=== PATIENT | female | born 1960 | race Caucasian/White ===

== ENCOUNTER 2016-02-27 14:36 | Observation (INO) | payer OTHER ==
[~2016-02-27] VITALS: Ht 165.1 cm; Wt 89.4 kg
[~2016-02-27 14:36] MED LIST: ABL10 PO; ALBUAER2 INH; ASPI81TA28 PO; CYCL10TA6 PO; DSY/150 PO; DTR5 PO; ESOM1CAP34 PO; GABA-112 PO; HYDR-3124 PO; LISI-461 PO; LPR25 PO; NXM/40 PO; OXYC-609 PO; TIOT1SPR INH; VALA1TAB31 PO; VENL150C PO
[2016-02-27] MEDS ORDERED: ARIP1TAB15 PO (15:11)
[2016-02-27] MEDS ORDERED: SUVO1TAB PO (15:11)
[2016-02-27] MEDS ORDERED: ONDANSETRON INJ 2 MG/ML 2 ML VIAL IV STA (15:12)
[2016-02-27] MEDS ORDERED: SODIUM CHLORIDE 0.9% 1000ML 1,000 ML IV STA (15:12)
[2016-02-27] MEDS ORDERED: HYDROmorphone INJ 1 MG/ML SYR IV PRN (15:15)
--- NOTE | 2016-02-27 16:31 | DIAGNOSTIC IMAGING REPORT ---
CHEST ONE VIEW PORTABLE CLINICAL HISTORY: Chest pain. COMPARISON STUDY: Chest CT December 26, 2015. FINDINGS: Lung volumes are normal. No pneumothorax or pleural effusions present. Cardiac size is normal. There is no evidence of pulmonary edema. No consolidation is identified to suggest pneumonia. IMPRESSION: No acute cardiopulmonary findings. Electronically signed by: Raffi Ham M.D. 02/27/2016 4:29 PM Dictated Date/Time: 02/27/2016 4:28 PM
--- NOTE | 2016-02-27 16:31 | DIAGNOSTIC IMAGING REPORT ---
CT SCAN OF THE ABDOMEN AND PELVIS WITHOUT CONTRAST CLINICAL HISTORY: Upper abdominal pain. History of Cindy plication. COMPARISON STUDY: 12/26/2015 TECHNIQUE: CT scan of the abdomen and pelvis was performed from the lung bases to the proximal femurs. Images are reviewed in the axial, sagittal, and coronal planes. IV contrast was not administered for this examination. CT DOSE: 959.49 mGycm FINDINGS: Lower chest: There is pulmonary emphysema. There is a hiatal hernia. There are small collections of contrast at the esophagogastric junction, possibly secondary to previously extravasated barium. Liver: There is a 5 mm hypodensity within the right hepatic lobe unchanged the prior study. Gallbladder: Unremarkable. Spleen: There are scattered splenic granulomata. Pancreas: Unremarkable. Adrenal glands: Unremarkable. Kidneys: The unenhanced kidneys are normal in size without hydronephrosis. There is no contour deforming renal mass lesion. No renal calculi are identified. Bowel: There are no transition zones indicate bowel obstruction. There is no acute diverticulitis. There is no evidence of acute appendicitis. Peritoneum: There is no intraperitoneal free air or abdominal ascites. Vasculature: The abdominal aorta is normal in course and caliber. Adenopathy: None. Pelvic viscera: The uterus appears surgically absent. Skeletal structures: No destructive osseous lesions are seen. IMPRESSION: 1. No evidence of bowel obstruction. No evidence of free air 2. Presumed postsurgical changes the level the esophagogastric junction 3. Stable too small to characterize 5 mm hepatic hypodensity 4. Surgically absent uterus 5. No evidence of acute appendicitis. No evidence of acute diverticulitis. Electronically signed by: Junior Gan M.D. 02/27/2016 4:30 PM Dictated Date/Time: 02/27/2016 4:22 PM
[2016-02-27 16:51] LABS: BASO % 0.6 %; BASO ABS # 0.07 K/uL (0-0.2); COMPLETE YES; EOS % 2.3 %; HEMATOCRIT 37.6 % (37-47); IG% 0.3 %; LYMPH % 30.7 %; LYMPH ABS # 3.54 K/uL (1.2-3.4); MEAN CELL VOLUME 88.5 fL (80-100); MEAN CORPUSCULAR HEMOGLOBIN 29.4 pg (25-34); MEAN CORPUSCULAR HGB CONC 33.2 g/dl (32-36); MEAN PLATELET VOLUME 9.6 fL (7.4-10.4); MONO % 6.8 %; NEUT % 59.3 %; PLATELET COUNT 338 K/uL (130-400); RED BLOOD COUNT 4.25 M/uL (4.2-5.4); WHITE BLOOD COUNT 11.54 K/uL (4.8-10.8)
[2016-02-27 17:20] LABS: ALT/SGPT 18 U/L (12-78); BLOOD UREA NITROGEN 11 mg/dl (7-18); CALCIUM 8.9 mg/dl (8.5-10.1); CARBON DIOXIDE 25 mmol/L (21-32); CHLORIDE 104 mmol/L (98-107); CREATININE 0.64 mg/dl (0.60-1.20); GLUCOSE 71 mg/dl (70-99); POTASSIUM 3.8 mmol/L (3.5-5.1); SODIUM 140 mmol/L (136-145)
[2016-02-27 17:26] LABS: ALKALINE PHOSPHATASE 107 U/L (45-117); AST/SGOT 12 U/L (15-37)
[2016-02-27] MEDS ORDERED: ASPIRIN 81 MG CHEW PO STA (17:42)
[2016-02-27] MEDS ORDERED: ALUMINUM/MAGNESIUM/SIMETH (MAALOX MAX) 30 ML UDC PO PRN (18:45)
[2016-02-27] MEDS ORDERED: ONDANSETRON INJ 2 MG/ML 2 ML VIAL IV PRN (18:45)
[2016-02-27] MEDS ORDERED: MoRPHine SULFATE 2 MG/ML CARP IV PRN (18:45)
[2016-02-27] MEDS ORDERED: CYCLOBENZAPRINE HCL 10 MG TAB PO PRN (19:00)
[2016-02-27] MEDS ORDERED: ALBUTEROL HFA 8 GM INHALER INH PRN (19:00)
[2016-02-27] MEDS ORDERED: hydrOXYzine HCL 25 MG TAB PO PRN (19:00)
[2016-02-27] MEDS: NITROGLYCERIN 0.4 MG SL PER TAB CHARGE SL PRN ×3 (19:53→20:09)
[2016-02-27 19:56] LABS: PROTHROMBIN TIME (PATIENT) 10.7 SECONDS (9.0-12.0)
[2016-02-27 19:57] VITALS: BP 107/70
[2016-02-27 20:00] VITALS: BP 129/78; PULSE 61; TEMP 36.6; O2SAT 94; Ht 165.1 cm; Wt 89.4 kg
[2016-02-27 20:09] VITALS: BP 110/67
[2016-02-27] MEDS ORDERED: IV FLUIDS COMPLETED PRN (20:15)
[2016-02-27] MEDS: NITROGLYCERIN OINT 2% 1GM PACKET EXT SCH (20:32)
[2016-02-27] MEDS: METOPROLOL TARTRATE 25 MG TAB PO SCH (20:33)
[2016-02-27] MEDS: GABAPENTIN 100 MG CAP PO SCH (20:33)
--- NOTE | 2016-02-27 20:36 | History and Physical ---
History & Physical Date & Time of Service: Feb 27, 2016 at 20:23 Chief Complaint: Chest Pain Primary Care Physician: Vivian Mead D.O. History of Present Illness Source: patient, family, clinic records, hospital records Patient seen and examined. 55 year old female with PMHx of HTN, tobacco abuse, COPD and other problems listed below presents to the ED complaining of chest pain prior to arrival. Patient states she was sitting at home when she developed a substernal chest pressure that she rates as a 8/10. She states it would radiate into the back. She reports some mild associated SOB as well as nausea and epigastric discomfort. She states the pain lasted for several hours and this prompted her to present to the ED. She reports she is currently pain free following Dilaudid. She denies fevers, chills, sweats, URI symptoms, palpitations, vomiting, diarrhea, dysuria, calf pain and edema. She denies person history of CAD, but states her father in his 50s from CAD. She states she has never had symptoms like this in the past. She had a stress test in the past which was negative. In the ED VS are stable, Karis are negative x 1, EKG is nonischemic. She received ASA. She will be observed for further workup and treatment. Past Medical/Surgical History Medical Problems: (1) Anxiety Status: Chronic (2) Depression Status: Chronic (3) Dyslipidemia Status: Chronic (4) Emphysema Status: Chronic (5) GERD (gastroesophageal reflux disease) Status: Chronic (6) Glaucoma Status: Chronic (7) H/o Lyme disease Status: Chronic (8) H/O subacute thyroiditis Status: Chronic (9) HTN (hypertension) Status: Chronic (10) Hx of migraines Status: Chronic (11) Lumbar degenerative disc disease Status: Chronic (12) DAYA (obstructive sleep apnea) Status: Chronic (13) Questonable history of meningitis Status: Chronic Surgical Problems: (1) H/O section Status: Chronic (2) H/O cystoscopy Status: Chronic (3) History of colonoscopy Permanent Comment: 07/11/14- diverticulosis Status: Chronic (4) History of esophagogastroduodenoscopy Permanent Comment: 07/11/14- small hiatal hernia, normal bx Status: Chronic (5) S/p carpal tunnel surgery Status: Chronic (6) S/P partial hysterectomy Status: Chronic (7) S/P sinus surgery Status: Chronic (8) S/P tonsillectomy and adenoidectomy Status: Chronic (9) S/P tubal ligation Status: Chronic (10) Status post Cindy fundoplication Status: Resolved Family History Cancer SISTER (breast CA) BROTHER (pancreatic CA) Diabetes mellitus SISTER (Type 1) FH: Parkinson's disease BROTHER FH: emphysema MOTHER Heart disease FATHER Hypertension MOTHER Seizures DAUGHTER Stroke MOTHER Social History Smoking Status: Current Every Day Smoker Alcohol Use: none Drug Use: none Marital Status: Housing status: lives with family Occupational Status: disabled Immunizations History of Influenza Vaccine: No History of Tetanus Vaccine?: Yes History of Pneumococcal: No History of Hepatitis B Vaccine: Unknown Multi-Drug Resistant Organisms History of MDRO: No Allergies Coded Allergies: Nitrofurantoin (Verified Allergy, Severe, UNABLE TO BEATHE, 12/26/15) Sulfamethoxazole w/Trimethoprim (Verified Allergy, Severe, SHORTNESS OF BREATH, 12/26/15) Home Medications Scheduled Aripiprazole (Abilify), 1 TAB PO QAM Aspirin (Aspirin Ec), 81 MG PO QAM Gabapentin (Neurontin), 200 MG PO TID Metoprolol Tartrate (Lopressor), 25 MG PO BID Oxybutynin Chloride (Oxybutynin Chloride), 5 MG PO QAM Suvorexant (Belsomra), 5 MG PO HS Tiotropium [place] Monohydrate (Spiriva Respimat), 2 PUFFS INH DAILY Trazodone HCl (Trazodone HCl), 150 MG PO HS Venlafaxine Hcl (Effexor Xr), 300 MG PO QAM Scheduled PRN Albuterol (Ventolin Hfa), 2 PUFFS INH QID PRN for SOB/Wheezing Cyclobenzaprine Hcl (Flexeril), 10 MG PO TID PRN for Muscle Spasm Hydroxyzine Hcl (Atarax), 25 MG PO Q8 PRN for Severe Anxiety Valacyclovir Hcl (Valtrex), 2 GM PO Q12 PRN for Cold Sores Review of Systems See above for pertinent positives & negatives. A total of 10 systems reviewed and were otherwise negative. Physical Exam Vital Signs Date Time Temp Pulse Resp B/P Pulse Ox O2 Delivery O2 Flow Rate FiO2 02/27/16 20:00 36.6 61 18 129/78 94 Room Air 02/27/16 18:43 66 18 118/72 97 Room Air 02/27/16 16:40 98 Room Air 02/27/16 16:22 77 18 137/79 96 Room Air 02/27/16 16:06 Room Air 02/27/16 15:23 70 02/27/16 14:42 36.6 74 18 130/76 94 General Appearance: + pertinent finding (WD/WN 55 year old female lying in bed in NAD with at bedside ) Head: normocephalic, atraumatic Eyes: PERRL, EOMI, sclerae normal ENT: hearing grossly normal, pharynx normal Neck: supple, no JVD, trachea midline Respiratory/Chest: chest non-tender, lungs clear, normal breath sounds, no respiratory distress, no accessory muscle use Cardiovascular: regular rate, rhythm, no edema, no gallop, no JVD, no murmur, normal peripheral pulses Abdomen/GI: normal bowel sounds, non tender, soft Back: normal inspection, no muscle spasm Extremities/Musculoskelatal: no calf tenderness, normal capillary refill, no pedal edema Neurologic/Psych: alert, oriented x 3, + pertinent finding (no motor or sensory deficits noted on gross exam ) Skin: normal color, warm/dry, no rash Lymphatic: no adenopathy Diagnostics Laboratory Results Results Past 24 Hours Test 02/27/16 16:36 Range/Units White Blood Count 11.54 4.8-10.8 K/uL Red Blood Count 4.25 4.2-5.4 M/uL Hemoglobin 12.5 12.0-16.0 g/dL Hematocrit 37.6 37-47 % Mean Corpuscular Volume 88.5 80-100 fL Mean Corpuscular Hemoglobin 29.4 25-34 pg Mean Corpuscular Hemoglobin Concent 33.2 32-36 g/dl Platelet Count 338 130-400 K/uL Mean Platelet Volume 9.6 7.4-10.4 fL Neutrophils (%) (Auto) 59.3 % Lymphocytes (%) (Auto) 30.7 % Monocytes (%) (Auto) 6.8 % Eosinophils (%) (Auto) 2.3 % Basophils (%) (Auto) 0.6 % Neutrophils # (Auto) 6.86 1.4-6.5 K/uL Lymphocytes # (Auto) 3.54 1.2-3.4 K/uL Monocytes # (Auto) 0.78 0.11-0.59 K/uL Eosinophils # (Auto) 0.26 0-0.5 K/uL Basophils # (Auto) 0.07 0-0.2 K/uL RDW Standard Deviation 52.4 36.4-46.3 fL RDW Coefficient of Variation 16.1 11.5-14.5 % Immature Granulocyte % (Auto) 0.3 % Immature Granulocyte # (Auto) 0.03 0.00-0.02 K/uL Prothrombin Time 10.7 9.0-12.0 SECONDS Prothromb Time International Ratio 1.0 0.9-1.1 Activated Partial Thromboplast Time 27.0 21.0-31.0 SECONDS Partial Thromboplastin Ratio 1.0 Sodium Level 140 136-145 mmol/L Potassium Level 3.8 3.5-5.1 mmol/L Chloride Level 104 98-107 mmol/L Carbon Dioxide Level 25 21-32 mmol/L Anion Gap 11.0 3-11 mmol/L Blood Urea Nitrogen 11 7-18 mg/dl Creatinine 0.64 0.60-1.20 mg/dl Est Creatinine Clear Calc Drug Dose 109.1 ml/min Estimated GFR () 117.3 Estimated GFR (Non- 101.2 BUN/Creatinine Ratio 17.0 10-20 Random Glucose 71 70-99 mg/dl Calcium Level 8.9 8.5-10.1 mg/dl Total Bilirubin 0.1 0.2-1 mg/dl Direct Bilirubin < 0.1 0-0.2 mg/dl Aspartate Amino Transf (AST/SGOT) 12 15-37 U/L Alanine Aminotransferase (ALT/SGPT) 18 12-78 U/L Alkaline Phosphatase 107 45-117 U/L Total Creatine Kinase 44 26-192 U/L Creatine Kinase MB < 0.5 0.5-3.6 ng/ml Creatine Kinase MB Ratio 0-3.0 Troponin I < 0.015 0-0.045 ng/ml Total Protein 7.1 6.4-8.2 gm/dl Albumin 3.4 3.4-5.0 gm/dl Lipase 96 73-393 U/L Diagnostic Radiology CT A/P Per radiologist read: IMPRESSION: 1. No evidence of bowel obstruction. No evidence of free air 2. Presumed postsurgical changes the level the esophagogastric junction 3. Stable too small to characterize 5 mm hepatic hypodensity 4. Surgically absent uterus 5. No evidence of acute appendicitis. No evidence of acute diverticulitis. CXR Per radiologist read: IMPRESSION: No acute cardiopulmonary findings. EKG NSR 74 BPM, QTc 426 Impression Assessment and Plan 55 year old female presents with chest pressure prior to arrival. CHEST PAIN R/O ACS -Observation in tele -First set of CE negative in ED -Had negative stress test in June 2015 -Risk factors: tobacco abuse, HTN, family history -Serial Karis and EKGs -Fasting lipid panel in AM -Echo pending to r/o heart wall abnormality -continue Nitro, BB -nitropaste ordered -Nitro, morphine prn chest pain -Cardiology consult for further management input appreciated - Patient request [facility] cardiology -AHA diet -CBC, PRP, Mg daily -VSS stable, monitor in tele HTN -stable -continue Lopressor COPD -stable -continue home inhalers TOBACCO ABUSE -Cessation counseling given -Nicotine patch ordered DEPRESSION -continue Abilify, trazodone, hydroxyzine DVT PROPHYLAXIS: Sq lovenox CODE STATUS: FULL CODE DISPO:observation pending further workup Patient seen in collaboration with Dr. Combs ATTENDING ADDENDUM Pt was seen and examined. Agree with Ros's PA exam, assessment and plan. Pt was brought to the ED with c/o of non exertional chest pain that radiated to her back. describes the pain as a pressure like. Chest pain associated with SOB and nausea. General- no acute distress Head- atraumatic Eyes- PERRL, EOMI ENT- oropharynx clear Neck- supple, no JVD Lungs- clear to auscultation and percussion Heart- regular rhythm Abdomen- normal bowel sounds, soft, nontender A/P CHEST PAIN Need to R/O ACS Had negative stress test in June 2015 Risk factors: tobacco abuse, HTN, family history 1s set CM negative, will follow 2 more sets EKG did not showed any significant ST changes will get an echo in am repeat EKG in am cardiology consult Lab, EKG, Xray reviewed Please refer to Ros's PA documentation for other problem Imani Combs MD Advanced Directives Existing Advance Directive: No Existing Living Will: No Existing Power of Tracer Bullet Charging Machine Operator: No VTE Prophylaxis VTE Risk Assessment Done? Y/N: Yes Risk Level: Moderate
[2016-02-27] MEDS ORDERED: ENOXAPARIN 40 MG/0.4 ML SYR SC SCH (21:00)
[2016-02-27] MEDS ORDERED: TRAZODONE HCL 50 MG TAB PO SCH ×2 (21:00)
--- NOTE | 2016-02-27 22:30 | EMERGENCY ROOM VISIT NOTE ---
History Report prepared by Valdo: Yelitza Carmona Under the Supervision of: Dr. Jose Bernal M.D. First contact with patient: 15:02 Chief Complaint: CHEST PAIN Stated Complaint: CHEST PAIN & STOMACH PAIN History of Present Illness The patient is a 55 year old female who presents to the Emergency Room with complaints of persistent chest pain that began this morning. She states that it began while she was sitting around and is currently a 7/10 in severity. It radiates through her back. The patient has had similar chest pain in the past but does not have a history of heart disease. She also complains of nausea and epigastric abdominal pain which she describes as a pressure. She has noticed herself wheezing recently. She had a fundoplication surgery this past December and has had some gas pain since then. Her current abdominal pain does feel similar to the pain she has been having since her surgery. Past medical history includes high cholesterol. She is not on medications for her high cholesterol. She is a smoker. No personal history of diabetes. There is a family history of heart disease. Pt denies LOC, headache, fevers, chills, diaphoresis, visual changes, neck pain, vomiting, melena, hematochezia, urinary symptoms, numbness, weakness, lymphadenopathy, rash, or other complaints. Source of History: patient Onset: this morning Position: chest Symptom Intensity: 7/10 Timing: other (persistent) Associated Symptoms: + abdominal pain, + nausea Note: Other symptoms: wheezing Review of Systems See HPI for pertinent positives and negatives. A total of ten systems were reviewed and were otherwise negative. Past Medical & Surgical Medical Problems: (1) Anxiety (2) Chest pain (3) Depression (4) Dyslipidemia (5) Emphysema (6) GERD (gastroesophageal reflux disease) (7) Glaucoma (8) H/o Lyme disease (9) H/O subacute thyroiditis (10) HTN (hypertension) (11) Hx of migraines (12) Lumbar degenerative disc disease (13) DAYA (obstructive sleep apnea) (14) Questonable history of meningitis Surgical Problems: (1) H/O section (2) H/O cystoscopy (3) History of colonoscopy (4) History of esophagogastroduodenoscopy (5) S/p carpal tunnel surgery (6) S/P partial hysterectomy (7) S/P sinus surgery (8) S/P tonsillectomy and adenoidectomy (9) S/P tubal ligation (10) Status post Cindy fundoplication Family History Cancer SISTER (breast CA) BROTHER (pancreatic CA) Diabetes mellitus SISTER (Type 1) FH: Parkinson's disease BROTHER FH: emphysema MOTHER Heart disease FATHER Hypertension MOTHER Seizures DAUGHTER Stroke MOTHER Social History Smoking Status: Current Every Day Smoker Alcohol Use: none Drug Use: none Marital Status: Housing Status: lives with family Occupation Status: disabled Current/Historical Medications Scheduled Aripiprazole (Abilify), 1 TAB PO QAM Aspirin (Aspirin Ec), 81 MG PO QAM Gabapentin (Neurontin), 200 MG PO TID Metoprolol Tartrate (Lopressor), 25 MG PO BID Oxybutynin Chloride (Oxybutynin Chloride), 5 MG PO QAM Suvorexant (Belsomra), 5 MG PO HS Tiotropium Rake Monohydrate (Spiriva Respimat), 2 PUFFS INH DAILY Trazodone HCl (Trazodone HCl), 150 MG PO HS Venlafaxine Hcl (Effexor Xr), 300 MG PO QAM Scheduled PRN Albuterol (Ventolin Hfa), 2 PUFFS INH QID PRN for SOB/Wheezing Cyclobenzaprine Hcl (Flexeril), 10 MG PO TID PRN for Muscle Spasm Hydroxyzine Hcl (Atarax), 25 MG PO Q8 PRN for Severe Anxiety Valacyclovir Hcl (Valtrex), 2 GM PO Q12 PRN for Cold Sores Allergies Coded Allergies: Nitrofurantoin (Verified Allergy, Severe, UNABLE TO BEATHE, 12/26/15) Sulfamethoxazole w/Trimethoprim (Verified Allergy, Severe, SHORTNESS OF BREATH, 12/26/15) Physical Exam Vital Signs Date Time Temp Pulse Resp B/P Pulse Ox O2 Delivery O2 Flow Rate FiO2 02/27/16 18:43 66 18 118/72 97 Room Air 02/27/16 16:40 98 Room Air 02/27/16 16:22 77 18 137/79 96 Room Air 02/27/16 16:06 Room Air 02/27/16 15:23 70 02/27/16 14:42 36.6 74 18 130/76 94 Physical Exam GENERAL: Awake, alert, uncomfortable-appearing, in no distress HENT: Normocephalic, atraumatic. Oropharynx unremarkable. EYES: Normal conjunctiva. Sclera non-icteric. NECK: Supple. No nuchal rigidity. FROM. No JVD. RESPIRATORY: Slight scattered wheezes to auscultation. CARDIAC: Regular rate, normal rhythm. Extremities warm and well perfused. Pulses equal. ABDOMEN: Soft, non-distended. Epigastric tenderness to palpation. No rebound or guarding. No masses. RECTAL: Deferred. MUSCULOSKELETAL: Chest examination reveals no tenderness. The back is symmetrical on inspection without obvious abnormality. There is no CVA tenderness to palpation. No joint edema. LOWER EXTREMITIES: Calves are equal size bilaterally and non-tender. No edema. No discoloration. NEURO: Normal sensorium. No sensory or motor deficits noted. SKIN: No rash or jaundice noted. Medical Decision & Procedures ER Provider Diagnostic Interpretation: X ray results as stated below per my interpretation and radiologist interpretation. Other radiology results as stated below per my review and radiologist interpretation CHEST ONE VIEW PORTABLE CLINICAL HISTORY: Chest pain. COMPARISON STUDY: Chest CT December 26, 2015. FINDINGS: Lung volumes are normal. No pneumothorax or pleural effusions present. Cardiac size is normal. There is no evidence of pulmonary edema. No consolidation is identified to suggest pneumonia. IMPRESSION: No acute cardiopulmonary findings. Electronically signed by: Raffi Ham M.D. 02/27/2016 4:29 PM Dictated Date/Time: 02/27/2016 4:[address] SCAN OF THE ABDOMEN AND PELVIS WITHOUT CONTRAST CLINICAL HISTORY: Upper abdominal pain. History of Cindy plication. COMPARISON STUDY: 12/26/2015 TECHNIQUE: CT scan of the abdomen and pelvis was performed from the lung bases to the proximal femurs. Images are reviewed in the axial, sagittal, and coronal planes. IV contrast was not administered for this examination. CT DOSE: 959.49 mGycm FINDINGS: Lower chest: There is pulmonary emphysema. There is a hiatal hernia. There are small collections of contrast at the esophagogastric junction, possibly secondary to previously extravasated barium. Liver: There is a 5 mm hypodensity within the right hepatic lobe unchanged the prior study. Gallbladder: Unremarkable. Spleen: There are scattered splenic granulomata. Pancreas: Unremarkable. Adrenal glands: Unremarkable. Kidneys: The unenhanced kidneys are normal in size without hydronephrosis. There is no contour deforming renal mass lesion. No renal calculi are identified. Bowel: There are no transition zones indicate bowel obstruction. There is no acute diverticulitis. There is no evidence of acute appendicitis. Peritoneum: There is no intraperitoneal free air or abdominal ascites. Vasculature: The abdominal aorta is normal in course and caliber. Adenopathy: None. Pelvic viscera: The uterus appears surgically absent. Skeletal structures: No destructive osseous lesions are seen. IMPRESSION: 1. No evidence of bowel obstruction. No evidence of free air 2. Presumed postsurgical changes the level the esophagogastric junction 3. Stable too small to characterize 5 mm hepatic hypodensity 4. Surgically absent uterus 5. No evidence of acute appendicitis. No evidence of acute diverticulitis. Electronically signed by: Junior Gan M.D. 02/27/2016 4:30 PM Dictated Date/Time: 02/27/2016 4:22 PM Laboratory Results 02/27/16 16:36 Red Blood Count 4.25, Mean Corpuscular Volume 88.5, Mean Corpuscular Hemoglobin 29.4, Mean Corpuscular Hemoglobin Concent 33.2, Mean Platelet Volume 9.6, Neutrophils (%) (Auto) 59.3, Lymphocytes (%) (Auto) 30.7, Monocytes (%) (Auto) 6.8, Eosinophils (%) (Auto) 2.3, Basophils (%) (Auto) 0.6, Neutrophils # (Auto) 6.86, Lymphocytes # (Auto) 3.54, Monocytes # (Auto) 0.78, Eosinophils # (Auto) 0.26, Basophils # (Auto) 0.07 02/27/16 16:36 Test 02/27/16 16:36 White Blood Count 11.54 K/uL (4.8-10.8) Red Blood Count 4.25 M/uL (4.2-5.4) Hemoglobin 12.5 g/dL (12.0-16.0) Hematocrit 37.6 % (37-47) Mean Corpuscular Volume 88.5 fL (80-100) Mean Corpuscular Hemoglobin 29.4 pg (25-34) Mean Corpuscular Hemoglobin Concent 33.2 g/dl (32-36) Platelet Count 338 K/uL (130-400) Mean Platelet Volume 9.6 fL (7.4-10.4) Neutrophils (%) (Auto) 59.3 % Lymphocytes (%) (Auto) 30.7 % Monocytes (%) (Auto) 6.8 % Eosinophils (%) (Auto) 2.3 % Basophils (%) (Auto) 0.6 % Neutrophils # (Auto) 6.86 K/uL (1.4-6.5) Lymphocytes # (Auto) 3.54 K/uL (1.2-3.4) Monocytes # (Auto) 0.78 K/uL (0.11-0.59) Eosinophils # (Auto) 0.26 K/uL (0-0.5) Basophils # (Auto) 0.07 K/uL (0-0.2) RDW Standard Deviation 52.4 fL (36.4-46.3) RDW Coefficient of Variation 16.1 % (11.5-14.5) Immature Granulocyte % (Auto) 0.3 % Immature Granulocyte # (Auto) 0.03 K/uL (0.00-0.02) Prothrombin Time 10.7 SECONDS (9.0-12.0) Prothromb Time International Ratio 1.0 (0.9-1.1) Activated Partial Thromboplast Time 27.0 SECONDS (21.0-31.0) Partial Thromboplastin Ratio 1.0 Anion Gap 11.0 mmol/L (3-11) Est Creatinine Clear Calc Drug Dose 109.1 ml/min Estimated GFR () 117.3 Estimated GFR (Non- 101.2 BUN/Creatinine Ratio 17.0 (10-20) Calcium Level 8.9 mg/dl (8.5-10.1) Total Bilirubin 0.1 mg/dl (0.2-1) Direct Bilirubin < 0.1 mg/dl (0-0.2) Aspartate Amino Transf (AST/SGOT) 12 U/L (15-37) Alanine Aminotransferase (ALT/SGPT) 18 U/L (12-78) Alkaline Phosphatase 107 U/L (45-117) Total Creatine Kinase 44 U/L (26-192) Creatine Kinase MB < 0.5 ng/ml (0.5-3.6) Creatine Kinase MB Ratio (0-3.0) Troponin I < 0.015 ng/ml (0-0.045) Total Protein 7.1 gm/dl (6.4-8.2) Albumin 3.4 gm/dl (3.4-5.0) Lipase 96 U/L (73-393) Laboratory results reviewed by me Medications Administered Medications (Trade) Dose Ordered Sig/Ross Route Start Time Stop Time Status Last Admin Dose Admin Sodium Chloride (Nss 1000ml) 1,000 ml @ 125 mls/hr Q8H STAT IV 02/27/16 15:12 02/27/16 19:40 DC 02/27/16 15:12 125 MLS/HR Ondansetron HCl (Zofran Inj) 4 mg NOW STAT IV 02/27/16 15:12 02/27/16 15:16 DC 02/27/16 15:59 4 MG Hydromorphone HCl (Dilaudid Inj) 1 mg Q15M PRN IV 02/27/16 15:15 02/27/16 20:03 DC 02/27/16 15:59 1 MG Aspirin (Aspirin Chew) 324 mg NOW STAT PO 02/27/16 17:42 02/27/16 17:43 DC 02/27/16 17:50 324 MG ECG Indication: chest pain Rate (beats per minute): 74 Rhythm: normal sinus Findings: T-wave inversion (Septal), no ectopy Comparison ECG Date: 11/22/15 Change: T-wave inversions are new compared to previous tracing. ED Course 1507: The patient was evaluated in room B4. A complete history and physical exam was performed. 1512: Ordered Zofran Inj 4 mg IV, NSS 1000 ml @ 125 mls/hr IV, Dilaudid Inj 1 mg IV. 1742: Ordered Aspirin 324 mg PO. 1807: Upon reexamination, the patient was resting comfortably. I discussed the test results and treatment plan with her. The patient will be evaluated for further management. 1815: I discussed the case with Ros Marrufo PA-C - [facility]. The patient will be evaluated for further management. Medical Decision Triage Nursing notes reviewed. The patient's presentation and history were concerning for abdominal and chest pain. Etiologies such as cardiac ischemia, gastrointestinal, aortic dissection, pulmonary embolism, pneumonia, pneumothorax, musculoskeletal, infections, as well as others were entertained. The patient was evaluated. She is uncomfortable. She was given fluid, Zofran, and Dilaudid. She felt much better with this. Her ECG does show a new T-wave inversion. The patient had a slight leukocytosis. She was tender in the upper abdomen. A CT scan was performed. Chemistry panel LFTs and lipase were normal. Cardiac markers were normal. The patient was reassessed. She was doing better. Aspirin was given. I discussed further evaluation and management in the hospital given the ECG and her complaints. The patient and were in agreement. Consultation was placed with the [facility] service. I did discuss the option of ordering right upper quadrant ultrasound and they would like to see the patient first. The patient was evaluated in the Emergency Room for further treatment. The chart was completed utilizing [employer] Speech voice recognition software. Grammatical errors, random word insertions, pronoun errors, and incomplete sentences are an occasional consequence of this system due to software limitations, ambient noise, and hardware issues. Any formal questions or concerns about the content, text, or information contained within the body of this dictation should be directly addressed to the physician for clarification. Consults Time Called: 1809 Consulting Physician: Ros Marrufo PA-C - [facility] Returned Call: [phone] I discussed the case with her. The patient will be evaluated for further management. Impression Primary Impression: Substernal chest pain Additional Impression: Epigastric abdominal pain Scribe Attestation The scribe's documentation has been prepared under my direction and personally reviewed by me in its entirety. I confirm that the note above accurately reflects all work, treatment, procedures, and medical decision making performed by me. Departure Information Dispostion Being Evaluated By Hospitalist Referrals Vivian Mead D.O. (PCP) Patient Instructions A Signature Page, [facility]
[2016-02-27 23:22] LABS: CKMB/CK RATIO 1.6 (0-3.0)
[2016-02-27 23:41] VITALS: BP 103/63; PULSE 56; TEMP 36.4; O2SAT 93
[2016-02-28 00:01] VITALS: O2SAT 93
[2016-02-28 01:53] VITALS: BP 92/58
[2016-02-28] MEDS: NITROGLYCERIN OINT 2% 1GM PACKET EXT SCH ×3 (02:00→12:09)
[2016-02-28] MEDS ORDERED: NURSING VERBAL MED ORDER ONE (02:15)
[2016-02-28 03:32] VITALS: BP 115/74; PULSE 73; TEMP 36.4; O2SAT 93
[2016-02-28 05:08] LABS: HEMATOCRIT 36.4 % (37-47); MEAN CELL VOLUME 89.2 fL (80-100); MEAN CORPUSCULAR HEMOGLOBIN 28.4 pg (25-34); MEAN CORPUSCULAR HGB CONC 31.9 g/dl (32-36); MEAN PLATELET VOLUME 9.6 fL (7.4-10.4); PLATELET COUNT 304 K/uL (130-400); RED BLOOD COUNT 4.08 M/uL (4.2-5.4)
[2016-02-28 05:27] LABS: BLOOD UREA NITROGEN 12 mg/dl (7-18); BUN/CREATININE RATIO 19.2 (10-20); CALCIUM 8.4 mg/dl (8.5-10.1); CARBON DIOXIDE 27 mmol/L (21-32); CHLORIDE 107 mmol/L (98-107); CREATININE 0.63 mg/dl (0.60-1.20); GLUCOSE 80 mg/dl (70-99); MAGNESIUM 2.2 mg/dl (1.8-2.4); SODIUM 141 mmol/L (136-145)
[2016-02-28 05:32] LABS: CHOLESTEROL 188 mg/dl (0-200); HDL CHOLESTEROL 63 mg/dl; LDL CHOLESTEROL CALCULATED 102 mg/dl; TRIGLYCERIDES 114 mg/dl (0-150); VERY LOW DENSITY LIPOPROT CALC 23 mg/dl
[2016-02-28 07:38] VITALS: BP 114/77; PULSE 52; TEMP 36.5; O2SAT 96
[2016-02-28] MEDS ORDERED: TIOTROPIUM BROMIDE 5 PUFF/90 MCG INH INH SCH (09:00)
[2016-02-28] MEDS ORDERED: ASPIRIN 81 MG ECTAB PO SCH (09:00)
[2016-02-28] MEDS ORDERED: OXYBUTYNIN CHLORIDE 5 MG TAB PO SCH (09:00)
[2016-02-28] MEDS ORDERED: VENLAFAXINE HCL XR 150 MG CAPXR PO SCH (09:00)
[2016-02-28] MEDS ORDERED: ARIPIprazole TAB 10 MG TAB PO SCH (09:00)
[2016-02-28] MEDS ORDERED: NICOTINE 14 MG/24 HR TDSY TD SCH (09:00)
[2016-02-28] MEDS: ACETAMINOPHEN 325 MG TAB PO PRN ×2 (09:15→14:32)
[2016-02-28] MEDS: GABAPENTIN 100 MG CAP PO SCH ×2 (09:19→14:32)
[2016-02-28] MEDS: METOPROLOL TARTRATE 25 MG TAB PO SCH (11:03)
[2016-02-28 11:44] VITALS: BP 108/70; PULSE 57; TEMP 36.6; O2SAT 96
--- NOTE | 2016-02-28 11:57 | Progress Note ---
Medicine Progress Note Date & Time of Visit: Feb 28, 2016 at 11:45. Subjective Pt was seen and examined Lying in bed comfortable with no distress Pt said that she feels much better she is very anxious to go home today denies any palpitation, dizziness, SOB and Chest pain Objective Last 8 Hrs Date Time Temp Pulse Resp B/P Pulse Ox O2 Delivery O2 Flow Rate FiO2 02/28/16 07:38 36.5 52 18 114/77 96 Room Air 02/28/16 04:00 Room Air Physical Exam: General- no acute distress Head- atraumatic Eyes- PERRL, EOMI ENT- oropharynx clear Neck- supple, no JVD Lungs- clear to auscultation and percussion Heart- regular rhythm; no murmur Abdomen- normal bowel sounds, soft Extremities- no pretibial edema, no calf tenderness Neuro- alert, oriented x 3; PERRL, EOMI; no facial palsy; Skin- warm & dry Laboratory Results: Last 24 Hours Test 02/27/16 16:36 02/27/16 22:27 02/28/16 04:50 White Blood Count 11.54 K/uL 6.30 K/uL Red Blood Count 4.25 M/uL 4.08 M/uL Hemoglobin 12.5 g/dL 11.6 g/dL Hematocrit 37.6 % 36.4 % Mean Corpuscular Volume 88.5 fL 89.2 fL Mean Corpuscular Hemoglobin 29.4 pg 28.4 pg Mean Corpuscular Hemoglobin Concent 33.2 g/dl 31.9 g/dl Platelet Count 338 K/uL 304 K/uL Mean Platelet Volume 9.6 fL 9.6 fL Neutrophils (%) (Auto) 59.3 % Lymphocytes (%) (Auto) 30.7 % Monocytes (%) (Auto) 6.8 % Eosinophils (%) (Auto) 2.3 % Basophils (%) (Auto) 0.6 % Neutrophils # (Auto) 6.86 K/uL Lymphocytes # (Auto) 3.54 K/uL Monocytes # (Auto) 0.78 K/uL Eosinophils # (Auto) 0.26 K/uL Basophils # (Auto) 0.07 K/uL RDW Standard Deviation 52.4 fL 53.1 fL RDW Coefficient of Variation 16.1 % 16.2 % Immature Granulocyte % (Auto) 0.3 % Immature Granulocyte # (Auto) 0.03 K/uL Prothrombin Time 10.7 SECONDS Prothromb Time International Ratio 1.0 Activated Partial Thromboplast Time 27.0 SECONDS Partial Thromboplastin Ratio 1.0 Sodium Level 140 mmol/L 141 mmol/L Potassium Level 3.8 mmol/L 4.0 mmol/L Chloride Level 104 mmol/L 107 mmol/L Carbon Dioxide Level 25 mmol/L 27 mmol/L Anion Gap 11.0 mmol/L 7.0 mmol/L Blood Urea Nitrogen 11 mg/dl 12 mg/dl Creatinine 0.64 mg/dl 0.63 mg/dl Est Creatinine Clear Calc Drug Dose 109.1 ml/min 113.2 ml/min Estimated GFR () 117.3 117.9 Estimated GFR (Non- 101.2 101.7 BUN/Creatinine Ratio 17.0 19.2 Random Glucose 71 mg/dl 80 mg/dl Calcium Level 8.9 mg/dl 8.4 mg/dl Total Bilirubin 0.1 mg/dl Direct Bilirubin < 0.1 mg/dl Aspartate Amino Transf (AST/SGOT) 12 U/L Alanine Aminotransferase (ALT/SGPT) 18 U/L Alkaline Phosphatase 107 U/L Total Creatine Kinase 44 U/L 38 U/L 36 U/L Creatine Kinase MB < 0.5 ng/ml 0.6 ng/ml < 0.5 ng/ml Creatine Kinase MB Ratio 1.6 Troponin I < 0.015 ng/ml < 0.015 ng/ml < 0.015 ng/ml Total Protein 7.1 gm/dl Albumin 3.4 gm/dl Lipase 96 U/L Magnesium Level 2.2 mg/dl Triglycerides Level 114 mg/dl Cholesterol Level 188 mg/dl HDL Cholesterol 63 mg/dl LDL Cholesterol, Calculated 102 mg/dl VLDL Cholesterol, Calculated 23 mg/dl Cholesterol/HDL Ratio 3.0 Hepatitis C Antibody Screen NEG Assessment & Plan CHEST PAIN Mostly atypical Need to R/O ACS Had negative dobutamine stress test in June 2015 Risk factors: tobacco abuse, HTN, family history 3 sets CM negative repeat EKG this morning did not showed any significant ST changes discussed case with Cardiology Dr. Casillas No further cardiac testing or interventional needed at this time as per cardio Resting echo shown no wall motion abnormality from cardiology standpoint, pt is stable to discharge home today HTN -stable -continue Lopressor COPD -stable -continue home inhalers TOBACCO ABUSE -Cessation counseling given -Nicotine patch ordered DEPRESSION -continue Abilify, trazodone, hydroxyzine DVT PROPHYLAXIS: Sq lovenox CODE STATUS: FULL CODE DISPOSITION WILL DISCHARGE HOME TODAY Consultants: Cardiology Current Inpatient Medications: Current Inpatient Medications Medications (Trade) Dose Ordered Sig/Ross Route Start Time Stop Time Status Last Admin Dose Admin Enoxaparin Sodium (Lovenox Inj) 40 mg Q24H SC 02/27/16 21:00 03/28/16 20:59 02/27/16 21:03 40 MG Acetaminophen (Tylenol Tab) 650 mg Q4H PRN PO 02/27/16 18:45 03/28/16 18:44 02/28/16 09:15 650 MG Al Hydrox/Mg Hydrox/Simethicone (Maalox Max Susp) 15 ml Q4H PRN PO 02/27/16 18:45 03/28/16 18:44 Ondansetron HCl (Zofran Inj) 4 mg Q6H PRN IV 02/27/16 18:45 03/28/16 18:44 Nitroglycerin (Nitrostat Tab) 0.4 mg UD PRN SL 02/27/16 18:45 03/28/16 18:44 02/27/16 20:09 0.4 MG Nitroglycerin (Nitroglycerin 2% Oint) 1 inch Q6H EXT 02/27/16 20:00 03/28/16 18:44 02/28/16 09:20 1 INCH Morphine Sulfate (MoRPHine SULFATE INJ) 2 mg Q2H PRN IV 02/27/16 18:45 03/12/16 18:44 Nicotine (Nicoderm Cq 14MG Patch) 1 patch QAM TD 02/28/16 09:00 03/29/16 08:59 Miscellaneous (Remove Nicoderm Patch) 1 ea HS N/A 02/27/16 21:00 03/28/16 20:59 Albuterol (Ventolin Hfa Inhaler) 2 puffs QID PRN INH 02/27/16 19:00 03/28/16 18:59 Aripiprazole (Abilify Tab) 10 mg QAM PO 02/28/16 09:00 03/29/16 08:59 02/28/16 09:19 10 MG Aspirin (Ecotrin Tab) 81 mg QAM PO 02/28/16 09:00 03/29/16 08:59 02/28/16 09:19 81 MG Cyclobenzaprine HCl (Flexeril Tab) 10 mg TID PRN PO 02/27/16 19:00 03/28/16 18:59 Gabapentin (Neurontin Cap) 200 mg TID PO 02/27/16 21:00 03/28/16 20:59 02/28/16 09:19 200 MG Hydroxyzine HCl (Vistaril Tab) 25 mg Q8 PRN PO 02/27/16 19:00 03/28/16 18:59 Metoprolol Tartrate (Lopressor Tab) 25 mg BID PO 02/27/16 21:00 03/28/16 20:59 02/28/16 11:03 25 MG Oxybutynin Chloride (Ditropan Tab) 5 mg QAM PO 02/28/16 09:00 03/29/16 08:59 02/28/16 09:17 5 MG Venlafaxine HCl (effeXOR EXTENDED REL CAP) 300 mg QAM PO 02/28/16 09:00 03/29/16 08:59 02/28/16 09:17 300 MG Miscellaneous Information (Order Awaiting Action) 1 ea QS N/A 02/28/16 00:00 03/29/16 00:00 Tiotropium Idanha (Spiriva Handihaler Inhaler) 1 puff DAILY INH 02/28/16 09:00 03/29/16 08:59 02/28/16 09:16 1 PUFF Trazodone HCl (Desyrel Tab) 150 mg HS PO 02/27/16 21:00 03/28/16 20:59 02/27/16 20:32 150 MG Miscellaneous (Iv Fluids Completed) 1 ea PRN PRN N/A 02/27/16 20:15 02/26/17 20:14
--- NOTE | 2016-02-28 12:05 | CARDIOLOGY CONSULTATION ---
DATE OF CONSULTATION: 02/28/2016 DATE OF CONSULTATION: 02/28/2016. PERTINENT HISTORY: Mrs. Guido is a 55-year-old white female admitted yesterday with a chest pain syndrome. This consultation was ordered to assist in her management. The patient claims she was in her usual state of health until yesterday afternoon when she developed substernal chest pressure while seated in a chair watching television. There were no other associated symptoms such as shortness of breath, nausea, vomiting, diaphoresis, or radiation of the discomfort. The discomfort did not intensify with physical activity. After approximately 3 hours, she presented to the Emergency Room for further care. According to her report, her discomfort resolved with the administration of Dilaudid. She has had no recurrence of her discomfort since that time. She has never experienced classic exertional angina pectoris. She has never known of a cardiac event. She denies exertional dyspnea, syncope, presyncope, PND, orthopnea, palpitations, lower extremity edema. The patient did have a negative dobutamine stress echocardiogram in July 2015 when it began with an atypical chest pain syndrome. Currently, the patient is resting comfortably in bed without complaints. She is anxious for hospital discharge. PAST MEDICAL HISTORY: 1. Hypertension. 2. Hypercholesterolemia. 3. COPD. 4. GERD. 5. Hiatal hernia. 6. Anxiety/depression. 7. Obstructive sleep apnea. 8. History of thyroiditis. 9. Partial hysterectomy. 10. Tonsillectomy. 11. Cindy fundoplication. 12. Diverticulosis. 13. History of . 14. Migraine headaches. 15. History of Lyme disease. ALLERGIES: 1. NITROFURANTION. 2. BACTRIM. MEDICATIONS: 1. Aspirin 81 mg b.i.d. 2. Lopressor 25 mg b.i.d. 3. Lovenox 40 mg subQ daily. 4. Ditropan 5 mg daily. 5. Effexor XR 300 mg daily. 6. Abilify 10 mg daily. 7. Desyrel 150 mg daily. 8. Neurontin 200 mg t.i.d. 9. Spiriva 1 puff daily. 10. Nicoderm patch daily. SOCIAL HISTORY: The patient is and lives with her . Admits to one-half pack of cigarettes daily. Does not use alcohol. No recreational drugs. FAMILY HISTORY: Father at the age of 58 from an [place]. Mother at 69 from complications of COPD. DATA: CBC notes hemoglobin 11.6, hematocrit 36.4, white count 6.3, platelet count 304,000. Electrolytes note a sodium of 141, potassium 4.0, chloride 107, bicarb 27, BUN 12, creatinine 0.6, glucose 80. Magnesium level is normal at 2.2. Troponin I level is undetectable at less than 0.015 x3. Three CKs are normal at 44, 38 and 36 with undetectable MB fractions. Fasting lipid panel notes an LDL cholesterol of 102 and HDL 63. EKG notes sinus bradycardia with sinus arrhythmia. Chest x-ray shows no acute disease. IMPRESSION: Mrs. Guido was admitted with an atypical chest pain syndrome. She has no ischemic EKG changes and 3 undetectable troponin isoenzymes. This is clearly not myocardial ischemia. No need for further cardiac testing. She does have a negative dobutamine stress test in July. PLAN: 1. Continue usual outpatient medications. 2. Review echocardiogram in its entirety. 3. No further cardiac testing necessary.
--- NOTE | 2016-02-28 14:19 | Discharge Instructions ---
Discharge Instructions Admission Reason for Admission: Chest Pain Discharge Discharge Diagnosis / Problem: Atypical Chest pain, Tobacco abuse, COPD Discharge Goals Goal(s): Decrease discomfort, Improve function, Improve disease control Activity Recommendations Activity Limitations: resume your previous activity (as tolerated) . Instructions / Follow-Up Instructions / Follow-Up Follow up with your primary care physician Dr. Mead on 03/09 at 1:20 pm Advised and Counseling patient on smoking cessation Current Hospital Diet Patient's current hospital diet: AHA Diet (Heart Healthy) Discharge Diet Recommended Diet: AHA Diet (Heart Healthy) Pending Studies Studies pending at discharge: no Laboratory Results Lipid Panel Test 02/28/16 04:50 Range/Units Triglycerides Level 114 0-150 mg/dl Cholesterol Level 188 0-200 mg/dl HDL Cholesterol 63 mg/dl Cholesterol/HDL Ratio 3.0 LDL Cholesterol, Calculated 102 mg/dl Medical Emergencies . Who to Call and When: Medical Emergencies: If at any time you feel your situation is an emergency, please call 911 immediately. . Non-Emergent Contact Non-Emergency issues call your: Primary Care Provider Call Non-Emergent contact if: you have any medication questions . . "Provider Documentation" section prepared by Imani Combs. VTE Core Measure Inpt VTE Proph given/why not?: Enoxaparin (Lovenox)SQ
[2016-02-28 14:50] VITALS: BP 108/70; PULSE 57; TEMP 36.6; O2SAT 96
--- NOTE | 2016-02-29 11:00 | ECHOCARDIOGRAM REPORT ---
*NOTICE TO RECEIVING CONSTITUTION PARTY AGENCY This information is strictly Confidential and protected under [place] law. [place] law prohibits you from making any further disclosure of this information unless further disclosure is expressly permitted by the written consent of the person to whom it pertains or is authorized by law. A general authorization for the release of medical or other information is not sufficient for this purpose. Hospital accepts no responsibility if the information is made available to any other person, INCLUDING THE PATIENT. Interpretation Summary * Name: LAN BREWER Study Date: 02/28/2016 09:56 AM BP: 108/70 mmHg * Patient Location: C.2T\S\S241\S\2 HR: 60 * : 1960 (M/d/yyyy) Gender: Female Height: 65 in * Age: 55 yrs Ethnicity: [place] Weight: 190 lb * Ordering Physician: Ros Marrufo * Referring Physician: Self, Referred * Performed By: Neil Marrufo RDCS * * Reason For Study: Chest pain * BSA: 1.9 m2 * -- Conclusions -- * Left ventricular systolic function is normal. * No regional wall motion abnormalities noted. * Ejection Fraction = 60-65%. * There is mild tricuspid regurgitation. Procedure Details * A complete two-dimensional transthoracic echocardiogram was performed (2D, M-mode, Doppler and color flow Doppler). * The study was technically limited. * The study was technically adequate. Left Ventricle * The left ventricle is normal in size. * There is borderline concentric left ventricular hypertrophy. * Left ventricular systolic function is normal. * Ejection Fraction = 60-65%. * No regional wall motion abnormalities noted. Right Ventricle * The right ventricular cavity size is normal (basal dimension <4.2 cm in right ventricular apical 4-chamber view). * The right ventricular systolic function is normal as assessed by tricuspid annular plane systolic excursion (TAPSE) (normal >1.5 cm). Atria * The left atrial size is normal. * Right atrial size is normal. * There is no evidence of atrial septal defect, but resolution does not allow assessment for a patent foramen ovale. Mitral Valve * The mitral valve anatomy is normal. * There is no mitral valve stenosis. * There is trace mitral regurgitation. Tricuspid Valve * The tricuspid valve is not well visualized, but is grossly normal. * There is no tricuspid stenosis. * There is mild tricuspid regurgitation. Aortic Valve * The aortic valve is normal in structure and function. * No hemodynamically significant valvular aortic stenosis. * No aortic regurgitation is present. Pulmonic Valve * The pulmonary valve is not well seen, but the Doppler examination is normal without significant regurgitation or stenosis. Great Vessels * The aortic root is normal size. Pericardium/Pleural * There is no pericardial effusion. Great Vessels * Normal inferior vena cava size and collapsability with sniff indicates a normal right atrial pressure of 3 mmHg MMode 2D Measurements and Calculations IVSd 1.2 cm IVSs 1.5 cm LVIDd 4.8 cm LVIDs 3.5 cm LVPWd 1.2 cm LVPWs 1.5 cm IVS/LVPW 1.1 FS 27.5 % EDV(Teich) 108.6 ml ESV(Teich) 50.8 ml EF(Teich) 53.3 % EDV(cubed) 112.0 ml ESV(cubed) 42.8 ml EF(cubed) 61.8 % % IVS thick 23.5 % % LVPW thick 28.2 % LV mass(C)d 219.7 grams LV mass(C)dI 113.5 grams/m\S\2 LV mass(C)s 194.2 grams LV mass(C)sI 100.3 grams/m\S\2 SV(Teich) 57.9 ml SI(Teich) 29.9 ml/m\S\2 SV(cubed) 69.3 ml SI(cubed) 35.8 ml/m\S\2 Ao root diam 2.9 cm Ao root area 6.5 cm\S\2 ACS 2.1 cm LA dimension 4.0 cm asc Aorta Diam 3.0 cm LA/Ao 1.4 LVOT diam 2.0 cm LVOT area 3.1 cm\S\2 LVAd ap4 28.3 cm\S\2 LVLd ap4 8.2 cm EDV(MOD-sp4) 81.0 ml LVAs ap4 14.9 cm\S\2 LVLs ap4 6.7 cm ESV(MOD-sp4) 28.0 ml EF(MOD-sp4) 65.4 % LVAd ap2 25.4 cm\S\2 LVLd ap2 8.1 cm EDV(MOD-sp2) 68.0 ml LVAs ap2 13.4 cm\S\2 LVLs ap2 6.3 cm ESV(MOD-sp2) 23.0 ml EF(MOD-sp2) 66.2 % SV(MOD-sp4) 53.0 ml SI(MOD-sp4) 27.4 ml/m\S\2 SV(MOD-sp2) 45.0 ml SI(MOD-sp2) 23.3 ml/m\S\2 Doppler Measurements and Calculations MV E max anai 93.2 cm/sec MV A max anai 102.4 cm/sec MV E/A 0.91 MV dec time 0.29 sec Ao V2 max 135.5 cm/sec Ao max PG 7.3 mmHg Ao max PG (full) 1.7 mmHg CHRIS(V,A) 2.8 cm\S\2 CHRIS(V,D) 2.8 cm\S\2 LV V1 max PG 5.6 mmHg LV V1 max 118.6 cm/sec PA V2 max 102.5 cm/sec PA max PG 4.2 mmHg TR max anai 244.3 cm/sec
--- NOTE | 2016-03-02 22:31 | Discharge Summary ---
Discharge Summary Admission Date: Feb 27, 2016 at 18:43 Discharge Date: Feb 28, 2016 Discharge Disposition: Home Principal Diagnosis: Chest Pain Secondary Diagnoses/Problems: Atypical Chest pain, Tobacco abuse, COPD Procedures: Interpretation Summary * Name: LAN BREWER Study Date: 02/28/2016 09:56 AM BP: 108/70 mmHg * Patient Location: [facility]\\S\\S241\\S\\2 HR: 60 * : 1960 (M/d/yyyy) Gender: Female Height: 65 in * Age: 55 yrs Ethnicity: [place] Weight: 190 lb * Ordering Physician: Ros Marrufo * Referring Physician: Self, Referred * Performed By: Neil Marrufo RDCS * * Reason For Study: Chest pain * BSA: 1.9 m2 * -- Conclusions -- * Left ventricular systolic function is normal. * No regional wall motion abnormalities noted. * Ejection Fraction = 60-65%. * There is mild tricuspid regurgitation. Procedure Details * A complete two-dimensional transthoracic echocardiogram was performed (2D, M- mode, Doppler and color flow Doppler). * The study was technically limited. * The study was technically adequate. Left Ventricle * The left ventricle is normal in size. * There is borderline concentric left ventricular hypertrophy. * Left ventricular systolic function is normal. * Ejection Fraction = 60-65%. * No regional wall motion abnormalities noted. Right Ventricle * The right ventricular cavity size is normal (basal dimension <4.2 cm in right ventricular apical 4-chamber view). * The right ventricular systolic function is normal as assessed by tricuspid annular plane systolic excursion (TAPSE) (normal >1.5 cm). Atria * The left atrial size is normal. * Right atrial size is normal. * There is no evidence of atrial septal defect, but resolution does not allow assessment for a patent foramen ovale. Mitral Valve * The mitral valve anatomy is normal. * There is no mitral valve stenosis. * There is trace mitral regurgitation. Tricuspid Valve * The tricuspid valve is not well visualized, but is grossly normal. * There is no tricuspid stenosis. * There is mild tricuspid regurgitation. Aortic Valve * The aortic valve is normal in structure and function. * No hemodynamically significant valvular aortic stenosis. * No aortic regurgitation is present. Pulmonic Valve * The pulmonary valve is not well seen, but the Doppler examination is normal without significant regurgitation or stenosis. Great Vessels * The aortic root is normal size. Pericardium/Pleural * There is no pericardial effusion. Great Vessels * Normal inferior vena cava size and collapsability with sniff indicates a normal right atrial pressure of 3 mmHg MMode 2D Measurements and Calculations IVSd 1.2 cm IVSs 1.5 cm LVIDd 4.8 cm LVIDs 3.5 cm LVPWd 1.2 cm LVPWs 1.5 cm IVS/LVPW 1.1 FS 27.5 % EDV(Teich) 108.6 ml ESV(Teich) 50.8 ml EF(Teich) 53.3 % EDV(cubed) 112.0 ml ESV(cubed) 42.8 ml EF(cubed) 61.8 % % IVS thick 23.5 % % LVPW thick 28.2 % LV mass(C)d 219.7 grams LV mass(C)dI 113.5 grams/m\\S\\2 LV mass(C)s 194.2 grams LV mass(C)sI 100.3 grams/m\\S\\2 SV(Teich) 57.9 ml SI(Teich) 29.9 ml/m\\S\\2 SV(cubed) 69.3 ml SI(cubed) 35.8 ml/m\\S\\2 Ao root diam 2.9 cm Ao root area 6.5 cm\\S\\2 ACS 2.1 cm LA dimension 4.0 cm asc Aorta Diam 3.0 cm LA/Ao 1.4 LVOT diam 2.0 cm LVOT area 3.1 cm\\S\\2 LVAd ap4 28.3 cm\\S\\2 LVLd ap4 8.2 cm EDV(MOD-sp4) 81.0 ml LVAs ap4 14.9 cm\\S\\2 LVLs ap4 6.7 cm ESV(MOD-sp4) 28.0 ml EF(MOD-sp4) 65.4 % LVAd ap2 25.4 cm\\S\\2 LVLd ap2 8.1 cm EDV(MOD-sp2) 68.0 ml LVAs ap2 13.4 cm\\S\\2 LVLs ap2 6.3 cm ESV(MOD-sp2) 23.0 ml EF(MOD-sp2) 66.2 % SV(MOD-sp4) 53.0 ml SI(MOD-sp4) 27.4 ml/m\\S\\2 SV(MOD-sp2) 45.0 ml SI(MOD-sp2) 23.3 ml/m\\S\\2 Doppler Measurements and Calculations MV E max anai 93.2 cm/sec MV A max anai 102.4 cm/sec MV E/A 0.91 MV dec time 0.29 sec Ao V2 max 135.5 cm/sec Ao max PG 7.3 mmHg Ao max PG (full) 1.7 mmHg CHRIS(V,A) 2.8 cm\\S\\2 CHRIS(V,D) 2.8 cm\\S\\2 LV V1 max PG 5.6 mmHg LV V1 max 118.6 cm/sec PA V2 max 102.5 cm/sec PA max PG 4.2 mmHg TR max anai 244.3 cm/sec Created: Initialized: 02/29/16; 1100 <Electronically signed by Smith Casillas M.D.> Signed: 02/29/16 1200 Smith Casillas M.D. Consultations: Cardiology Medication Reconciliation Continued Medications: Albuterol (Ventolin Hfa) Aers 2 PUFFS INH QID PRN for SOB/Wheezing Aripiprazole (Abilify) 10 Mg Tab 1 TAB PO QAM Aspirin (Aspirin Ec) 81 Mg Tab 81 MG PO QAM Cyclobenzaprine Hcl (Flexeril) 10 Mg Tab 10 MG PO TID PRN for Muscle Spasm, TAB Gabapentin (Neurontin) 100 Mg Cap 200 MG PO TID, CAP Hydroxyzine Hcl (Atarax) 25 Mg Tab 25 MG PO Q8 PRN for Severe Anxiety, TAB Metoprolol Tartrate (Lopressor) 25 Mg Tab 25 MG PO BID Oxybutynin Chloride (Oxybutynin Chloride) 5 Mg Tab 5 MG PO QAM Suvorexant (Belsomra) 5 Mg Tab 5 MG PO HS, #30 Tiotropium [place] Monohydrate (Spiriva Respimat) 2.5 Mcg/Act Spr 2 PUFFS INH DAILY Trazodone HCl (Trazodone HCl) 150 Mg Tab 150 MG PO HS Valacyclovir Hcl (Valtrex) 1 Gm Tab 2 GM PO Q12 PRN for Cold Sores TAKE DIRECTED FOR ONE DAY NEEDED FOR COLD SORES Venlafaxine Hcl (Effexor Xr) 150 Mg Cap 300 MG PO QAM Admission Information HPI (per Admitting provider): Patient seen and examined. 55 year old female with PMHx of HTN, tobacco abuse, COPD and other problems listed below presents to the ED complaining of chest pain prior to arrival. Patient states she was sitting at home when she developed a substernal chest pressure that she rates as a 8/10. She states it would radiate into the back. She reports some mild associated SOB as well as nausea and epigastric discomfort. She states the pain lasted for several hours and this prompted her to present to the ED. She reports she is currently pain free following Dilaudid. She denies fevers, chills, sweats, URI symptoms, palpitations, vomiting, diarrhea, dysuria, calf pain and edema. She denies person history of CAD, but states her father in his 50s from CAD. She states she has never had symptoms like this in the past. She had a stress test in the past which was negative. In the ED VS are stable, Krais are negative x 1, EKG is nonischemic. She received ASA. She will be observed for further workup and treatment. Physical Exam (per Admitting): General Appearance: + pertinent finding (WD/WN 55 year old female lying in bed in NAD with at bedside ) Head: normocephalic, atraumatic Eyes: PERRL, EOMI, sclerae normal ENT: hearing grossly normal, pharynx normal Neck: supple, no JVD, trachea midline Respiratory/Chest: chest non-tender, lungs clear, normal breath sounds, no respiratory distress, no accessory muscle use Cardiovascular: regular rate, rhythm, no edema, no gallop, no JVD, no murmur , normal peripheral pulses Abdomen/GI: normal bowel sounds, non tender, soft Back: normal inspection, no muscle spasm Extremities/Musculoskelatal: no calf tenderness, normal capillary refill, no pedal edema Neurologic/Psych: alert, oriented x 3, + pertinent finding (no motor or sensory deficits noted on gross exam ) Skin: normal color, warm/dry, no rash Lymphatic: no adenopathy Hospital Course CHEST PAIN Mostly atypical Need to R/O ACS Had negative dobutamine stress test in June 2015 Risk factors: tobacco abuse, HTN, family history 3 sets CM negative repeat EKG this morning did not showed any significant ST changes discussed case with Cardiology Dr. Casillas No further cardiac testing or interventional needed at this time as per cardio Resting echo shown no wall motion abnormality from cardiology standpoint, pt is stable to discharge home today HTN -stable -continue Lopressor COPD -stable -continue home inhalers TOBACCO ABUSE -Cessation counseling given -Nicotine patch ordered DEPRESSION -continue Abilify, trazodone, hydroxyzine DVT PROPHYLAXIS: Sq lovenox CODE STATUS: FULL CODE DISPOSITION WILL DISCHARGE HOME TODAY Total time spent on discharge = 35 minutes This includes examination of the patient, discharge planning, medication reconciliation, and communication with other providers. Discharge Instructions Discharge Instructions Admission Reason for Admission: Chest Pain Discharge Discharge Diagnosis / Problem: Atypical Chest pain, Tobacco abuse, COPD Discharge Goals Goal(s): Decrease discomfort, Improve function, Improve disease control Activity Recommendations Activity Limitations: resume your previous activity (as tolerated) . Instructions / Follow-Up Instructions / Follow-Up Follow up with your primary care physician Dr. Mead on 03/09 at 1:20 pm Advised and Counseling patient on smoking cessation Current Hospital Diet Patient's current hospital diet: AHA Diet (Heart Healthy) Discharge Diet Recommended Diet: AHA Diet (Heart Healthy) Pending Studies Studies pending at discharge: no Laboratory Results Lipid Panel Test 02/28/16 04:50 Range/Units Triglycerides Level 114 0-150 mg/dl Cholesterol Level 188 0-200 mg/dl HDL Cholesterol 63 mg/dl Cholesterol/HDL Ratio 3.0 LDL Cholesterol, Calculated 102 mg/dl Medical Emergencies . Who to Call and When: Medical Emergencies: If at any time you feel your situation is an emergency, please call 911 immediately. . Non-Emergent Contact Non-Emergency issues call your: Primary Care Provider Call Non-Emergent contact if: you have any medication questions . . "Provider Documentation" section prepared by Imani Combs. VTE Core Measure Inpt VTE Proph given/why not?: Enoxaparin (Lovenox)SQ Additional Copies To Vivian Mead D.O.
[2016-05-25] MEDS ORDERED: PRD20 PO ×2 (15:03)
[2016-05-25] MEDS ORDERED: PRED10TA PO (15:03)
[2016-08-12] MEDS ORDERED: VNTHFA/IN INH (15:50)
[2016-08-12] MEDS ORDERED: GABA-112 PO (18:35)
[2016-08-13] MEDS ORDERED: IPRA1AER2 INH (18:08)
[2016-08-13] MEDS ORDERED: ASPEC81 PO (18:08)
[2016-08-13] MEDS ORDERED: AZITTAB PO (18:08)
[2016-08-13] MEDS ORDERED: PRED10TA PO (18:08)
== END 2016-02-28 15:10 | disposition home or self-care (01) ==
LOC: ENRESERVDT → ENRESERVTM → C.EDB 14:38 → C.2T 18:43
PROVIDERS: ADMIT Internal Medicine; ATTEND Internal Medicine
DX: R07.89 Other chest pain (principal); R10.13 Epigastric pain; F17.210 Nicotine dependence, cigarettes, uncomplicated; J44.9 Chronic obstructive pulmonary disease, unspecified; I10 Essential (primary) hypertension; E78.00 Pure hypercholesterolemia, unspecified; K21.9 Gastro-esophageal reflux disease without esophagitis; G47.33 Obstructive sleep apnea (adult) (pediatric); F32.9 Major depressive disorder, single episode, unspecified; H40.9 Unspecified glaucoma; K44.9 Diaphragmatic hernia without obstruction or gangrene; Z90.710 Acquired absence of both cervix and uterus; Z88.1 Allergy status to other antibiotic agents; Z79.82 Long term (current) use of aspirin; Z79.01 Long term (current) use of anticoagulants; Z88.2 Allergy status to sulfonamides; Z82.49 Family history of ischemic heart disease and other diseases of the circulatory system; Z83.6 Family history of other diseases of the respiratory system; Z82.3 Family history of stroke; Z80.3 Family history of malignant neoplasm of breast; Z80.0 Family history of malignant neoplasm of digestive organs

== ENCOUNTER 2016-05-24 15:17 | Observation (INO) | payer OTHER ==
[~2016-05-24] VITALS: Ht 165.1 cm; Wt 89.7 kg
[~2016-05-24 15:17] MED LIST changes: -CYCL10TA6 PO; -DSY/150 PO; -ESOM1CAP34 PO; -LISI-461 PO; -LPR25 PO; -NXM/40 PO; -OXYC-609 PO; +SUVO1TAB PO; -VALA1TAB31 PO
[2016-05-24] MEDS ORDERED: QUET1TAB30 PO (17:02)
[2016-05-24] MEDS ORDERED: ONDANSETRON INJ 2 MG/ML 2 ML VIAL IV STA (17:39)
[2016-05-24] MEDS ORDERED: MoRPHine SULFATE 4 MG/ML 1 ML CARP\\VIAL IV STA ×2 (17:39→18:23)
[2016-05-24 17:41] LABS: BASO % 0.6 %; BASO ABS # 0.05 K/uL (0-0.2); COMPLETE YES; EOS % 2.4 %; HEMATOCRIT 36.5 % (37-47); IG% 0.2 %; LYMPH % 37.5 %; LYMPH ABS # 3.27 K/uL (1.2-3.4); MEAN CORPUSCULAR HEMOGLOBIN 29.6 pg (25-34); MEAN CORPUSCULAR HGB CONC 33.7 g/dl (32-36); MONO % 6.3 %; PLATELET COUNT 283 K/uL (130-400); RED BLOOD COUNT 4.15 M/uL (4.2-5.4); WHITE BLOOD COUNT 8.72 K/uL (4.8-10.8)
--- NOTE | 2016-05-24 17:48 | DIAGNOSTIC IMAGING REPORT ---
CHEST ONE VIEW PORTABLE CLINICAL HISTORY: Weakness. Dizziness. COMPARISON STUDY: Chest radiograph February 27, 2016. FINDINGS: Emphysema is noted. There is no pneumothorax or pleural effusion. Cardiac size is normal. Mediastinal contours are normal. There is no evidence of pulmonary edema. There is no consolidation. IMPRESSION: No acute cardiopulmonary findings. Electronically signed by: Raffi Ham M.D. 05/24/2016 5:47 PM Dictated Date/Time: 05/24/2016 5:45 PM
[2016-05-24 18:01] LABS: ALT/SGPT 20 U/L (12-78); AST/SGOT 11 U/L (15-37); BLOOD UREA NITROGEN 18 mg/dl (7-18); BUN/CREATININE RATIO 19.4 (10-20); CARBON DIOXIDE 27 mmol/L (21-32); CHLORIDE 108 mmol/L (98-107); CREATININE 0.91 mg/dl (0.60-1.20); GLUCOSE 89 mg/dl (70-99); MAGNESIUM 2.4 mg/dl (1.8-2.4); POTASSIUM 3.9 mmol/L (3.5-5.1); SODIUM 142 mmol/L (136-145)
[2016-05-24 18:09] LABS: ALKALINE PHOSPHATASE 115 U/L (45-117); THYROID STIMULATING HORMONE 0.553 uIu/ml (0.300-4.500)
[2016-05-24 18:16] LABS: PROTHROMBIN TIME (PATIENT) 10.7 SECONDS (9.0-12.0)
[2016-05-24] MEDS ORDERED: OPTIRAY 320 IV PRN (19:15)
--- NOTE | 2016-05-24 19:34 | DIAGNOSTIC IMAGING REPORT ---
CT ANGIOGRAPHY OF THE CHEST, PULMONARY EMBOLUS PROTOCOL CLINICAL HISTORY: Chest pain and elevated d-dimer. COMPARISON STUDY: Chest CT December 26, 2015. TECHNIQUE: Following IV administration of 113 mL of Optiray-320, helical axial images of the chest were obtained utilizing the pulmonary embolus protocol. Maximal intensity projections and sagittal and coronal reformats were viewed on an independent 3D workstation. IV contrast was administered without complication. CT DOSE: 702.12 mGy.cm FINDINGS: No pulmonary emboli are identified. There is no evidence of thoracic aortic dissection. Size of the heart is normal. There is no pericardial effusion. No enlarged thoracic lymph nodes are present. There are stable postsurgical findings at the gastroesophageal junction. Moderate to severe emphysema is noted. There is no consolidation. No pneumothorax or pleural effusion is present. The bony thorax is unremarkable. IMPRESSION: 1. No pulmonary emboli identified. 2. Moderate to severe emphysema. 3. No acute intrathoracic findings. Electronically signed by: Raffi Ham M.D. 05/24/2016 7:33 PM Dictated Date/Time: 05/24/2016 7:27 PM
[2016-05-24] MEDS ORDERED: FLUT1INH INH (21:45)
[2016-05-24] MEDS ORDERED: ALBUTEROL HFA 8 GM INHALER INH PRN (21:45)
[2016-05-24] MEDS ORDERED: CYCLOBENZAPRINE HCL 10 MG TAB PO PRN (21:45)
[2016-05-24] MEDS ORDERED: hydrOXYzine HCL 25 MG TAB PO PRN (21:45)
[2016-05-24] MEDS ORDERED: LAMO25TA PO (21:45)
[2016-05-24] MEDS ORDERED: NITROGLYCERIN 0.4 MG SL PER TAB CHARGE SL PRN (22:00)
[2016-05-24] MEDS ORDERED: ONDANSETRON INJ 2 MG/ML 2 ML VIAL IV PRN (22:00)
[2016-05-24] MEDS ORDERED: ACETAMINOPHEN 325 MG TAB PO PRN (22:00)
[2016-05-24 22:05] VITALS: BP 133/86; PULSE 72; TEMP 36.7; O2SAT 93; Ht 165.1 cm; Wt 89.7 kg
--- NOTE | 2016-05-24 22:25 | History and Physical ---
History & Physical Date & Time of Service: May 24, 2016 at 21:48 Chief Complaint: Chest Discomfort, Dizzy, Cold Sweats, Aaron Primary Care Physician: Vivian Mead D.O. History of Present Illness Source: patient, spouse, clinic records, hospital records This is a 56 y/o female with PMH of COPD, tobacco abuse, HTN, dyslipidemia, GERD , anxiety, depression, who presents to the ED with chest pain. Patient states yesterday around 2 pm while sitting she developed substernal chest pressure, non -radiating, rated 6/10, which lasted approx 2 hours. She reports associated dizziness, SOB, heart racing, nausea. She had recurrent chest pain today, again while at rest, which lasted 2 hours. She was seen in clinic by Josselyn Delgado, declined ER by ambulance and was driven here by her . Had headache in ER which resolved with morphine. Since coming to ER has left arm throbbing rated 7/10. States voice is hoarse now because she is thirsty. States reflux has been controlled. Denies syncope, rhinorrhea, sore throat, cough, abdominal pain, vomiting, diarrhea, dysuria, frequency, calf pain, edema, rash, numbness, weakness. She denies anxiety or heavy lifting. Pt recently travelled to [place] and retuned by car 1 wk ago. Patient states pain is similar to prior admissions. She had a negative stress test in June 2015. She was also admitted for CP in February 2016 at which time cardiac enzymes were negative, EKG had no significant ST changes, and echo showed no wall motion abnormality. Denies hx of abnormal bleeding. Past Medical/Surgical History Medical Problems: (1) Anxiety Status: Chronic (2) Depression Status: Chronic (3) Dyslipidemia Status: Chronic (4) Emphysema Status: Chronic (5) GERD (gastroesophageal reflux disease) Status: Chronic (6) Glaucoma Status: Chronic (7) H/o Lyme disease Status: Chronic (8) H/O subacute thyroiditis Status: Chronic (9) HTN (hypertension) Status: Chronic (10) Hx of migraines Status: Chronic (11) Lumbar degenerative disc disease Status: Chronic (12) DAYA (obstructive sleep apnea) Status: Chronic (13) Questonable history of meningitis Status: Chronic Surgical Problems: (1) H/O section Status: Chronic (2) H/O cystoscopy Status: Chronic (3) History of colonoscopy Permanent Comment: 07/11/14- diverticulosis Status: Chronic (4) History of esophagogastroduodenoscopy Permanent Comment: 07/11/14- small hiatal hernia, normal bx Status: Chronic (5) S/p carpal tunnel surgery Status: Chronic (6) S/P partial hysterectomy Status: Chronic (7) S/P sinus surgery Status: Chronic (8) S/P tonsillectomy and adenoidectomy Status: Chronic (9) S/P tubal ligation Status: Chronic (10) Status post Cindy fundoplication Status: Resolved Family History Cancer SISTER (breast CA) BROTHER (pancreatic CA) Diabetes mellitus SISTER (Type 1) FH: Parkinson's disease BROTHER FH: emphysema MOTHER Heart disease FATHER ( of [place] age 53) Hypertension MOTHER Seizures DAUGHTER Stroke MOTHER Social History Smoking Status: Current Every Day Smoker (has been cutting down, trying to quit , currently half pack daily. smoked for 30+ years ) Alcohol Use: occasionally Drug Use: none Marital Status: Housing status: lives with family Occupational Status: disabled Immunizations History of Influenza Vaccine: No History of Tetanus Vaccine?: Yes History of Pneumococcal: No History of Hepatitis B Vaccine: Unknown Multi-Drug Resistant Organisms History of MDRO: No Allergies Coded Allergies: Nitrofurantoin (Verified Allergy, Severe, UNABLE TO BEATHE, 05/24/16) Sulfamethoxazole w/Trimethoprim (Verified Allergy, Severe, SHORTNESS OF BREATH, 05/24/16) Home Medications Scheduled Fluticasone Furoate-Vilanterol (Breo Ellipta), 1 PUFF INH DAILY Gabapentin (Neurontin), 300 MG PO TID Lamotrigine (Lamictal), 25 MG PO HS Metoprolol Tartrate (Lopressor), 25 MG PO BID Quetiapine Fumarate (Seroquel), 25 MG PO HS Trazodone HCl (Trazodone HCl), 150 MG PO HS Venlafaxine Hcl (Effexor Xr), 300 MG PO QAM Scheduled PRN Albuterol (Ventolin Hfa), 2 PUFFS INH QID PRN for SOB/Wheezing Cyclobenzaprine Hcl (Flexeril), 10 MG PO TID PRN for Muscle Spasm Hydroxyzine Hcl (Atarax), 25 MG PO Q8 PRN for Anxiety Valacyclovir Hcl (Valtrex), 2 GM PO Q12 PRN for Cold Sores Review of Systems Ten point ROS performed with pertinent positives and negatives noted in HPI. Physical Exam Vital Signs Date Time Temp Pulse Resp B/P Pulse Ox O2 Delivery O2 Flow Rate FiO2 05/24/16 19:38 97 146/80 Nasal Cannula 3.0 05/24/16 17:57 140/77 05/24/16 17:37 151/116 05/24/16 17:32 78 18 181/96 96 Room Air 05/24/16 17:32 96 Room Air 05/24/16 17:19 69 05/24/16 15:36 36.9 79 18 147/87 99 Room Air General Appearance: + obese, + pertinent finding (alert 56 year old female, at bedside) Head: normocephalic, atraumatic Eyes: normal inspection, PERRL, EOMI ENT: hearing grossly normal, pharynx normal Neck: supple, no JVD, trachea midline Respiratory/Chest: no respiratory distress, no accessory muscle use, + wheezing (moderate expiratory wheezing) Cardiovascular: regular rate, rhythm, no murmur Abdomen/GI: normal bowel sounds, non tender, soft Extremities/Musculoskelatal: no calf tenderness, no pedal edema, + pertinent finding (right upper extremity- shoulder, elbow, and wrist nontender with normal ROM) Neurologic/Psych: alert, normal mood/affect, oriented x 3, + 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) Skin: normal color, warm/dry, no rash (no rash on the chest) Diagnostics Laboratory Results Results Past 24 Hours Test 05/24/16 17:30 05/24/16 17:34 Range/Units White Blood Count 8.72 4.8-10.8 K/uL Red Blood Count 4.15 4.2-5.4 M/uL Hemoglobin 12.3 12.0-16.0 g/dL Hematocrit 36.5 37-47 % Mean Corpuscular Volume 88.0 80-100 fL Mean Corpuscular Hemoglobin 29.6 25-34 pg Mean Corpuscular Hemoglobin Concent 33.7 32-36 g/dl Platelet Count 283 130-400 K/uL Mean Platelet Volume 9.0 7.4-10.4 fL Neutrophils (%) (Auto) 53.0 % Lymphocytes (%) (Auto) 37.5 % Monocytes (%) (Auto) 6.3 % Eosinophils (%) (Auto) 2.4 % Basophils (%) (Auto) 0.6 % Neutrophils # (Auto) 4.62 1.4-6.5 K/uL Lymphocytes # (Auto) 3.27 1.2-3.4 K/uL Monocytes # (Auto) 0.55 0.11-0.59 K/uL Eosinophils # (Auto) 0.21 0-0.5 K/uL Basophils # (Auto) 0.05 0-0.2 K/uL RDW Standard Deviation 48.8 36.4-46.3 fL RDW Coefficient of Variation 15.1 11.5-14.5 % Immature Granulocyte % (Auto) 0.2 % Immature Granulocyte # (Auto) 0.02 0.00-0.02 K/uL Prothrombin Time 10.7 9.0-12.0 SECONDS Prothromb Time International Ratio 1.0 0.9-1.1 Activated Partial Thromboplast Time 25.4 21.0-31.0 SECONDS Partial Thromboplastin Ratio 1.0 D-Dimer 600 0-500 ug/L FEU Sodium Level 142 136-145 mmol/L Potassium Level 3.9 3.5-5.1 mmol/L Chloride Level 108 98-107 mmol/L Carbon Dioxide Level 27 21-32 mmol/L Anion Gap 7.0 3-11 mmol/L Blood Urea Nitrogen 18 7-18 mg/dl Creatinine 0.91 0.60-1.20 mg/dl Est Creatinine Clear Calc Drug Dose 77.3 ml/min Estimated GFR () 82.3 Estimated GFR (Non- 71.0 BUN/Creatinine Ratio 19.4 10-20 Random Glucose 89 70-99 mg/dl Calcium Level 9.0 8.5-10.1 mg/dl Magnesium Level 2.4 1.8-2.4 mg/dl Total Bilirubin 0.3 0.2-1 mg/dl Direct Bilirubin < 0.1 0-0.2 mg/dl Aspartate Amino Transf (AST/SGOT) 11 15-37 U/L Alanine Aminotransferase (ALT/SGPT) 20 12-78 U/L Alkaline Phosphatase 115 45-117 U/L Total Creatine Kinase 58 26-192 U/L Creatine Kinase MB 0.6 0.5-3.6 ng/ml Creatine Kinase MB Ratio 1.0 0-3.0 Total Protein 7.3 6.4-8.2 gm/dl Albumin 3.5 3.4-5.0 gm/dl Lipase 130 73-393 U/L Thyroid Stimulating Hormone (TSH) 0.553 0.300-4.500 uIu/ml Bedside Troponin I 0.000 0-0.045 ng/ml Diagnostic Radiology CHEST ONE VIEW PORTABLE CLINICAL HISTORY: Weakness. Dizziness. COMPARISON STUDY: Chest radiograph February 27, 2016. FINDINGS: Emphysema is noted. There is no pneumothorax or pleural effusion. Cardiac size is normal. Mediastinal contours are normal. There is no evidence of pulmonary edema. There is no consolidation. IMPRESSION: No acute cardiopulmonary findings. EKG NSR, no ST or T wave abnormality Repeat EKG- SNR, no ST or T wave abnormality Impression Assessment and Plan CHEST PAIN Rule out ACS; Risk factors- obesity, HTN, HL, + family history May have component of COPD exacerbation Prior stress test negative in June 2015; Echo 02/2016- no regional wall motion abnormality, EF 60-65%, mild TR CXR- no acute findings D dimer elevated; CTA neg for PE EKG- no ischemic findings Initial troponin negative Trend serial cardiac enzymes Repeat EKG in am Check lipid panel in am HYPERTENSION BP mildly elevated Continue metoprolol COPD May have mild exacerbation Xopenex-Atrovent nebs q6 Start prednisone 40 mg daily Continue Breo Ellipta, PRN albuterol DAYA Non compliant with CPAP at home DEPRESSION/ ANXIETY Continue Abilify, Effexor, Hydroxyzine, Lamictal, Seroquel, Trazodone GERD Controlled s/p fundoplication DVT PROPHYLAXIS Lovenox SQ FULL CODE Patient seen in collaboration with Dr. Posey. Please see his addendum. ATTENDING ADDENDUM care coordinated with ANT Solis please refer to her notes for full details, I agree with her notes patient seen and examined, records reviewed by myself as well on exam, patient seen resting in bed, comfortable reports left forearm pain denies active chest pain, shortness of breath, cough no other symptoms VS noted and reviewed oriented x 3, not in distress, speaks in sentences with no effort nor accessory muscle use normal rate, regular rhythm, no murmurs (+) scattered wheeze bilaterally, good air entry non distended, soft, nontender no bipedal edema, erythema, warmth no neuro deficits trop negative EKG no signs of acute ischemia CT chest no PE ASSESSMENT/PLAN> ATYPICAL CHEST PAIN was evaluated last 02/2016 for 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 Casillas, felt to be non cardiac serial cardiac markers, echo COPD EXACERBATION denies sputum, fever/chills CT chest: no signs of pneumonia Prednisone, Nebs other diagnoses and plan of care as per ANT Solis's notes Golden Posey MD VTE Prophylaxis VTE Risk Assessment Done? Y/N: Yes Risk Level: Moderate
[2016-05-24] MEDS ORDERED: CYCLOBENZAPRINE HCL 10 MG TAB ONE (22:29)
[2016-05-24] MEDS ORDERED: TRAZODONE HCL 50 MG TAB PO SCH (23:00)
[2016-05-24] MEDS ORDERED: QUETIAPINE FUMARATE 25 MG TAB PO SCH (23:00)
[2016-05-24] MEDS ORDERED: ASPIRIN 81 MG CHEW PO ONE (23:00)
[2016-05-24] MEDS ORDERED: IV FLUIDS COMPLETED PRN (23:15)
--- NOTE | 2016-05-24 23:32 | EMERGENCY ROOM VISIT NOTE ---
History Report prepared by Valdo: Rubi Winslow Under the Supervision of: Dr. Jose Bernal M.D. First contact with patient: 17:06 Chief Complaint: DIZZY Stated Complaint: CHEST DISCOMFORT, DIZZY, COLD SWEATS, [place] Nursing Triage Summary: Pt c/o dizziness and sweats and on the way here from the DR she began having a headache on left side since. Pt associates chest pain, mid upper. 6/10. Pressure. Intermittent. History of Present Illness The patient is a 56 year old female who presents to the Emergency Room with complaints of intermittent substernal chest pain that started last night. The patient states that she developed chest pain last night while lying in bed along with dizziness and sweating. She states that she was thirsty so she got out of bed to go get some water. When she got down stairs she was nauseous and experienced some dry heaving. She went back upstairs and the chest pain subsided enough for her to go to sleep. She states that the chest pain was constant for about 2 hours. She rates her discomfort as a 6/10 in severity. The patient describes the pain as pressure. When she woke up this morning she was still experiencing the chest pressure along with lightheadedness so she went to her PCP. Her PCP recommended that she come into the ED for further evaluation. The patient developed dizziness and sweating along with a left-sided headache on her way into the ED from her PCP's office. Pt denies LOC, headache, fevers, chills, diaphoresis, visual changes, neck pain, breathing difficulties, nausea, vomiting, abdominal pain, back pain, melena, hematochezia, urinary symptoms, numbness, weakness, lymphadenopathy, rash, or other complaints. The patient also denies any history of heart problems, as well as any history of blood clots. She states that she just got back from [place] one week ago and otherwise denies any recent long trips. Source of History: patient Onset: last night Position: chest (substernal) Symptom Intensity: 6/10 Quality: pressure Timing: intermittent Associated Symptoms: + headache (left-sided), + nausea, + vomiting (dry heaving) Note: dizziness, lightheadedness, sweating Review of Systems See HPI for pertinent positives and negatives. A total of ten systems were reviewed and were otherwise negative. Past Medical & Surgical Medical Problems: (1) Anxiety (2) Chest pain (3) Depression (4) Dyslipidemia (5) Emphysema (6) GERD (gastroesophageal reflux disease) (7) Glaucoma (8) H/o Lyme disease (9) H/O subacute thyroiditis (10) HTN (hypertension) (11) Hx of migraines (12) Lumbar degenerative disc disease (13) DAYA (obstructive sleep apnea) (14) Questonable history of meningitis Surgical Problems: (1) H/O section (2) H/O cystoscopy (3) History of colonoscopy (4) History of esophagogastroduodenoscopy (5) S/p carpal tunnel surgery (6) S/P partial hysterectomy (7) S/P sinus surgery (8) S/P tonsillectomy and adenoidectomy (9) S/P tubal ligation (10) Status post Cindy fundoplication Family History Cancer SISTER (breast CA) BROTHER (pancreatic CA) Diabetes mellitus SISTER (Type 1) FH: Parkinson's disease BROTHER FH: emphysema MOTHER Heart disease FATHER Hypertension MOTHER Seizures DAUGHTER Stroke MOTHER Social History Smoking Status: Current Every Day Smoker Alcohol Use: none Drug Use: none Marital Status: Housing Status: lives with family Occupation Status: disabled Current/Historical Medications Scheduled Fluticasone Furoate-Vilanterol (Breo Ellipta), 1 PUFF INH DAILY Gabapentin (Neurontin), 300 MG PO TID Lamotrigine (Lamictal), 25 MG PO HS Metoprolol Tartrate (Lopressor), 25 MG PO BID Quetiapine Fumarate (Seroquel), 25 MG PO HS Trazodone HCl (Trazodone HCl), 150 MG PO HS Venlafaxine Hcl (Effexor Xr), 300 MG PO QAM Scheduled PRN Albuterol (Ventolin Hfa), 2 PUFFS INH QID PRN for SOB/Wheezing Cyclobenzaprine Hcl (Flexeril), 10 MG PO TID PRN for Muscle Spasm Hydroxyzine Hcl (Atarax), 25 MG PO Q8 PRN for Anxiety Valacyclovir Hcl (Valtrex), 2 GM PO Q12 PRN for Cold Sores Allergies Coded Allergies: Nitrofurantoin (Verified Allergy, Severe, UNABLE TO BEATHE, 05/24/16) Sulfamethoxazole w/Trimethoprim (Verified Allergy, Severe, SHORTNESS OF BREATH, 4/3/17) Physical Exam Vital Signs Date Time Temp Pulse Resp B/P Pulse Ox O2 Delivery O2 Flow Rate FiO2 05/24/16 19:38 97 146/80 Nasal Cannula 3.0 05/24/16 17:57 140/77 05/24/16 17:37 151/116 05/24/16 17:32 78 18 181/96 96 Room Air 05/24/16 17:32 96 Room Air 05/24/16 17:19 69 05/24/16 15:36 36.9 79 18 147/87 99 Room Air Physical Exam GENERAL: Awake, alert, uncomfortable-appearing, in no distress HENT: Normocephalic, atraumatic. Oropharynx unremarkable. EYES: Normal conjunctiva. Sclera non-icteric. NECK: Supple. No nuchal rigidity. FROM. No JVD. RESPIRATORY: Clear to auscultation. CARDIAC: Regular rate, normal rhythm. Extremities warm and well perfused. Pulses equal. ABDOMEN: Soft, non-distended. No tenderness to palpation. No rebound or guarding. No masses. RECTAL: Deferred. MUSCULOSKELETAL: Chest examination reveals no tenderness. The back is symmetrical on inspection without obvious abnormality. There is no CVA tenderness to palpation. No joint edema. LOWER EXTREMITIES: Calves are equal size bilaterally and non-tender. No edema. No discoloration. NEURO: Normal sensorium. No sensory or motor deficits noted. SKIN: No rash or jaundice noted. Medical Decision & Procedures ER Provider Diagnostic Interpretation: X ray results as stated below per my interpretation and radiologist interpretation. Other radiology results as stated below per my review and radiologist interpretation CHEST ONE VIEW PORTABLE IMPRESSION: No acute cardiopulmonary findings. Electronically signed by: Raffi Ham M.D. 05/24/2016 5:47 PM Dictated Date/Time: 05/24/2016 5:[address] ANGIOGRAPHY OF THE CHEST, PULMONARY EMBOLUS PROTOCOL IMPRESSION: 1. No pulmonary emboli identified. 2. Moderate to severe emphysema. 3. No acute intrathoracic findings. Electronically signed by: Raffi Ham M.D. 05/24/2016 7:33 PM Dictated Date/Time: 05/24/2016 7:27 PM Laboratory Results 05/24/16 17:30 Red Blood Count 4.15, Mean Corpuscular Volume 88.0, Mean Corpuscular Hemoglobin 29.6, Mean Corpuscular Hemoglobin Concent 33.7, Mean Platelet Volume 9.0, Neutrophils (%) (Auto) 53.0, Lymphocytes (%) (Auto) 37.5, Monocytes (%) (Auto) 6.3, Eosinophils (%) (Auto) 2.4, Basophils (%) (Auto) 0.6, Neutrophils # (Auto) 4.62, Lymphocytes # (Auto) 3.27, Monocytes # (Auto) 0.55, Eosinophils # (Auto) 0.21, Basophils # (Auto) 0.05 05/24/16 17:30 Test 05/24/16 17:30 05/24/16 17:34 White Blood Count 8.72 K/uL (4.8-10.8) Red Blood Count 4.15 M/uL (4.2-5.4) Hemoglobin 12.3 g/dL (12.0-16.0) Hematocrit 36.5 % (37-47) Mean Corpuscular Volume 88.0 fL (80-100) Mean Corpuscular Hemoglobin 29.6 pg (25-34) Mean Corpuscular Hemoglobin Concent 33.7 g/dl (32-36) Platelet Count 283 K/uL (130-400) Mean Platelet Volume 9.0 fL (7.4-10.4) Neutrophils (%) (Auto) 53.0 % Lymphocytes (%) (Auto) 37.5 % Monocytes (%) (Auto) 6.3 % Eosinophils (%) (Auto) 2.4 % Basophils (%) (Auto) 0.6 % Neutrophils # (Auto) 4.62 K/uL (1.4-6.5) Lymphocytes # (Auto) 3.27 K/uL (1.2-3.4) Monocytes # (Auto) 0.55 K/uL (0.11-0.59) Eosinophils # (Auto) 0.21 K/uL (0-0.5) Basophils # (Auto) 0.05 K/uL (0-0.2) RDW Standard Deviation 48.8 fL (36.4-46.3) RDW Coefficient of Variation 15.1 % (11.5-14.5) Immature Granulocyte % (Auto) 0.2 % Immature Granulocyte # (Auto) 0.02 K/uL (0.00-0.02) Prothrombin Time 10.7 SECONDS (9.0-12.0) Prothromb Time International Ratio 1.0 (0.9-1.1) Activated Partial Thromboplast Time 25.4 SECONDS (21.0-31.0) Partial Thromboplastin Ratio 1.0 D-Dimer 600 ug/L FEU (0-500) Anion Gap 7.0 mmol/L (3-11) Est Creatinine Clear Calc Drug Dose 77.3 ml/min Estimated GFR () 82.3 Estimated GFR (Non- 71.0 BUN/Creatinine Ratio 19.4 (10-20) Calcium Level 9.0 mg/dl (8.5-10.1) Magnesium Level 2.4 mg/dl (1.8-2.4) Total Bilirubin 0.3 mg/dl (0.2-1) Direct Bilirubin < 0.1 mg/dl (0-0.2) Aspartate Amino Transf (AST/SGOT) 11 U/L (15-37) Alanine Aminotransferase (ALT/SGPT) 20 U/L (12-78) Alkaline Phosphatase 115 U/L (45-117) Total Protein 7.3 gm/dl (6.4-8.2) Albumin 3.5 gm/dl (3.4-5.0) Lipase 130 U/L (73-393) Thyroid Stimulating Hormone (TSH) 0.553 uIu/ml (0.300-4.500) Bedside Troponin I 0.000 ng/ml (0-0.045) Laboratory results reviewed by me Medications Administered Medications (Trade) Dose Ordered Sig/Ross Route Start Time Stop Time Status Last Admin Dose Admin Morphine Sulfate (MoRPHine SULFATE INJ) 4 mg NOW STAT IV 05/24/16 17:39 05/24/16 17:40 DC 05/24/16 17:51 4 MG Ondansetron HCl (Zofran Inj) 4 mg NOW STAT IV 05/24/16 17:39 05/24/16 17:40 DC 05/24/16 17:51 4 MG Morphine Sulfate (MoRPHine SULFATE INJ) 4 mg NOW STAT IV 05/24/16 18:23 05/24/16 18:24 DC 05/24/16 18:34 4 MG ECG Indication: chest pain Rate (beats per minute): 71 Rhythm: normal sinus Findings: no acute ischemic change, no ectopy Comparison ECG Date: 02/28/2016 Change: no significant change Change: Repeat EKG on 05/24/2016 showed a normal sinus rhythm, rate of 75, no acute ischemic changes, no ectopy. ED Course 1735: The patient was evaluated in room C7. A complete history and physical exam was performed. 1738: Ordered Zofran Inj 4 mg IV, Morphine Sulfate 4 mg IV 1822: The nurse called and informed me that the patient is experiencing chest pain that radiates into her left arm. I asked her to repeat an EKG. Ordered Morphine Sulfate 4 mg IV 1901: I reassessed the patient. She is feeling a little better. 1958: Upon reexamination, the patient was resting comfortably. I discussed the test results and treatment plan with her. The patient will be evaluated for further management. 2050: Discussed the patient's case with Dr. Masoud Rey. The patient will be evaluated for further treatment and disposition. Medical Decision Triage Nursing notes reviewed. The patient's presentation and history were concerning for chest pain and dizziness and diaphoresis. Etiologies such as cardiac ischemia, aortic dissection, pulmonary embolism, pneumonia, pneumothorax, musculoskeletal, infections, gastrointestinal, as well as others were entertained. The patient was evaluated. She was hemodynamically stable. She had no ischemic findings on ECG. She developed some recurrent left arm pain and repeat ECG was nonischemic as well. The patient had an unremarkable chest x- ray. Her CBC, chemistry panel and cardiac markers were unremarkable. D-dimer was elevated and therefore she underwent CT imaging of the chest. This was negative. The patient received Zofran and morphine for symptom control. Given the symptoms the patient will need further evaluation and management. Consultation was made with internal medicine. The patient was evaluated for further treatment. The chart was completed utilizing [employer] voice recognition software. Grammatical errors, random word insertions, pronoun errors, and incomplete sentences are an occasional consequence of this system due to software limitations, ambient noise, and hardware issues. Any formal questions or concerns about the content, text, or information contained within the body of this dictation should be directly addressed to the physician for clarification. Consults Time Called: 1945 Consulting Physician: Dr. Masoud Rey Returned Call: 2050 Discussed the patient's case with Dr. Masoud Rey. The patient will be evaluated for further treatment and disposition. Impression Primary Impression: Substernal chest pain Scribe Attestation The scribe's documentation has been prepared under my direction and personally reviewed by me in its entirety. I confirm that the note above accurately reflects all work, treatment, procedures, and medical decision making performed by me. Departure Information Dispostion Being Evaluated By Hospitalist Referrals No Doctor, Assigned (PCP) Patient Instructions My [facility]
[2016-05-24] MEDS ORDERED: ALBUT/IPRATROP 3MG/0.5MG NEB 3 ML VIAL INH PRN (23:45)
[2016-05-24] MEDS ORDERED: ALBUT/IPRATROP 3MG/0.5MG NEB 3 ML VIAL INH STA (23:45)
[2016-05-24] MEDS: GABAPENTIN 300 MG CAP PO SCH (23:51)
[2016-05-24] MEDS: METOPROLOL TARTRATE 25 MG TAB PO SCH (23:52)
[2016-05-24 23:58] VITALS: PULSE 68; O2SAT 97
[2016-05-24 23:59] LABS: CKMB/CK RATIO 1.4 (0-3.0)
[2016-05-25] VITALS (12 sets, daily range): BP systolic 111–132; BP diastolic 65–84; PULSE 52–84; TEMP 36.5–36.8; O2SAT 92–97
[2016-05-25] MEDS: IPRATROPIUM BROMIDE NEB SOLN 0.02% 2.5 ML VIAL INH SCH ×3 (02:16→14:33)
[2016-05-25] MEDS: LEVALBUTEROL 1.25MG/0.5ML NEB INH SCH ×3 (02:16→14:33)
[2016-05-25] MEDS ORDERED: LEVALBUTEROL/IPRATROPIUM NEB INH SCH (03:00)
[2016-05-25 06:19] LABS: CHOLESTEROL 198 mg/dl (0-200); CHOLESTEROL/HDL RATIO 2.6; CKMB/CK RATIO 1.7 (0-3.0); HDL CHOLESTEROL 75 mg/dl; LDL CHOLESTEROL CALCULATED 105 mg/dl; TRIGLYCERIDES 92 mg/dl (0-150); VERY LOW DENSITY LIPOPROT CALC 18 mg/dl
[2016-05-25] MEDS: GABAPENTIN 300 MG CAP PO SCH ×2 (08:16→13:57)
[2016-05-25] MEDS: METOPROLOL TARTRATE 25 MG TAB PO SCH (08:16)
[2016-05-25] MEDS ORDERED: ENOXAPARIN 40 MG/0.4 ML SYR SC SCH (09:00)
[2016-05-25] MEDS ORDERED: VENLAFAXINE HCL XR 150 MG CAPXR PO SCH (09:00)
[2016-05-25 09:15] LABS: MANUAL MICROSCOPIC REQUIRED? YES; REVIEW REQ? NO; URINE APPEARANCE CLEAR (CLEAR); URINE BILIRUBIN NEG (NEG); URINE COLOR YELLOW; URINE NITRITE NEG (NEG); UROBILINOGEN NEG (NEG)
[2016-05-25 09:37] LABS: URINE BACTERIA 1+ (NEG)
--- NOTE | 2016-05-25 14:45 | Progress Note ---
Internal Med Progress Note Date of Service: May 25, 2016. Provider Documentation: SUBJECTIVE: Patient is siting in her bed in no apparent distress. Denies any chest pain/ pressure today and has intermittent dull pain in the left forearm. No SOB. Has been able to ambulate in the hallway without any new symptoms. OBJECTIVE: Vital Signs-as noted below Examination: General Appearance: + obese,Alert/ Awake 56 year old female, at bedside ) Head: normocephalic, atraumatic Eyes: normal inspection, PERRL, EOMI ENT: hearing grossly normal, pharynx normal Neck: supple, no JVD, trachea midline Respiratory/Chest: no respiratory distress, no accessory muscle use, B/L Moderate air entry. Cardiovascular: regular rate, rhythm, no murmur Abdomen/GI: normal bowel sounds, non tender, soft Extremities/Musculoskeletal: no calf tenderness, no pedal edema, Right upper extremity- shoulder, elbow, and wrist nontender with normal ROM. Neurologic/Psych: alert, normal mood/affect, oriented x 3, RUE wallpaper cleaner strength 5/ 5 Skin: normal color, warm/dry, no rash (no rash on the chest) Lab data as noted below. ASSESSMENT & PLAN: Chest Pain: Seems to be non-cardiac in etiology. Rule out ACS; Risk factors- obesity, HTN, HL, + family history May have component of COPD exacerbation Prior stress test negative in June 2015; Echo 02/2016- no regional wall motion abnormality, EF 60-65%, mild TR CXR Shows no acute findings -D dimer elevated; CTA neg for PE -EKG- no ischemic findings -Serial Troponin negative -Lipid panel in shows HDL 75 and LDL 105. Hypertension: BP is stable. -Continue metoprolol History COPD: May have mild exacerbation -Xopenex-Atrovent nebs q6 -Started prednisone 40 mg daily which will be tapered gradually over the next 10-12 days. -Continue Breo Ellipta, PRN albuterol History DAYA: Non compliant with CPAP at home. Counselled again. History Depression/Anxiety: Stable. -Continue Abilify, Effexor, Hydroxyzine, Lamictal, Seroquel, Trazodone History GERD: s/p fundoplication. Stable. DVT Prophylaxis: Lovenox SQ Code Status: FULL CODE Disposition: Discharge home later today. Follow up with PCP on 06/01/2016 @ 1.15 PM. Vital Signs: Date Time Temp Pulse Resp B/P Pulse Ox O2 Delivery O2 Flow Rate FiO2 05/25/16 14:34 75 14 94 Nasal Cannula 2.0 05/25/16 13:23 36.6 84 18 93 Room Air 05/25/16 13:00 36.6 84 18 132/84 93 Room Air 05/25/16 12:00 93 Room Air 05/25/16 11:19 36.5 59 18 112/70 92 Room Air 05/25/16 07:40 69 14 95 Nasal Cannula 2.0 05/25/16 07:30 95 Nasal Cannula 2.0 05/25/16 07:22 36.8 69 18 123/72 95 Nasal Cannula 2.0 05/25/16 04:47 Nasal Cannula 2.0 05/25/16 03:40 36.8 59 18 111/79 95 Nasal Cannula 2.0 05/25/16 02:20 52 05/25/16 02:16 68 14 94 Nasal Cannula 2.0 05/25/16 00:15 97 Nasal Cannula 2.0 05/24/16 23:58 68 18 97 Nasal Cannula 2.0 05/24/16 22:05 36.7 72 20 133/86 93 Nasal Cannula 2.0 05/24/16 22:02 69 18 123/79 96 Room Air 05/24/16 21:33 77 05/24/16 19:38 97 146/80 Nasal Cannula 3.0 05/24/16 17:57 140/77 05/24/16 17:37 151/116 05/24/16 17:32 78 18 181/96 96 Room Air 05/24/16 17:32 96 Room Air 05/24/16 17:19 69 05/24/16 15:36 36.9 79 18 147/87 99 Room Air Lab Results: Results Past 24 Hours Test 05/24/16 17:30 05/24/16 17:34 05/24/16 23:25 05/25/16 05:30 Range/Units White Blood Count 8.72 4.8-10.8 K/uL Red Blood Count 4.15 4.2-5.4 M/uL Hemoglobin 12.3 12.0-16.0 g/dL Hematocrit 36.5 37-47 % Mean Corpuscular Volume 88.0 80-100 fL Mean Corpuscular Hemoglobin 29.6 25-34 pg Mean Corpuscular Hemoglobin Concent 33.7 32-36 g/dl Platelet Count 283 130-400 K/uL Mean Platelet Volume 9.0 7.4-10.4 fL Neutrophils (%) (Auto) 53.0 % Lymphocytes (%) (Auto) 37.5 % Monocytes (%) (Auto) 6.3 % Eosinophils (%) (Auto) 2.4 % Basophils (%) (Auto) 0.6 % Neutrophils # (Auto) 4.62 1.4-6.5 K/uL Lymphocytes # (Auto) 3.27 1.2-3.4 K/uL Monocytes # (Auto) 0.55 0.11-0.59 K/uL Eosinophils # (Auto) 0.21 0-0.5 K/uL Basophils # (Auto) 0.05 0-0.2 K/uL RDW Standard Deviation 48.8 36.4-46.3 fL RDW Coefficient of Variation 15.1 11.5-14.5 % Immature Granulocyte % (Auto) 0.2 % Immature Granulocyte # (Auto) 0.02 0.00-0.02 K/uL Prothrombin Time 10.7 9.0-12.0 SECONDS Prothromb Time International Ratio 1.0 0.9-1.1 Activated Partial Thromboplast Time 25.4 21.0-31.0 SECONDS Partial Thromboplastin Ratio 1.0 D-Dimer 600 0-500 ug/L FEU Sodium Level 142 136-145 mmol/L Potassium Level 3.9 3.5-5.1 mmol/L Chloride Level 108 98-107 mmol/L Carbon Dioxide Level 27 21-32 mmol/L Anion Gap 7.0 3-11 mmol/L Blood Urea Nitrogen 18 7-18 mg/dl Creatinine 0.91 0.60-1.20 mg/dl Est Creatinine Clear Calc Drug Dose 77.3 ml/min Estimated GFR () 82.3 Estimated GFR (Non- 71.0 BUN/Creatinine Ratio 19.4 10-20 Random Glucose 89 70-99 mg/dl Calcium Level 9.0 8.5-10.1 mg/dl Magnesium Level 2.4 1.8-2.4 mg/dl Total Bilirubin 0.3 0.2-1 mg/dl Direct Bilirubin < 0.1 0-0.2 mg/dl Aspartate Amino Transf (AST/SGOT) 11 15-37 U/L Alanine Aminotransferase (ALT/SGPT) 20 12-78 U/L Alkaline Phosphatase 115 45-117 U/L Total Creatine Kinase 58 49 54 26-192 U/L Creatine Kinase MB 0.6 0.7 0.9 0.5-3.6 ng/ml Creatine Kinase MB Ratio 1.0 1.4 1.7 0-3.0 Troponin I < 0.015 < 0.015 < 0.015 0-0.045 ng/ml Total Protein 7.3 6.4-8.2 gm/dl Albumin 3.5 3.4-5.0 gm/dl Lipase 130 73-393 U/L Thyroid Stimulating Hormone (TSH) 0.553 0.300-4.500 uIu/ml Bedside Troponin I 0.000 0-0.045 ng/ml Triglycerides Level 92 0-150 mg/dl Cholesterol Level 198 0-200 mg/dl HDL Cholesterol 75 mg/dl LDL Cholesterol, Calculated 105 mg/dl VLDL Cholesterol, Calculated 18 mg/dl Cholesterol/HDL Ratio 2.6 Test 05/25/16 09:10 Range/Units Urine Color YELLOW Urine Appearance CLEAR CLEAR Urine pH 7.0 4.5-7.5 Urine Specific [place] 1.020 1.000-1.030 Urine Protein TRACE NEG Urine Glucose (UA) NEG NEG Urine Ketones NEG NEG Urine Occult Blood 2+ NEG Urine Nitrite NEG NEG Urine Bilirubin NEG NEG Urine Urobilinogen NEG NEG Urine Leukocyte Esterase NEG NEG Urine RBC 5-10 0-4 /hpf Urine WBC 1-5 0-5 /hpf Urine Epithelial Cells 5-10 0-5 /lpf Urine Bacteria 1+ NEG Microbiology Results 05/25/16 Urine Culture, Received Pending
[2016-05-25] MEDS ORDERED: PRD20 PO ×2 (15:03)
[2016-05-25] MEDS ORDERED: PRED10TA PO (15:03)
--- NOTE | 2016-05-25 15:05 | Discharge Instructions ---
Discharge Instructions Date of Service May 25, 2016. Admission Reason for Admission: Chest Pain Discharge Discharge Diagnosis / Problem: Non-Cardiac Chest Pain Discharge Goals Goal(s): Decrease discomfort, Improve function, Increase independence, Improve disease control, Learn about illness, Diagnostic testing, Therapeutic intervention Activity Recommendations Activity Limitations: resume your previous activity (As Tolerated.) Lifting Limitations: no more than 10 pounds (With Left hand/arm) Exercise/Sports Limitations: as tolerated May Resume Sexual Activity: when tolerated Shower/Bathe: no limitations Driving or Machine Use: resume 3 days after discharge . Instructions / Follow-Up Instructions / Follow-Up Please follow the instructions about dosing of Prednisone. Follow up with PCP on 06/01/2016 @ 1.15 PM. Current Hospital Diet Patient's current hospital diet: AHA Diet (Heart Healthy) Discharge Diet Recommended Diet: AHA Diet (Heart Healthy) Pending Studies Studies pending at discharge: no Laboratory Results Lipid Panel Test 05/25/16 05:30 Range/Units Triglycerides Level 92 0-150 mg/dl Cholesterol Level 198 0-200 mg/dl HDL Cholesterol 75 mg/dl Cholesterol/HDL Ratio 2.6 LDL Cholesterol, Calculated 105 mg/dl Medical Emergencies . Who to Call and When: Medical Emergencies: If at any time you feel your situation is an emergency, please call 911 immediately. . Non-Emergent Contact Non-Emergency issues call your: Primary Care Provider . . "Provider Documentation" section prepared by Josr Bagley. VTE Core Measure Inpt VTE Proph given/why not?: Enoxaparin (Lovenox)SQ
--- NOTE | 2016-05-25 15:10 | Discharge Summary ---
Discharge Summary Date of Service May 25, 2016. Discharge Summary Admission Date: May 24, 2016 at 21:13 Discharge Date: May 25, 2016 Discharge Disposition: Home Principal Diagnosis: Non-Cardiac Chest Pain Mild COPD Exacerbation Secondary Diagnoses/Problems: Hypertension GERD History DAYA Depression/Anxiety Procedures: NONE Vaccinations: NONE Consultations: NONE Pending Studies/Follow-Up: NONE Medication Reconciliation New Medications: Prednisone (Prednisone) 20 Mg Tab 1 TAB PO QDB for 4 Days, #4 TABS 0 Refills Prednisone (Prednisone) 10 Mg Tab 10 MG PO QD for 3 Days, #3 TAB Prednisone (Prednisone) 20 Mg Tab 40 MG PO DAILY for 2 Days, #4 TAB Continued Medications: Albuterol (Ventolin Hfa) Aers 2 PUFFS INH QID PRN for SOB/Wheezing Cyclobenzaprine Hcl (Flexeril) 10 Mg Tab 10 MG PO TID PRN for Muscle Spasm, TAB Fluticasone Furoate-Vilanterol (Breo Ellipta) 1 Inh Inh 1 PUFF INH DAILY Gabapentin (Neurontin) 100 Mg Cap 300 MG PO TID, CAP Hydroxyzine Hcl (Atarax) 25 Mg Tab 25 MG PO Q8 PRN for Anxiety, TAB Lamotrigine (Lamictal) 25 Mg Tab 25 MG PO HS, TAB Metoprolol Tartrate (Lopressor) 25 Mg Tab 25 MG PO BID Quetiapine Fumarate (Seroquel) 25 Mg Tab 25 MG PO HS, TAB Trazodone HCl (Trazodone HCl) 150 Mg Tab 150 MG PO HS Valacyclovir Hcl (Valtrex) 1 Gm Tab 2 GM PO Q12 PRN for Cold Sores TAKE DIRECTED FOR ONE DAY NEEDED FOR COLD SORES Venlafaxine Hcl (Effexor Xr) 150 Mg Cap 300 MG PO QAM Admission Information HPI (per Admitting provider): This is a 56 y/o female with PMH of COPD, tobacco abuse, HTN, dyslipidemia, GERD , anxiety, depression, who presents to the ED with chest pain. Patient states yesterday around 2 pm while sitting she developed substernal chest pressure, non -radiating, rated 6/10, which lasted approx 2 hours. She reports associated dizziness, SOB, heart racing, nausea. She had recurrent chest pain today, again while at rest, which lasted 2 hours. She was seen in clinic by Josselyn Delgado, declined ER by ambulance and was driven here by her . Had headache in ER which resolved with morphine. Since coming to ER has left arm throbbing rated 7/10. States voice is hoarse now because she is thirsty. States reflux has been controlled. Denies syncope, rhinorrhea, sore throat, cough, abdominal pain, vomiting, diarrhea, dysuria, frequency, calf pain, edema, rash, numbness, weakness. She denies anxiety or heavy lifting. Pt recently travelled to [place] and retuned by car 1 wk ago. Patient states pain is similar to prior admissions. She had a negative stress test in June 2015. She was also admitted for CP in February 2016 at which time cardiac enzymes were negative, EKG had no significant ST changes, and echo showed no wall motion abnormality. Denies hx of abnormal bleeding. Physical Exam (per Admitting): General Appearance: + obese, + pertinent finding (alert 56 year old female, at bedside) Head: normocephalic, atraumatic Eyes: normal inspection, PERRL, EOMI ENT: hearing grossly normal, pharynx normal Neck: supple, no JVD, trachea midline Respiratory/Chest: no respiratory distress, no accessory muscle use, + wheezing (moderate expiratory wheezing) Cardiovascular: regular rate, rhythm, no murmur Abdomen/GI: normal bowel sounds, non tender, soft Extremities/Musculoskelatal: no calf tenderness, no pedal edema, + pertinent finding (right upper extremity- shoulder, elbow, and wrist nontender with normal ROM) Neurologic/Psych: alert, normal mood/affect, oriented x 3, + pertinent finding (RUE credit collector strength 5/5) Skin: normal color, warm/dry, no rash (no rash on the chest) Hospital Course Chest Pain: Seems to be non-cardiac in etiology. Rule out ACS; Risk factors- obesity, HTN, HL, + family history May have component of COPD exacerbation Prior stress test negative in June 2015; Echo 02/2016- no regional wall motion abnormality, EF 60-65%, mild TR CXR Shows no acute findings -D dimer elevated; CTA neg for PE -EKG- no ischemic findings -Serial Troponin negative -Lipid panel in shows HDL 75 and LDL 105. Hypertension: BP is stable. -Continue metoprolol History COPD: May have mild exacerbation clinically. -Xopenex-Atrovent nebs q6 -Started prednisone 40 mg daily which will be tapered gradually over the next 10-12 days. -Continue Breo Ellipta, PRN albuterol History DAYA: Non compliant with CPAP at home. Counselled again. History Depression/Anxiety: Stable. -Continue Abilify, Effexor, Hydroxyzine, Lamictal, Seroquel, Trazodone History GERD: s/p fundoplication. Stable. DVT Prophylaxis: Lovenox SQ Code Status: FULL CODE Disposition: Discharge home later today. Follow up with PCP on 06/01/2016 @ 1.15 PM. Total time spent on discharge = 35 minutes This includes examination of the patient, discharge planning, medication reconciliation, and communication with other providers. Discharge Instructions Discharge Goals Goal(s): Decrease discomfort, Improve function, Increase independence, Improve disease control, Learn about illness, Diagnostic testing, Therapeutic intervention Activity Recommendations Activity Limitations: resume your previous activity (As Tolerated.) Lifting Limitations: no more than 10 pounds (With Left hand/arm) Exercise/Sports Limitations: as tolerated May Resume Sexual Activity: when tolerated Shower/Bathe: no limitations Driving or Machine Use: resume 3 days after discharge . Instructions / Follow-Up Instructions / Follow-Up Please follow the instructions about dosing of Prednisone. Follow up with PCP on 06/01/2016 @ 1.15 PM. Current Hospital Diet Patient's current hospital diet: AHA Diet (Heart Healthy) Discharge Diet Recommended Diet: AHA Diet (Heart Healthy) Additional Copies To Vivian Mead D.O.
[2016-08-12] MEDS ORDERED: GABA-112 PO (18:35)
[2016-08-13] MEDS ORDERED: IPRA1AER2 INH (18:08)
[2016-08-13] MEDS ORDERED: AZITTAB PO (18:08)
[2016-08-13] MEDS ORDERED: ASPEC81 PO (18:08)
[2016-08-13] MEDS ORDERED: PRED10TA PO (18:08)
[2016-12-10] MEDS ORDERED: VNTHFA/IN INH (15:50)
[2016-12-10] MEDS ORDERED: VALA1TAB31 PO (17:05)
[2016-12-10] MEDS ORDERED: CYCL10TA6 PO (17:05)
[2016-12-10] MEDS ORDERED: DSY/150 PO (17:05)
[2016-12-10] MEDS ORDERED: LPR25 PO (18:35)
== END 2016-05-25 15:55 | disposition home or self-care (01) ==
LOC: ENRESERVDT → ENRESERVTM → C.EDB 15:19 → C.MED 21:13 → UNDODISOB 05-25 11:45
PROVIDERS: ADMIT Internal Medicine; ATTEND Emergency Medicine
DX: J44.1 Chronic obstructive pulmonary disease with (acute) exacerbation (principal); I10 Essential (primary) hypertension; F32.9 Major depressive disorder, single episode, unspecified; E78.5 Hyperlipidemia, unspecified; G47.33 Obstructive sleep apnea (adult) (pediatric); F17.200 Nicotine dependence, unspecified, uncomplicated; Z90.710 Acquired absence of both cervix and uterus; Z80.3 Family history of malignant neoplasm of breast; Z82.49 Family history of ischemic heart disease and other diseases of the circulatory system; Z83.3 Family history of diabetes mellitus; Z82.3 Family history of stroke; Z79.899 Other long term (current) drug therapy

== ENCOUNTER 2016-05-26 13:32 | Emergency (ER) | payer OTHER ==
[~2016-05-26] VITALS: Ht 165.1 cm; Wt 91.2 kg
[~2016-05-26 13:32] MED LIST changes: -ABL10 PO; -ASPI81TA28 PO; -DTR5 PO; +FLUT1INH INH; +LAMO25TA PO; +PRD20 PO; +PRED10TA PO; +QUET1TAB30 PO; -SUVO1TAB PO; -TIOT1SPR INH
[2016-05-26 13:36] VITALS: BP 148/96; PULSE 99; TEMP 36.9; O2SAT 96; Ht 165.1 cm; Wt 91.2 kg
--- NOTE | 2016-05-26 14:11 | DIAGNOSTIC IMAGING REPORT ---
CHEST ONE VIEW PORTABLE CLINICAL HISTORY: Evaluate Fever/Sepsis dyspnea COMPARISON STUDY: 05/24/2016 FINDINGS: The bones soft tissues and hemidiaphragms are normal. The cardiomediastinal silhouette is normal. The lungs are clear. The pulmonary vasculature is normal. IMPRESSION: Negative chest. No change in the prior study. Electronically signed by: Tani Rivera M.D. 05/26/2016 2:09 PM Dictated Date/Time: 05/26/2016 2:09 PM
--- NOTE | 2016-05-26 14:46 | EMERGENCY ROOM VISIT NOTE ---
History Report prepared by Valdo: Shagufta Roblero Under the Supervision of: Dr. Alejo Richter D.O. First contact with patient: 13:48 Chief Complaint: CARDIAC ASSESSMENT Stated Complaint: CP, DIZZY, PAIN IN LT ARM, SOB History of Present Illness The patient is a 56 year old female who presents to the Emergency Room with complaints of persistent chest pain starting 3 days ago. She was seen in the ED 2 days ago for the same symptoms. She had an elevated D-dimer and was admitted overnight. She presents to the ED today because she is not experiencing any improvement in her symptoms. She describes the chest pain as a pressure and throbbing. She rates her discomfort as a 6/10 in severity. The pain does not radiate anywhere. The pain is intermittent and last for minutes to hours. She experiences some relief with gabapentin. She also reports left arm pain, SOB, nausea, and diaphoresis. She has been dry heaving. She denies any vomiting, fever, or chills. She denies being under increased stress. She had a long trip 3 weeks ago. She has a history of depression, anxiety, and GERD. Source of History: patient Onset: 3 days ago Position: chest Symptom Intensity: 6/10 Quality: other (pressure) Timing: other (persistent) Modifying Factors (Relieving): other (gabapentin) Associated Symptoms: + SOB, + diaphoresis, + nausea, No chills, No fevers, No vomiting Note: Pt reports left arm pain. Review of Systems See HPI for pertinent positives & negatives. A total of 10 systems reviewed and were otherwise negative. Past Medical & Surgical Medical Problems: (1) Anxiety (2) Chest pain (3) Depression (4) Dyslipidemia (5) Emphysema (6) GERD (gastroesophageal reflux disease) (7) Glaucoma (8) H/o Lyme disease (9) H/O subacute thyroiditis (10) HTN (hypertension) (11) Hx of migraines (12) Lumbar degenerative disc disease (13) DAYA (obstructive sleep apnea) (14) Questonable history of meningitis Surgical Problems: (1) H/O section (2) H/O cystoscopy (3) History of colonoscopy (4) History of esophagogastroduodenoscopy (5) S/p carpal tunnel surgery (6) S/P partial hysterectomy (7) S/P sinus surgery (8) S/P tonsillectomy and adenoidectomy (9) S/P tubal ligation (10) Status post Cindy fundoplication Family History Cancer SISTER (breast CA) BROTHER (pancreatic CA) Diabetes mellitus SISTER (Type 1) FH: Parkinson's disease BROTHER FH: emphysema MOTHER Heart disease FATHER ( of [place] age 53) Hypertension MOTHER Seizures DAUGHTER Stroke MOTHER Social History Smoking Status: Current Every Day Smoker Alcohol Use: none Drug Use: none Marital Status: Housing Status: lives with family Occupation Status: disabled Current/Historical Medications Scheduled Fluticasone Furoate-Vilanterol (Breo Ellipta), 1 PUFF INH DAILY Gabapentin (Neurontin), 300 MG PO TID Lamotrigine (Lamictal), 25 MG PO HS Metoprolol Tartrate (Lopressor), 25 MG PO BID Prednisone (Prednisone), 40 MG PO DAILY Prednisone (Prednisone), 1 TAB PO QDB Prednisone (Prednisone), 10 MG PO QD Quetiapine Fumarate (Seroquel), 25 MG PO HS Trazodone HCl (Trazodone HCl), 150 MG PO HS Venlafaxine Hcl (Effexor Xr), 300 MG PO QAM Scheduled PRN Albuterol (Ventolin Hfa), 2 PUFFS INH QID PRN for SOB/Wheezing Cyclobenzaprine Hcl (Flexeril), 10 MG PO TID PRN for Muscle Spasm Hydroxyzine Hcl (Atarax), 25 MG PO Q8 PRN for Anxiety Valacyclovir Hcl (Valtrex), 2 GM PO Q12 PRN for Cold Sores Allergies Coded Allergies: Nitrofurantoin (Verified Allergy, Severe, UNABLE TO BEATHE, 05/24/16) Sulfamethoxazole w/Trimethoprim (Verified Allergy, Severe, SHORTNESS OF BREATH, 05/24/16) Physical Exam Vital Signs Date Time Temp Pulse Resp B/P Pulse Ox O2 Delivery O2 Flow Rate FiO2 05/26/16 14:00 Room Air 05/26/16 13:36 36.9 99 20 148/96 96 Room Air Physical Exam CONSTITUTIONAL/VITAL SIGNS: Reviewed / noted above. GENERAL: Non-toxic in appearance. INTEGUMENTARY: Warm, dry, and [place]. HEAD: Normocephalic. EYES: without scleral icterus or trauma. ENT/OROPHARYNX: clear and moist. LYMPHADENOPATHY/NECK: Is supple without lymphadenopathy or meningismus. RESPIRATORY: Mild end expiratory wheezing. CARDIOVASCULAR: Regular rate and rhythm. GI/ABDOMEN: Soft and nontender. No organomegaly or pulsatile mass. No rebound or guarding. Normal bowel sounds. EXTREMITIES: Warm and well perfused. BACK: No CVA tenderness. NEUROLOGICAL: Intact without focal deficits. PSYCHIATRIC: normal affect. MUSCULOSKELETAL: Normally developed with good muscle tone. Medical Decision & Procedures ER Provider Diagnostic Interpretation: X ray results and stated below per my interpretation and radiology interpretation. CHEST ONE VIEW PORTABLE CLINICAL HISTORY: Evaluate Fever/Sepsis dyspnea COMPARISON STUDY: 05/24/2016 FINDINGS: The bones soft tissues and hemidiaphragms are normal. The cardiomediastinal silhouette is normal. The lungs are clear. The pulmonary vasculature is normal. IMPRESSION: Negative chest. No change in the prior study. Electronically signed by: aTni Rivera M.D. 05/26/2016 2:09 PM Dictated Date/Time: 05/26/2016 2:09 PM Laboratory Results Test 05/26/16 13:48 Creatine Kinase MB Ratio (0-3.0) Laboratory results as stated above per my review. ECG Indication: chest pain Rate (beats per minute): 70 Rhythm: normal sinus Findings: no ectopy, other (no acute injury) ED Course 1353: At this time the patient was evaluated by the medical student. The students findings were discussed with me. We discussed a possible treatment plan and differential diagnoses for the patient. 1435: Previous medical records were reviewed. The patient was evaluated in room B3B. A complete history and physical examination was performed. 1445: On reevaluation, the patient is resting comfortably. I discussed the results and findings with the patient. She verbalized agreement of the treatment plan. She was discharged home. Medical Decision the differential was considered includes acute myocardial infarction, acute coronary syndrome, myocarditis, pericarditis, pericardial effusions /tamponad, esophageal perforation, thoracic aortic dissection, pulmonary embolism, pneumonia, pneumothorax, pancreatitis, shingles, acute cholecystitis, perforated abdominal viscus. This is a 56-year-old female who presents to the ED with a chief complaint of central chest pain. The patient has been seen for this in the recent past. She was observed overnight in the hospital and discharged yesterday morning. Her symptoms were not felt to be cardiac in nature. The patient reports left arm pain and associated shortness of breath and some nausea. She was seen here on the third and had a negative CT scan of the chest and was admitted overnight. Cardiac enzymes were negative during this evaluation. The patient called her PCP today and was referred here by Dr. Mcelroy. She is frustrated that she was sent back here as she was just discharged from here yesterday with the same symptoms. They have not worsened but they're not any better either. Her physical exam was unremarkable. She did have some mild expiratory wheezing. She is a chronic smoker. Chest x-ray was negative for acute disease. Twelve-lead EKG shows a normal sinus rhythm. Lab and IV team had difficulty getting the patient's blood work. During my evaluation, the patient became upset and decided that she wanted to leave. She states that she is going to [facility]. Impression Primary Impression: Precordial chest pain Scribe Attestation The scribe's documentation has been prepared under my direction and personally reviewed by me in its entirety. I confirm that the note above accurately reflects all work, treatment, procedures, and medical decision making performed by me. Departure Information Dispostion Home / Self-Care Referrals Vivian Mead D.O. (PCP) Patient Instructions My [facility] Additional Instructions Follow-up with your doctor for further care and evaluation in 1-2 days. Return to the emergency department for worsening or new symptoms or any concerns. You have been examined and treated today on an emergency basis only. This is not a substitute for, or an effort to provide, complete comprehensive medical care. It is impossible to recognize and treat all injuries or illnesses in a single emergency department visit. It is therefore important that you follow up closely with your doctor. Call as soon as possible for an appointment.
[2016-08-12] MEDS ORDERED: GABA-112 PO (18:35)
[2016-08-13] MEDS ORDERED: ASPEC81 PO (18:08)
[2016-08-13] MEDS ORDERED: IPRA1AER2 INH (18:08)
[2016-08-13] MEDS ORDERED: PRED10TA PO (18:08)
[2016-08-13] MEDS ORDERED: AZITTAB PO (18:08)
[2016-12-10] MEDS ORDERED: VNTHFA/IN INH (15:50)
[2016-12-10] MEDS ORDERED: VALA1TAB31 PO (17:05)
[2016-12-10] MEDS ORDERED: DSY/150 PO (17:05)
[2016-12-10] MEDS ORDERED: CYCL10TA6 PO (17:05)
[2016-12-10] MEDS ORDERED: LPR25 PO (18:35)
== END 2016-05-26 14:54 | disposition left against medical advice (07) ==
LOC: C.EDB 13:34
DX: R07.2 Precordial pain (principal); E78.5 Hyperlipidemia, unspecified; K21.9 Gastro-esophageal reflux disease without esophagitis; I10 Essential (primary) hypertension; G47.33 Obstructive sleep apnea (adult) (pediatric); F41.9 Anxiety disorder, unspecified; F32.9 Major depressive disorder, single episode, unspecified; Z98.51 Tubal ligation status; F17.200 Nicotine dependence, unspecified, uncomplicated

== ENCOUNTER 2016-08-12 14:42 | Observation (INO) | payer OTHER ==
[~2016-08-12] VITALS: Ht 165.1 cm; Wt 88.4 kg
[~2016-08-12 14:42] MED LIST changes: -PRED10TA PO
--- NOTE | 2016-08-12 15:20 | EMERGENCY ROOM VISIT NOTE ---
History Report prepared by Valdo: Monalisa Rutherford Under the Supervision of: Dr. Forrest Hunter M.D. First contact with patient: 15:05 Chief Complaint: CHEST PAIN Stated Complaint: CHEST/BACK PAIN, DIZZY, NECK PAIN, HEADACHE Nursing Triage Summary: Pt states 3.5 hours ago she was putting clothes in drying, stood up and got pain in left chest and neck and middle of back, got dizzy and broke out in a sweat. Continues to c/o symptoms, including a headache History of Present Illness The patient is a 56 year old female who presents to the Emergency Room with complaints of persistent left sided chest pain for the past three hours. She currently rates her discomfort as a 7/10 in severity. The patient states that she was getting up to put clothes in the washer when she developed left sided chest pain that radiates into her left shoulder blade, left neck, and back. The patient additionally notes that she developed a headache, shortness of breath, and diaphoresis. The patient's states that the patient has had pain like this in the past and was evaluated in the emergency department for it , but states that they never found any definite cardiac problem. The patient denies any history of hypertension. She denies any chance of . The patient denies any fever, chills, or pain or swelling in her legs. Source of History: patient, spouse/significant other () Onset: three hours Position: chest (left) Symptom Intensity: 7/10 Quality: other (radiating) Timing: other (persistent) Associated Symptoms: + headache, + diaphoresis, + neck pain, + SOB, + back pain, No fevers, No chills Note: Associated Symptoms: pain radiating into left shoulder pain. Review of Systems See HPI for pertinent positives & negatives. A total of 10 systems reviewed and were otherwise negative. Past Medical & Surgical Medical Problems: (1) Anxiety (2) Chest pain (3) Depression (4) Dyslipidemia (5) Emphysema (6) GERD (gastroesophageal reflux disease) (7) Glaucoma (8) H/o Lyme disease (9) H/O subacute thyroiditis (10) HTN (hypertension) (11) Hx of migraines (12) Lumbar degenerative disc disease (13) DAYA (obstructive sleep apnea) (14) Questonable history of meningitis Surgical Problems: (1) H/O section (2) H/O cystoscopy (3) History of colonoscopy (4) History of esophagogastroduodenoscopy (5) S/p carpal tunnel surgery (6) S/P partial hysterectomy (7) S/P sinus surgery (8) S/P tonsillectomy and adenoidectomy (9) S/P tubal ligation (10) Status post Cindy fundoplication Old medical records were reviewed. Nurse's notes were reviewed and I agree with. Family History Cancer SISTER (breast CA) BROTHER (pancreatic CA) Diabetes mellitus SISTER (Type 1) FH: Parkinson's disease BROTHER FH: emphysema MOTHER Heart disease FATHER ( of [place] age 53) Hypertension MOTHER Seizures DAUGHTER Stroke MOTHER Social History Smoking Status: Current Every Day Smoker Alcohol Use: none Drug Use: none Marital Status: Housing Status: lives with family Occupation Status: disabled Current/Historical Medications Scheduled Fluticasone Furoate-Vilanterol (Breo Ellipta), 1 PUFF INH DAILY Gabapentin (Neurontin), 100 MG PO TID Lamotrigine (Lamictal), 25 MG PO HS Metoprolol Tartrate (Lopressor), 25 MG PO BID Quetiapine Fumarate (Seroquel), 25 MG PO HS Trazodone HCl (Trazodone HCl), 150 MG PO HS Venlafaxine Hcl (Effexor Xr), 300 MG PO QAM Scheduled PRN Albuterol Hfa (Ventolin Hfa), 2-4 PUFFS INH Q6H PRN for SOB/Wheezing Cyclobenzaprine Hcl (Flexeril), 10 MG PO TID PRN for Muscle Spasm Hydroxyzine Hcl (Atarax), 25 MG PO Q8 PRN for Anxiety Valacyclovir Hcl (Valtrex), 2 GM PO Q12 PRN for Cold Sores Allergies Coded Allergies: Nitrofurantoin (Verified Allergy, Severe, UNABLE TO BEATHE, 08/12/16) Sulfamethoxazole w/Trimethoprim (Verified Allergy, Severe, SHORTNESS OF BREATH, 08/12/16) Physical Exam Vital Signs Date Time Temp Pulse Resp B/P (MAP) Pulse Ox O2 Delivery O2 Flow Rate FiO2 08/12/16 18:02 79 13 90 08/12/16 18:00 139/84 08/12/16 17:58 141/75 08/12/16 17:47 72 10 95 08/12/16 17:32 72 12 95 08/12/16 17:31 142/68 08/12/16 17:17 66 11 95 08/12/16 17:02 74 11 96 08/12/16 17:01 142/74 08/12/16 16:47 73 13 96 08/12/16 16:42 73 20 97 08/12/16 16:36 73 18 160/76 96 Room Air 08/12/16 16:36 160/76 08/12/16 16:12 73 11 96 08/12/16 15:42 81 10 95 08/12/16 15:31 118/88 08/12/16 15:26 97 Room Air 08/12/16 15:12 79 14 08/12/16 15:11 78 08/12/16 15:01 163/110 08/12/16 14:49 94 Room Air 08/12/16 14:46 37.2 101 18 148/90 94 Room Air Physical Exam General: Well developed well nourished, mildly uncomfortable, middle aged female in no acute distress, breathing comfortably on room air. Normal speech HEENT: Normal cephalic atraumatic. Pupils are equal round and reactive to light. Extraocular movements are intact. Oropharynx is pink with moist mucous membranes. No swelling of the mouth lips or tongue. Neck: Supple with a midline trachea. No meningeal signs or stiffness, no JVD or bruits. No Stridor. Chest: Clear to auscultation bilaterally. No wheezes or rhonchi. No increased work of breathing. Heart: regular rate and rhythm. Abdomen: Soft nontender, nondistended without rebound guarding or rigidity. Extremities: No cyanosis clubbing or edema. No calf tenderness or assymetry Spine/Back. Non tender to palpation. No CVA tenderness Skin: Good turgor without rashes. Neurologic exam: Cranial nerves two through 12 are intact. Motor and sensation are intact and symmetrical throughout. Medical Decision & Procedures ER Provider Diagnostic Interpretation: X-ray results as stated below per interpretation by me and the radiologist: CHEST ONE VIEW PORTABLE CLINICAL HISTORY: CHEST PAIN dyspnea COMPARISON STUDY: CT dated 05/24/2016 FINDINGS: Lungs are clear. Nodular density right pulmonary apex appears to represent overlap artifact based on the CT exam. No evidence for cardiac enlargement. No focal infiltrate. IMPRESSION: No acute process. Electronically signed by: Tani Rivera M.D. 08/12/2016 3:44 PM Dictated Date/Time: 08/12/2016 3:35 PM Laboratory Results 08/12/16 15:36 Red Blood Count 4.24, Mean Corpuscular Volume 90.1, Mean Corpuscular Hemoglobin 30.4, Mean Corpuscular Hemoglobin Concent 33.8, Mean Platelet Volume 9.3, Neutrophils (%) (Auto) 53.4, Lymphocytes (%) (Auto) 38.1, Monocytes (%) (Auto) 5.2, Eosinophils (%) (Auto) 2.5, Basophils (%) (Auto) 0.5, Neutrophils # (Auto) 4.03, Lymphocytes # (Auto) 2.88, Monocytes # (Auto) 0.39, Eosinophils # (Auto) 0.19, Basophils # (Auto) 0.04 08/12/16 15:36 Test 08/12/16 15:36 08/12/16 17:09 White Blood Count 7.55 K/uL (4.8-10.8) Red Blood Count 4.24 M/uL (4.2-5.4) Hemoglobin 12.9 g/dL (12.0-16.0) Hematocrit 38.2 % (37-47) Mean Corpuscular Volume 90.1 fL (80-100) Mean Corpuscular Hemoglobin 30.4 pg (25-34) Mean Corpuscular Hemoglobin Concent 33.8 g/dl (32-36) Platelet Count 337 K/uL (130-400) Mean Platelet Volume 9.3 fL (7.4-10.4) Neutrophils (%) (Auto) 53.4 % Lymphocytes (%) (Auto) 38.1 % Monocytes (%) (Auto) 5.2 % Eosinophils (%) (Auto) 2.5 % Basophils (%) (Auto) 0.5 % Neutrophils # (Auto) 4.03 K/uL (1.4-6.5) Lymphocytes # (Auto) 2.88 K/uL (1.2-3.4) Monocytes # (Auto) 0.39 K/uL (0.11-0.59) Eosinophils # (Auto) 0.19 K/uL (0-0.5) Basophils # (Auto) 0.04 K/uL (0-0.2) RDW Standard Deviation 51.0 fL (36.4-46.3) RDW Coefficient of Variation 15.6 % (11.5-14.5) Immature Granulocyte % (Auto) 0.3 % Immature Granulocyte # (Auto) 0.02 K/uL (0.00-0.02) Prothrombin Time 10.7 SECONDS (9.0-12.0) Prothromb Time International Ratio 1.0 (0.9-1.1) Activated Partial Thromboplast Time 25.4 SECONDS (21.0-31.0) Partial Thromboplastin Ratio 1.0 Anion Gap 9.0 mmol/L (3-11) Est Creatinine Clear Calc Drug Dose 109.4 ml/min Estimated GFR () 116.4 Estimated GFR (Non- 100.5 BUN/Creatinine Ratio 21.7 (10-20) Calcium Level 9.1 mg/dl (8.5-10.1) Total Bilirubin 0.3 mg/dl (0.2-1) Direct Bilirubin < 0.1 mg/dl (0-0.2) Aspartate Amino Transf (AST/SGOT) 14 U/L (15-37) Alanine Aminotransferase (ALT/SGPT) 21 U/L (12-78) Alkaline Phosphatase 110 U/L (45-117) Total Creatine Kinase 52 U/L (26-192) Creatine Kinase MB 1.0 ng/ml (0.5-3.6) Creatine Kinase MB Ratio 1.9 (0-3.0) Total Protein 7.1 gm/dl (6.4-8.2) Albumin 3.4 gm/dl (3.4-5.0) Lipase 150 U/L (73-393) Bedside Troponin I < 0.030 ng/ml (0-0.045) Laboratory studies as stated above per my review. Medications Administered Medications (Trade) Dose Ordered Sig/Ross Route Start Time Stop Time Status Last Admin Dose Admin Morphine Sulfate (MoRPHine SULFATE INJ) 4 mg NOW STAT IV 08/12/16 15:23 08/12/16 15:24 DC 08/12/16 15:32 4 MG Ondansetron HCl (Zofran Inj) 4 mg NOW STAT IV 08/12/16 15:23 08/12/16 15:24 DC 08/12/16 15:31 4 MG Sodium Chloride 1,000 ml @ 999 mls/hr Q1H1M STAT IV 08/12/16 15:23 08/12/16 16:23 DC 08/12/16 15:33 999 MLS/HR Sodium Chloride 1,000 ml @ 150 mls/hr Q6H40M ONCE IV 08/12/16 15:23 08/12/16 22:02 08/12/16 15:45 150 MLS/HR Morphine Sulfate (MoRPHine SULFATE INJ) 4 mg NOW STAT IV 08/12/16 16:41 08/12/16 16:42 DC 08/12/16 16:50 4 MG Nitroglycerin (Nitrostat Tab) 0.4 mg NOW STAT SL 08/12/16 17:50 08/12/16 17:52 DC 08/12/16 18:03 0.4 MG ECG Indication: chest pain Rate (beats per minute): 78 Rhythm: normal sinus Findings: no acute ischemic change, no ectopy Comparison ECG Date: 05/26/16 Change: no significant change ED Course 1513: Past medical records reviewed. The patient was evaluated in room C12B, and a complete history and physical examination were performed. 1523: Ordered Sodium Chloride 1000 ml @ 150 mls/hr IV, Sodium Chloride 1000 ml @ 999 mls/hr IV, Zofran Inj 4 mg IV, Morphine Sulfate 4 mg IV. 1542: I reevaluated the patient and she is resting comfortably. 1641: I reevaluated the patient and she is now experiencing pain again. Ordered Morphine Sulfate 4 mg IV. 1747: I reevaluated the patient and she is still experiencing pain. I discussed the exam findings with her and I discussed the treatment plan. She verbalized complete understanding and agreement. She will be evaluated for further treatment. 1750: Ordered Nitroglycerin 0.4 mg SL. Medical Decision Differentials include, but are not limited to; acute coronary syndrome, PE, aneurysm, pneumothorax, electrolyte or metabolic abnormality, anxiety. Blood pressure Screening: Patient was found to have an elevated blood pressure and was referred to their primary doctor for recheck and further treatment. Medication Reconciliation: I attest that I have personally reviewed the patient' s current medication list. This patient comes in as described above. She was placed in room C 12. She's having chest pain. EKG was obtained and shows no acute ischemic changes or ectopy seen. A troponin was obtained and shows no elevation of her cardiac biomarkers. Chest x-ray was unremarkable she did receive IV morphine and IV Zofran and was feeling better the pain started coming back and she did receive additional IV morphine. She had normal blood testing and has no evidence of acute electrode or metabolic abnormalities. I reviewed her record she's been here multiple times for chest pain and has had negative stress test in the past. He did a second EKG and there is no ischemic changes or progression or any change compared to the first her troponin was negative. I also gave her nitroglycerin which may have helped a little bit. She has had a stress test in the past but never had a cardiac cath. I do think she needs to be observed in the hospital for further treatment and evaluation and to continue to rule out cardiac event. She has taken aspirin already today. I have consulted Dr. Juarez and she will be seen in the ER. Consults Time Called: [phone] Consulting Physician: Larry Returned Call: [phone] He will see the patient in the emergency department and agrees with plan Impression Primary Impression: Precordial chest pain Scribe Attestation The scribe's documentation has been prepared under my direction and personally reviewed by me in its entirety. I confirm that the note above accurately reflects all work, treatment, procedures, and medical decision making performed by me. Departure Information Dispostion Being Evaluated By Hospitalist Prescriptions Gabapentin (Neurontin) 100 Mg Cap 100 MG PO TID, #20 CAP Prov: Enrike Juarez MD 08/12/16 Referrals No Doctor, Assigned (PCP)
[2016-08-12] MEDS ORDERED: SODIUM CHLORIDE 0.9% 1000ML 1,000 ML IV ONE (15:23)
[2016-08-12] MEDS ORDERED: ONDANSETRON INJ 2 MG/ML 2 ML VIAL IV STA (15:23)
[2016-08-12] MEDS ORDERED: SODIUM CHLORIDE 0.9% 1000ML 1,000 ML IV STA (15:23)
[2016-08-12] MEDS ORDERED: MoRPHine SULFATE 4 MG/ML 1 ML CARP\\VIAL IV STA ×2 (15:23→16:41)
--- NOTE | 2016-08-12 15:46 | DIAGNOSTIC IMAGING REPORT ---
CHEST ONE VIEW PORTABLE CLINICAL HISTORY: CHEST PAIN dyspnea COMPARISON STUDY: CT dated 05/24/2016 FINDINGS: Lungs are clear. Nodular density right pulmonary apex appears to represent overlap artifact based on the CT exam. No evidence for cardiac enlargement. No focal infiltrate. IMPRESSION: No acute process. Electronically signed by: Tani Rivera M.D. 08/12/2016 3:44 PM Dictated Date/Time: 08/12/2016 3:35 PM
[2016-08-12 16:47] LABS: PROTHROMBIN TIME (PATIENT) 10.7 SECONDS (9.0-12.0)
[2016-08-12 16:48] LABS: BASO % 0.5 %; BASO ABS # 0.04 K/uL (0-0.2); COMPLETE YES; EOS % 2.5 %; HEMATOCRIT 38.2 % (37-47); IG% 0.3 %; LYMPH % 38.1 %; LYMPH ABS # 2.88 K/uL (1.2-3.4); MEAN CELL VOLUME 90.1 fL (80-100); MEAN CORPUSCULAR HEMOGLOBIN 30.4 pg (25-34); MEAN CORPUSCULAR HGB CONC 33.8 g/dl (32-36); MEAN PLATELET VOLUME 9.3 fL (7.4-10.4); MONO % 5.2 %; NEUT % 53.4 %; PLATELET COUNT 337 K/uL (130-400); RED BLOOD COUNT 4.24 M/uL (4.2-5.4); WHITE BLOOD COUNT 7.55 K/uL (4.8-10.8)
[2016-08-12 16:56] LABS: ALT/SGPT 21 U/L (12-78); BLOOD UREA NITROGEN 14 mg/dl (7-18); BUN/CREATININE RATIO 21.7 (10-20); CALCIUM 9.1 mg/dl (8.5-10.1); CARBON DIOXIDE 23 mmol/L (21-32); CHLORIDE 108 mmol/L (98-107); CREATININE 0.64 mg/dl (0.60-1.20); GLUCOSE 88 mg/dl (70-99); POTASSIUM 3.8 mmol/L (3.5-5.1); SODIUM 140 mmol/L (136-145)
[2016-08-12 17:01] LABS: ALKALINE PHOSPHATASE 110 U/L (45-117); AST/SGOT 14 U/L (15-37); CKMB/CK RATIO 1.9 (0-3.0)
[2016-08-12] MEDS ORDERED: NITROGLYCERIN 0.4 MG SL PER TAB CHARGE SL STA (17:50)
[2016-08-12] MEDS ORDERED: NITROGLYCERIN 0.4 MG SL PER TAB CHARGE SL PRN (18:30)
[2016-08-12] MEDS ORDERED: MAGNESIUM HYDROXIDE SUSP 30 ML UDC PO PRN (18:30)
[2016-08-12] MEDS ORDERED: hydrOXYzine HCL 25 MG TAB PO PRN (18:30)
[2016-08-12] MEDS ORDERED: ALBUTEROL HFA 8 GM INHALER INH PRN (18:30)
[2016-08-12] MEDS ORDERED: LEVALBUTEROL/IPRATROPIUM NEB INH PRN (18:30)
[2016-08-12] MEDS ORDERED: ONDANSETRON INJ 2 MG/ML 2 ML VIAL IV PRN (18:30)
[2016-08-12] MEDS ORDERED: ALUMINUM/MAGNESIUM/SIMETH (MAALOX MAX) 30 ML UDC PO PRN (18:30)
[2016-08-12] MEDS ORDERED: ACETAMINOPHEN 325 MG TAB PO PRN (18:30)
[2016-08-12] MEDS ORDERED: METHYLPREDNISOLONE IV 40 MG in SYRINGE 0 ML IV ONE (18:30)
[2016-08-12] MEDS ORDERED: CYCLOBENZAPRINE HCL 10 MG TAB PO PRN (18:30)
[2016-08-12] MEDS ORDERED: GABA-112 PO (18:35)
[2016-08-12] MEDS ORDERED: MoRPHine SULFATE 2 MG/ML CARP ONE (18:59)
--- NOTE | 2016-08-12 19:18 | HISTORY & PHYSICAL EXAMINATION ---
DATE OF ADMISSION: 08/12/2016 CHIEF COMPLAINT: Chest pain. HISTORY OF PRESENT ILLNESS: This is a 56-year-old female with past medical history significant for anxiety, depression, COPD, tobacco use disorder, obstructive sleep apnea, GERD, hypertension, history of partial small-bowel obstruction, presents with chest pain .Patient was putting her clothes to wash , when she noticed left-sided chest pain that radiated into the left shoulder and left neck, about a 7/10 in severity, also some of shortness of breath and diaphoresis and dizziness. The pain is on and off. It went away in the ER after nitro and morphine, but it is coming back again. The patient was recently treated for COPD exacerbation with steroids and antibiotics. She smokes about 8 cigarettes a day. The patient also was worked up for chest pain with a dobutamine stress test in July 2015, which was unremarkable and she was again in February 2016 was complained of a chest pain, also at that time, echo was done which was also unremarkable. Denies any fever or chills. Has some cough. No headaches, no blurred vision, no nausea, no vomiting. Normal bowel and bladder movements. Otherwise, patient was apparently doing okay until this episode. ALLERGIES: MACROBID. PAST MEDICAL HISTORY: As mentioned above. PAST SURGICAL HISTORY: Carpal tunnel surgery, , colonoscopy with biopsy, cystoscopy, EGD, endometrial cryoablation, ultrasound-guided esophagogastric fundoplasty exploration of maxillary sinus, ligation of oviduct, partial hysterectomy, tonsillectomy and adenoidectomy. MEDICATIONS: The patient is on gabapentin 100 mg p.o. t.i.d., metoprolol 25 mg p.o. b.i.d., Breo Ellipta 1 puff daily, meclizine 25 mg p.o. t.i.d., lamotrigine 25 mg p.o. daily, Celexa 25 mg p.o. daily, albuterol 2 puffs 4 times daily, ipratropium 4 times daily, trazodone 150mg p.o. at bedtime, hydroxyzine 25 mg p.o. q. 8 hours p.r.n., Effexor XR 300 mg p.o. daily, cyclobenzaprine 10 mg p.o. t.i.d. p.r.n., and valacyclovir 2 grams p.o. b.i.d. p.r.n. FAMILY HISTORY: Significant for father had heart disorder; mother has hypertension and lung disorder; brother has Parkinson and pancreatic cancer. SOCIAL HISTORY: , smoked half pack a day for the last 34 years. Alcohol rare. No drug use. REVIEW OF SYMPTOMS: As per HPI. Rest of review of systems negative. PHYSICAL EXAMINATION: GENERAL: The patient is of moderate build, not in distress. VITAL SIGNS: Temperature 37.2, pulse 79, respiratory rate 13, blood pressure 139/84, oxygen 95%. HEENT: No pallor, no icterus. Pupils equal, round, and reactive to light. NECK: No JVD, no neck masses, no carotid bruits. CARDIOVASCULAR: S1, S2 heard, regular rate and rhythm, no murmur, no gallop. RESPIRATORY SYSTEM: Clear to auscultation bilaterally. Bilateral wheezing present. No rhonchi. No accessory muscle use. ABDOMEN: Soft, bowel sounds present. Nontender. No distention. CENTRAL NERVOUS SYSTEM: Cranial nerves II-XII grossly intact. Nonfocal. EXTREMITIES: No edema, no erythema. LABORATORY DATA: WBC 7.5, hemoglobin 12.9, hematocrit 38.2, platelets 337 Sodium 140, potassium 3.8, chloride 108, bicarbonate 23, BUN 14, creatinine 0.6, serum glucose 98. Calcium 9.1, total bilirubin 0.3, direct bilirubin 0.1, AST 14, ALT 21, alkaline phosphatase 110, total creatine kinase 52. Troponin 1 less than 0.03. Lipase 150. PT 10.7, INR 1, PTT 25.4. IMAGING DATA: Chest x-ray: No acute process seen. EKG shows normal sinus rhythm with a rate of 78, no acute ST changes seen. ASSESSMENT AND PLAN: This is a 56-year-old female who presents with chest pain. 1. Chest pain, rule out acute coronary syndrome. Initial workup was negative. Electrocardiogram and cardiac enzymes are negative. The patient has a negative dobutamine stress test in July 2015. This is the fourth episode since last year. Patient has risk factor for smoking, hypertension, sleep apnea, and family history. Will observe on tele floor. Serial cardiac enzymes. The patient still has some chest pain, will place him on nitro paste, IV morphine p.r.n., aspirin, continue home beta amelia, check fasting lipid profile and consult cardiology in a.m. for further recommendations. 2. Mild chronic obstructive pulmonary disease exacerbation. The patient recently finished a course of steroids and antibiotics.Has wheezing. She says her shortness of breath is slightly worse today. We will place her on steroid and nebs. Chest x-ray shows no infiltrates or consolidation., Recently had a 10 days course of Augmentin. We will start on any antibiotics for now and will observe . 3. History of hypertension. Continue metoprolol. We will monitor the blood pressure. 4. History of anxiety and depression. Continue Effexor XR and trazodone, Seroquel and Lamictal; currently seems to be stable. 5. Deep vein thrombosis prophylaxis, sequential compression devices and TEDs. 6. Disposition: Observation tele floor. Expect to discharge home and follow with family doctor. Level 1 full code. MTDD
[2016-08-12] MEDS ORDERED: IV FLUIDS COMPLETED PRN (19:45)
[2016-08-12 19:50] VITALS: BP 142/84; PULSE 79; TEMP 36.8; O2SAT 92; Ht 165.1 cm; Wt 88.4 kg
[2016-08-12] MEDS ORDERED: LEVALBUTEROL 1.25MG/0.5ML NEB INH PRN (20:45)
[2016-08-12] MEDS ORDERED: IPRATROPIUM BROMIDE NEB SOLN 0.02% 2.5 ML VIAL INH PRN (20:45)
[2016-08-12] MEDS ORDERED: TRAZODONE HCL 50 MG TAB PO SCH (21:00)
[2016-08-12] MEDS ORDERED: LEVALBUTEROL/IPRATROPIUM NEB INH SCH (21:00)
[2016-08-12] MEDS ORDERED: QUETIAPINE FUMARATE 25 MG TAB PO SCH (21:00)
[2016-08-12] MEDS: MoRPHine SULFATE 2 MG/ML CARP IV PRN (21:07)
[2016-08-12] MEDS: IPRATROPIUM BROMIDE NEB SOLN 0.02% 2.5 ML VIAL INH SCH (21:11)
[2016-08-12] MEDS: LEVALBUTEROL 0.63MG/3 ML NEB INH SCH (21:11)
[2016-08-12 21:12] VITALS: PULSE 76; O2SAT 91
[2016-08-12] MEDS: METOPROLOL TARTRATE 25 MG TAB PO SCH (21:19)
[2016-08-12] MEDS: GABAPENTIN 100 MG CAP PO SCH (21:20)
[2016-08-12] MEDS: NITROGLYCERIN OINT 2% 1GM PACKET EXT SCH (22:07)
[2016-08-12 23:30] VITALS: BP 124/76; PULSE 75; TEMP 36.6; O2SAT 94
[2016-08-13] VITALS (7 sets, daily range): BP systolic 125–148; BP diastolic 76–80; PULSE 66–80; TEMP 36.5–37.1; O2SAT 90–93
[2016-08-13] MEDS: LEVALBUTEROL 0.63MG/3 ML NEB INH SCH ×3 (01:58→14:24)
[2016-08-13] MEDS: IPRATROPIUM BROMIDE NEB SOLN 0.02% 2.5 ML VIAL INH SCH ×3 (01:58→14:24)
[2016-08-13 02:41] LABS: CKMB/CK RATIO 1.7 (0-3.0)
[2016-08-13] MEDS: NITROGLYCERIN OINT 2% 1GM PACKET EXT SCH ×3 (04:03→15:23)
[2016-08-13 06:27] LABS: BASO % 0.4 %; BASO ABS # 0.02 K/uL (0-0.2); COMPLETE YES; HEMATOCRIT 38.4 % (37-47); IG% 0.2 %; LYMPH % 26.9 %; LYMPH ABS # 1.22 K/uL (1.2-3.4); MEAN CELL VOLUME 91.9 fL (80-100); MEAN CORPUSCULAR HEMOGLOBIN 30.1 pg (25-34); MEAN CORPUSCULAR HGB CONC 32.8 g/dl (32-36); MEAN PLATELET VOLUME 9.5 fL (7.4-10.4); MONO % 4.4 %; NEUT % 68.1 %; PLATELET COUNT 286 K/uL (130-400); RED BLOOD COUNT 4.18 M/uL (4.2-5.4); WHITE BLOOD COUNT 4.53 K/uL (4.8-10.8)
[2016-08-13 06:56] LABS: BUN/CREATININE RATIO 21.2 (10-20); CALCIUM 8.6 mg/dl (8.5-10.1); CREATININE 0.59 mg/dl (0.60-1.20); MAGNESIUM 2.3 mg/dl (1.8-2.4); POTASSIUM 4.1 mmol/L (3.5-5.1)
[2016-08-13 06:59] LABS: CHOLESTEROL/HDL RATIO 3.1
[2016-08-13] MEDS: GABAPENTIN 100 MG CAP PO SCH ×2 (08:05→12:48)
[2016-08-13] MEDS: METOPROLOL TARTRATE 25 MG TAB PO SCH (08:05)
[2016-08-13] MEDS ORDERED: VENLAFAXINE HCL XR 150 MG CAPXR PO SCH (09:00)
[2016-08-13] MEDS ORDERED: ASPIRIN 81 MG ECTAB PO SCH (09:00)
--- NOTE | 2016-08-13 10:40 | Cardiology Consultation ---
Cardiology Consultation Date of Consultation: Aug 13, 2016. Requesting Physician: Dr. Juarez Attending Physician: Dr. Casillas Reason for Consultation: Chest pain Pt evaluation today including: conversation w/ patient, physical exam, chart review, lab review, review of studies, review of inpatient medication list, conversation w/ attending History of Present Illness Mrs. Guido is a 56-year-old female with a history of hypertension, dyslipidemia, COPD, and obstructive sleep apnea (intolerant of CPAP) who presented to the Emergency Department yesterday with complaints of chest pain which began around 11 am. The patient reports that she was doing laundry when she suddenly developed sharp, left-sided chest pain which radiated into her left shoulder and left neck. She had associated diaphoresis, dizziness, headache , and mild shortness of breath with the discomfort. She tried taking a Tylenol, but when her discomfort persisted, she came to the hospital for further evaluation. She was given morphine and sublingual nitro in the ED with improvement in her symptoms. Her chest pain never completely resolved, though. She reports that this morning, the pain has gradually gotten worse again. She currently rates her pain as a 5/10 in severity. Her pain was an 8-9/10 in severity upon arrival yesterday. She denies orthopnea, PND, or edema. She denies palpitations, syncope, abnormal bleeding, or cerebrovascular symptoms. She denies GI or symptoms. She currently has a non-productive cough. She reports that she is getting over a respiratory infection for which she finished a course of antibiotics and prednisone a week ago. Of note, the patient has been admitted on three other occasions in the last year with chest pain. She underwent a dobutamine stress echo in July 2015, which was negative for myocardial ischemia. She had a transthoracic echocardiogram in February 2016, which was unremarkable. She recently had a CTA of her chest in May, which showed moderate to severe emphysema but no evidence of PE. Review of Systems: As noted in HPI. All other ROS otherwise negative. Past Medical/Surgical History 1. Hypertension 2. Hypercholesterolemia 3. COPD 4. Obstructive sleep apnea (intolerant of CPAP) 5. GERD 6. Hiatal hernia 7. Anxiety/depression 8. History of thyroiditis 9. Partial hysterectomy 10. Tonsillectomy 11. Cindy fundoplication 12. Diverticulosis 13. History of 14. Migraine headaches 15. History of Lyme disease Family History Cancer SISTER (breast CA) BROTHER (pancreatic [place]) Diabetes mellitus SISTER (Type 1) FH: Parkinson's disease BROTHER FH: emphysema MOTHER Heart disease FATHER ( of [place] age 53) Hypertension MOTHER Seizures DAUGHTER Stroke MOTHER Father at the age of 58 from an [place]. Mother at 69 from complications of COPD. Social History Smoking Status: Current Every Day Smoker History of Alcohol Use: Yes (Rarely- few times a month) The patient is and lives with her . She currently smokes 8-10 cigarettes daily. No alcohol or recreational drug use. Allergies Coded Allergies: Nitrofurantoin (Verified Allergy, Severe, UNABLE TO BEATHE, 08/12/16) Sulfamethoxazole w/Trimethoprim (Verified Allergy, Severe, SHORTNESS OF BREATH, 08/12/16) Medications Current Inpatient Medications Medications (Trade) Dose Ordered Sig/Ross Route Start Time Stop Time Status Last Admin Dose Admin Acetaminophen (Tylenol Tab) 650 mg Q4H PRN PO 08/12/16 18:30 09/11/16 18:29 Al Hydrox/Mg Hydrox/Simethicone (Maalox Max Susp) 15 ml Q4H PRN PO 08/12/16 18:30 09/11/16 18:29 Magnesium Hydroxide (Milk Of Magnesia Susp) 30 ml Q12H PRN PO 08/12/16 18:30 09/11/16 18:29 Ondansetron HCl (Zofran Inj) 4 mg Q6H PRN IV 08/12/16 18:30 09/11/16 18:29 Nitroglycerin (Nitrostat Tab) 0.4 mg UD PRN SL 08/12/16 18:30 09/11/16 18:29 Aspirin (Ecotrin Tab) 81 mg QAM PO 08/13/16 09:00 09/12/16 08:59 08/13/16 08:05 81 MG Cyclobenzaprine HCl (Flexeril Tab) 10 mg TID PRN PO 08/12/16 18:30 09/11/16 18:29 Hydroxyzine HCl (Vistaril Tab) 25 mg Q8 PRN PO 08/12/16 18:30 09/11/16 18:29 Lamotrigine (Lamictal Tab) 25 mg HS PO 08/12/16 21:00 09/11/16 20:59 08/12/16 21:20 25 MG Metoprolol Tartrate (Lopressor Tab) 25 mg BID PO 08/12/16 21:00 09/11/16 20:59 08/13/16 08:05 25 MG Quetiapine Fumarate (seroQUEL TAB) 25 mg HS PO 08/12/16 21:00 09/11/16 20:59 08/12/16 21:20 25 MG Valacyclovir HCl (Valtrex Tab) 2,000 mg Q12 PRN PO 08/12/16 18:30 09/11/16 18:29 Venlafaxine HCl (effeXOR EXTENDED REL CAP) 300 mg QAM PO 08/13/16 09:00 09/12/16 08:59 08/13/16 08:06 300 MG Miscellaneous Information (Order Awaiting Action) 1 ea QS N/A 08/13/16 00:00 09/12/16 00:00 Trazodone HCl (Desyrel Tab) 150 mg HS PO 08/12/16 21:00 09/11/16 20:59 08/12/16 21:20 150 MG Prednisone (PredniSONE TAB) 40 mg DAILY PO 08/13/16 09:00 09/12/16 08:59 08/13/16 08:05 40 MG Nitroglycerin (Nitroglycerin 2% Oint) 0.5 inch Q6H EXT 08/12/16 21:00 09/11/16 20:59 08/13/16 08:05 0.5 INCH Morphine Sulfate (MoRPHine SULFATE INJ) 2 mg Q2HWA PRN IV 08/12/16 18:30 08/26/16 18:29 08/12/16 21:07 2 MG Gabapentin (Neurontin Cap) 100 mg TID PO 08/12/16 21:00 09/11/16 20:59 08/13/16 08:05 100 MG Miscellaneous (Iv Fluids Completed) 1 ea PRN PRN N/A 08/12/16 19:45 08/12/17 19:44 Ipratropium Barnard (Atrovent 0.02% 0.5MG/2.5ML Neb) 0.5 mg Q2R PRN INH 08/12/16 20:45 09/11/16 20:44 Levalbuterol (Xopenex 1.25MG/ 0.5ML Neb) 1.25 mg Q2R PRN INH 08/12/16 20:45 09/11/16 20:44 Ipratropium Barnard (Atrovent 0.02% 0.5MG/2.5ML Neb) 0.5 mg Q6R INH 08/12/16 21:00 09/11/16 20:59 08/13/16 07:57 0.5 MG Levalbuterol (Xopenex 0.63 Mg/ 3 Ml Neb) 0.63 mg Q6R INH 08/12/16 21:00 09/11/16 20:59 08/13/16 07:57 0.63 MG Physical Exam Vital Signs Past 12 Hours Date Time Temp Pulse Resp B/P (MAP) Pulse Ox O2 Delivery O2 Flow Rate FiO2 08/13/16 08:02 36.5 80 18 148/76 (100) 93 Room Air 08/13/16 08:00 Room Air 08/13/16 07:57 68 18 90 Room Air 08/13/16 04:51 36.6 70 16 125/79 (94) 93 Room Air 08/13/16 04:00 Room Air 08/13/16 01:58 66 18 90 Room Air 08/12/16 23:59 Room Air 08/12/16 23:30 36.6 75 16 124/76 (92) 94 Room Air Constitutional: Alert, oriented, in no acute distress HEENT: Head is atraumatic and normocephalic. EOMs intact. Sclera anicteric. Face is symmetric. No perioral cyanosis. Mucous membranes moist. Neck: Supple, no JVD, no carotid bruits Chest: Nontender to palpation Pulmonary: Normal respiratory effort, bilateral wheezing Cardiac: Regular rate and rhythm, normal S1 and S2, no gallops, no rubs, no murmurs Extremities: No clubbing, cyanosis, or edema. Pulses 2+ and symmetric Abdomen: Normal bowel sounds, soft, non-tender, no abdominal mass palpated Skin: Normal skin color, turgor, and pigmentation, no rash, no skin lesions Neurological: Oriented to person, place, and time Data Laboratory Results: Last 24 Hours Test 08/12/16 15:36 08/12/16 17:09 08/13/16 01:56 08/13/16 05:47 White Blood Count 7.55 K/uL 4.53 K/uL Red Blood Count 4.24 M/uL 4.18 M/uL Hemoglobin 12.9 g/dL 12.6 g/dL Hematocrit 38.2 % 38.4 % Mean Corpuscular Volume 90.1 fL 91.9 fL Mean Corpuscular Hemoglobin 30.4 pg 30.1 pg Mean Corpuscular Hemoglobin Concent 33.8 g/dl 32.8 g/dl Platelet Count 337 K/uL 286 K/uL Mean Platelet Volume 9.3 fL 9.5 fL Neutrophils (%) (Auto) 53.4 % 68.1 % Lymphocytes (%) (Auto) 38.1 % 26.9 % Monocytes (%) (Auto) 5.2 % 4.4 % Eosinophils (%) (Auto) 2.5 % 0.0 % Basophils (%) (Auto) 0.5 % 0.4 % Neutrophils # (Auto) 4.03 K/uL 3.08 K/uL Lymphocytes # (Auto) 2.88 K/uL 1.22 K/uL Monocytes # (Auto) 0.39 K/uL 0.20 K/uL Eosinophils # (Auto) 0.19 K/uL 0.00 K/uL Basophils # (Auto) 0.04 K/uL 0.02 K/uL RDW Standard Deviation 51.0 fL 52.2 fL RDW Coefficient of Variation 15.6 % 15.4 % Immature Granulocyte % (Auto) 0.3 % 0.2 % Immature Granulocyte # (Auto) 0.02 K/uL 0.01 K/uL Prothrombin Time 10.7 SECONDS Prothromb Time International Ratio 1.0 Activated Partial Thromboplast Time 25.4 SECONDS Partial Thromboplastin Ratio 1.0 Sodium Level 140 mmol/L 142 mmol/L Potassium Level 3.8 mmol/L 4.1 mmol/L Chloride Level 108 mmol/L 108 mmol/L Carbon Dioxide Level 23 mmol/L 26 mmol/L Anion Gap 9.0 mmol/L 8.0 mmol/L Blood Urea Nitrogen 14 mg/dl 13 mg/dl Creatinine 0.64 mg/dl 0.59 mg/dl Est Creatinine Clear Calc Drug Dose 109.4 ml/min 118.3 ml/min Estimated GFR () 116.4 119.6 Estimated GFR (Non- 100.5 103.2 BUN/Creatinine Ratio 21.7 21.2 Random Glucose 88 mg/dl 115 mg/dl Calcium Level 9.1 mg/dl 8.6 mg/dl Total Bilirubin 0.3 mg/dl Direct Bilirubin < 0.1 mg/dl Aspartate Amino Transf (AST/SGOT) 14 U/L Alanine Aminotransferase (ALT/SGPT) 21 U/L Alkaline Phosphatase 110 U/L Total Creatine Kinase 52 U/L 41 U/L Creatine Kinase MB 1.0 ng/ml 0.7 ng/ml Creatine Kinase MB Ratio 1.9 1.7 Total Protein 7.1 gm/dl Albumin 3.4 gm/dl Lipase 150 U/L Hepatitis C Antibody Screen NEG Bedside Troponin I < 0.030 ng/ml Troponin I < 0.015 ng/ml Magnesium Level 2.3 mg/dl Triglycerides Level 99 mg/dl Cholesterol Level 202 mg/dl HDL Cholesterol 66 mg/dl LDL Cholesterol, Calculated 116 mg/dl VLDL Cholesterol, Calculated 20 mg/dl Cholesterol/HDL Ratio 3.1 CXR: No acute process EKG: Sinus rhythm with no ST-T wave abnormality Telemetry reviewed: Sinus rhythm Dobutamine stress echo 07/24/2015: Negative for ischemia 89%. Echo 02/28/2016: Normal LV size and systolic function. EF 60-65%. No regional wall motion abnormalities. Mild TR. Assessment & Plan ASSESSMENT/PLAN: 1. Chest pain: Her chest pain has been present for almost 24 hours. ECG's have shown no ischemic change. 2 sets of cardiac enzymes have been undetectable. It therefore does not appear as though her pain is cardiac in origin. She does have cardiovascular risk factors, though, and it has been over a year since her last stress test. It is therefore recommended that she undergo further evaluation of myocardial ischemia with dobutamine stress test prior to discharge home. If the study is normal, she is safe for discharge home from a cardiovascular standpoint. 2. Dyslipidemia: Her total cholesterol is 202, LDL 116, and HDL 66. Her cardiovascular risk was calculated, and her 10 year risk of CVD is 5.7%. Given this information, a moderate intensity statin is recommended. Would consider initiating a statin prior to discharge or have patient discuss this further with her PCP at outpatient follow-up. 3. Hypertension: Continue current antihypertensive regimen. Thank you for allowing us to see this patient in consultation. The patient was seen and discussed with Dr. Casillas, and the plan was made in collaboration with him.
[2016-08-13 11:00] LABS: CKMB/CK RATIO 2.7 (0-3.0)
[2016-08-13] MEDS ORDERED: DOBUTamine HCL 12.5 MG/ML 20 ML VIAL ONE (11:08)
[2016-08-13] MEDS ORDERED: ATROPINE SULFATE 0.1 MG/ML 5ML SYR ONE (11:08)
[2016-08-13] MEDS ORDERED: METOPROLOL TARTRATE 1 MG/ML VIAL ONE (11:08)
[2016-08-13] MEDS ORDERED: PERFLUTREN LIPID MICROSPHERE (DEFINITY) IV ONE (12:27)
[2016-08-13] MEDS: MoRPHine SULFATE 2 MG/ML CARP IV PRN (15:24)
--- NOTE | 2016-08-13 17:26 | DOBUTAMINE ECHO ---
*NOTICE TO RECEIVING [employer] This information is strictly Confidential and protected under [place] law. [place] law prohibits you from making any further disclosure of this information unless further disclosure is expressly permitted by the written consent of the person to whom it pertains or is authorized by law. A general authorization for the release of medical or other information is not sufficient for this purpose. Hospital accepts no responsibility if the information is made available to any other person, INCLUDING THE PATIENT. Interpretation Summary * Name: LAN BREWER Study Date: 08/13/2016 10:55 AM BP: 144/68 mmHg * Patient Location: C.2T\S\S240\S\2 HR: 71 * : 1960 (M/d/yyyy) Gender: Female Height: 65 in * Age: 56 yrs Ethnicity: [place] Weight: 194 lb * Ordering Physician: Elissa Rush * Referring Physician: Self, Referred * Performed By: Effie Ignacio RDCS * * Reason For Study: Chest pain * BSA: 2.0 m2 * -- Conclusions -- * Left ventricular systolic function is normal. * Normal dobutamine echocardiogram without evidence of inducible ischemia. * No change from prior exams Procedure Details * DOBUTAMINE ECHO, CPT#40707 * ECHO DOPPLER, CPT #86944 * ECHO COLOR FLOW, CPT #06924 * A contrast injection of Definity was performed to improve assessment of LV function. * Contrast was injected into an intravenous site in the left arm. * One vial of Definity ultrasound contrast was diluted in normal saline to a total volume of 10 ml. A total of '10' ml of solution was administered during imaging. * Lot # [id number] of Definity utilized for procedure. * Expiration date SEP 07. * The attending nurse who injected the contrast agent was Karlee Agee RN. Left Ventricle * The left ventricle is normal in size. * There is normal left ventricular wall thickness. * Ejection Fraction = 60-65%. * Left ventricular systolic function is normal. * The left ventricular wall motion is normal. Right Ventricle * The right ventricle is normal in size and function. Atria * The left atrial size is normal. * Right atrial size is normal. Mitral Valve * The mitral valve is grossly normal. * Significant mitral regurgitation is absent. Tricuspid Valve * The tricuspid valve is not well visualized, but is grossly normal. * Significant tricuspid regurgitation is absent. Aortic Valve * The aortic valve is trileaflet. * No hemodynamically significant valvular aortic stenosis. * There is no significant aortic regurgitation. Great Vessels * The aortic root is normal size. Pericardium * There is no pericardial effusion. Stress Parameters * Normal baseline electrocardiogram. * Stress ECG: No ST changes. No arrhythmias. * The stress portion of this study was personally supervised by the undersigned interpreting physician. * Rest heart rate was '71' BPM. * Rest blood pressure was '144/68' * Maximum heart rate achieved was 141 bpm. * Maximum heart rate was 85 % of maximum age-predicted heart rate. * Maximum blood pressure was '196/48' * Maximum Dobutamine infusion rate was '50' mcg/kg/min. * A total of 1 mg of intravenous Atropine was used to supplement Dobutamine for heart rate response. * Dobutamine infusion was terminated due to achieving target heart rate * A total of 10 mg of IV Metoprolol was administered to reverse Dobutamine-induced tachycardia. Left Ventricular Findings with Stress * There were no EKG changes with dobutamine infusion. The patient developed checst pain during dobutamine infusion which persisted at the conclusion of the test. Normal baseline echocardiogram with normal augmentation and no inducible wall motion abnormalities. MMode 2D Measurements and Calculations IVSd 1.1 cm LVIDd 3.9 cm LVIDs 2.6 cm LVPWd 1.0 cm IVS/LVPW 1.0 FS 34.8 % EDV(Teich) 67.7 ml ESV(Teich) 23.9 ml EF(Teich) 64.7 % EDV(cubed) 61.3 ml ESV(cubed) 17.0 ml EF(cubed) 72.3 % LV mass(C)d 130.8 grams LV mass(C)dI 67.0 grams/m\S\2 SV(Teich) 43.8 ml SI(Teich) 22.4 ml/m\S\2 SV(cubed) 44.4 ml SI(cubed) 22.7 ml/m\S\2 Ao root diam 3.2 cm Ao root area 7.9 cm\S\2 ACS 2.3 cm LA dimension 3.4 cm asc Aorta Diam 2.5 cm LA/Ao 1.1 LVOT diam 2.0 cm LVOT area 3.1 cm\S\2 Doppler Measurements and Calculations MV E max anai 106.2 cm/sec MV A max anai 107.2 cm/sec MV E/A 0.99 MV dec time 0.24 sec Ao V2 max 119.4 cm/sec Ao max PG 5.7 mmHg Ao max PG (full) 2.3 mmHg CHRIS(V,A) 2.4 cm\S\2 CHRIS(V,D) 2.4 cm\S\2 LV V1 max PG 3.4 mmHg LV V1 max 92.2 cm/sec PA V2 max 86.9 cm/sec PA max PG 3.0 mmHg PA acc slope 387.6 cm/sec\S\2 PA acc time 0.15 sec PA pr(Accel) 10.9 mmHg
[2016-08-13] MEDS ORDERED: ASPEC81 PO (18:08)
[2016-08-13] MEDS ORDERED: AZITTAB PO (18:08)
[2016-08-13] MEDS ORDERED: PRED10TA PO (18:08)
[2016-08-13] MEDS ORDERED: IPRA1AER2 INH (18:08)
--- NOTE | 2016-08-13 18:10 | Discharge Instructions ---
Discharge Instructions Date of Service Aug 13, 2016. Admission Reason for Admission: Chest Pain Discharge Discharge Diagnosis / Problem: CHEST PAIN. COPD EX Discharge Goals Goal(s): Decrease discomfort, Improve function Activity Recommendations Activity Limitations: resume your previous activity . Instructions / Follow-Up Instructions / Follow-Up FOLLOWUP WITH FAMILY DOCTOR ON July AT 10:45AM. STRONGLY ADVICE FOR SMOKING CESSATION Current Hospital Diet Patient's current hospital diet: AHA Diet (Heart Healthy) Discharge Diet Recommended Diet: AHA Diet (Heart Healthy) Pending Studies Studies pending at discharge: no Laboratory Results Lipid Panel Test 08/13/16 05:47 Range/Units Triglycerides Level 99 0-150 mg/dl Cholesterol Level 202 H 0-200 mg/dl HDL Cholesterol 66 mg/dl Cholesterol/HDL Ratio 3.1 LDL Cholesterol, Calculated 116 mg/dl Medical Emergencies . Who to Call and When: Medical Emergencies: If at any time you feel your situation is an emergency, please call 911 immediately. . Non-Emergent Contact Non-Emergency issues call your: Primary Care Provider . . "Provider Documentation" section prepared by Enrike Juarez. . VTE Core Measure Inpt VTE Proph given/why not?: SCD's
--- NOTE | 2016-08-13 19:37 | Progress Note ---
Internal Med Progress Note Date of Service: Aug 13, 2016. Provider Documentation: SUBJECTIVE: HAD CHEST PAIN IN AM BUT OK IN EVENING NO SOB AFEBRILE HAS COUGH S/P STRESS TEST OBJECTIVE: Vital Signs-as noted below Exam: General-alert and oriented. Not in distress ENT-normal hearing Neck-no neck masses Lungs-cta b/l MILD wheezing NO crackles Heart-s1 and s2 heard regular no murmurs Abdomen-soft bowel sounds present nontender no distension Extremities-no edema no erythema Neuro-alert and oriented moves extremities Lab data as noted below. ASSESSMENT & PLAN: This is a 56-year-old female who presents with chest pain. 1. Chest pain, rule out acute coronary syndrome. Initial workup was negative. Electrocardiogram and cardiac enzymes are negative. The patient has a negative dobutamine stress test in July 2015. This is the fourth episode since last year. Patient has risk factor for smoking, hypertension, sleep apnea, and family history. Serial CE negative seen by cardiology and s/p dobutamine stress test which was negative d/c home 2. Mild chronic obstructive pulmonary disease exacerbation. The patient recently finished a course of steroids and antibiotics.Has wheezing. She says her shortness of breath is slightly worse today. We will place her on steroid and nebs. Chest x-ray shows no infiltrates or consolidation., Recently had a 10 days course of Augmentin.d/jonathan on Combivent and home inhalers, steroid taper and z louann. f/u with pcp. 3. History of hypertension. Continue metoprolol. We will monitor the blood pressure.stable. 4. History of anxiety and depression. Continue Effexor XR and trazodone, Seroquel and Lamictal; currently seems to be stable. discharged home Vital Signs: Date Time Temp Pulse Resp B/P (MAP) Pulse Ox O2 Delivery O2 Flow Rate FiO2 08/13/16 18:32 37.1 79 22 90 Room Air 08/13/16 16:13 Room Air 08/13/16 15:23 37.1 79 22 128/80 (96) 90 Room Air 08/13/16 14:24 78 18 92 Room Air 08/13/16 11:00 Room Air 08/13/16 08:02 36.5 80 18 148/76 (100) 93 Room Air 08/13/16 08:00 Room Air 08/13/16 07:57 68 18 90 Room Air 08/13/16 04:51 36.6 70 16 125/79 (94) 93 Room Air 08/13/16 04:00 Room Air 08/13/16 01:58 66 18 90 Room Air 08/12/16 23:59 Room Air 08/12/16 23:30 36.6 75 16 124/76 (92) 94 Room Air 08/12/16 21:12 76 18 91 Room Air 08/12/16 19:50 36.8 79 18 142/84 92 Room Air 08/12/16 19:39 37.2 77 18 141/83 94 Lab Results: Results Past 24 Hours Test 08/13/16 01:56 08/13/16 05:47 08/13/16 10:19 Range/Units Total Creatine Kinase 41 41 26-192 U/L Creatine Kinase MB 0.7 1.1 0.5-3.6 ng/ml Creatine Kinase MB Ratio 1.7 2.7 0-3.0 Troponin I < 0.015 < 0.015 0-0.045 ng/ml White Blood Count 4.53 4.8-10.8 K/uL Red Blood Count 4.18 4.2-5.4 M/uL Hemoglobin 12.6 12.0-16.0 g/dL Hematocrit 38.4 37-47 % Mean Corpuscular Volume 91.9 80-100 fL Mean Corpuscular Hemoglobin 30.1 25-34 pg Mean Corpuscular Hemoglobin Concent 32.8 32-36 g/dl Platelet Count 286 130-400 K/uL Mean Platelet Volume 9.5 7.4-10.4 fL Neutrophils (%) (Auto) 68.1 % Lymphocytes (%) (Auto) 26.9 % Monocytes (%) (Auto) 4.4 % Eosinophils (%) (Auto) 0.0 % Basophils (%) (Auto) 0.4 % Neutrophils # (Auto) 3.08 1.4-6.5 K/uL Lymphocytes # (Auto) 1.22 1.2-3.4 K/uL Monocytes # (Auto) 0.20 0.11-0.59 K/uL Eosinophils # (Auto) 0.00 0-0.5 K/uL Basophils # (Auto) 0.02 0-0.2 K/uL RDW Standard Deviation 52.2 36.4-46.3 fL RDW Coefficient of Variation 15.4 11.5-14.5 % Immature Granulocyte % (Auto) 0.2 % Immature Granulocyte # (Auto) 0.01 0.00-0.02 K/uL Sodium Level 142 136-145 mmol/L Potassium Level 4.1 3.5-5.1 mmol/L Chloride Level 108 98-107 mmol/L Carbon Dioxide Level 26 21-32 mmol/L Anion Gap 8.0 3-11 mmol/L Blood Urea Nitrogen 13 7-18 mg/dl Creatinine 0.59 0.60-1.20 mg/dl Est Creatinine Clear Calc Drug Dose 118.3 ml/min Estimated GFR () 119.6 Estimated GFR (Non- 103.2 BUN/Creatinine Ratio 21.2 10-20 Random Glucose 115 70-99 mg/dl Calcium Level 8.6 8.5-10.1 mg/dl Magnesium Level 2.3 1.8-2.4 mg/dl Triglycerides Level 99 0-150 mg/dl Cholesterol Level 202 0-200 mg/dl HDL Cholesterol 66 mg/dl LDL Cholesterol, Calculated 116 mg/dl VLDL Cholesterol, Calculated 20 mg/dl Cholesterol/HDL Ratio 3.1
--- NOTE | 2016-08-13 19:53 | Discharge Summary ---
Discharge Summary Date of Service Aug 13, 2016. Discharge Summary Admission Date: Aug 12, 2016 at 18:33 Discharge Date: Aug 13, 2016 Discharge Disposition: Home Principal Diagnosis: CHEST PAIN Secondary Diagnoses/Problems: anxiety, depression, COPD, tobacco use disorder, obstructive sleep apnea, GERD, hypertension, history of partial small-bowel obstruction, Procedures: S/P DOBUTAMINE STRESS ECHO: * Left ventricular systolic function is normal. * Normal dobutamine echocardiogram without evidence of inducible ischemia. * No change from prior exams * * CXR NEGATIVE Consultations: CARDIOLOGY Medication Reconciliation New Medications: Azithromycin (Zithromax Z-Valentin) 250 Mg Tab 1 PKT PO UD for 5 Days, #1 PKT Ipratropium-Albuterol (Combivent Respimat) 1 Aer Aer 1 PUFFS INH QID, #1 INH 2 Refills Prednisone Tab (Prednisone) 10 Mg Tab 40 MG PO UD, #20 TAB PREDNSIONE 40MG PO DAILY X 2 DAYS THEN PREDNSIONE 30MG PO DAILY X 2 DAYS THEN PREDNSIONE 20MG PO DAILY X 2 DAYS THEN PREDNSIONE 10MG PO DAILY X 2 DAYS THEN STOP. Aspirin (Aspirin EC Low Dose) 81 Mg Ectab 81 MG PO QAM, #30 2 Refills Continued Medications: Albuterol Hfa (Ventolin Hfa) 200 Puffs/69493 Mcg Aers 2-4 PUFFS INH Q6H PRN for SOB/Wheezing Cyclobenzaprine Hcl (Flexeril) 10 Mg Tab 10 MG PO TID PRN for Muscle Spasm, TAB Fluticasone Furoate-Vilanterol (Breo Ellipta) 1 Inh Inh 1 PUFF INH DAILY Gabapentin (Neurontin) 100 Mg Cap 100 MG PO TID, #20 CAP Hydroxyzine Hcl (Atarax) 25 Mg Tab 25 MG PO Q8 PRN for Anxiety, TAB Lamotrigine (Lamictal) 25 Mg Tab 25 MG PO HS, TAB Metoprolol Tartrate (Lopressor) 25 Mg Tab 25 MG PO BID Quetiapine Fumarate (Seroquel) 25 Mg Tab 25 MG PO HS, TAB Trazodone HCl (Trazodone HCl) 150 Mg Tab 150 MG PO HS Valacyclovir Hcl (Valtrex) 1 Gm Tab 2 GM PO Q12 PRN for Cold Sores TAKE DIRECTED FOR ONE DAY NEEDED FOR COLD SORES Venlafaxine Hcl (Effexor Xr) 150 Mg Cap 300 MG PO QAM Admission Information HPI (per Admitting provider): : This is a 56-year-old female with past medical history significant for anxiety, depression, COPD, tobacco use disorder, obstructive sleep apnea, GERD, hypertension, history of partial small-bowel obstruction, presents with chest pain .Patient was putting her clothes to wash , when she noticed left-sided chest pain that radiated into the left shoulder and left neck, about a 7/10 in severity, also some of shortness of breath and diaphoresis and dizziness. The pain is on and off. It went away in the ER after nitro and morphine, but it is coming back again. The patient was recently treated for COPD exacerbation with steroids and antibiotics. She smokes about 8 cigarettes a day. The patient also was worked up for chest pain with a dobutamine stress test in July 2015, which was unremarkable and she was again in February 2016 was complained of a chest pain, also at that time, echo was done which was also unremarkable. Denies any fever or chills. Has some cough. No headaches, no blurred vision, no nausea, no vomiting. Normal bowel and bladder movements. Otherwise, patient was apparently doing okay until this episode. Physical Exam (per Admitting): GENERAL: The patient is of moderate build, not in distress. VITAL SIGNS: Temperature 37.2, pulse 79, respiratory rate 13, blood pressure 139/84, oxygen 95%. HEENT: No pallor, no icterus. Pupils equal, round, and reactive to light. NECK: No JVD, no neck masses, no carotid bruits. CARDIOVASCULAR: S1, S2 heard, regular rate and rhythm, no murmur, no gallop. RESPIRATORY SYSTEM: Clear to auscultation bilaterally. Bilateral wheezing present. No rhonchi. No accessory muscle use. ABDOMEN: Soft, bowel sounds present. Nontender. No distention. CENTRAL NERVOUS SYSTEM: Cranial nerves II-XII grossly intact. Nonfocal. EXTREMITIES: No edema, no erythema. Hospital Course This is a 56-year-old female who presents with chest pain. 1. Chest pain, rule out acute coronary syndrome. Initial workup was negative. Electrocardiogram and cardiac enzymes are negative. The patient has a negative dobutamine stress test in July 2015. This is the fourth episode since last year. Patient has risk factor for smoking, hypertension, sleep apnea, and family history. Serial CE negative seen by cardiology and s/p dobutamine stress test which was negative d/c home 2. Mild chronic obstructive pulmonary disease exacerbation. The patient recently finished a course of steroids and antibiotics.Has wheezing. She says her shortness of breath is slightly worse today. We will place her on steroid and nebs. Chest x-ray shows no infiltrates or consolidation., Recently had a 10 days course of Augmentin.d/jonathan on Combivent and home inhalers, steroid taper and z valentin. f/u with pcp. 3. History of hypertension. Continue metoprolol. We will monitor the blood pressure.stable. 4. History of anxiety and depression. Continue Effexor XR and trazodone, Seroquel and Lamictal; currently seems to be stable. discharged home Total time spent on discharge = 35MINUTES This includes examination of the patient, discharge planning, medication reconciliation, and communication with other providers. Discharge Instructions Please take this sheet to every appointment for the next month Discharge Instructions Date of Service Aug 13, 2016. Admission Reason for Admission: Chest Pain Discharge Discharge Diagnosis / Problem: CHEST PAIN. COPD EX Discharge Goals Goal(s): Decrease discomfort, Improve function Activity Recommendations Activity Limitations: resume your previous activity . Instructions / Follow-Up Instructions / Follow-Up FOLLOWUP WITH FAMILY DOCTOR ON July AT 10:45AM. STRONGLY ADVICE FOR SMOKING CESSATION Current Hospital Diet Patient's current hospital diet: AHA Diet (Heart Healthy) Discharge Diet Recommended Diet: AHA Diet (Heart Healthy) Pending Studies Studies pending at discharge: no Laboratory Results Lipid Panel Test 08/13/16 05:47 Range/Units Triglycerides Level 99 0-150 mg/dl Cholesterol Level 202 H 0-200 mg/dl HDL Cholesterol 66 mg/dl Cholesterol/HDL Ratio 3.1 LDL Cholesterol, Calculated 116 mg/dl Medical Emergencies . Who to Call and When: Medical Emergencies: If at any time you feel your situation is an emergency, please call 911 immediately. . Non-Emergent Contact Non-Emergency issues call your: Primary Care Provider . . "Provider Documentation" section prepared by Enrike Juarez. . VTE Core Measure Inpt VTE Proph given/why not?: SCD's
[2016-12-10] MEDS ORDERED: VNTHFA/IN INH (15:50)
[2016-12-10] MEDS ORDERED: VALA1TAB31 PO (17:05)
[2016-12-10] MEDS ORDERED: CYCL10TA6 PO (17:05)
[2016-12-10] MEDS ORDERED: DSY/150 PO (17:05)
[2016-12-10] MEDS ORDERED: LPR25 PO (18:35)
== END 2016-08-13 19:04 | disposition home or self-care (01) ==
LOC: C.EDB 14:43 → C.2T 18:33 → ENRESERV 19:07
PROVIDERS: ADMIT Internal Medicine; ATTEND Internal Medicine
DX: R07.9 Chest pain, unspecified (principal); E78.5 Hyperlipidemia, unspecified; K21.9 Gastro-esophageal reflux disease without esophagitis; I10 Essential (primary) hypertension; G47.33 Obstructive sleep apnea (adult) (pediatric); F41.9 Anxiety disorder, unspecified; J44.1 Chronic obstructive pulmonary disease with (acute) exacerbation; F32.9 Major depressive disorder, single episode, unspecified; F17.210 Nicotine dependence, cigarettes, uncomplicated; E78.00 Pure hypercholesterolemia, unspecified; Z80.3 Family history of malignant neoplasm of breast; Z82.49 Family history of ischemic heart disease and other diseases of the circulatory system; Z83.3 Family history of diabetes mellitus; Z82.3 Family history of stroke; Z83.6 Family history of other diseases of the respiratory system; Z79.899 Other long term (current) drug therapy; Z82.0 Family history of epilepsy and other diseases of the nervous system; Z90.710 Acquired absence of both cervix and uterus; Z79.82 Long term (current) use of aspirin

== ENCOUNTER → 2016-08-16 | Outpatient (CLI) | payer OTHER ==
[~2016-08-16] MED LIST changes: +ALBINS/ NEB; -ALBUAER2 INH; +ASPEC81 PO; +ASPI81TA28 PO; +ATR25 PO; +AZITTAB PO; +CIPR250T3 PO; +CYCL10TA6 PO; +DSY/150 PO; +EFFSR150 PO; +EFFSR75 PO; +IPRA1AER2 INH; +LAMO1TAB21 PO; +LPR25 PO; +NRN100 PO; +OPTIRAY 320 IV PRN; -PRD20 PO; +PRED10TA PO; +SRQ25 PO; +VALA1TAB31 PO; +VNTHFA/IN INH
--- NOTE | 2016-08-16 18:26 | DIAGNOSTIC IMAGING REPORT ---
CHEST CTA for PULMONARY ARTERIES CT DOSE: 552.57 mGy.cm HISTORY: Atypical chest pain. TECHNIQUE: Multiaxial CT images of the chest were performed following the intravenous administration of contrast to evaluate the pulmonary arteries. Maximal intensity projection images were also obtained. COMPARISON STUDY: Chest CTA 05/24/2016. FINDINGS: No evidence for an aortic dissection. No filling defects within the pulmonary arteries to suggest a pulmonary embolus. The central airways are patent. No pleural effusions. No pneumothorax. Moderate emphysema is again noted. Punctate calcified granulomas within the spleen. The liver is unremarkable. Stable postoperative changes at the gastroesophageal junction. Heterogeneous right thyroid lobe, unchanged. No mediastinal or hilar lymphadenopathy. No pneumothorax. Stable calcified granuloma within the left upper lobe. No focal lung consolidations to suggest pneumonia. IMPRESSION: 1. No evidence for pulmonary embolus. 2. Emphysema. Electronically signed by: Chico Quinonez M.D. 08/16/2016 6:25 PM Dictated Date/Time: 08/16/2016 6:19 PM
== END | disposition home or self-care (01) ==
LOC: C.CTS 17:22
PROVIDERS: ATTEND Physician Assistant Medical
DX: R07.9 Chest pain, unspecified (principal); R79.89 Other specified abnormal findings of blood chemistry; J43.9 Emphysema, unspecified

== ENCOUNTER → 2016-08-16 | Outpatient (CLI) | payer OTHER ==
[~2016-08-16] MED LIST changes: -OPTIRAY 320 IV PRN
== END | disposition home or self-care (01) ==
LOC: C.LAB1850 15:10
PROVIDERS: ATTEND Physician Assistant Medical
DX: R07.9 Chest pain, unspecified (principal)

== ENCOUNTER → 2016-09-13 | Outpatient (CLI) | payer OTHER ==
[~2016-09-13] MED LIST changes: -ALBINS/ NEB; -ASPI81TA28 PO; -ATR25 PO; -AZITTAB PO; -CIPR250T3 PO; -EFFSR150 PO; -EFFSR75 PO; -LAMO1TAB21 PO; -NRN100 PO; -SRQ25 PO
[2016-09-13 12:24] LABS: BASO % 0.7 %; BASO ABS # 0.05 K/uL (0-0.2); COMPLETE YES; EOS % 2.5 %; HEMATOCRIT 40.7 % (37-47); LYMPH % 31.2 %; LYMPH ABS # 2.35 K/uL (1.2-3.4); MEAN CELL VOLUME 92.7 fL (80-100); MEAN CORPUSCULAR HEMOGLOBIN 30.3 pg (25-34); MEAN CORPUSCULAR HGB CONC 32.7 g/dl (32-36); MEAN PLATELET VOLUME 10.2 fL (7.4-10.4); NEUT % 59.6 %; PLATELET COUNT 298 K/uL (130-400); RED BLOOD COUNT 4.39 M/uL (4.2-5.4); WHITE BLOOD COUNT 7.53 K/uL (4.8-10.8)
[2016-09-13 12:36] LABS: BLOOD UREA NITROGEN 10 mg/dl (7-18); BUN/CREATININE RATIO 15.6 (10-20); CALCIUM 9.1 mg/dl (8.5-10.1); CARBON DIOXIDE 27 mmol/L (21-32); CHLORIDE 106 mmol/L (98-107); CREATININE 0.63 mg/dl (0.60-1.20); GLUCOSE 83 mg/dl (70-99); POTASSIUM 4.1 mmol/L (3.5-5.1); SODIUM 139 mmol/L (136-145)
[2016-09-13 12:47] LABS: THYROID STIMULATING HORMONE 0.239 uIu/ml (0.300-4.500)
[2016-09-13 13:14] LABS: LYME DISEASE AB IGG NEG (NEG)
[2016-09-13 13:18] LABS: LYME DISEASE AB IGM NEG (NEG)
== END | disposition home or self-care (01) ==
LOC: C.LAB1850 09:52
PROVIDERS: ATTEND Nurse Practitioner Adult Health
DX: F41.9 Anxiety disorder, unspecified (principal); M25.50 Pain in unspecified joint

== ENCOUNTER 2016-12-10 19:03 | Emergency (ER) | payer OTHER ==
[~2016-12-10] VITALS: Ht 165.1 cm; Wt 91.4 kg
[2016-12-10 19:12] VITALS: TEMP 36.5; Ht 165.1 cm; Wt 91.4 kg
[2016-12-10] MEDS ORDERED: MoRPHine SULFATE 4 MG/ML 1 ML CARP\\VIAL IV STA (20:16)
[2016-12-10] MEDS ORDERED: ONDANSETRON INJ 2 MG/ML 2 ML VIAL IV STA (20:16)
[2016-12-10] MEDS ORDERED: ALBINS/ NEB (20:35)
[2016-12-10] MEDS ORDERED: NRN100 PO (20:35)
[2016-12-10] MEDS ORDERED: ASPI81TA28 PO (20:35)
[2016-12-10] MEDS ORDERED: SRQ25 PO ×2 (20:35)
[2016-12-10] MEDS ORDERED: EFFSR75 PO (20:35)
[2016-12-10] MEDS ORDERED: ATR25 PO (20:35)
[2016-12-10] MEDS ORDERED: LAMO1TAB21 PO (20:35)
[2016-12-10] MEDS ORDERED: EFFSR150 PO (20:35)
[2016-12-10 20:52] LABS: BASO % 0.7 %; BASO ABS # 0.06 K/uL (0-0.2); COMPLETE YES; EOS % 2.7 %; HEMATOCRIT 37.3 % (37-47); IG% 0.1 %; LYMPH % 33.1 %; LYMPH ABS # 2.72 K/uL (1.2-3.4); MEAN CELL VOLUME 92.6 fL (80-100); MEAN CORPUSCULAR HEMOGLOBIN 31.5 pg (25-34); MEAN PLATELET VOLUME 9.4 fL (7.4-10.4); MONO % 5.5 %; NEUT % 57.9 %; PLATELET COUNT 290 K/uL (130-400); RED BLOOD COUNT 4.03 M/uL (4.2-5.4); WHITE BLOOD COUNT 8.22 K/uL (4.8-10.8)
[2016-12-10 21:25] LABS: ALKALINE PHOSPHATASE 121 U/L (45-117); ALT/SGPT 18 U/L (12-78); BLOOD UREA NITROGEN 11 mg/dl (7-18); BUN/CREATININE RATIO 17.9 (10-20); CALCIUM 9.1 mg/dl (8.5-10.1); CARBON DIOXIDE 27 mmol/L (21-32); CHLORIDE 104 mmol/L (98-107); GLUCOSE 90 mg/dl (70-99)
[2016-12-10 21:28] LABS: SODIUM 138 mmol/L (136-145)
[2016-12-10 21:38] LABS: AST/SGOT 16 U/L (15-37); CREATININE 0.59 mg/dl (0.60-1.20)
--- NOTE | 2016-12-10 21:49 | DIAGNOSTIC IMAGING REPORT ---
CT SCAN OF THE ABDOMEN AND PELVIS WITHOUT CONTRAST CLINICAL HISTORY: Flank pain COMPARISON STUDY: 02/27/2016 TECHNIQUE: CT scan of the abdomen and pelvis was performed from the lung bases to the proximal femurs. Images are reviewed in the axial, sagittal, and coronal planes. IV contrast was not administered for this examination. A dose lowering technique was utilized adhering to the principles of ALARA. CT DOSE: 1875.26 mGy.cm FINDINGS: Lower chest: There is pulmonary emphysema. There are postsurgical changes of the esophagogastric junction. Liver: There is a stable 2 small to characterize 5 mm hypodensity within the right hepatic lobe. Gallbladder: Unremarkable. Spleen: There are multiple calcified splenic granulomas. Pancreas: Unremarkable. Adrenal glands: Unremarkable. Kidneys: No renal, ureteral, or bladder calculi are visualized. Bowel: There are no transition zones indicate bowel obstruction. There is no acute diverticulitis. The appendix appears normal. There are scattered colonic air-fluid levels. Peritoneum: There is no intraperitoneal free air or abdominal ascites. There is a small fat-containing right inguinal hernia. Vasculature: The abdominal aorta is normal in course and caliber. Adenopathy: None. Pelvic viscera: The uterus appears surgically absent. There is mild bladder wall thickening which may be secondary to a nondistended bladder Skeletal structures: No destructive osseous lesions are seen. IMPRESSION: 1. No evidence of bowel obstruction. No evidence of free air 2. Surgically absent uterus 3. No evidence of acute appendicitis. No evidence of acute diverticulitis 4. No renal, ureteral, or bladder calculi identified. Electronically signed by: Junior Gan M.D. 12/10/2016 9:48 PM Dictated Date/Time: 12/10/2016 9:44 PM
[2016-12-10] MEDS ORDERED: CIPROFLOXACIN 500 MG TAB PO STA (21:59)
[2016-12-10] MEDS ORDERED: KETOROLAC TROMETHAMINE 30 MG/ML VIAL IV STA (21:59)
[2016-12-10] MEDS ORDERED: PHENAZOPYRIDINE HCL 200 MG TAB PO STA (21:59)
[2016-12-10 22:07] LABS: URINE APPEARANCE CLEAR (CLEAR); URINE BILIRUBIN NEG (NEG); URINE COLOR YELLOW; URINE EPITHELIAL CELL AUTO >30 /lpf (0-5); URINE NITRITE NEG (NEG); URINE PH 6.5 (4.5-7.5); URINE SPECIFIC GRAVITY 1.015 (1.000-1.030); UROBILINOGEN NEG (NEG)
[2016-12-10 22:09] LABS: MANUAL MICROSCOPIC REQUIRED? NO; REVIEW REQ? NO
[2016-12-10] MEDS ORDERED: CIPR250T3 PO (22:17)
[2016-12-10] MEDS ORDERED: PHENAZOPYRIDINE HOME PACK 200 MG VIAL PO ONE (22:30)
[2016-12-10 22:40] VITALS: BP 122/84; PULSE 78; O2SAT 97
--- NOTE | 2016-12-10 22:46 | EMERGENCY ROOM VISIT NOTE ---
History Report prepared by Valdo: Palma Last Under the Supervision of: Dr. Denton Maxwell M.D. 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 The patient states that this pain came on suddenly and has been constant since. The patient recently had a hernia removed. She is nauseous but denies any fever, diarrhea, difficulty urinating, blood in urine, or vaginal discharge. The patient has had a partial hysterectomy and states that her pain feels similar to that. She has a history of COPD, depression, and anxiety. Source of History: patient Onset: 4 pm Position: abdomen Quality: sharp Timing: constant Associated Symptoms: + nausea, No fevers, No diarrhea, No urinary symptoms Review of Systems See HPI for pertinent positives & negatives. A total of 10 systems reviewed and were otherwise negative. Past Medical & Surgical Medical Problems: (1) Anxiety (2) Chest pain (3) Depression (4) Dyslipidemia (5) Emphysema (6) GERD (gastroesophageal reflux disease) (7) Glaucoma (8) H/o Lyme disease (9) H/O subacute thyroiditis (10) HTN (hypertension) (11) Hx of migraines (12) Lumbar degenerative disc disease (13) DAYA (obstructive sleep apnea) (14) Questonable history of meningitis Surgical Problems: (1) H/O section (2) H/O cystoscopy (3) History of colonoscopy (4) History of esophagogastroduodenoscopy (5) S/p carpal tunnel surgery (6) S/P partial hysterectomy (7) S/P sinus surgery (8) S/P tonsillectomy and adenoidectomy (9) S/P tubal ligation (10) Status post Cindy fundoplication Family History Cancer SISTER (breast CA) BROTHER (pancreatic CA) Diabetes mellitus SISTER (Type 1) FH: Parkinson's disease BROTHER FH: emphysema MOTHER Heart disease FATHER ( of [place] age 53) Hypertension MOTHER Seizures DAUGHTER Stroke MOTHER Social History Smoking Status: Current Every Day Smoker Alcohol Use: none Drug Use: none Marital Status: Housing Status: lives with family Occupation Status: disabled Current/Historical Medications Scheduled Aspirin (Aspirin Ec), 81 MG PO DAILY Ciprofloxacin (Cipro), 250 MG PO BID Gabapentin (Gabapentin), 100 MG PO TID Lamotrigine (Lamotrigine), 100 MG PO HS Metoprolol Tartrate (Lopressor), 25 MG PO BID Quetiapine Fumarate (Quetiapine Fumarate), 25 MG PO HS Trazodone HCl (Trazodone HCl), 150 MG PO HS Venlafaxine Hcl (Effexor Extended Rel), 75 MG PO AFTERNOON Venlafaxine Hcl (Effexor Extended Rel), 300 MG PO QAM Scheduled PRN Albuterol Hfa (Ventolin Hfa), 2 PUFFS INH QID PRN for SOB/Wheezing Albuterol Sulf (Proventil 0.083% 2.5MG/3ML), 1 VIAL NEB Q6H PRN for SOB/Wheezing Cyclobenzaprine Hcl (Flexeril), 10 MG PO TID PRN for Muscle Spasm Hydroxyzine HCl (Hydroxyzine HCl), 25 MG PO Q8 PRN for Severe Anxiety Quetiapine Fumarate (Quetiapine Fumarate), 25 MG PO BID PRN for Severe Anxiety Valacyclovir Hcl (Valtrex), 2 GM PO Q12 PRN for Cold Sores Allergies Coded Allergies: Nitrofurantoin (Verified Allergy, Severe, UNABLE TO BEATHE, 08/12/16) Sulfamethoxazole w/Trimethoprim (Verified Allergy, Severe, SHORTNESS OF BREATH, 08/12/16) Physical Exam Vital Signs Date Time Temp Pulse Resp B/P (MAP) Pulse Ox O2 Delivery O2 Flow Rate FiO2 12/10/16 22:40 78 18 122/84 97 12/10/16 19:12 36.5 89 18 129/90 96 Room Air Physical Exam Constitutional: Vital signs reviewed. Eyes: Pupils are equal round reactive to light. Conjunctiva are noninjected. ENT: Pharynx is clear without erythema or exudate. Mucous membranes are moist. Neck supple without meningeal signs. Respiratory: Clear to auscultation bilaterally. Breath sounds are equal bilaterally. Cardiovascular: Regular rate and rhythm. No rubs or gallops. GI: Suprapubic tenderness, no guarding. Soft, nondistended. Bowel sounds are present. Musculoskeletal: No peripheral edema. No lower extremity tenderness. No CVA tenderness. Integumentary: No cyanosis. Neurological: The patient is awake and alert. No focal deficits. Psychiatric: Normal affect. Medical Decision & Procedures ER Provider Diagnostic Interpretation: Radiology results as stated below per my review and the radiologist's interpretation: CT SCAN OF THE ABDOMEN AND PELVIS WITHOUT CONTRAST FINDINGS: Lower chest: There is pulmonary emphysema. There are postsurgical changes of the esophagogastric junction. Liver: There is a stable 2 small to characterize 5 mm hypodensity within the right hepatic lobe. Gallbladder: Unremarkable. Spleen: There are multiple calcified splenic granulomas. Pancreas: Unremarkable. Adrenal glands: Unremarkable. Kidneys: No renal, ureteral, or bladder calculi are visualized. Bowel: There are no transition zones indicate bowel obstruction. There is no acute diverticulitis. The appendix appears normal. There are scattered colonic air-fluid levels. Peritoneum: There is no intraperitoneal free air or abdominal ascites. There is a small fat-containing right inguinal hernia. Vasculature: The abdominal aorta is normal in course and caliber. Adenopathy: None. Pelvic viscera: The uterus appears surgically absent. There is mild bladder wall thickening which may be secondary to a nondistended bladder Skeletal structures: No destructive osseous lesions are seen. IMPRESSION: 1. No evidence of bowel obstruction. No evidence of free air 2. Surgically absent uterus 3. No evidence of acute appendicitis. No evidence of acute diverticulitis 4. No renal, ureteral, or bladder calculi identified. Electronically signed by: Junior Gan M.D. Laboratory Results 12/10/16 20:31 Red Blood Count 4.03, Mean Corpuscular Volume 92.6, Mean Corpuscular Hemoglobin 31.5, Mean Corpuscular Hemoglobin Concent 34.0, Mean Platelet Volume 9.4, Neutrophils (%) (Auto) 57.9, Lymphocytes (%) (Auto) 33.1, Monocytes (%) (Auto) 5.5, Eosinophils (%) (Auto) 2.7, Basophils (%) (Auto) 0.7, Neutrophils # (Auto) 4.76, Lymphocytes # (Auto) 2.72, Monocytes # (Auto) 0.45, Eosinophils # (Auto) 0.22, Basophils # (Auto) 0.06 12/10/16 20:31 Test 12/10/16 20:31 12/10/16 21:30 White Blood Count 8.22 K/uL (4.8-10.8) Red Blood Count 4.03 M/uL (4.2-5.4) Hemoglobin 12.7 g/dL (12.0-16.0) Hematocrit 37.3 % (37-47) Mean Corpuscular Volume 92.6 fL (80-100) Mean Corpuscular Hemoglobin 31.5 pg (25-34) Mean Corpuscular Hemoglobin Concent 34.0 g/dl (32-36) Platelet Count 290 K/uL (130-400) Mean Platelet Volume 9.4 fL (7.4-10.4) Neutrophils (%) (Auto) 57.9 % Lymphocytes (%) (Auto) 33.1 % Monocytes (%) (Auto) 5.5 % Eosinophils (%) (Auto) 2.7 % Basophils (%) (Auto) 0.7 % Neutrophils # (Auto) 4.76 K/uL (1.4-6.5) Lymphocytes # (Auto) 2.72 K/uL (1.2-3.4) Monocytes # (Auto) 0.45 K/uL (0.11-0.59) Eosinophils # (Auto) 0.22 K/uL (0-0.5) Basophils # (Auto) 0.06 K/uL (0-0.2) RDW Standard Deviation 48.6 fL (36.4-46.3) RDW Coefficient of Variation 14.3 % (11.5-14.5) Immature Granulocyte % (Auto) 0.1 % Immature Granulocyte # (Auto) 0.01 K/uL (0.00-0.02) Anion Gap 7.0 mmol/L (3-11) Est Creatinine Clear Calc Drug Dose 120.3 ml/min Estimated GFR () 119.6 Estimated GFR (Non- 103.2 BUN/Creatinine Ratio 17.9 (10-20) Calcium Level 9.1 mg/dl (8.5-10.1) Total Bilirubin 0.3 mg/dl (0.2-1) Direct Bilirubin mg/dl (0-0.2) Aspartate Amino Transf (AST/SGOT) 16 U/L (15-37) Alanine Aminotransferase (ALT/SGPT) 18 U/L (12-78) Alkaline Phosphatase 121 U/L (45-117) Total Protein 7.6 gm/dl (6.4-8.2) Albumin 3.6 gm/dl (3.4-5.0) Lipase 277 U/L (73-393) Chemistry Specimen Hemolysis Urine Color YELLOW Urine Appearance CLEAR (CLEAR) Urine pH 6.5 (4.5-7.5) Urine Specific [place] 1.015 (1.000-1.030) Urine Protein NEG (NEG) Urine Glucose (UA) NEG (NEG) Urine Ketones NEG (NEG) Urine Occult Blood 1+ (NEG) Urine Nitrite NEG (NEG) Urine Bilirubin NEG (NEG) Urine Urobilinogen NEG (NEG) Urine Leukocyte Esterase SMALL (NEG) Urine WBC (Auto) 5-10 /hpf (0-5) Urine RBC (Auto) 10-30 /hpf (0-4) Urine Hyaline Casts (Auto) 1-5 /lpf (0-5) Urine Epithelial Cells (Auto) >30 /lpf (0-5) Urine Bacteria (Auto) NEG (NEG) Laboratory results as reviewed by me. Medications Administered Medications (Trade) Dose Ordered Sig/Ross Route Start Time Stop Time Status Last Admin Dose Admin Morphine Sulfate (MoRPHine SULFATE INJ) 4 mg ONE STAT IV 12/10/16 20:16 12/10/16 20:17 DC 12/10/16 20:46 4 MG Ondansetron HCl (Zofran Inj) 4 mg NOW STAT IV 12/10/16 20:16 12/10/16 20:17 DC 12/10/16 20:45 4 MG Ciprofloxacin (Cipro Tab) 500 mg NOW STAT PO 12/10/16 21:59 12/10/16 22:01 DC 12/10/16 22:06 500 MG Phenazopyridine HCl (Pyridium Tab) 200 mg NOW STAT PO 12/10/16 21:59 12/10/16 22:01 DC 12/10/16 22:06 200 MG Ketorolac Tromethamine (Toradol Inj) 10 mg NOW STAT IV 12/10/16 21:59 12/10/16 22:01 DC 12/10/16 22:05 10 MG ED Course 2005: The patient was evaluated in room B8. A complete history and physical exam was performed. 2016: Zofran Inj 4 mg IV, Morphine Sulfate 4 mg IV. 2158: Toradol Inj 10 mg IV, Pyridium Tab 200 mg PO, Cipro Tab 500 mg PO. 2201: I discussed the patient's test results with her. 2222: Upon reevaluation, the patient appeared to have improvement of her symptoms. I discussed tonight's findings with the patient. She verbalized agreement of the treatment plan. The patient was discharged home. 2230: Phenazopyridine HCl 1 homepack PO. Medical Decision This is a 56-year-old female who presents with lower abdominal pain. Differential diagnosis includes diverticulitis, perforation, abscess, appendicitis, kidney stone, UTI. I did perform a limited focused review of portions of the patient's old chart on the electronic medical record. The patient was admitted in July for chest pain and had negative chemical stress test. I did evaluate the patient as noted above. Patient is presenting with several hours of lower abdominal pain. She does have suprapubic tenderness on examination but no surgical findings touches rebound or guarding. IV access was established. I did treat the patient with IV morphine and Zofran. I did order and review the patient's blood work as noted in the electronic medical record. Her white blood cell count is not elevated. I did order a CT of the abdomen and pelvis. I did review the images myself as well as the radiology report as described above. She does have thickening of her bladder wall but no acute process otherwise. I did order and personally review the patient's urine analysis as described above. This does show evidence of infection. A urine culture was sent. I did treat the patient with Cipro. She was also given Pyridium. I also treated patient with Toradol IV. I did discuss the test results with the patient. She was advised follow closely with her doctor. I did review return instructions with her. She was discharged with a prescription for Cipro. Medication Reconcilliation Current Medication List: was personally reviewed by me Blood Pressure Screening Patient's blood pressure: Elevated blood pressure Impression Primary Impression: Lower abdominal pain Additional Impression: UTI (urinary tract infection) Scribe Attestation The scribe's documentation has been prepared under my direct and personally reviewed by me in its entirety. I confirm that the note above accurately reflects all work, treatment, procedures, and medical decision making performed by me. Departure Information Dispostion Home / Self-Care Prescriptions Ciprofloxacin (CIPRO) 250 Mg Tab 250 MG PO BID for 7 Days, #14 TAB Prov: Denton Maxwell M.D. 12/10/16 Referrals Eve Carr CRNP (PCP) Forms Call Back Authorization, HOME CARE DOCUMENTATION FORM, IMPORTANT VISIT INFORMATION Patient Instructions ED Abdominal Pain Unkn Cause Male, ED UTI Cystitis Female, [facility] Additional Instructions You have been examined and treated today on an emergency basis only. This is not a substitute for, or an effort to provide, complete comprehensive medical care. It is impossible to recognize and treat all injuries or illnesses in a single emergency department visit. It is therefore important that you follow up closely with your physician. Call as soon as possible for an appointment. Return for worsening symptoms or if you develop fever, vomiting, or any other concerning symptoms. Problem Qualifiers Additional Impression: UTI (urinary tract infection) Urinary tract infection type: acute cystitis Hematuria presence: with hematuria Qualified Codes: N30.01 - Acute cystitis with hematuria
== END 2016-12-10 22:40 | disposition home or self-care (01) ==
LOC: C.EDB 19:04
DX: R10.30 Lower abdominal pain, unspecified (principal); N30.01 Acute cystitis with hematuria; J44.9 Chronic obstructive pulmonary disease, unspecified; F32.9 Major depressive disorder, single episode, unspecified; F41.9 Anxiety disorder, unspecified; E78.5 Hyperlipidemia, unspecified; K21.9 Gastro-esophageal reflux disease without esophagitis; H40.9 Unspecified glaucoma; I10 Essential (primary) hypertension; M51.36 Other intervertebral disc degeneration, lumbar region; G47.33 Obstructive sleep apnea (adult) (pediatric); F17.200 Nicotine dependence, unspecified, uncomplicated; Z90.711 Acquired absence of uterus with remaining cervical stump; Z98.51 Tubal ligation status; Z83.3 Family history of diabetes mellitus; Z83.6 Family history of other diseases of the respiratory system; Z82.3 Family history of stroke; Z82.0 Family history of epilepsy and other diseases of the nervous system; Z79.82 Long term (current) use of aspirin

== ENCOUNTER 2017-02-23 15:35 | Observation (INO) | payer OTHER ==
[~2017-02-23] VITALS: Ht 165.1 cm; Wt 93.1 kg
[~2017-02-23 15:35] MED LIST changes: -ASPEC81 PO; -CYCL10TA6 PO; -DSY/150 PO; -FLUT1INH INH; -GABA-112 PO; -HYDR-3124 PO; -IPRA1AER2 INH; -LAMO25TA PO; -LPR25 PO; -PRED10TA PO; -QUET1TAB30 PO; +SRQ25 PO; -VALA1TAB31 PO; -VENL150C PO; -VNTHFA/IN INH
[2017-02-23] MEDS ORDERED: NITROGLYCERIN OINT 2% 1GM PACKET ONE (15:45)
[2017-02-23] MEDS ORDERED: VNTHFA/IN INH (15:50)
[2017-02-23] MEDS ORDERED: NITROGLYCERIN OINT 2% 1GM PACKET EXT ONE (16:00)
--- NOTE | 2017-02-23 16:17 | DIAGNOSTIC IMAGING REPORT ---
CHEST ONE VIEW PORTABLE HISTORY: 56 years-old Female cp acute atypical chest pain COMPARISON: Acute abdominal series radiographs 12/23/2016 TECHNIQUE: AP view of the chest. FINDINGS: The cardiomediastinal and hilar silhouettes are within normal limits. No pneumothorax, pleural effusion or lobar airspace consolidation. Subsegmental right basilar opacities suggest atelectasis. Bones of the chest appear grossly intact. IMPRESSION: No acute process. The above report was generated using voice recognition software. It may contain grammatical, syntax or spelling errors. Electronically signed by: Star Lucero M.D. 02/23/2017 4:15 PM Dictated Date/Time: 02/23/2017 4:14 PM
[2017-02-23 16:20] LABS: BASO % 0.9 %; BASO ABS # 0.05 K/uL (0-0.2); EOS ABS # 0.11 K/uL (0-0.5); HEMATOCRIT 41.9 % (37-47); HEMOGLOBIN 14.1 g/dL (12.0-16.0); IG# 0.02 K/uL (0.00-0.02); LYMPH % 31.2 %; LYMPH ABS # 1.75 K/uL (1.2-3.4); MEAN CELL VOLUME 95.4 fL (80-100); MEAN CORPUSCULAR HEMOGLOBIN 32.1 pg (25-34); MEAN CORPUSCULAR HGB CONC 33.7 g/dl (32-36); MEAN PLATELET VOLUME 9.4 fL (7.4-10.4); MONO % 8.2 %; MONO ABS # 0.46 K/uL (0.11-0.59); NEUT % 57.3 %; NEUT ABS # 3.22 K/uL (1.4-6.5); PLATELET COUNT 269 K/uL (130-400); RED CELL DISTRIBUTION WIDTH CV 13.6 % (11.5-14.5); RED CELL DISTRIBUTION WIDTH SD 48.1 fL (36.4-46.3); WHITE BLOOD COUNT 5.61 K/uL (4.8-10.8)
[2017-02-23] MEDS ORDERED: QUET5TAB PO (16:22)
[2017-02-23] MEDS ORDERED: SUCR1TAB PO (16:22)
[2017-02-23] MEDS ORDERED: ONDANSETRON INJ 2 MG/ML 2 ML VIAL IV STA (16:26)
[2017-02-23] MEDS ORDERED: FENTANYL CITRATE INJ 50 MCG/1 ML 2 ML VIAL IV STA (16:26)
[2017-02-23 16:40] LABS: CREATININE 0.65 mg/dl (0.60-1.20)
[2017-02-23 16:41] LABS: CALCIUM 8.7 mg/dl (8.5-10.1); POTASSIUM 3.8 mmol/L (3.5-5.1)
[2017-02-23] MEDS ORDERED: VALA1TAB31 PO (17:05)
[2017-02-23] MEDS ORDERED: CYCL10TA6 PO (17:05)
[2017-02-23] MEDS ORDERED: DSY/150 PO (17:05)
[2017-02-23] MEDS ORDERED: MoRPHine SULFATE 2 MG/ML CARP IV STA (18:03)
[2017-02-23] MEDS ORDERED: LPR25 PO (18:35)
[2017-02-23] MEDS ORDERED: GI COCKTAIL PO ONE (19:15)
[2017-02-23] MEDS ORDERED: ALUMINUM/MAGNESIUM/SIMETH (MAALOX MAX) 30 ML UDC PO PRN (19:15)
[2017-02-23] MEDS ORDERED: QUETIAPINE FUMARATE 25 MG TAB PO PRN (19:15)
[2017-02-23] MEDS ORDERED: hydrOXYzine HCL 25 MG TAB PO PRN (19:15)
[2017-02-23] MEDS ORDERED: MAGNESIUM HYDROXIDE SUSP 30 ML UDC PO PRN (19:15)
[2017-02-23] MEDS ORDERED: ACETAMINOPHEN 325 MG TAB PO PRN (19:15)
[2017-02-23] MEDS ORDERED: ONDANSETRON INJ 2 MG/ML 2 ML VIAL IV PRN (19:15)
[2017-02-23] MEDS ORDERED: CYCLOBENZAPRINE HCL 10 MG TAB PO PRN (19:15)
[2017-02-23] MEDS ORDERED: POLYETHYLENE (MIRALAX) 17 GM PACK PO PRN (19:15)
--- NOTE | 2017-02-23 19:34 | History and Physical ---
History & Physical Date & Time of Service: Feb 23, 2017 at 19:30 Chief Complaint: Chest Heaviness Primary Care Physician: Eve Carr CRNP History of Present Illness Source: patient Ms. Guido is a 56 y/o female with PMHx of COPD, DAYA (doesn't tolerate CPAP), HTN, GERD, Seizure Disorder, GERD, S/P Fundoplication, and Anxiety/Depression who presents to the ED c/o CP that started last night. Patient has had multiple admissions for CP and most recent in the summer of 2016 with a dobutamine stress test that was negative for ischemic findings. Patient does have risk factors that would put her at risk for cardiac issues such as HTN, 1/2 ppd smoker, and FMHx of father with NC at age 56. It appears she has also had ongoing issues with abdominal pain which appears to be more GERD and constipation related. She reports yesterday she feeling "sluggish" and figured she was coming down with an illness as her currently has URI symptoms. She reports that she does have a cough but this is chronic and denies changes in the quality of her cough or sputum change. She was able to go about her normal routine yesterday. At 0400 this AM she reports suddenly waking up due to CP with associated SOB and diaphoresis. She states the pain was 8-9/10 at its worse and would wax and wane. She states it would only improve to a 6/10 and never completely subsided. She states the pain is sternal and sharp with a shooting sensation into her neck. Pain is not reproducible. She thought this could be related to her COPD and took her nebulizers and inhalers without relief. She also took Flexeril thinking it was muscle spasms and got no relief. In the ambulance she states the ASA and nitro did almost completely resolved her CP and now has an associated ROWLAND. Upon assessment, patient does have mild tenderness to palpation of her epigastric region with deep palpation. Past Medical/Surgical History Medical Problems: (1) Anxiety Status: Chronic (2) Depression Status: Chronic (3) Dyslipidemia Status: Chronic (4) Emphysema Status: Chronic (5) GERD (gastroesophageal reflux disease) Status: Chronic (6) Glaucoma Status: Chronic (7) H/o Lyme disease Status: Chronic (8) H/O subacute thyroiditis Status: Chronic (9) HTN (hypertension) Status: Chronic (10) Hx of migraines Status: Chronic (11) Lumbar degenerative disc disease Status: Chronic (12) DAYA (obstructive sleep apnea) Status: Chronic (13) Questonable history of meningitis Status: Chronic Surgical Problems: (1) H/O section Status: Chronic (2) H/O cystoscopy Status: Chronic (3) History of colonoscopy Permanent Comment: 07/11/14- diverticulosis Status: Chronic (4) History of esophagogastroduodenoscopy Permanent Comment: 07/11/14- small hiatal hernia, normal bx Status: Chronic (5) S/p carpal tunnel surgery Status: Chronic (6) S/P partial hysterectomy Status: Chronic (7) S/P sinus surgery Status: Chronic (8) S/P tonsillectomy and adenoidectomy Status: Chronic (9) S/P tubal ligation Status: Chronic (10) Status post Cindy fundoplication Status: Resolved Family History Cancer SISTER (breast CA) BROTHER (pancreatic CA) Diabetes mellitus SISTER (Type 1) FH: Parkinson's disease BROTHER FH: emphysema MOTHER Heart disease FATHER ( of NC age 53) Hypertension MOTHER Seizures DAUGHTER Stroke MOTHER Social History Smoking Status: Current Every Day Smoker Drug Use: none Marital Status: Housing status: lives with family Occupational Status: disabled Immunizations History of Influenza Vaccine: No History of Tetanus Vaccine?: Yes History of Pneumococcal: No History of Hepatitis B Vaccine: Unknown Multi-Drug Resistant Organisms History of MDRO: No Allergies Coded Allergies: Nitrofurantoin (Verified Allergy, Severe, UNABLE TO BEATHE, 08/12/16) Sulfamethoxazole w/Trimethoprim (Verified Allergy, Severe, SHORTNESS OF BREATH, 08/12/16) Home Medications Scheduled Aspirin (Aspirin Ec), 81 MG PO DAILY Gabapentin (Gabapentin), 100 MG PO TID Lamotrigine (Lamotrigine), 100 MG PO HS Metoprolol Tartrate (Lopressor), 25 MG PO BID Quetiapine Fumarate (Seroquel), 50 MG PO HS Sucralfate (Sucralfate), 1 GM PO BID Trazodone HCl (Trazodone HCl), 75 MG PO HS Venlafaxine Hcl (Effexor Extended Rel), 75 MG PO AFTERNOON Venlafaxine Hcl (Effexor Extended Rel), 300 MG PO QAM Scheduled PRN Albuterol Hfa (Ventolin Hfa), 2 PUFFS INH QID PRN for SOB/Wheezing Albuterol Sulf (Proventil 0.083% 2.5MG/3ML), 1 VIAL NEB Q6H PRN for SOB/Wheezing Cyclobenzaprine Hcl (Flexeril), 10 MG PO TID PRN for Muscle Spasm Hydroxyzine HCl (Hydroxyzine HCl), 25 MG PO Q8 PRN for Severe Anxiety Quetiapine Fumarate (Quetiapine Fumarate), 12.5 MG PO BID PRN for Severe Anxiety Valacyclovir Hcl (Valtrex), 2 GM PO Q12 PRN for Cold Sores Review of Systems Constitutional: + fatigue, No fever, No chills ENT: No nasal symptoms, No sore throat Respiratory: + cough (chronic - reporting no change), + wheezing, + shortness of breath (RESOLVED) Cardiovascular: + chest pain, No orthopnea, No edema, No palpitations Abdomen: + pain (epigastric), No nausea, No vomiting, No diarrhea, No constipation, No GI bleeding Musculoskeletal: No swelling, No calf pain Genitourinary - Female: No dysuria Psychiatric: No depression symptoms, No anxiety Hematologic / Lymphatic: No abnormal bleeding/bruising, No clotting problems Integumentary: No rash Physical Exam Vital Signs Date Time Temp Pulse Resp B/P (MAP) Pulse Ox O2 Delivery O2 Flow Rate FiO2 02/23/17 18:09 77 18 125/81 94 Room Air 02/23/17 17:09 67 18 146/69 97 Room Air 02/23/17 16:30 76 18 126/80 96 Room Air 02/23/17 16:07 70 02/23/17 15:48 36.5 93 18 139/83 97 Room Air 02/23/17 15:48 97 Room Air 02/23/17 15:48 97 Room Air General Appearance: WD/WN, no apparent distress, + obese Head: normocephalic, atraumatic Eyes: sclerae normal ENT: hearing grossly normal, pharynx normal, + pertinent finding (midly dry oral mucosa) Neck: supple, no JVD, trachea midline Respiratory/Chest: + wheezing (diffuse throughout all lung lacy) Cardiovascular: regular rate, rhythm, no gallop, no murmur Abdomen/GI: normal bowel sounds, soft, + tenderness (mild tenderness to deep palpation of epigastric region) Back: normal inspection, no CVA tenderness Extremities/Musculoskelatal: no calf tenderness, no pedal edema Neurologic/Psych: alert, oriented x 3 Skin: normal color, warm/dry Diagnostics Laboratory Results Results Past 24 Hours Test 02/23/17 16:00 02/23/17 16:03 02/23/17 19:15 Range/Units White Blood Count 5.61 4.8-10.8 K/uL Red Blood Count 4.39 4.2-5.4 M/uL Hemoglobin 14.1 12.0-16.0 g/dL Hematocrit 41.9 37-47 % Mean Corpuscular Volume 95.4 80-100 fL Mean Corpuscular Hemoglobin 32.1 25-34 pg Mean Corpuscular Hemoglobin Concent 33.7 32-36 g/dl Platelet Count 269 130-400 K/uL Mean Platelet Volume 9.4 7.4-10.4 fL Neutrophils (%) (Auto) 57.3 % Lymphocytes (%) (Auto) 31.2 % Monocytes (%) (Auto) 8.2 % Eosinophils (%) (Auto) 2.0 % Basophils (%) (Auto) 0.9 % Neutrophils # (Auto) 3.22 1.4-6.5 K/uL Lymphocytes # (Auto) 1.75 1.2-3.4 K/uL Monocytes # (Auto) 0.46 0.11-0.59 K/uL Eosinophils # (Auto) 0.11 0-0.5 K/uL Basophils # (Auto) 0.05 0-0.2 K/uL RDW Standard Deviation 48.1 36.4-46.3 fL RDW Coefficient of Variation 13.6 11.5-14.5 % Immature Granulocyte % (Auto) 0.4 % Immature Granulocyte # (Auto) 0.02 0.00-0.02 K/uL Prothrombin Time 10.0 9.0-12.0 SECONDS Prothromb Time International Ratio 1.0 0.9-1.1 Activated Partial Thromboplast Time 27.0 21.0-31.0 SECONDS Partial Thromboplastin Ratio 1.0 Sodium Level 137 136-145 mmol/L Potassium Level 3.8 3.5-5.1 mmol/L Chloride Level 105 98-107 mmol/L Carbon Dioxide Level 25 21-32 mmol/L Anion Gap 7.0 3-11 mmol/L Blood Urea Nitrogen 7 7-18 mg/dl Creatinine 0.65 0.60-1.20 mg/dl Est Creatinine Clear Calc Drug Dose 110.0 ml/min Estimated GFR () 115.8 Estimated GFR (Non- 99.9 BUN/Creatinine Ratio 11.3 10-20 Random Glucose 87 70-99 mg/dl Calcium Level 8.7 8.5-10.1 mg/dl Bedside Troponin I < 0.030 0-0.045 ng/ml Diagnostic Radiology CHEST ONE VIEW PORTABLE FINDINGS: The cardiomediastinal and hilar silhouettes are within normal limits. No pneumothorax, pleural effusion or lobar airspace consolidation. Subsegmental right basilar opacities suggest atelectasis. Bones of the chest appear grossly intact. IMPRESSION: No acute process. EKG Normal sinus rhythm Normal ECG When compared with ECG of 23-FEB-2017 15:40, (unconfirmed) No significant change was found Confirmed by Randy Luo ([id number]) on 02/23/2017 5:12:50 PM Impression Assessment and Plan Ms. Guido is a 56 y/o female with PMHx of COPD, DAYA (doesn't tolerate CPAP), HTN, GERD, Seizure Disorder, GERD, S/P Fundoplication, and Anxiety/Depression who presents to the ED c/o CP that started last night. Atypical Chest Pain: R/O ACS (Unlikely) vs Angina vs DAYA vs GERD vs Bronchitis: - Initial troponin 0.030 and will trend and monitor rhythm - Reports some relief with NTG - does have risk factors of smoking, HTN, and mildly elevated cholesterol and LDL - Suspect this may be more of an acute developing bronchitis given her wheezing and does have epigastric tenderness which could make this more GI in nature - per outpatient records a referral was placed for outpatient GI consultation and is S/P Fundiplication - With continue NTG PRN for CP and given GI cocktail to monitor efficacy - ASA 81 mg daily - Encourage smoking cessation - Will consult cardiology - appreciate recommendations for possible medicinal interventions -- Do not suspect repeat stress testing is necessary DAYA and COPD: - Between wheezing and moderate COPD and DAYA - possibly related to this, especially with waking spontaneously at night with issues - Is not requiring supplemental oxygen and breathing she reports is baseline - would not be surprised if wheezing is baseline for her - Dublue Tim HTN: - Lopressor 25 mg BID Anxiety/Depression/Seizure Disorder: - States she feels that she is more calm and content at this time and does not feel this is factoring into her current symptoms - Vistaril PRN, Lamictal 100 mg HS, Effexor 375 mg daily, Seroquel 50 mg HS and Trazodone 75 mg HS DVT Prophylaxis: Heparin Q8H I personally interviewed and examined the patient. I agree with history of present illness and physical exam mentioned above, I also performed my own history taking and examination. Past medical history and review of system has been obtained by myself I reviewed all pertinent labs and studies Reviewed current medications I discussed and formulated of the assessment and plan mentioned above. Please refer to the Summary mentioned below. 56 y/o female with PMHx of obstructive sleep apnea noncompliant with CPAP, hypertension, GERD disease, seizure disorder, severe reflux status post fundoplication and hypertension Patient presented to the hospital before with multiple episodes of chest pain. Patient had a negative stress test about 6 months ago. Presented again today with chest pain. Due to her multiple risk factors including smoking and very strong family history. Patient will be admitted for chest pain rule out despite of the negative stress test, for fear of false negative stress test. Trade Recruiter was consulted, will leave it up to shredding floor equipment operator to decide whether cardiac cath is indicated to close this chapter. General Appearance: not in acute distress Eyes: normal Sclerae, extraocular muscle intact ENT: hearing grossly normal Neck: supple Respiratory/Chest: normal air entry especially bilateral ,no respiratory distress, no accessory muscle use Cardiovascular: regular rate, rhythm, no systolic murmur Abdomen: non tender, soft, no masses Extremities: no edema Neurologic/Psychiatric: Awake alert oriented times place and person moves all extremities sensation intact cranial nerves II-12 appear to be intact Skin: normal color, warm/dry, no rash Fernando Aviles MD, [facility] Level of Care Telemetry Resuscitation Status FULL RESUSCITATION VTE Prophylaxis VTE Risk Assessment Done? Y/N: Yes Risk Level: Moderate Given or contraindicated: Unfractionated heparin SQ
--- NOTE | 2017-02-23 19:37 | EMERGENCY ROOM VISIT NOTE ---
History Report prepared by Valdo: Shagufta Roblero Under the Supervision of: Dr. Denton Maxwell M.D. First contact with patient: 15:38 Chief Complaint: CARDIAC ASSESSMENT Stated Complaint: CHEST HEAVINESS History of Present Illness The patient is a 56 year old female who presents to the Emergency Room with complaints of worsening chest pain starting yesterday. She describes the pain as a dull pressure which intermittently shoots up into her neck. The pain worsened today. She presents to the ED by EMS. She received 2 nitro and an aspirin in route which improved the pain. She currently rates her discomfort as a 6/10 in severity. She has some SOB and diaphoresis with her chest pain. She has had a cough and headache. She denies any nausea or fever. She smokes 0.5 packs per day. She denies any history of heart problems. Her father had an RI at age 56. Source of History: patient, nursing staff Onset: yesterday Position: chest Symptom Intensity: 6/10 Quality: pressure, dull Timing: worsening Associated Symptoms: + headache, + diaphoresis, + cough, + SOB, No fevers, No nausea Review of Systems See HPI for pertinent positives & negatives. A total of 10 systems reviewed and were otherwise negative. Past Medical & Surgical Medical Problems: (1) Anxiety (2) Chest pain (3) Depression (4) Dyslipidemia (5) Emphysema (6) GERD (gastroesophageal reflux disease) (7) Glaucoma (8) H/o Lyme disease (9) H/O subacute thyroiditis (10) HTN (hypertension) (11) Hx of migraines (12) Lumbar degenerative disc disease (13) DAYA (obstructive sleep apnea) (14) Questonable history of meningitis Surgical Problems: (1) H/O section (2) H/O cystoscopy (3) History of colonoscopy (4) History of esophagogastroduodenoscopy (5) S/p carpal tunnel surgery (6) S/P partial hysterectomy (7) S/P sinus surgery (8) S/P tonsillectomy and adenoidectomy (9) S/P tubal ligation (10) Status post Cindy fundoplication Family History Cancer SISTER (breast CA) BROTHER (pancreatic CA) Diabetes mellitus SISTER (Type 1) FH: Parkinson's disease BROTHER FH: emphysema MOTHER Heart disease FATHER ( of RI age 53) Hypertension MOTHER Seizures DAUGHTER Stroke MOTHER Social History Smoking Status: Current Every Day Smoker Alcohol Use: none Drug Use: none Marital Status: Housing Status: lives with family Occupation Status: disabled Current/Historical Medications Scheduled Aspirin (Aspirin Ec), 81 MG PO DAILY Gabapentin (Gabapentin), 100 MG PO TID Lamotrigine (Lamotrigine), 100 MG PO HS Metoprolol Tartrate (Lopressor), 25 MG PO BID Quetiapine Fumarate (Seroquel), 50 MG PO HS Sucralfate (Sucralfate), 1 GM PO BID Trazodone HCl (Trazodone HCl), 75 MG PO HS Venlafaxine Hcl (Effexor Extended Rel), 75 MG PO AFTERNOON Venlafaxine Hcl (Effexor Extended Rel), 300 MG PO QAM Scheduled PRN Albuterol Hfa (Ventolin Hfa), 2 PUFFS INH QID PRN for SOB/Wheezing Albuterol Sulf (Proventil 0.083% 2.5MG/3ML), 1 VIAL NEB Q6H PRN for SOB/Wheezing Cyclobenzaprine Hcl (Flexeril), 10 MG PO TID PRN for Muscle Spasm Hydroxyzine HCl (Hydroxyzine HCl), 25 MG PO Q8 PRN for Severe Anxiety Quetiapine Fumarate (Quetiapine Fumarate), 12.5 MG PO BID PRN for Severe Anxiety Valacyclovir Hcl (Valtrex), 2 GM PO Q12 PRN for Cold Sores Allergies Coded Allergies: Nitrofurantoin (Verified Allergy, Severe, UNABLE TO BEATHE, 08/12/16) Sulfamethoxazole w/Trimethoprim (Verified Allergy, Severe, SHORTNESS OF BREATH, 08/12/16) Physical Exam Vital Signs Date Time Temp Pulse Resp B/P (MAP) Pulse Ox O2 Delivery O2 Flow Rate FiO2 02/23/17 18:09 77 18 125/81 94 Room Air 02/23/17 17:09 67 18 146/69 97 Room Air 02/23/17 16:30 76 18 126/80 96 Room Air 02/23/17 16:07 70 02/23/17 15:48 36.5 93 18 139/83 97 Room Air 02/23/17 15:48 97 Room Air 02/23/17 15:48 97 Room Air Physical Exam Constitutional: Vital signs reviewed. Eyes: Pupils are equal round reactive to light. Conjunctiva are noninjected. ENT: Pharynx is clear without erythema or exudate. Mucous membranes are moist. Neck supple without meningeal signs. Respiratory: Clear to auscultation bilaterally. Breath sounds are equal bilaterally. Cardiovascular: Regular rate and rhythm. No rubs or gallops. GI: Soft, nondistended and nontender. Bowel sounds are present. Musculoskeletal: No peripheral edema. No lower extremity tenderness. Integumentary: No cyanosis. Neurological: The patient is awake and alert. No focal deficits. Psychiatric: Normal affect. Medical Decision & Procedures ER Provider Diagnostic Interpretation: X-ray results as stated below per interpretation by me and the radiologist: CHEST ONE VIEW PORTABLE HISTORY: 56 years-old Female cp acute atypical chest pain COMPARISON: Acute abdominal series radiographs 12/23/2016 TECHNIQUE: AP view of the chest. FINDINGS: The cardiomediastinal and hilar silhouettes are within normal limits. No pneumothorax, pleural effusion or lobar airspace consolidation. Subsegmental right basilar opacities suggest atelectasis. Bones of the chest appear grossly intact. IMPRESSION: No acute process. The above report was generated using voice recognition software. It may contain grammatical, syntax or spelling errors. Electronically signed by: Star Lucero M.D. 02/23/2017 4:15 PM Dictated Date/Time: 02/23/2017 4:14 PM Laboratory Results 02/23/17 16:00 Red Blood Count 4.39, Mean Corpuscular Volume 95.4, Mean Corpuscular Hemoglobin 32.1, Mean Corpuscular Hemoglobin Concent 33.7, Mean Platelet Volume 9.4, Neutrophils (%) (Auto) 57.3, Lymphocytes (%) (Auto) 31.2, Monocytes (%) (Auto) 8.2, Eosinophils (%) (Auto) 2.0, Basophils (%) (Auto) 0.9, Neutrophils # (Auto) 3.22, Lymphocytes # (Auto) 1.75, Monocytes # (Auto) 0.46, Eosinophils # (Auto) 0.11, Basophils # (Auto) 0.05 02/23/17 16:00 Test 02/23/17 16:00 02/23/17 16:03 02/23/17 19:15 White Blood Count 5.61 K/uL (4.8-10.8) Red Blood Count 4.39 M/uL (4.2-5.4) Hemoglobin 14.1 g/dL (12.0-16.0) Hematocrit 41.9 % (37-47) Mean Corpuscular Volume 95.4 fL (80-100) Mean Corpuscular Hemoglobin 32.1 pg (25-34) Mean Corpuscular Hemoglobin Concent 33.7 g/dl (32-36) Platelet Count 269 K/uL (130-400) Mean Platelet Volume 9.4 fL (7.4-10.4) Neutrophils (%) (Auto) 57.3 % Lymphocytes (%) (Auto) 31.2 % Monocytes (%) (Auto) 8.2 % Eosinophils (%) (Auto) 2.0 % Basophils (%) (Auto) 0.9 % Neutrophils # (Auto) 3.22 K/uL (1.4-6.5) Lymphocytes # (Auto) 1.75 K/uL (1.2-3.4) Monocytes # (Auto) 0.46 K/uL (0.11-0.59) Eosinophils # (Auto) 0.11 K/uL (0-0.5) Basophils # (Auto) 0.05 K/uL (0-0.2) RDW Standard Deviation 48.1 fL (36.4-46.3) RDW Coefficient of Variation 13.6 % (11.5-14.5) Immature Granulocyte % (Auto) 0.4 % Immature Granulocyte # (Auto) 0.02 K/uL (0.00-0.02) Prothrombin Time 10.0 SECONDS (9.0-12.0) Prothromb Time International Ratio 1.0 (0.9-1.1) Activated Partial Thromboplast Time 27.0 SECONDS (21.0-31.0) Partial Thromboplastin Ratio 1.0 Anion Gap 7.0 mmol/L (3-11) Est Creatinine Clear Calc Drug Dose 110.0 ml/min Estimated GFR () 115.8 Estimated GFR (Non- 99.9 BUN/Creatinine Ratio 11.3 (10-20) Calcium Level 8.7 mg/dl (8.5-10.1) Bedside Troponin I < 0.030 ng/ml (0-0.045) Laboratory results as reviewed by me. Medications Administered Medications (Trade) Dose Ordered Sig/Ross Route Start Time Stop Time Status Last Admin Dose Admin Nitroglycerin (Nitroglycerin 2% Oint) 1 inch STK-MED ONCE .ROUTE 02/23/17 15:45 02/23/17 15:46 DC 02/23/17 15:47 1 INCH Fentanyl Citrate (Fentanyl Inj) 50 mcg NOW STAT IV 02/23/17 16:26 02/23/17 16:27 DC 02/23/17 16:38 50 MCG Ondansetron HCl (Zofran Inj) 4 mg NOW STAT IV 02/23/17 16:26 02/23/17 16:27 DC 02/23/17 16:38 4 MG Morphine Sulfate (MoRPHine SULFATE INJ) 2 mg NOW STAT IV 02/23/17 18:03 02/23/17 18:04 DC 02/23/17 18:08 2 MG ECG Indication: chest pain Rate (beats per minute): 77 Rhythm: normal sinus Findings: no acute ischemic change, no ectopy ED Course 1539: The patient was evaluated in room A9B. A complete history and physical exam was performed. 1545: Nitroglycerin 1 inch EXT. 1625: I reevaluated the patient. Her chest pain was improving, but now is worsening again. Repeat EKG at this time shows normal sinus rhythm, rate of 77, motion artifact in limb leads limiting interpretation, no acute ischemia. 1626: Zofran Inj 4 mg IV, Fentanyl Inj 50 mcg IV. 1645: I reevaluated the patient. Her chest pain is improved. I discussed the results with her. I recommended hospitalization. She verbalized agreement of the treatment plan. She will be evaluated for further management. 1648: I discussed the patient's case with Dr. Mely Aviles, [facility]. The patient will be evaluated for further management. 1835: I reevaluated the patient. She does not have chest pain at this time. Medical Decision This is a 56-year-old female who presents with chest pain. Differential diagnosis includes unstable angina, RI, pneumonia, pleurisy, GERD. I did perform a limited focused review of portions of the patient's old chart on the electronic medical record. The patient has had no recent pertinent visits to this hospital. I did evaluate the patient as noted above. The patient was given nitroglycerin and aspirin prior to arrival in the ambulance. She states that her chest pain is significantly improved with the nitroglycerin. The patient was placed on a continuous nurse monitoring. I did treat her with nitroglycerin paste. I did order and personally review the patient's 12-lead EKG and chest x-ray as described above. Her twelve-lead EKG does not show any evidence of acute ischemia. I did order and review the patient's blood work as noted in the electronic medical record. Troponin is negative. The patient's chest pain initially improved while in the emergency department but came back and so I did repeat a twelve-lead EKG which showed no acute ischemia. I did treat her with fentanyl and Zofran IV. I did discuss the test results with the patient. I did discuss case with the hospitalist and pillowcase turner. Medication Reconcilliation Current Medication List: was personally reviewed by me Blood Pressure Screening Patient's blood pressure: Elevated blood pressure Blood pressure disposition: Referred to PCP Consults Time Called: 1648 Consulting Physician: Dr. Mely Aviles, [facility] Returned Call: [phone] I discussed the patient's case with him. The patient will be evaluated for further management. Impression Primary Impression: Acute chest pain Scribe Attestation The scribe's documentation has been prepared under my direct and personally reviewed by me in its entirety. I confirm that the note above accurately reflects all work, treatment, procedures, and medical decision making performed by me. Departure Information Dispostion Being Evaluated By Hospitalist Referrals Eve Carr CRNP (PCP) Patient Instructions My [facility]
[2017-02-23] MEDS ORDERED: ALUMINUM/MAGNESIUM SUSP 18 ML, LIDOCAINE HCL 2% VISCOUS SOLN 6 ML, BARCODE IDENTIFIER 1 EA PO ONE ×2 (20:00)
[2017-02-23] MEDS ORDERED: IV FLUIDS COMPLETED PRN (20:00)
[2017-02-23] MEDS ORDERED: EFFSR150 PO (20:35)
[2017-02-23] MEDS ORDERED: EFFSR75 PO (20:35)
[2017-02-23] MEDS ORDERED: LAMO1TAB21 PO (20:35)
[2017-02-23] MEDS ORDERED: NRN100 PO (20:35)
[2017-02-23] MEDS ORDERED: ALBINS/ NEB (20:35)
[2017-02-23] MEDS ORDERED: ASPI81TA28 PO (20:35)
[2017-02-23] MEDS ORDERED: ATR25 PO (20:35)
[2017-02-23] MEDS ORDERED: SRQ25 PO (20:35)
[2017-02-23] MEDS ORDERED: QUETIAPINE FUMARATE 25 MG TAB PO SCH (21:00)
[2017-02-23] MEDS: ALBUT/IPRATROP 3MG/0.5MG NEB 3 ML VIAL INH SCH (21:00)
[2017-02-23] MEDS ORDERED: TRAZODONE HCL 50 MG TAB PO SCH (21:00)
[2017-02-23 21:02] VITALS: PULSE 81; O2SAT 94
[2017-02-23] MEDS: SODIUM CHLORIDE 0.9% 1000ML 1,000 ML IV SCH (21:04)
[2017-02-23] MEDS: GABAPENTIN 100 MG CAP PO SCH (21:05)
[2017-02-23] MEDS: METOPROLOL TARTRATE 25 MG TAB PO SCH (21:05)
[2017-02-23] MEDS: SUCRALFATE 1 GM TAB PO SCH (21:07)
[2017-02-23] MEDS: MoRPHine SULFATE 2 MG/ML CARP IV PRN ×2 (21:13→23:47)
[2017-02-23] MEDS: HEPARIN SOD 5000 UNIT/0.5 ML CARP SQ SCH (21:13)
[2017-02-23] MEDS: NITROGLYCERIN 0.4 MG SL PER TAB CHARGE SL PRN (21:51)
[2017-02-23 21:55] VITALS: Ht 165.1 cm; Wt 93.1 kg
[2017-02-23] MEDS ORDERED: INFLUENZA ADMINISTRATION CHARGE ONE (23:45)
[2017-02-23] MEDS ORDERED: INFLUENZA VIRUS QUAD VACCINE 0.5 ML SYR IM. ONE (23:45)
[2017-02-24] VITALS (10 sets, daily range): BP systolic 95–132; BP diastolic 60–83; PULSE 51–65; TEMP 36.3–36.7; O2SAT 90–94
[2017-02-24] MEDS: NITROGLYCERIN 0.4 MG SL PER TAB CHARGE SL PRN (00:17)
[2017-02-24] MEDS ORDERED: KETOROLAC TROMETHAMINE 15 MG/ML VIAL IV. PRN (00:45)
[2017-02-24] MEDS ORDERED: LIDODERM (LIDOCAINE) PATCH 5% TD ONE (03:15)
[2017-02-24 04:17] LABS: BASO % 0.6 %; BASO ABS # 0.03 K/uL (0-0.2); EOS % 2.4 %; EOS ABS # 0.12 K/uL (0-0.5); HEMOGLOBIN 11.7 g/dL (12.0-16.0); IG# 0.01 K/uL (0.00-0.02); LYMPH % 44.4 %; LYMPH ABS # 2.24 K/uL (1.2-3.4); MEAN CELL VOLUME 96.8 fL (80-100); MEAN CORPUSCULAR HEMOGLOBIN 31.5 pg (25-34); MEAN CORPUSCULAR HGB CONC 32.5 g/dl (32-36); MEAN PLATELET VOLUME 9.2 fL (7.4-10.4); MONO % 7.5 %; MONO ABS # 0.38 K/uL (0.11-0.59); NEUT % 44.9 %; NEUT ABS # 2.26 K/uL (1.4-6.5); PLATELET COUNT 228 K/uL (130-400); RED CELL DISTRIBUTION WIDTH CV 13.8 % (11.5-14.5); WHITE BLOOD COUNT 5.04 K/uL (4.8-10.8)
[2017-02-24 04:35] LABS: ALBUMIN 2.9 gm/dl (3.4-5.0); ALT/SGPT 20 U/L (12-78); AST/SGOT 11 U/L (15-37); CALCIUM 7.9 mg/dl (8.5-10.1); CARBON DIOXIDE 27 mmol/L (21-32); CREATININE 0.72 mg/dl (0.60-1.20); GLUCOSE 78 mg/dl (70-99); POTASSIUM 4.1 mmol/L (3.5-5.1); SODIUM 138 mmol/L (136-145)
[2017-02-24 04:40] LABS: ALKALINE PHOSPHATASE 108 U/L (45-117); TOTAL PROTEIN 6.1 gm/dl (6.4-8.2)
[2017-02-24 05:01] LABS: BLOOD UREA NITROGEN 11 mg/dl (7-18)
[2017-02-24] MEDS: HEPARIN SOD 5000 UNIT/0.5 ML CARP SQ SCH ×2 (05:45→14:00)
[2017-02-24] MEDS: ALBUT/IPRATROP 3MG/0.5MG NEB 3 ML VIAL INH SCH ×2 (07:28→11:23)
[2017-02-24] MEDS ORDERED: VENLAFAXINE HCL XR 150 MG CAPXR PO SCH (09:00)
[2017-02-24] MEDS ORDERED: VENLAFAXINE HCL XR 75 MG CAPXR PO SCH (09:00)
[2017-02-24] MEDS: SUCRALFATE 1 GM TAB PO SCH (09:00)
[2017-02-24] MEDS: GABAPENTIN 100 MG CAP PO SCH ×2 (09:00→14:00)
[2017-02-24] MEDS: METOPROLOL TARTRATE 25 MG TAB PO SCH (09:00)
[2017-02-24] MEDS ORDERED: PANTOprazole SOD 40 MG TAB PO SCH (09:00)
[2017-02-24] MEDS ORDERED: ASPIRIN 81 MG ECTAB PO SCH (09:00)
[2017-02-24] MEDS: SODIUM CHLORIDE 0.9% 1000ML 1,000 ML IV SCH (10:00)
--- NOTE | 2017-02-24 10:42 | Cardiology Consultation ---
Cardiology Consultation Date of Consultation: Feb 24, 2017. Requesting Physician: Stefan Reason for Consultation: chest pain Pt evaluation today including: conversation w/ patient, physical exam, chart review, lab review, review of inpatient medication list, conversation w/ attending History of Present Illness The patient is a 56-year-old woman without a known history of cardiac disease who awoke from sleep 2 nights ago with severe substernal chest discomfort. She describes as a pressure sensation that was also accompanied by a shooting or shocking pain. The pain radiated to the right side of her neck. The symptoms were associated with some mild dyspnea initially. Did not appear to be overtly pleuritic in nature. It was not positional. She tried using a nebulizer at home without significant relief. The severity of the symptoms wax and wanes throughout the course of the day but never fully resolved. Due the persistent nature of the symptoms the patient eventually presented to [facility] for an evaluation. At some point in the course of the evening the symptoms resolved. Unclear whether this was exclusively related to administration of nitroglycerin. Patient states that during her hospitalization she has had occasional twinges of pain. This morning she denies any symptoms of pain. Patient has been admitted to the hospital multiple occasions for chest discomfort. She cannot recall if the symptoms are similar to those for which she has previously been evaluated. She generally does not have symptoms with exertion. She is mentally very sedentary. She is able to ambulate intake walks and does not describe limiting dyspnea or chest pain with that activity. She does not exercise regularly. She has no orthopnea or paroxysmal nocturnal dyspnea. She denies any sense of palpitations. She has not had lightheadedness or dizziness recently. She has not suffered a syncopal episode. She has not noticed any swelling in her lower extremities. Past Medical/Surgical History Gastroesophageal reflux disease status post Cindy fundoplication Abdominal bloating Anxiety disorder Glaucoma History of Lyme disease Obstructive sleep apnea History of meningitis Seizure disorder Hyperlipidemia Past surgical history section Hernia repair Hysterectomy Sinus surgery Carpal tunnel surgery This application Tonsillectomy Family History Cancer SISTER (breast CA) BROTHER (pancreatic CA) Diabetes mellitus SISTER (Type 1) FH: Parkinson's disease BROTHER FH: emphysema MOTHER Heart disease FATHER ( of [place] age 53) Hypertension MOTHER Seizures DAUGHTER Stroke MOTHER There is a history of premature cardiac disease in the family. History of dementia. Social History Smoking Status: Current Every Day Smoker History of Alcohol Use: No Currently lives independently with her Review of Systems Per HPI. Patient claims to be eating well. She does have frequent gas pains. She feels the symptoms she experienced yesterday are distinct from her usual gas pains All Other Systems: Reviewed and Negative Allergies Coded Allergies: Nitrofurantoin (Verified Allergy, Severe, UNABLE TO BEATHE, 08/12/16) Sulfamethoxazole w/Trimethoprim (Verified Allergy, Severe, SHORTNESS OF BREATH, 08/12/16) Medications Current Inpatient Medications Medications (Trade) Dose Ordered Sig/Ross Route Start Time Stop Time Status Last Admin Dose Admin Heparin Sodium (Porcine) (Heparin Sq 5000 Unit/0.5ml) 5,000 unit Q8 SQ 02/23/17 22:00 03/25/17 21:59 02/24/17 05:45 5,000 UNIT Sodium Chloride 1,000 ml @ 80 mls/hr [id number] IV 02/23/17 21:00 02/24/17 21:59 02/24/17 10:00 80 MLS/HR Acetaminophen (Tylenol Tab) 650 mg Q4H PRN PO 02/23/17 19:15 03/25/17 19:14 Al Hydrox/Mg Hydrox/Simethicone (Maalox Max Susp) 15 ml Q4H PRN PO 02/23/17 19:15 03/25/17 19:14 Magnesium Hydroxide (Milk Of Magnesia Susp) 30 ml Q12H PRN PO 02/23/17 19:15 03/25/17 19:14 Ondansetron HCl (Zofran Inj) 4 mg Q6H PRN IV 02/23/17 19:15 03/25/17 19:14 Nitroglycerin (Nitrostat Tab) 0.4 mg UD PRN SL 02/23/17 19:15 03/25/17 19:14 02/24/17 00:17 0.4 MG Polyethylene (Miralax Powder Packet) 17 gm DAILY PRN PO 02/23/17 19:15 03/25/17 19:14 Aspirin (Ecotrin Tab) 81 mg DAILY PO 02/24/17 09:00 03/26/17 08:59 Cyclobenzaprine HCl (Flexeril Tab) 10 mg TID PRN PO 02/23/17 19:15 03/25/17 19:14 Gabapentin (Neurontin Cap) 100 mg TID PO 02/23/17 21:00 03/25/17 20:59 02/23/17 21:05 100 MG Hydroxyzine HCl (Vistaril Tab) 25 mg Q8 PRN PO 02/23/17 19:15 03/25/17 19:14 Lamotrigine (Lamictal Tab) 100 mg HS PO 02/23/17 21:00 03/25/17 20:59 02/23/17 21:05 100 MG Metoprolol Tartrate (Lopressor Tab) 25 mg BID PO 02/23/17 21:00 03/25/17 20:59 02/23/17 21:05 25 MG Quetiapine Fumarate (seroQUEL TAB) 12.5 mg BID PRN PO 02/23/17 19:15 03/25/17 19:14 Quetiapine Fumarate (seroQUEL TAB) 50 mg HS PO 02/23/17 21:00 03/25/17 20:59 02/23/17 21:07 50 MG Sucralfate (Carafate Tab) 1 gm BID PO 02/23/17 21:00 03/25/17 20:59 02/23/17 21:07 1 GM Venlafaxine HCl (effeXOR EXTENDED REL CAP) 300 mg QAM PO 02/24/17 09:00 03/26/17 08:59 Trazodone HCl (Desyrel Tab) 75 mg HS PO 02/23/17 21:00 03/25/17 20:59 02/23/17 21:06 75 MG Venlafaxine HCl (effeXOR EXTENDED REL CAP) 75 mg DAILY PO 02/24/17 09:00 03/26/17 08:59 Albuterol/ Ipratropium (Duoneb) 3 ml QIDR INH 02/23/17 20:00 03/25/17 19:59 02/24/17 07:28 3 ML Pantoprazole Sodium (Protonix Tab) 40 mg QAM PO 02/24/17 09:00 02/27/17 09:01 Miscellaneous (Iv Fluids Completed) 1 ea PRN PRN N/A 02/23/17 20:00 02/23/18 19:59 02/24/17 09:59 1 EA Ketorolac Tromethamine (Toradol Inj) 15 mg Q6H PRN IV. 02/24/17 00:45 03/01/17 00:44 02/24/17 01:30 15 MG Miscellaneous (Remove Lidoderm Patch) 1 ea ONE ONCE N/A 02/24/17 15:30 02/24/17 15:31 Physical Exam Vital Signs Past 12 Hours Date Time Temp Pulse Resp B/P (MAP) Pulse Ox O2 Delivery O2 Flow Rate FiO2 02/24/17 08:00 91 Room Air 02/24/17 07:28 60 16 91 Room Air 02/24/17 07:15 36.5 63 18 116/75 (89) 91 Room Air 02/24/17 05:26 36.3 51 19 105/68 (80) 90 02/24/17 04:00 Room Air 02/24/17 00:30 36.7 61 20 95/60 (72) 94 Room Air 02/24/17 00:12 36.6 65 17 103/66 (78) 90 Room Air 02/24/17 00:00 Room Air She is alert and oriented x3. Mood affect appear normal. She answered all questions appropriately. HEENT: Sclerae are anicteric. Pupils are equal and reactive to light and accommodation. Extraocular movements were intact. Neuro: Cranial nerves intact Neck: Examination of the submandibular region did not reveal any significant lymphadenopathy. Carotids are palpable bilaterally and free of bruits on auscultation. There was no evidence of jugular venous distention. The thyroid was not enlarged. Lungs: Lungs are clear to auscultation bilaterally. There are no rales wheezes or rhonchi. She has normal respiratory effort without use of accessory muscles. There is normal pulmonary excursion. Cardiac: The rhythm was regular. S1 and S2 were normal. There are no murmurs on examination. The PMI was not markedly displaced on palpation. Abdomen: The abdomen was soft and nontender. Extremities: Patient has bilateral radial pulses that are equal in intensity. There is no evidence cyanosis or clubbing. There was no evidence of significant peripheral edema bilaterally. Skin: There are no rashes noted on examination today. Data Laboratory Results: Last 24 Hours Test 02/23/17 16:00 02/23/17 16:03 02/23/17 22:06 02/24/17 04:00 White Blood Count 5.61 K/uL 5.04 K/uL Red Blood Count 4.39 M/uL 3.72 M/uL Hemoglobin 14.1 g/dL 11.7 g/dL Hematocrit 41.9 % 36.0 % Mean Corpuscular Volume 95.4 fL 96.8 fL Mean Corpuscular Hemoglobin 32.1 pg 31.5 pg Mean Corpuscular Hemoglobin Concent 33.7 g/dl 32.5 g/dl Platelet Count 269 K/uL 228 K/uL Mean Platelet Volume 9.4 fL 9.2 fL Neutrophils (%) (Auto) 57.3 % 44.9 % Lymphocytes (%) (Auto) 31.2 % 44.4 % Monocytes (%) (Auto) 8.2 % 7.5 % Eosinophils (%) (Auto) 2.0 % 2.4 % Basophils (%) (Auto) 0.9 % 0.6 % Neutrophils # (Auto) 3.22 K/uL 2.26 K/uL Lymphocytes # (Auto) 1.75 K/uL 2.24 K/uL Monocytes # (Auto) 0.46 K/uL 0.38 K/uL Eosinophils # (Auto) 0.11 K/uL 0.12 K/uL Basophils # (Auto) 0.05 K/uL 0.03 K/uL RDW Standard Deviation 48.1 fL 49.0 fL RDW Coefficient of Variation 13.6 % 13.8 % Immature Granulocyte % (Auto) 0.4 % 0.2 % Immature Granulocyte # (Auto) 0.02 K/uL 0.01 K/uL Prothrombin Time 10.0 SECONDS Prothromb Time International Ratio 1.0 Activated Partial Thromboplast Time 27.0 SECONDS Partial Thromboplastin Ratio 1.0 Sodium Level 137 mmol/L 138 mmol/L Potassium Level 3.8 mmol/L 4.1 mmol/L Chloride Level 105 mmol/L 107 mmol/L Carbon Dioxide Level 25 mmol/L 27 mmol/L Anion Gap 7.0 mmol/L 4.0 mmol/L Blood Urea Nitrogen 7 mg/dl 11 mg/dl Creatinine 0.65 mg/dl 0.72 mg/dl Est Creatinine Clear Calc Drug Dose 110.0 ml/min 99.3 ml/min Estimated GFR () 115.8 109.3 Estimated GFR (Non- 99.9 94.3 BUN/Creatinine Ratio 11.3 14.8 Random Glucose 87 mg/dl 78 mg/dl Calcium Level 8.7 mg/dl 7.9 mg/dl Thyroid Stimulating Hormone (TSH) 0.737 uIu/ml Bedside Troponin I < 0.030 ng/ml Troponin I < 0.015 ng/ml < 0.015 ng/ml Magnesium Level 2.2 mg/dl Total Bilirubin 0.2 mg/dl Aspartate Amino Transf (AST/SGOT) 11 U/L Alanine Aminotransferase (ALT/SGPT) 20 U/L Alkaline Phosphatase 108 U/L Total Protein 6.1 gm/dl Albumin 2.9 gm/dl Globulin 3.2 gm/dl Albumin/Globulin Ratio 0.9 Imaging: Chest x-rays obtained in the time of admission which did not reveal any acute cardiopulmonary process EKG: Normal sinus rhythm. Normal EKG Telemetry reviewed: No significant arrhythmia Patient has had dobutamine echocardiograms performed in October 2013, June 2015 and July 2016 all of which were normal. Assessment & Plan 1. Noncardiac chest pain: Patient's symptoms were somewhat atypical. There were extended in duration. There has been no objective evidence to suggest ischemia. Her EKG is normal. Serial cardiac biomarkers are all normal. She has had an extensive evaluation in the past with 3 stress echocardiogram performed over the last 3 years. This point I think we can confidently described this is noncardiac chest pain. I would not advocate any additional cardiac evaluation. I will recommend continued aggressive risk factor modification including tobacco cessation.
--- NOTE | 2017-02-24 12:44 | Discharge Instructions ---
Discharge Instructions Date of Service Feb 24, 2017. Admission Reason for Admission: Chest Pain Discharge Discharge Diagnosis / Problem: Atypical chest pain Discharge Goals Goal(s): Decrease discomfort, Improve function, Increase independence, Improve disease control, Learn about illness, Diagnostic testing, Therapeutic intervention, Prevent Disease Progression Activity Recommendations Activity Limitations: resume your previous activity Exercise/Sports Limitations: as tolerated . Instructions / Follow-Up Instructions / Follow-Up Patient to be discharged home Presented with chest pain but likely atypical and related to bronchitis Encourage smoking cessation No changes in medications made Can take over the counter mucinex or robitussin if worsening cough and ibuprofen if worsening chest pain Please follow up with Eve Carr in 1-2 weeks Current Hospital Diet Patient's current hospital diet: AHA Diet (Heart Healthy) Discharge Diet Recommended Diet: AHA Diet (Heart Healthy) Pending Studies Studies pending at discharge: no Medical Emergencies . Who to Call and When: Medical Emergencies: If at any time you feel your situation is an emergency, please call 911 immediately. . Non-Emergent Contact Non-Emergency issues call your: Primary Care Provider Call Non-Emergent contact if: you have a fever, your pain is worsening . . "Provider Documentation" section prepared by Anselmo Rodriguez. . VTE Core Measure Inpt VTE Proph given/why not?: Unfractionated heparin SQ
--- NOTE | 2017-02-24 20:41 | Discharge Summary ---
Discharge Summary Date of Service Feb 24, 2017. Discharge Summary Admission Date: Feb 23, 2017 at 19:27 Discharge Date: Feb 24, 2017 Discharge Disposition: Home Principal Diagnosis: Atypical chest pain Immunizations: Have You Had Influenza Vaccine: No History of Tetanus Vaccine?: Yes History of Pneumococcal: No History of Hepatitis B Vaccine: Unknown Consultations: cardiology Medication Reconciliation Continued Medications: Albuterol Hfa (Ventolin Hfa) 200 Puffs/20131 Mcg Aers 2 PUFFS INH QID PRN for SOB/Wheezing Albuterol Sulf (Proventil 0.083% 2.5MG/3ML) 2.5 Mg/3 Ml Nebu 1 VIAL NEB Q6H PRN for SOB/Wheezing Aspirin (Aspirin Ec) 81 Mg Tab 81 MG PO DAILY Cyclobenzaprine Hcl (Flexeril) 10 Mg Tab 10 MG PO TID PRN for Muscle Spasm, TAB Gabapentin (Gabapentin) 100 Mg Cap 100 MG PO TID Hydroxyzine HCl (Hydroxyzine HCl) 25 Mg Tab 25 MG PO Q8 PRN for Severe Anxiety Lamotrigine (Lamotrigine) 100 Mg Tab 100 MG PO HS Metoprolol Tartrate (Lopressor) 25 Mg Tab 25 MG PO BID Quetiapine Fumarate (Quetiapine Fumarate) 25 Mg Tab 12.5 MG PO BID PRN for Severe Anxiety Quetiapine Fumarate (Seroquel) 50 Mg Tab 50 MG PO HS Sucralfate (Sucralfate) 1 Gm Tab 1 GM PO BID Trazodone HCl (Trazodone HCl) 150 Mg Tab 75 MG PO HS Valacyclovir Hcl (Valtrex) 1 Gm Tab 2 GM PO Q12 PRN for Cold Sores TAKE DIRECTED FOR ONE DAY NEEDED FOR COLD SORES Venlafaxine Hcl (Effexor Extended Rel) 75 Mg Capcr 75 MG PO AFTERNOON Venlafaxine Hcl (Effexor Extended Rel) 150 Mg Capcr 300 MG PO QAM Discharge Exam Review of Systems: Constitutional: No fever, No chills, No sweats, No weight loss, No weakness , No fatigue, No problem reported Eyes: No worsening of vision, No eye pain, No redness, No discharge, No diplopia, No problem reported ENT: No hearing loss, No unusual epistaxis, No nasal symptoms, No sore throat, No tinnitus, No dental problems, No trouble swallowing, No problem reported Respiratory: No cough, No sputum, No wheezing, No shortness of breath, No dyspnea on exertion, No dyspnea at rest, No hemoptysis, No problem reported Cardiovascular: No chest pain, No orthopnea, No PND, No edema, No claudication, No palpitations, No problem reported Abdomen: No pain, No nausea, No vomiting, No diarrhea, No constipation, No GI bleeding, No problem reported Musculoskeletal: No joint pain, No muscle pain, No swelling, No calf pain, No problem reported Neurologic: No memory loss, No paralysis, No weakness, No numbness/tingling , No vertigo, No balance problems, No problem reported Psychiatric: No depression symptoms, No anhedonism, No anxiety, No insomnia , No substance abuse, No problem reported Endocrine: No fatigue, No excessive thirst, No excessive urination, No problem reported Physical Exam: General Appearance: WD/WN, no apparent distress Eyes: normal inspection, PERRL, EOMI, sclerae normal Neck: supple, no adenopathy, thyroid normal, no JVD Respiratory/Chest: chest non-tender, lungs clear, normal breath sounds, no respiratory distress Cardiovascular: regular rate, rhythm, no edema, no gallop, no JVD, no murmur Abdomen / GI: normal bowel sounds, non tender, soft, no organomegaly, no pulsatile mass Extremities: normal inspection, no calf tenderness, normal capillary refill Neurologic/Psychiatric: no motor/sensory deficits, alert, normal mood/affect , oriented x 3 Skin: normal color, warm/dry, no rash Hospital Course Ms. Guido is a 56 y/o female with PMHx of COPD, DAYA (doesn't tolerate CPAP), HTN, GERD, Seizure Disorder, GERD, S/P Fundoplication, and Anxiety/Depression who presents to the ED c/o CP that started last night. Atypical Chest Pain: R/O ACS (Unlikely) vs Angina vs DAYA vs GERD vs Bronchitis: - trop x 3 sets WNL - Reports some relief with NTG - does have risk factors of smoking, HTN, and mildly elevated cholesterol and LDL - Suspect this may be more of an acute developing bronchitis given her wheezing and does have epigastric tenderness which could make this more GI in nature - per outpatient records a referral was placed for outpatient GI consultation and is S/P Fundiplication - With continue NTG PRN for CP and given GI cocktail to monitor efficacy - ASA 81 mg daily - Encourage smoking cessation - Will consult cardiology - likely atypical CP, no further workup warranted DAYA and COPD: - Between wheezing and moderate COPD and DAYA - possibly related to this, especially with waking spontaneously at night with issues - Is not requiring supplemental oxygen and breathing she reports is baseline - would not be surprised if wheezing is baseline for her - Nickolas [facility] HTN: - Lopressor 25 mg BID Anxiety/Depression/Seizure Disorder: - States she feels that she is more calm and content at this time and does not feel this is factoring into her current symptoms - Vistaril PRN, Lamictal 100 mg HS, Effexor 375 mg daily, Seroquel 50 mg HS and Trazodone 75 mg HS DVT Prophylaxis: Heparin Q8H Total Time Spent: Greater than 30 minutes This includes examination of the patient, discharge planning, medication reconciliation, and communication with other providers. Discharge Instructions Please refer to the electronic Patient Visit Report (Discharge Instructions) for additional information. Additional Copies To Eve Carr CRNP
== END 2017-02-24 14:30 | disposition home or self-care (01) ==
LOC: EDBD 15:35 → C.EDA 15:37 → C.MED 19:27 → ENRESERV 19:49
PROVIDERS: ADMIT Internal Medicine; ATTEND Hospitalist
DX: R07.89 Other chest pain (principal); J44.9 Chronic obstructive pulmonary disease, unspecified; I10 Essential (primary) hypertension; K21.9 Gastro-esophageal reflux disease without esophagitis; G40.909 Epilepsy, unspecified, not intractable, without status epilepticus; F32.9 Major depressive disorder, single episode, unspecified; E78.5 Hyperlipidemia, unspecified; F17.200 Nicotine dependence, unspecified, uncomplicated; G47.33 Obstructive sleep apnea (adult) (pediatric); Z90.710 Acquired absence of both cervix and uterus; Z79.82 Long term (current) use of aspirin; Z80.3 Family history of malignant neoplasm of breast; Z80.0 Family history of malignant neoplasm of digestive organs; Z83.3 Family history of diabetes mellitus; Z82.3 Family history of stroke; Z82.49 Family history of ischemic heart disease and other diseases of the circulatory system

== ENCOUNTER 2018-08-22 16:17 | Inpatient (IN) ==
--- OUTSIDE RECORDS SUMMARY | 2018-08-22 16:20 | External Medical Summary | Continuity of Care Document ---
:1960 Author Name Osvaldo Qiu, Provider Address Unavailable Unavailable , Care Team Providers Name Role Phone Unavailable Unavailable Unavailable Toyin Flowers Unavailable [email or web address] Unavailable Unavailable Unavailable Unavailable Unavailable Assessments Assessed Problems:Acute chest wall painBack pain Problems Difficulty With Balance Blurry vision (368.8) (H53.8) Slurred speech (784.59) (R47.81) Lyme disease (088.81) (A69.20) Hiatal hernia (553.3) (K44.9) Chronic obstructive pulmonary disease, g linda A, by Global Initiative for Chronic Obstructive Lung Disease 2013 classification (496) (J44.9) Memory loss (780.93) (R41.3) Acute chest wall pain (786.52) (R07.89) Back pain (724.5) (M54.9) Bloating symptom (787.3) (R14.0) Constipation (564.00) (K59.00) Anxiety (300.00) (F41.9) Chest pain (786.50) (R07.9) Obstructive sleep apnea (327.23) (G47.33) Pneumomediastinum (518.1) (J98.2) Anxiety disorder (300.00) (F41.9) Glaucoma (365.9) (H40.9) Cough (786.2) (R05) Chronic bronchitis (491.9) (J42) Abdominal bloating (787.3) (R14.0) Abdominal pain (789.00) (R10.9) Multiple joint pain (719.49) (M25.50) Polyarthritis (716.50) (M13.0) Cognitive disorder (294.9) (F09) Thyroid disorder (246.9) (E07.9) Allergies and Adverse Reactions morphine (Allergy) Nitrofurantoin Macrocrystal CAPS (Allergy) Percocet TABS (Allergy) Status: Denied Medications Venlafaxine HCl ER 75 MG Oral Capsule Ex tended Release 24 Hour; TAKE 1 CAPSULE ONCE DAILY WITH FOOD IN THE AFTERNOON (IN ADDITION TO 300MG IN THE MORNING) , M.D. Start: 16-Mar-2018 Refills: 0 valACYclovir HCl TABS; TAKE 1000 MG DIRECTED , M.D. Refills: 0 Albuterol Sulfate HFA 108 MCG/ACT AERS; INHALE 2 PUFFS EVERY 4 HOURS NEEDED , M.D. Refills: 0 Gabapentin 100 MG Oral Capsule; TAKE 1 CAPSULE 3 TIMES DAILY . , M.D. Refills: 0 Venlafaxine HCl ER 150 MG Oral Capsule E xtended Release 24 Hour; TAKE 2 CAPSULES DAILY. , M.D. Refills: 0 hydrOXYzine HCl - 25 MG Oral Tablet; TAKE 1 TABLET 4 T IMES DAILY NEEDED. , M.D. Refills: 0 traZODone HCl - 150 MG Oral Tablet; TAKE 0.5 TABLET Bedtime , M.D. Refills: 0 Metoprolol Tartrate 25 MG Oral Tablet; TAKE 1 TABLET TWICE D AILY. Moise.DBeth Quantity: 60 Refills: 5 SEROquel TABS; Take 1 tablet at beditme, plus up to 1 tablet during the day PRN , M.D. Refills: 0 Aspirin 81 MG Oral Tablet Delayed Release; Take 1 tablet virgilio ly , Moise.DBeth Start: 25-Feb-2017 Refills: 0 Cyclobenzaprine HCl - 10 MG Oral Tablet; TAKE 1 TABLET 3 times daily PRN muscle spasm , M.D. Start: 25-Feb-2017 Refills: 0 AirDuo RespiClick 55/14 55-14 MCG/ACT In halation Aerosol Powder Breath Activated; Take 1 puff by mouth two times a day - rinse mouth after each use MASOUD Carr Start: 16-Mar-2018 Quantity: 3 Refills: 1 Procedures History of Tonsillectomy With Adenoidectomy Status: Completed History of Wrist Carpectomy Status: Comp leted History of Section Status: Comp leted History of Hysterectomy Status: Complete d History of Sinus Surgery Status: Complet ed History of Neuroplasty Decompression Median Nerve At Carpal Status: Completed Tunnel History of stomach surgery Status: Compl eted History of hernia repair Status: Complet ed Immunizations Flublok Quadrivalent 0.5 ML Intramuscular Solution Pre filled Syringe On: 09-Feb-2018 9:21 Lot #: [id number], [employer] Family History Father Family history of Acute Myocardial Infarction (V17.3) Status : Active Family history of myocardial infarction (V17.3) (Z82.49) Sta tus: Active Mother Family history of Stroke Syndrome (V17.1) Status: Active Brother Family history of Dementia Status: Active Family history of Parkinson Disease Status: Active Family history of malignant neoplasm of prostate (V16. 42) (Z80.42) Status: Active Family history of colon cancer (V16.0) (Z80.0) Status: Activ e Sister Family history of Dementia Status: Active Family history of Type 1 Diabetes Mellitus Status: Active Family history of Breast Cancer (V16.3) Status: Active Social History - Smoking Status Current every day smoker Plan of Treatment Planned Observations Planned Goals not documented Results No Known Results Results not documented Encounters Appointment; Pharmacy, Primary Care 09-Feb-2018 9:00 Encounter Diagnosis: Problem not documented Appointment; Toyin Carr CRNP 09-Feb-2018 8:30 Encounter Diagnosis: Problem not documented Appointment; Toyin Carr CRNP 04-Jan-2018 8:30 Encounter Diagnosis: Problem not documented Appointment; Toyin Carr CRNP 29-Dec-2017 13:30 Encounter Diagnosis: Problem not documented Appointment; Toyin Carr CRNP 17-Aug-2017 8:30 Encounter Diagnosis: Problem not documented Appointment; Toyin Carr CRNP 03-Jan-2017 8:00 Encounter Diagnosis: Problem not documented Appointment; Cherelle Marcum PA-C 17-Dec-2016 10:50 Encounter Diagnosis: Problem not documented Appointment; Toyin Carr CRNP 15-Dec-2016 9:15 Encounter Diagnosis: Problem not documented Appointment; Toyin Carr CRNP 13-Sep-2016 8:30 Encounter Diagnosis: Problem not documented Appointment; Jana Rosales PA-C 30-Aug-2016 10:00 Encounter Diagnosis: Problem not documented
[2018-08-22] MEDS ORDERED: ASPIRIN CHEW 324 MG PO STA (16:47)
[2018-08-22] MEDS ORDERED: SODIUM CHLORIDE 0.9% 1000ML 1,000 ML IV ONE (16:47)
[2018-08-22] MEDS ORDERED: GI COCKTAIL ED USE PO ONE (16:47)
[2018-08-22 16:52] LABS: Basophils # (auto) 0.04 K/uL (0-0.2); Basophils % (auto) 0.5 %; Eosinophils # (auto) 0.07 K/uL (0-0.5); Eosinophils % (auto) 0.9 %; Hematocrit (blood only) 39.5 % (37-47); Hemoglobin 13.6 g/dL (12.0-16.0); Immature Granulocytes # (auto) 0.03 K/uL (0.00-0.02); Immature Granulocytes % (auto) 0.4 %; Lymphocytes # (auto) 2.74 K/uL (1.2-3.4); Lymphocytes % (auto) 33.9 %; Mean Corpuscular Hgb Conc 34.4 g/dL (32-36); Mean Platelet Volume 9.2 fL (7.4-10.4); Monocytes # (auto) 0.48 K/uL (0.11-0.59); Monocytes % (auto) 5.9 %; Neutrophils # (auto) 4.73 K/uL (1.4-6.5); Neutrophils % (auto) 58.4 %; Platelet Count 306 K/uL (130-400); RDW Standard Deviation 48.1 fL (36.4-46.3); Red Blood Count 4.16 M/uL (4.2-5.4); White Blood Count 8.09 K/uL (4.8-10.8)
--- NOTE | 2018-08-22 16:58 | XRay Report ---
XR chest 1V portable CLINICAL HISTORY: Abdominal pain. COMPARISON STUDY: Chest CT March 26, 2018. Chest radiograph May 21, 2018. FINDINGS: Lung volumes are normal. Lungs are clear. There is no pneumothorax or pleural effusion. Car diac size is normal. Mediastinal contours are normal. There is no evidence for pulmonary edema. IMPRESSION: No acute cardiopulmonary findings. Electronically signed by: Raffi Ham M.D. 08/22/2018 4:55 PM
[2018-08-22 17:03] LABS: Alanine Aminotransferase 23 U/L (12-78); Albumin Level 3.7 gm/dl (3.4-5.0); Aspartate Aminotransferase 10 U/L (15-37); BUN Creatinine Ratio 16.9 (10-20); Blood Urea Nitrogen 13 mg/dl (7-18); Carbon Dioxide 24 mmol/L (21-32); Chloride 106 mmol/L (98-107); Creatinine Clr Calc Pharmacy 99.6 ml/min; Est GFR (African American) 104.2; Est GFR (Non-African American) 89.9; Glucose 100 mg/dl (70-99); Potassium 4.1 mmol/L (3.5-5.1); Sodium 140 mmol/L (136-145)
[2018-08-22 17:08] LABS: Alkaline Phosphatase 129 U/L (45-117); Bilirubin,Total 0.2 mg/dl (0.2-1); Globulin 3.7 gm/dl (2.5-4.0); Total Protein 7.4 gm/dl (6.4-8.2); Troponin I < 0.015 ng/ml (0-0.045)
[2018-08-22] MEDS ORDERED: IOVERSOL 100ml IV PRN (18:12)
--- NOTE | 2018-08-22 18:17 | CT Scan Report ---
CT abd pelvis IV con only CT DOSE: 1379.99 mGy.cm HISTORY: Pain epgastic abd pain TECHNIQUE: Multiaxial CT images of the abdomen and pelvis were performed following the use of intrave nous contrast. A dose lowering technique was utilized adhering to the principles of ALARA. COMPARISON STUDY: 07/19/2017 FINDINGS: The lung bases are clear. The liver, spleen, gallbladder, pancreas, kidneys, and adrenal gl ands are within normal limits. No bowel wall thickening or obstruction. The pelvic organs are unremar kable. No suspicious lytic or blastic osseous lesions. Findings again suggestive of an internal herni a with a swirled vascular pattern. This does not appear to be clinically significant with no evidence for obstructive change. IMPRESSION: No significant abnormality identified within the abdomen or pelvis. The above report was generated using voice recognition software. It may contain grammatical, syntax or spelling errors. Electronically signed by: Tani Rivera M.D. 08/22/2018 6:15 PM
[2018-08-22] MEDS ORDERED: NITROGLYCERIN SL 0.4 MG/TAB TAB SL STA (18:24)
[2018-08-22] MEDS ORDERED: HYDROmorphone INJ 0.5 MG/0.5 ML SYR IV STA (19:07)
[2018-08-22] MEDS ORDERED: ONDANSETRON INJ 2 MG/ML 2 ML VIAL IV STA (19:07)
[2018-08-22 20:15] LABS: Appearance Urine Clear (Clear); Bilirubin Urine Negative (Negative); Blood Urine Trace (Negative); Color Urine Yellow; Glucose Urine UA Negative (Negative); Ketones Urine Negative (Negative); Leukocyte Esterase Urine Negative (Negative); Nitrite Urine Negative (Negative); Protein Urine Negative (Negative); Urobilinogen Urine Negative (Negative); pH Urine 7.5 (4.5-7.5)
[2018-08-22 20:24] LABS: Bacteria Urine Negative (Negative); Epithelial Cell Urine 0-5 /lpf (0-5); RBC Urine 0-4 /hpf (0-4); WBC Urine 0-5 /hpf (0-5)
--- NOTE | 2018-08-22 20:57 | Emergency Department Note ---
Entered by Velma Trivedi acting as a scribe for History of Present Illness General Chief complaint: Breast Pain/Problems Stated complaint: PAIN UNDER LT BREAST AND STOMACH Source: patient History of Present Illness Onset (ago): day(s) (this morning) Location: abdomen Pain Consistency: + intermittent Maximum Pain Intensity: 8 Quality: + other (pressure) Relieved By: not by medication (TUMS) Exacerbated By: + movement; not by eating and not by other (breathing) Associated symptoms: + denies other symptoms (tearing or ripping feeling), + chest pain, + nausea/vomiting (Positive nauesa. Negative vomiting. ) and + other (back pain) The patient is a 58 year old female who presents to the ED with complaints of intermittent epigastric/chest pain pain starting this morning. The patient states that the pain came on this morning while she wasnt doing anything in her upper abdomen. She states that it has since started to move up into her chest and around to her back. She describes it as a pressure. She reports that the pain has made her nauseous. She reports that she tried taking TUMS with no relief. She notes that movement makes it worse. The patient notes that she had to have a Cindy performed and then had it undone later. She notes that it feels similar to when she needed that, but different because it was all in her abdomen. The patient denies vomiting, breathing making the pain worse, eating or drinking making the pain worse, a history of aortic issues, feeling tearing or ripping, a history of diabetes, a history of hypertension, a history of hyperlipidemia, a history of a cholecystectomy, a history of an appendectomy, and a family history of sudden at a young age. Home Medications Home Medications Medication Instructions Recorded Confirmed Type acetaminophen 1,000 mg PO Q6H PRN 12/03/17 08/22/18 History albuterol sulfate 1 vial INHALATION Q6H PRN 12/03/17 08/22/18 History albuterol sulfate 2 puff INHALATION QID PRN 12/03/17 08/22/18 History aspirin [Aspirin Low Dose] 81 mg PO DAILY 12/03/17 08/22/18 History cyclobenzaprine 10 mg PO TID PRN 12/03/17 08/22/18 History hydroxyzine HCl 25 mg PO Q8H PRN 12/03/17 08/22/18 History metoprolol tartrate 25 mg PO BID 12/03/17 08/22/18 History trazodone 50 mg PO HS 12/03/17 08/22/18 History valacyclovir [Valtrex] 2 g PO Q12H PRN 12/03/17 08/22/18 History venlafaxine 75 mg PO DAILY 12/03/17 08/22/18 History venlafaxine 300 mg PO DAILY 12/03/17 08/22/18 History gabapentin 300 mg PO HS 03/26/18 08/22/18 History quetiapine 25 mg PO DAILY PRN 08/22/18 08/22/18 History quetiapine 150 mg PO HS 08/22/18 08/22/18 History Allergies Allergy/AdvReac Type Severity Reaction Status Date / Time Bactrim Allergy Severe SHORTNESS Verified 08/12/16 15:49 OF BREATH nitrofurantoin Allergy Severe UNABLE TO Verified 08/22/18 18:34 BREATHE sulfamethoxazole Allergy Severe SHORTNESS Verified 08/22/18 18:34 OF BREATH trimethoprim Allergy Severe SHORTNESS Verified 08/22/18 18:34 OF BREATH morphine Allergy Intermediate itching Verified 08/22/18 18:34 Past Med/Surg History Medical History HTN (hypertension) (Chronic) Dyslipidemia (Chronic) Emphysema (Chronic) DAYA (obstructive sleep apnea) (Chronic) H/o Lyme disease (Chronic) GERD (gastroesophageal reflux disease) (Chronic) Hx of migraines (Chronic) Glaucoma (Chronic) H/O subacute thyroiditis (Chronic) Anxiety (Chronic) Depression (Chronic) Lumbar degenerative disc disease (Chronic) Surgical History S/P tonsillectomy and adenoidectomy (Chronic) S/P partial hysterectomy (Chronic) H/O section (Chronic) S/P tubal ligation (Chronic) S/P sinus surgery (Chronic) History of colonoscopy (Chronic) "07/11/14- diverticulosis" History of esophagogastroduodenoscopy (Chronic) "07/11/14- small hiatal hernia, normal bx" H/O cystoscopy (Chronic) Status post Cindy fundoplication (Resolved) Family History Other Cancer Diabetes Gallbladder disease Heart disease Hypertension Social History Preferred Language: Malaysian marital status: Current Living Situation: Spouse current occupational status: disabled Feels Safe at Home: Yes Smoking Status: Current every day smoker Review of Systems See HPI for pertinent positives & negatives. and A total of 10 systems reviewed and were otherwise negative Physical Exam Vital Signs Vital Signs - 24 hr 08/22/18 16:19 08/22/18 16:43 08/22/18 17:00 Temperature 36.7 C Temperature Source Oral Sepsis Recent Fever Within 48 Hours No Sepsis New/Unexplained Change in Mental Status No Sepsis Action Taken by Nursing No Action Required Pulse Rate 97 H 83 86 Pulse Rate [Apical] Pulse Rate from SpO2 Sensor Respiratory Rate 20 16 17 Respiratory Effort / Characteristics Non-Labored Respiratory Depth Normal Respiratory Pattern Regular Blood Pressure 179/81 H Blood Pressure [Left Arm] Blood Pressure Mean 113 Blood Pressure Mean [Left Arm] Blood Pressure Position Sitting Pulse Oximetry 96 Oxygen Delivery Method Room Air 08/22/18 17:03 08/22/18 18:15 08/22/18 18:30 Temperature Temperature Source Sepsis Recent Fever Within 48 Hours Sepsis New/Unexplained Change in Mental Status Sepsis Action Taken by Nursing Pulse Rate 87 Pulse Rate [Apical] 92 H Pulse Rate from SpO2 Sensor 87 Respiratory Rate 15 17 19 Respiratory Effort / Characteristics Respiratory Depth Respiratory Pattern Blood Pressure 137/95 Blood Pressure [Left Arm] 137/95 Blood Pressure Mean 109 Blood Pressure Mean [Left Arm] 109 Blood Pressure Position Pulse Oximetry 96 Oxygen Delivery Method Room Air 08/22/18 18:39 08/22/18 19:00 08/22/18 19:01 Temperature Temperature Source Sepsis Recent Fever Within 48 Hours Sepsis New/Unexplained Change in Mental Status Sepsis Action Taken by Nursing Pulse Rate 83 85 Pulse Rate [Apical] 77 Pulse Rate from SpO2 Sensor 79 84 84 Respiratory Rate 18 13 14 Respiratory Effort / Characteristics Respiratory Depth Respiratory Pattern Blood Pressure 175/108 H 172/119 H Blood Pressure [Left Arm] 175/108 H Blood Pressure Mean 130 136 Blood Pressure Mean [Left Arm] 130 Blood Pressure Position Pulse Oximetry 96 95 96 Oxygen Delivery Method Room Air 08/22/18 19:30 08/22/18 19:31 08/22/18 20:00 Temperature Temperature Source Sepsis Recent Fever Within 48 Hours Sepsis New/Unexplained Change in Mental Status Sepsis Action Taken by Nursing Pulse Rate 76 74 73 Pulse Rate [Apical] Pulse Rate from SpO2 Sensor 77 72 73 Respiratory Rate 14 14 13 Respiratory Effort / Characteristics Respiratory Depth Respiratory Pattern Blood Pressure 157/83 H 139/84 Blood Pressure [Left Arm] Blood Pressure Mean 107 102 Blood Pressure Mean [Left Arm] Blood Pressure Position Pulse Oximetry 96 93 91 Oxygen Delivery Method 08/22/18 20:30 Temperature Temperature Source Sepsis Recent Fever Within 48 Hours Sepsis New/Unexplained Change in Mental Status Sepsis Action Taken by Nursing Pulse Rate 77 Pulse Rate [Apical] Pulse Rate from SpO2 Sensor 76 Respiratory Rate 15 Respiratory Effort / Characteristics Respiratory Depth Respiratory Pattern Blood Pressure 149/70 H Blood Pressure [Left Arm] Blood Pressure Mean 96 Blood Pressure Mean [Left Arm] Blood Pressure Position Pulse Oximetry 93 Oxygen Delivery Method GENERAL: sitting up in bed, obese, no acute distress, nontoxic. EYE EXAM: normal conjunctiva OROPHARYNX: no exudate, no erythema, lips, buccal mucosa, and tongue normal and mucous membranes are moist NECK: supple, no nuchal rigidity, no adenopathy, non-tender LUNGS: Clear to auscultation. Normal chest wall mechanics HEART: no murmurs, S1 normal and S2 normal ABDOMEN: abdomen soft, non-tender, normo-active bowel sounds, no masses, no rebound or guarding. BACK: Back is symmetrical on inspection and there is no deformity, no midline tenderness, no CVA tenderness. SKIN: no rashes and no bruising UPPER EXTREMITIES: upper extremities are grossly normal. LOWER EXTREMITIES: No pitting edema. NEURO EXAM: Normal sensorium, cranial nerves II-XII grossly intact, normal speech, no gross weakness of arms, no gross weakness of legs. Course ED COURSE: Vital signs were reviewed and showed situational hypertension. The patients medical record was reviewed The above diagnostic studies were performed and reviewed. ED treatments and interventions as stated above. 163: The patient was evaluated in room B6. A complete history and physical examination was performed. 1825: I reevaluated the patient and her pain is now only in her chest. We are going to give her Nitroglycerin. 1846: I reevaluated the patient and updated her on her test results thus far. 1906: I reevaluated the patient and the Nitroglycerin did not help. 1958: Upon reevaluation, the patient is resting comfortably. I discussed my findings with the patient and she understands and agrees with the treatment plan. Based on the patients age, coexisting illnesses, exam and lab findings the decision to treat as an inpatient was made. The patient remained stable while under my care. The patient will be evaluated for further management. 2008: I discussed the patient's case with Dr. Shaniqua BEJARANO Hospitalist. She will evaluate the patient for further management. Consultations Consultation #1: I discussed the patient's case with Dr. Shaniqua BEJARANO Hospitalist. She will evaluate the patient for further management. Time: 20:08 Administered Medications Ioversol (Optiray 320 100ml) 94 ml IV ONCE PRN PRN Reason: Interaction Checking Stop: 08/26/18 18:11 Last Admin: 08/22/18 18:12 Dose: 94 ml Documented by: [id number] Discontinued Medications Al Hydrox/Mg Hydrox/Simethicone () 1 dose PO ONE ONE Stop: 08/22/18 16:48 Last Admin: 08/22/18 17:00 Dose: 1 dose Documented by: [id number] Aspirin (Aspirin) 324 mg PO NOW STA Stop: 08/22/18 16:48 Last Admin: 08/22/18 17:00 Dose: 324 mg Documented by: [id number] Hydromorphone HCl (Dilaudid) 0.5 mg IV NOW STA Stop: 08/22/18 19:08 Last Admin: 08/22/18 19:22 Dose: 0.5 mg Documented by: [id number] Sodium Chloride (Nss 1000ml) 1,000 mls @ 999 mls/hr IV .Q1H1M ONE Stop: 08/22/18 17:47 Last Infusion: 08/22/18 18:03 Dose: 0 mls/hr Documented by: [id number] Admin: 08/22/18 16:59 Dose: 999 mls/hr Documented by: [id number] Nitroglycerin (Nitrostat) 0.4 mg SL NOW STA Stop: 08/22/18 18:25 Last Admin: 08/22/18 18:48 Dose: 0.4 mg Documented by: [id number] Ondansetron HCl (Zofran) 4 mg IV NOW STA Stop: 08/22/18 19:08 Last Admin: 08/22/18 19:22 Dose: 4 mg Documented by: [id number] Medical Decision Making Differential Diagnosis Differential diagnoses includes but is not limited to gastritis, peptic ulcer disease, GERD, gallbladder disease, pancreatitis, small bowel obstruction, ischemic bowel, irritable bowel disease, irritable bowel syndrome, appendicitis, diverticulitis, malignancy, hernia, urinary tract infection, torsion, /ectopic , perforation, trauma, infectious, acute coronary syndrome, myocardial infarction, pericarditis, pulmonary embolus, aortic dissection, pneumonia, pneumothorax, musculoskeletal, shingles, esophageal. Medical Records Attestation: I reviewed the patient's medical records. Home Medications Current Medication List: was personally reviewed by me Laboratory Data Attestation: I reviewed the patient's lab results. Result diagrams: 08/22/18 16:34 08/22/18 16:34 Lab Results 08/22/18 08/22/18 08/22/18 Range/Units 16:34 16:34 16:34 WBC 8.09 (4.8-10.8) K/uL RBC 4.16 L (4.2-5.4) M/uL Hgb 13.6 (12.0-16.0) g/dL Hct 39.5 (37-47) % MCV 95.0 (80-100) fL MCH 32.7 (25-34) pg MCHC 34.4 (32-36) g/dL RDW Std Deviation 48.1 H (36.4-46.3) fL RDW Coeff of Roseanna 14.0 (11.5-14.5) % Plt Count 306 (130-400) K/uL MPV 9.2 (7.4-10.4) fL Immature Gran % (Auto) 0.4 % Neut % (Auto) 58.4 % Lymph % (Auto) 33.9 % [place] % (Auto) 5.9 % Eos % (Auto) 0.9 % Baso % (Auto) 0.5 % Immature Gran # (Auto) 0.03 H (0.00-0.02) K/uL Neut # (Auto) 4.73 (1.4-6.5) K/uL Lymph # (Auto) 2.74 (1.2-3.4) K/uL [place] # (Auto) 0.48 (0.11-0.59) K/uL Eos # (Auto) 0.07 (0-0.5) K/uL Baso # (Auto) 0.04 (0-0.2) K/uL PT 10.0 (9.0-12.0) Seconds INR 1.0 (0.9-1.1) Sodium 140 (136-145) mmol/L Potassium 4.1 (3.5-5.1) mmol/L Chloride 106 (98-107) mmol/L Carbon Dioxide 24 (21-32) mmol/L Anion Gap 10.0 (3-11) BUN 13 (7-18) mg/dl Creatinine 0.74 (0.6-1.2) mg/dl Est Cr Clr Drug Dosing 99.6 ml/min Est GFR ( Amer) 104.2 Est GFR (Non-Af Amer) 89.9 BUN/Creatinine Ratio 16.9 (10-20) Glucose 100 H (70-99) mg/dl Calcium 9.0 (8.5-10.1) mg/dl Total Bilirubin 0.2 (0.2-1) mg/dl AST 10 L (15-37) U/L ALT 23 (12-78) U/L Alkaline Phosphatase 129 H (45-117) U/L Troponin I < 0.015 (0-0.045) ng/ml Total Protein 7.4 (6.4-8.2) gm/dl Albumin 3.7 (3.4-5.0) gm/dl Globulin 3.7 (2.5-4.0) gm/dl Albumin/Globulin Ratio 1.0 (0.9-2) Lipase 94 (73-393) U/L Urine Color Urine Appearance (Clear) Urine pH (4.5-7.5) Ur Specific Mustang (1.000-1.030) Urine Protein (Negative) Urine Glucose (UA) (Negative) Urine Ketones (Negative) Urine Blood (Negative) Urine Nitrite (Negative) Urine Bilirubin (Negative) Urine Urobilinogen (Negative) Ur Leukocyte Esterase (Negative) Urine RBC (0-4) /hpf Urine WBC (0-5) /hpf Ur Epithelial Cells (0-5) /lpf Urine Bacteria (Negative) 08/22/18 Range/Units 19:25 WBC (4.8-10.8) K/uL RBC (4.2-5.4) M/uL Hgb (12.0-16.0) g/dL Hct (37-47) % MCV (80-100) fL MCH (25-34) pg MCHC (32-36) g/dL RDW Std Deviation (36.4-46.3) fL RDW Coeff of Roseanna (11.5-14.5) % Plt Count (130-400) K/uL MPV (7.4-10.4) fL Immature Gran % (Auto) % Neut % (Auto) % Lymph % (Auto) % [place] % (Auto) % Eos % (Auto) % Baso % (Auto) % Immature Gran # (Auto) (0.00-0.02) K/uL Neut # (Auto) (1.4-6.5) K/uL Lymph # (Auto) (1.2-3.4) K/uL [place] # (Auto) (0.11-0.59) K/uL Eos # (Auto) (0-0.5) K/uL Baso # (Auto) (0-0.2) K/uL PT (9.0-12.0) Seconds INR (0.9-1.1) Sodium (136-145) mmol/L Potassium (3.5-5.1) mmol/L Chloride (98-107) mmol/L Carbon Dioxide (21-32) mmol/L Anion Gap (3-11) BUN (7-18) mg/dl Creatinine (0.6-1.2) mg/dl Est Cr Clr Drug Dosing ml/min Est GFR ( Amer) Est GFR (Non-Af Amer) BUN/Creatinine Ratio (10-20) Glucose (70-99) mg/dl Calcium (8.5-10.1) mg/dl Total Bilirubin (0.2-1) mg/dl AST (15-37) U/L ALT (12-78) U/L Alkaline Phosphatase (45-117) U/L Troponin I (0-0.045) ng/ml Total Protein (6.4-8.2) gm/dl Albumin (3.4-5.0) gm/dl Globulin (2.5-4.0) gm/dl Albumin/Globulin Ratio (0.9-2) Lipase (73-393) U/L Urine Color Yellow Urine Appearance Clear (Clear) Urine pH 7.5 (4.5-7.5) Ur Specific [place] 1.010 (1.000-1.030) Urine Protein Negative (Negative) Urine Glucose (UA) Negative (Negative) Urine Ketones Negative (Negative) Urine Blood Trace H (Negative) Urine Nitrite Negative (Negative) Urine Bilirubin Negative (Negative) Urine Urobilinogen Negative (Negative) Ur Leukocyte Esterase Negative (Negative) Urine RBC 0-4 (0-4) /hpf Urine WBC 0-5 (0-5) /hpf Ur Epithelial Cells 0-5 (0-5) /lpf Urine Bacteria Negative (Negative) Imaging Data Radiologist's Impression: Radiology results as stated below per my review and the radiologist's interpretation: XR chest 1V portable CLINICAL HISTORY: Abdominal pain. COMPARISON STUDY: Chest CT March 26, 2018. Chest radiograph May 21, 2018. FINDINGS: Lung volumes are normal. Lungs are clear. There is no pneumothorax or pleural effusion. Cardiac size is normal. Mediastinal contours are normal. There is no evidence for pulmonary edema. IMPRESSION: No acute cardiopulmonary findings. Electronically signed by: Raffi Ham M.D. 08/22/2018 4:[address] abd pelvis IV con only CT DOSE: 1379.99 mGy.cm HISTORY: Pain epgastic abd pain TECHNIQUE: Multiaxial CT images of the abdomen and pelvis were performed f ollowing the use of intravenous contrast. A dose lowering technique was utilized adhering to the principles of ALARA. COMPARISON STUDY: 07/19/2017 FINDINGS: The lung bases are clear. The liver, spleen, gallbladder, pancreas, kidneys, and adrenal glands are within normal limits. No bowel wall thickening or obstruction. The pelvic organs are unremarkable. No suspicious lytic or blastic osseous lesions. Findings again suggestive of an internal hernia with a swirled vascular pattern. This does not appear to be clinically significant with no evidence for obstructive change. IMPRESSION: No significant abnormality identified within the abdomen or pelvis. The above report was generated using voice recognition software. It may contain grammatical, syntax or spelling errors. Electronically signed by: Tani Rivera M.D. 08/22/2018 6:15 PM ECG Data Attestation: I personally reviewed and interpreted this ECG as follows: Indication: chest pain Rate (beats per minute): 86 Rhythm: sinus rhythm Findings: + other (normal axis); no PVC Additional Comments: REPEAT EKG: Sinsu rhythm at a rate of 84. Normal axis. TWI in lead 3. No PVCs. No acute change. Blood Pressure Blood Pressure Findings: Elevated blood pressure Blood Pressure Disposition: elevated BP felt to be situational MDM Narrative Patient is a 58-year-old female who presents the ER for epigastric abdominal pain/left lower chest pain. She describes as a heaviness which radiates up into her chest initially and now is localized just in the chest. She admits to some mild shortness of breath. Vitals show that she is slightly hypertensive. She does have a history of hypertension hyperlipidemia obstructive sleep apnea and is slightly obese. IV was established blood work was obtained and showed no significant leukocytosis or anemia. INR unremarkable. BMP along with LFTs bilirubin and troponin was unremarkable. Lipase is normal. UA was unremarkable with the exception of a small amount of hematuria. EKG was nondiagnostic. Patient was given IV fluids, GI cocktail, Zofran, aspirin, nitro and Dilaudid. She had resolution of her symptoms with IV Dilaudid. She was updated bedside. Heart score is moderate. She was updated and discussed with the hospitalist for observation. Impression & Plan Chest pain Discharge Plan Visit Data Chief Complaint: Breast Pain/Problems Stated Complaint: PAIN UNDER LT BREAST AND STOMACH ED Provider: Jonathan Gross Discharge Problem: Chest pain Patient Disposition: Being Evaluated by Hospitalist Forms Stand Alone Forms: [facility] [email or web address] Prescriptions Prescriptions: No Action cyclobenzaprine 10 mg Tablet 10 mg PO TID PRN (Reason: Muscle Spasm) RF: 0 venlafaxine 75 mg Capsule,Extended Release 24hr 75 mg PO DAILY RF: 0 albuterol sulfate 2.5 mg /3 mL (0.083 %) Solution For Nebulization 1 vial INHALATION Q6H PRN (Reason: Shortness Of Breath Or Wheezing) RF: 0 trazodone 50 mg Tablet 50 mg PO HS RF: 0 valacyclovir [Valtrex] 1 gram Tablet 2 g PO Q12H PRN (Reason: Cold Sores) RF: 0 venlafaxine 150 mg Capsule,Extended Release 24hr 300 mg PO DAILY RF: 0 aspirin [Aspirin Low Dose] 81 mg Tablet,Delayed Release (Dr/Ec) 81 mg PO DAILY RF: 0 hydroxyzine HCl 25 mg Tablet 25 mg PO Q8H PRN (Reason: Anxiety) RF: 0 albuterol sulfate 90 mcg/actuation Hfa Aerosol Inhaler 2 puff INHALATION QID PRN (Reason: Shortness Of Breath Or Wheezing) RF: 0 acetaminophen 500 mg Capsule 1,000 mg PO Q6H PRN (Reason: Pain) RF: 0 metoprolol tartrate 25 mg Tablet 25 mg PO BID RF: 0 gabapentin 100 mg Capsule 300 mg PO HS RF: 0 quetiapine 300 mg tablet 150 mg PO HS RF: 0 quetiapine 50 mg tablet 25 mg PO DAILY PRN (Reason: Anxiety) RF: 0 Referrals Referrals: Eve Carr CRNP [Primary Care Provider] - Discharge Problem: Chest pain Qualifiers: Chest pain type: unspecified Qualified Code(s): R07.9 - Chest pain, unspecified The scribe's documentation has been prepared under my direction and personally reviewed by me in its entirety. I confirm that the note above accurately reflects all work, treatment, procedures, and medical decision making performed by me.
--- NOTE | 2018-08-22 21:19 | History & Physical Report ---
Date of Service August 22, 2018 Assessment & Plan (1) Chest pain: Patient with left sided chest discomfort since 10:00 AM (appx 11.5 hours at this time). EKG with some TW changes in V1 and V2, troponin x 1 negative. Risk factors include HTN, HLP, obesity, tobacco use. Presently chest pain free. Patient with negative stress testing in the past. -Observation to medical floor with telemetry -Trend troponin -EKG with CP and in AM -HgAIC and Lipid panel in AM for risk stratification -Tobacco cessation counseling -Continue ASA, Metoprolol -Nitroglycerine and Dilaudid PRN -Will pursue additional workup pending results of troponin, AM EKG and chest pain Present on Admission?: Yes (2) HTN (hypertension): Blood pressure elevated at present, 149/70. -Continue metoprolol -Continue to monitor Present on Admission?: Yes (3) Dyslipidemia: Patient presently not on statin medication. -Check fasting lipid panel in AM -Initiate statin if needed Present on Admission?: Yes (4) Emphysema: Patient with emphysema, active tobacco use. Complains of increased wheezing and shortness of breath over the last few days. May be contributing to chest pain as well. Wheezing on exam. No respiratory distress -DuoNeb 4 hours while awake -Albuterol q 2 hours PRN Present on Admission?: Yes (5) DAYA (obstructive sleep apnea): Patient does not use CPAP at home -Encourage compliance with CPAP Present on Admission?: Yes (6) GERD (gastroesophageal reflux disease): Patient states that she has no GERD symptoms at present. She has history of Cindy fundoplication with subsequent reversal -Maalox PRN Present on Admission?: Yes (7) Anxiety: Patient reports well controlled anxiety at present. Does not think that her chest pain is anxiety -Continue Venlafaxine 375mg po daily -Hydroxyzine 25mg po q 8 hours PRN anxiety -Seroquel 25mg po q daily PRN anxiety not controlled with Hydroxyzine Present on Admission?: Yes (8) Depression: Patient reports depression is well controlled at present -Continue Venlafaxine F/E/N - Heplock, monitor electrolytes and replete as needed, heart healthy diet as tolerated Ppx - low risk for DVT Code - Ful Dispo - Obs to med-tele Present on Admission?: Yes History of Present Illness Chief Complaint: chest pain Primary Care Provider: MASOUD Davis Radha Guido is a 58yo C female with history of HTN, HLP, Emphysema, GERD, Anxiety/Depression presenting with chest pain. Patient reports she developed epigastric discomfort around 10:00 today. Discomfort moved into left chest and under left breast with radiation to the back. Pain is described as pressure, severe discomfort, 8.5/10, constant with intermittent worsening associated with some mild SOB and nausea. Denies diaphoresis, palpitations. Pain was constant throughout the morning. She took a Flexeril, Ibuprofen and Tums with no relief. Pain non-pleuritic, non-exertional, was acutely made worse when she picked up a heavy box. She states that her anxiety is well controlled. She denies symptoms consistent with GERD, no recent musculoskeletal strain or injury. She does report some increased wheezing and mild SOB. Upon arrival to the ER she was afebrile, hemodynamically stable. She was administered Nitroglycerine SL and Maalox with no relief, Dilaudid 0.5 mg IV with improvement. EKG and troponin do not suggest acute ischemic process. Of note, patient has had multiple hospital admissions for chest pain in the past. She has been evaluated by inpatient Cardiology. She has had multiple Dobutamine stress echocardiograms (October 2013. June 2015 and most recently 08/12/16) which have been negative for inducible ischemia. She reports that this pain is no different than prior episodes. She does not have known CAD, no prior SC, no history of CHF and denies symptoms consistent with CHF at this time. ER Course: Maalox, ASA 324mg, Dilaudid 0.5mg IV, Nitro 0.4mg SL, Zofran 4mg IV, NSS x 1L Allergies Allergy/AdvReac Type Severity Reaction Status Date / Time Bactrim Allergy Severe SHORTNESS Verified 08/12/16 15:49 OF BREATH nitrofurantoin Allergy Severe UNABLE TO Verified 08/22/18 18:34 BREATHE sulfamethoxazole Allergy Severe SHORTNESS Verified 08/22/18 18:34 OF BREATH trimethoprim Allergy Severe SHORTNESS Verified 08/22/18 18:34 OF BREATH morphine Allergy Intermediate itching Verified 08/22/18 18:34 Home Medications Home Medications Medication Instructions Recorded Confirmed Type acetaminophen 1,000 mg PO Q6H PRN 12/03/17 08/22/18 History albuterol sulfate 1 vial INHALATION Q6H PRN 12/03/17 08/22/18 History albuterol sulfate 2 puff INHALATION QID PRN 12/03/17 08/22/18 History aspirin [Aspirin Low Dose] 81 mg PO DAILY 12/03/17 08/22/18 History cyclobenzaprine 10 mg PO TID PRN 12/03/17 08/22/18 History hydroxyzine HCl 25 mg PO Q8H PRN 12/03/17 08/22/18 History metoprolol tartrate 25 mg PO BID 12/03/17 08/22/18 History trazodone 50 mg PO HS 12/03/17 08/22/18 History valacyclovir [Valtrex] 2 g PO Q12H PRN 12/03/17 08/22/18 History venlafaxine 75 mg PO DAILY 12/03/17 08/22/18 History venlafaxine 300 mg PO DAILY 12/03/17 08/22/18 History gabapentin 300 mg PO HS 03/26/18 08/22/18 History quetiapine 25 mg PO DAILY PRN 08/22/18 08/22/18 History quetiapine 150 mg PO HS 08/22/18 08/22/18 History Past Med/Surg History Medical History HTN (hypertension) (Chronic) Dyslipidemia (Chronic) Emphysema (Chronic) DAYA (obstructive sleep apnea) (Chronic) H/o Lyme disease (Chronic) GERD (gastroesophageal reflux disease) (Chronic) Hx of migraines (Chronic) Glaucoma (Chronic) H/O subacute thyroiditis (Chronic) Anxiety (Chronic) Depression (Chronic) Lumbar degenerative disc disease (Chronic) Surgical History S/P tonsillectomy and adenoidectomy (Chronic) S/P partial hysterectomy (Chronic) H/O section (Chronic) S/P tubal ligation (Chronic) S/P sinus surgery (Chronic) History of colonoscopy (Chronic) "07/11/14- diverticulosis" History of esophagogastroduodenoscopy (Chronic) "07/11/14- small hiatal hernia, normal bx" H/O cystoscopy (Chronic) Status post Cindy fundoplication (Resolved) Family History Other Cancer Diabetes Gallbladder disease Heart disease Hypertension Social History Preferred Language: Panamanian marital status: Current Living Situation: Spouse current occupational status: disabled Feels Safe at Home: Yes Smoking Status: Current every day smoker Review of Systems Review of Systems: All systems reviewed & are unremarkable except as noted in HPI & below +nausea Physical Exam Physical Exam: General: patient resting comfortably, NAD, non-toxic in appearance, AA&O x 4 Skin: warm, dry, intact, no rashes or lesions HEENT: NC/AT, PERRL, EOMI, anicteric sclera, conjunctiva without injection, external ear normal to inspection and nontender, nares patent, moist mucus membranes, dentition intact, no oropharyngeal lesions, neck supple, trachea midline, no LAD, no thyromegaly, no JVD Heart: +S1/S2, regular, no m/r/g Lungs: equal air entry bilaterally, no rales/rhonchi, diffuse scattered end- expiratory wheezing, no chest wall tenderness or reproducible CP Abd: +BS, soft, ND, no masses/organomegaly/ascites, mild epigastric tenderness Ext: warm, 2+ pulses in UE/LE bilaterally, no clubbing/cyanosis or edema Neuro: nonfocal, patient AA&O x 4, speech intact, no facial droop, moving all extremities on command with equal strength 5/5 Results & Data Vital Signs (Past 12 Hours) Vital Signs Temp Pulse Pulse Resp BP BP Pulse Ox 08/22/18 20:30 77 15 149/70 H 93 08/22/18 20:00 73 13 139/84 91 08/22/18 19:31 74 14 157/83 H 93 08/22/18 19:30 76 14 96 08/22/18 19:01 85 14 172/119 H 96 08/22/18 19:00 83 13 95 08/22/18 18:39 77 18 175/108 H 175/108 H 96 08/22/18 18:30 19 08/22/18 18:15 17 08/22/18 17:03 87 92 H 15 137/95 137/95 96 08/22/18 17:00 86 17 08/22/18 16:43 83 16 08/22/18 16:19 36.7 C 97 H 20 179/81 H 96 Laboratory Results Lab Results 08/22/18 08/22/18 08/22/18 Range/Units 16:34 16:34 16:34 WBC 8.09 (4.8-10.8) K/uL RBC 4.16 L (4.2-5.4) M/uL Hgb 13.6 (12.0-16.0) g/dL Hct 39.5 (37-47) % MCV 95.0 (80-100) fL MCH 32.7 (25-34) pg MCHC 34.4 (32-36) g/dL RDW Std Deviation 48.1 H (36.4-46.3) fL RDW Coeff of Roseanna 14.0 (11.5-14.5) % Plt Count 306 (130-400) K/uL MPV 9.2 (7.4-10.4) fL Immature Gran % (Auto) 0.4 % Neut % (Auto) 58.4 % Lymph % (Auto) 33.9 % Powell % (Auto) 5.9 % Eos % (Auto) 0.9 % Baso % (Auto) 0.5 % Immature Gran # (Auto) 0.03 H (0.00-0.02) K/uL Neut # (Auto) 4.73 (1.4-6.5) K/uL Lymph # (Auto) 2.74 (1.2-3.4) K/uL Powell # (Auto) 0.48 (0.11-0.59) K/uL Eos # (Auto) 0.07 (0-0.5) K/uL Baso # (Auto) 0.04 (0-0.2) K/uL PT 10.0 (9.0-12.0) Seconds INR 1.0 (0.9-1.1) Sodium 140 (136-145) mmol/L Potassium 4.1 (3.5-5.1) mmol/L Chloride 106 (98-107) mmol/L Carbon Dioxide 24 (21-32) mmol/L Anion Gap 10.0 (3-11) BUN 13 (7-18) mg/dl Creatinine 0.74 (0.6-1.2) mg/dl Est Cr Clr Drug Dosing 99.6 ml/min Est GFR ( Amer) 104.2 Est GFR (Non-Af Amer) 89.9 BUN/Creatinine Ratio 16.9 (10-20) Glucose 100 H (70-99) mg/dl Calcium 9.0 (8.5-10.1) mg/dl Total Bilirubin 0.2 (0.2-1) mg/dl AST 10 L (15-37) U/L ALT 23 (12-78) U/L Alkaline Phosphatase 129 H (45-117) U/L Troponin I < 0.015 (0-0.045) ng/ml Total Protein 7.4 (6.4-8.2) gm/dl Albumin 3.7 (3.4-5.0) gm/dl Globulin 3.7 (2.5-4.0) gm/dl Albumin/Globulin Ratio 1.0 (0.9-2) Lipase 94 (73-393) U/L Urine Color Urine Appearance (Clear) Urine pH (4.5-7.5) Ur Specific [place] (1.000-1.030) Urine Protein (Negative) Urine Glucose (UA) (Negative) Urine Ketones (Negative) Urine Blood (Negative) Urine Nitrite (Negative) Urine Bilirubin (Negative) Urine Urobilinogen (Negative) Ur Leukocyte Esterase (Negative) Urine RBC (0-4) /hpf Urine WBC (0-5) /hpf Ur Epithelial Cells (0-5) /lpf Urine Bacteria (Negative) 08/22/18 Range/Units 19:25 WBC (4.8-10.8) K/uL RBC (4.2-5.4) M/uL Hgb (12.0-16.0) g/dL Hct (37-47) % MCV (80-100) fL MCH (25-34) pg MCHC (32-36) g/dL RDW Std Deviation (36.4-46.3) fL RDW Coeff of Roseanna (11.5-14.5) % Plt Count (130-400) K/uL MPV (7.4-10.4) fL Immature Gran % (Auto) % Neut % (Auto) % Lymph % (Auto) % Powell % (Auto) % Eos % (Auto) % Baso % (Auto) % Immature Gran # (Auto) (0.00-0.02) K/uL Neut # (Auto) (1.4-6.5) K/uL Lymph # (Auto) (1.2-3.4) K/uL Powell # (Auto) (0.11-0.59) K/uL Eos # (Auto) (0-0.5) K/uL Baso # (Auto) (0-0.2) K/uL PT (9.0-12.0) Seconds INR (0.9-1.1) Sodium (136-145) mmol/L Potassium (3.5-5.1) mmol/L Chloride (98-107) mmol/L Carbon Dioxide (21-32) mmol/L Anion Gap (3-11) BUN (7-18) mg/dl Creatinine (0.6-1.2) mg/dl Est Cr Clr Drug Dosing ml/min Est GFR ( Amer) Est GFR (Non-Af Amer) BUN/Creatinine Ratio (10-20) Glucose (70-99) mg/dl Calcium (8.5-10.1) mg/dl Total Bilirubin (0.2-1) mg/dl AST (15-37) U/L ALT (12-78) U/L Alkaline Phosphatase (45-117) U/L Troponin I (0-0.045) ng/ml Total Protein (6.4-8.2) gm/dl Albumin (3.4-5.0) gm/dl Globulin (2.5-4.0) gm/dl Albumin/Globulin Ratio (0.9-2) Lipase (73-393) U/L Urine Color Yellow Urine Appearance Clear (Clear) Urine pH 7.5 (4.5-7.5) Ur Specific [place] 1.010 (1.000-1.030) Urine Protein Negative (Negative) Urine Glucose (UA) Negative (Negative) Urine Ketones Negative (Negative) Urine Blood Trace H (Negative) Urine Nitrite Negative (Negative) Urine Bilirubin Negative (Negative) Urine Urobilinogen Negative (Negative) Ur Leukocyte Esterase Negative (Negative) Urine RBC 0-4 (0-4) /hpf Urine WBC 0-5 (0-5) /hpf Ur Epithelial Cells 0-5 (0-5) /lpf Urine Bacteria Negative (Negative) Diagnostic Findings XR chest 1V portable CLINICAL HISTORY: Abdominal pain. COMPARISON STUDY: Chest CT March 26, 2018. Chest radiograph May 21, 2018. FINDINGS: Lung volumes are normal. Lungs are clear. There is no pneumothorax or pleural effusion. Cardiac size is normal. Mediastinal contours are normal. There is no evidence for pulmonary edema. IMPRESSION: No acute cardiopulmonary findings. Electronically signed by: Raffi Ham M.D. 08/22/2018 4:55 PM Dictated: 08/22/181653 Transcribed: 08/22/181653 CT abd pelvis IV con only CT DOSE: 1379.99 mGy.cm HISTORY: Pain epgastic abd pain TECHNIQUE: Multiaxial CT images of the abdomen and pelvis were performed following the use of intravenous contrast. A dose lowering technique was utilized adhering to the principles of ALARA. COMPARISON STUDY: 07/19/2017 FINDINGS: The lung bases are clear. The liver, spleen, gallbladder, pancreas, kidneys, and adrenal glands are within normal limits. No bowel wall thickening or obstruction. The pelvic organs are unremarkable. No suspicious lytic or blastic osseous lesions. Findings again suggestive of an internal hernia with a swirled vascular pattern. This does not appear to be clinically significant with no evidence for obstructive change. IMPRESSION: No significant abnormality identified within the abdomen or pelvis. The above report was generated using voice recognition software. It may contain grammatical, syntax or spelling errors. Electronically signed by: Tani Rivera M.D. 08/22/2018 6:15 PM Dictated: 08/22/181812 Transcribed: 07/02/19 1813 ECG Additional Comments: Initial EKG from 16:25 with NSR at 86bpm, normal axis, CF=744, QRS=82, LUn=876, no acute ischemic changes. EKG from 18:51 with NSR at 84bpm, normal axis, AY=375, QRS=88, FjL=127, flipped T waves in V1 and V2 Code Status & VTE Plan Code Status Full VTE Prophylaxis Plan VTE Prophylaxis will be ordered: No Reason for no VTE drug order: Treatment not indicated PG Care Time/CCT Total # of Minutes Spent Total Time Spent with Patient: Total time spent is greater than 50% in coordination of care (as documented) at patient's floor/unit and/or counseling patient: (1) Chest pain Chest pain type: unspecified Qualified Code(s): R07.9 - Chest pain, unspecified (2) HTN (hypertension) Hypertension type: essential hypertension Qualified Code(s): I10 - Essential (primary) hypertension (3) Emphysema Emphysema type: unspecified Qualified Code(s): J43.9 - Emphysema, unspecified (4) GERD (gastroesophageal reflux disease) Esophagitis presence: esophagitis presence not specified Qualified Code(s): K21.9 - Gastro-esophageal reflux disease without esophagitis (5) Depression Depression Type: major depressive disorder Major depression recurrence: recurrent Active/Remission status: remission status unspecified Qualified Code(s): F33.9 - Major depressive disorder, recurrent, unspecified
[2018-08-22] MEDS ORDERED: ALUMINUM/MAGNESIUM SUSP 30 ML UDC PO PRN (22:04)
[2018-08-22] MEDS ORDERED: QUETIAPINE FUMARATE 25 MG TABLET PO PRN (22:04)
[2018-08-22] MEDS ORDERED: ALBUTEROL 0.5% NEB SOLN 2.5 MG/0.5 ML VIAL NEB PRN (22:04)
[2018-08-22] MEDS ORDERED: NITROGLYCERIN SL 0.4 MG/TAB TAB SL PRN (22:04)
[2018-08-22] MEDS ORDERED: CYCLOBENZAPRINE HCL 10 MG TAB PO PRN (22:04)
[2018-08-22] MEDS ORDERED: ACETAMINOPHEN 500 MG TAB PO PRN (22:30)
[2018-08-22 23:32] LABS: Magnesium 2.3 mg/dl (1.8-2.4); Phosphorus 3.5 mg/dl (2.5-4.9); Troponin I < 0.015 ng/ml (0-0.045)
[2018-08-22] MEDS: HYDROmorphone INJ 0.5 MG/0.5 ML SYR IV PRN (23:42)
[2018-08-22] MEDS: QUETIAPINE FUMARATE 300 MG TABLET PO SCH (23:43)
[2018-08-22] MEDS: METOPROLOL TARTRATE 25 MG TAB PO SCH (23:44)
[2018-08-22] MEDS: GABAPENTIN 300 MG CAP PO SCH (23:45)
[2018-08-22] MEDS: TRAZODONE HCL 50 MG TAB PO SCH (23:45)
[2018-08-23 06:29] LABS: Basophils # (auto) 0.03 K/uL (0-0.2); Basophils % (auto) 0.5 %; Eosinophils # (auto) 0.05 K/uL (0-0.5); Eosinophils % (auto) 0.8 %; Hematocrit (blood only) 39.1 % (37-47); Hemoglobin 12.5 g/dL (12.0-16.0); Immature Granulocytes # (auto) 0.04 K/uL (0.00-0.02); Immature Granulocytes % (auto) 0.6 %; Lymphocytes # (auto) 2.08 K/uL (1.2-3.4); Lymphocytes % (auto) 33.3 %; Mean Corpuscular Volume 95.6 fL (80-100); Mean Platelet Volume 9.4 fL (7.4-10.4); Monocytes # (auto) 0.46 K/uL (0.11-0.59); Monocytes % (auto) 7.4 %; Neutrophils # (auto) 3.58 K/uL (1.4-6.5); Neutrophils % (auto) 57.4 %; Platelet Count 234 K/uL (130-400); RDW Standard Deviation 49.1 fL (36.4-46.3); Red Blood Count 4.09 M/uL (4.2-5.4); White Blood Count 6.24 K/uL (4.8-10.8)
[2018-08-23 06:55] LABS: BUN Creatinine Ratio 21.8 (10-20); Calcium 8.2 mg/dl (8.5-10.1); Creatinine Clr Calc Pharmacy 119.3 ml/min; Est GFR (Non-African American) 100.1; Potassium 4.3 mmol/L (3.5-5.1)
[2018-08-23] MEDS: ALBUT/IPRATROP 3MG/0.5MG NEB 3 ML VIAL NEB SCH ×4 (07:11→19:11)
[2018-08-23 08:02] LABS: Estimated Average Glucose 111 mg/dl; Hemoglobin A1C 5.5 % (4.5-5.6)
[2018-08-23] MEDS: HYDROmorphone INJ 0.5 MG/0.5 ML SYR IV PRN ×3 (08:40→22:31)
[2018-08-23] MEDS: VENLAFAXINE HCL XR 150 MG CAPXR PO SCH (08:41)
[2018-08-23] MEDS: VENLAFAXINE HCL XR 75 MG CAPXR PO SCH (08:41)
[2018-08-23] MEDS: ASPIRIN 81 MG ECTAB PO SCH (08:41)
[2018-08-23] MEDS: METOPROLOL TARTRATE 25 MG TAB PO SCH ×2 (08:41→21:02)
[2018-08-23] MEDS ORDERED: ONDANSETRON INJ 2 MG/ML 2 ML VIAL IV PRN (14:45)
--- NOTE | 2018-08-23 17:20 | Gastrointestinal Consultation ---
Date of Consultation August 23, 2018 Assessment & Plan (1) Chest pain: Because CP with EKG changes, no recent GERD symptoms and normal EGD in 10/2017 would pursue cardiac workup. OP EGD after cardiac evaluation. Present on Admission?: Yes Supervising Physician Co-Signing Physician Notes I performed a history and physical examination of the patient, including specifically on physical exam - soft, nontender abdomen. I have discussed the patient's management with Ash. Please refer to the nurse practitioner's note for the documented findings and plan of care. 58 female with GERD and Hx of fundoplication s/p revesion due to bloating, Hx of SBO due to adhesions, now admitted with chest pain and EKD changes, GI consulted for LUQ pain. SHe is tolerating PO diet with no pain and her CT scan abdomen is unremarkable. Plan: PO PPI. Cardiology evaluation. Will arrange for EGD as OP once cardiac work up is done. Please recall GI if any questions or concerns. History of Present Illness Reason for Consultation: LUQ abdomen pain. Requesting Physician: Dr Powell Attending Physician: Vera Powell MD History of Present Illness Ms. Radha Guido is a 58 yr old female patient with a hx of GERD, SBO, presented to the ED today for left sided chest pain. GI is consulted for this pain. EKD showed new T wave changes. Pt denies recent chest or epigastric burning or other feeling of reflux. She underwent hiatal hernia repair and Cindy Fundoplication in 12/2015 and a revision of fundoplication and took flap down in 10/2017. An EGD on 10/28/17 by Farooq was normal. Allergies Allergy/AdvReac Type Severity Reaction Status Date / Time Bactrim Allergy Severe SHORTNESS Verified 08/12/16 15:49 OF BREATH nitrofurantoin Allergy Severe UNABLE TO Verified 08/22/18 18:34 BREATHE sulfamethoxazole Allergy Severe SHORTNESS Verified 08/22/18 18:34 OF BREATH trimethoprim Allergy Severe SHORTNESS Verified 08/22/18 18:34 OF BREATH morphine Allergy Intermediate itching Verified 08/22/18 18:34 Home Medications Home Medications Medication Instructions Recorded Confirmed Type acetaminophen 1,000 mg PO Q6H PRN 12/03/17 08/22/18 History albuterol sulfate 1 vial INHALATION Q6H PRN 12/03/17 08/22/18 History albuterol sulfate 2 puff INHALATION QID PRN 12/03/17 08/22/18 History aspirin [Aspirin Low Dose] 81 mg PO DAILY 12/03/17 08/22/18 History cyclobenzaprine 10 mg PO TID PRN 12/03/17 08/22/18 History hydroxyzine HCl 25 mg PO Q8H PRN 12/03/17 08/22/18 History metoprolol tartrate 25 mg PO BID 12/03/17 08/22/18 History trazodone 50 mg PO HS 12/03/17 08/22/18 History valacyclovir [Valtrex] 2 g PO Q12H PRN 12/03/17 08/22/18 History venlafaxine 75 mg PO DAILY 12/03/17 08/22/18 History venlafaxine 300 mg PO DAILY 12/03/17 08/22/18 History gabapentin 300 mg PO HS 03/26/18 08/22/18 History quetiapine 25 mg PO DAILY PRN 08/22/18 08/22/18 History quetiapine 150 mg PO HS 08/22/18 08/22/18 History Patient History Medical History HTN (hypertension) (Chronic) Dyslipidemia (Chronic) Emphysema (Chronic) DAYA (obstructive sleep apnea) (Chronic) H/o Lyme disease (Chronic) GERD (gastroesophageal reflux disease) (Chronic) Hx of migraines (Chronic) Glaucoma (Chronic) H/O subacute thyroiditis (Chronic) Anxiety (Chronic) Depression (Chronic) Lumbar degenerative disc disease (Chronic) Surgical History S/P tonsillectomy and adenoidectomy (Chronic) S/P partial hysterectomy (Chronic) H/O section (Chronic) S/P tubal ligation (Chronic) S/P sinus surgery (Chronic) History of colonoscopy (Chronic) "07/11/14- diverticulosis" History of esophagogastroduodenoscopy (Chronic) "07/11/14- small hiatal hernia, normal bx" H/O cystoscopy (Chronic) Status post Cindy fundoplication (Resolved) Family History Other Cancer Diabetes Gallbladder disease Heart disease Hypertension Social History Preferred Language: Malay Communication Ability: Effective Beliefs That Will Affect Care: None marital status: Current Living Situation: Spouse current occupational status: disabled Feels Safe at Home: Yes Smoking Status: Current every day smoker Tobacco Type: cigarettes Cigarettes Per Day: 10 Second Hand Exposure: No Hx Alcohol Use: No Hx Substance Use: No Review of Systems Review of Systems: ROS: Gen: Denies weakness, fevers, weight loss Eyes: No eye redness, or pain, no recent vision changes Resp: No SOB, no cough Cardio: No palpitations/irregular beats, no chest pain GI: No abdominal pain, no nausea/vomiting : Denies pain on urination Skin: No jaundice, itching or new rashes Physical Exam Constitutional: WD/WN, vitals as above Eyes: PERRL, conjunctivae normal, anicteric sclerae ENMT: external ear and nose normal, oropharynx normal Neck: trachea midline, no thyromegaly Respiratory: normal respiratory effort, lungs clear to auscultation Cardiovascular: RRR, no murmur, no edema Gastrointestinal (Abdomen): normal bowel sounds, soft, nontender, no hepatosplenomegaly Musculoskeletal: no cyanosis or clubbing, extremities motor strength 5/5 Skin: no rashes, warm and dry Neurologic: patellar DTR's 2+ bilat, sensation intact Psychiatric: A+Ox3, euthymic affect Lymphatic: no cervical or axillary lymphadenopathy Results & Data Vital Signs (Past 12 Hours) Vital Signs Temp Pulse Pulse Pulse Resp BP BP 08/23/18 15:00 59 L 61 16 08/23/18 13:13 68 18 142/88 H 08/23/18 12:43 36.5 C 67 16 152/86 H 08/23/18 11:06 74 18 08/23/18 10:02 54 L 08/23/18 07:11 63 16 08/23/18 07:02 36.6 C 72 18 131/78 Pulse Ox 08/23/18 15:00 93 08/23/18 13:13 94 08/23/18 12:43 93 08/23/18 11:06 90 08/23/18 10:02 08/23/18 07:11 93 08/23/18 07:02 92 Laboratory Results WBC 6, Hb 12, Hct 39, Platelets 234 BUN 13, Cr 0.[address] abd/pelvis with IV, no oral contrast on 08/23/18:No significant abnormality identified within the abdomen or pelvis. (1) Chest pain Chest pain type: unspecified Qualified Code(s): R07.9 - Chest pain, uns pecified
--- NOTE | 2018-08-23 20:49 | Hospitalist Progress Note ---
Date of Service August 23, 2018 Assessment & Plan (1) Chest pain: Patient with left sided chest discomfort since 10:00 AM on the day of admission. EKG with some changes in V1 and V2 with possible septal infarct however this is likely due to lead placement was resolved on repeat ECG. Troponin negative x2. Given that chest pain has been constant for over 24 hours and troponin remained negative, it is clear that this is noncardiac chest pain. Chest x-ray was without acute disease. She has had negative stress testing in the past on multiple occasions and seen by cardiology here. CT of the abdomen/pelvis does not show any significant abnormality in the region of her previous Cindy fundoplication and takedown. I do question if she is having GI related pain given the nausea and the history of Cindy and then subsequent takedown of the Cindy. I discussed the case with the thoracic surgeon who suggested a barium swallow and a consultation with GI for EGD. [facility] GI consult appreciated-they plan on doing outpatient EGD. She did have an EGD performed at [place] in 10/2017 that was reportedly normal -Await thoracic surgery consultation -Await barium swallow which cannot be dental after the holiday on 08/25 -Add on Protonix 40 mg twice daily -Added on Zofran as needed for nausea (2) HTN (hypertension): Blood pressure controlled -Continue metoprolol -Continue to monitor (3) Dyslipidemia: Patient presently not on statin medication. Fasting lipid panel is elevated with total cholesterol 240, LDL 141 -Would recommend statin upon discharge (4) Emphysema: Patient with emphysema, active tobacco use. Complains of increased wheezing and shortness of breath over the last few days. May be contributing to chest pain as well. Wheezing on exam persists. No respiratory distress -Continue DuoNeb 4 hours while awake -Albuterol q 2 hours PRN -Encourage smoking cessation (5) DAYA (obstructive sleep apnea): Patient does not use CPAP at home -Encourage compliance with CPAP (6) GERD (gastroesophageal reflux disease): Patient states that she has no GERD symptoms at present. She has history of Cindy fundoplication with subsequent reversal -Maalox PRN -Added Protonix twice daily as above as per GI recommendations (7) Anxiety: Patient reports well controlled anxiety typically, but is tearful during the examination today -Continue Venlafaxine 375mg po daily -Continue hydroxyzine 25mg po q 8 hours PRN anxiety -Continue Seroquel 25mg po q daily PRN anxiety not controlled with Hydroxyzine -Continue standing dose of Seroquel at bedtime of 150 mg (8) Depression: Patient reports depression is well controlled at present -Continue Venlafaxine Ppx - low risk for DVT, add SCDs Code -full Dispo -change to inpatient admission, continue med telemetry Subjective Patient reports persistent left upper quadrant abdominal pain under the left breast that radiates around to her left upper back. The pain is been ongoing since yesterday morning. She is still having nausea but no vomiting. She did not move her bowels today but did yesterday. She is passing flatus today. No lower abdominal pain. She is tearful at times and questions if it was pointless in her coming to the hospital for further evaluation. When asked why she did not follow-up with her surgeon that performed her takedown of her Cindy fundoplication, she stated that she did not think she needed to follow-up. She has had multiple ER visits to this hospital for similar episodes of chest pain in the past. Telemetry sinus arrhythmia, with rates from the 40s to 120s at times. Review of Systems Review of Systems: All systems reviewed & are unremarkable except as noted in HPI & below Physical Exam Constitutional: WD/WN, vitals as above Eyes: PERRL, conjunctivae normal, anicteric sclerae ENMT: external ear and nose normal, oropharynx normal Neck: trachea midline, no thyromegaly Respiratory: normal respiratory effort; no labored breathing Auscultation: + diminished lung sounds (Throughout all lung lacy) and + wheezes (Faint expiratory wheezes bilaterally); no crackles Cardiovascular: RRR, no murmur, no edema Gastrointestinal (Abdomen): normal bowel sounds, soft, nontender, no hepatosplenomegaly Musculoskeletal: Extremities: extremities normal to inspection; no cyanosis and no clubbing Skin: no rashes, warm and dry Neurologic: moves all extremities and awake; no focal motor deficits Psychiatric: Orientation: alert and oriented x 3 Affect: + anxious affect and + tearful affect Mood: + anxious mood Results & Data Vital Signs (Past 12 Hours) Vital Signs Temp Pulse Pulse Pulse Pulse Resp BP 08/23/18 19:32 36.6 C 61 20 129/88 08/23/18 19:12 76 18 08/23/18 15:00 59 L 61 16 08/23/18 13:13 68 18 08/23/18 12:43 36.5 C 67 16 08/23/18 11:06 74 18 08/23/18 10:02 54 L BP Pulse Ox 08/23/18 19:32 93 08/23/18 19:12 93 08/23/18 15:00 93 08/23/18 13:13 142/88 H 94 08/23/18 12:43 152/86 H 93 08/23/18 11:06 90 08/23/18 10:02 Laboratory Results 08/23/18 08/23/18 08/23/18 Range/Units 06:03 06:03 06:03 WBC 6.24 (4.8-10.8) K/uL RBC 4.09 L (4.2-5.4) M/uL Hgb 12.5 (12.0-16.0) g/dL Hct 39.1 (37-47) % MCV 95.6 (80-100) fL MCH 30.6 (25-34) pg MCHC 32.0 (32-36) g/dL RDW Std Deviation 49.1 H (36.4-46.3) fL RDW Coeff of Roseanna 14.0 (11.5-14.5) % Plt Count 234 (130-400) K/uL MPV 9.4 (7.4-10.4) fL Immature Gran % (Auto) 0.6 % Neut % (Auto) 57.4 % Lymph % (Auto) 33.3 % [place] % (Auto) 7.4 % Eos % (Auto) 0.8 % Baso % (Auto) 0.5 % Immature Gran # (Auto) 0.04 H (0.00-0.02) K/uL Neut # (Auto) 3.58 (1.4-6.5) K/uL Lymph # (Auto) 2.08 (1.2-3.4) K/uL [place] # (Auto) 0.46 (0.11-0.59) K/uL Eos # (Auto) 0.05 (0-0.5) K/uL Baso # (Auto) 0.03 (0-0.2) K/uL Sodium 142 (136-145) mmol/L Potassium 4.3 (3.5-5.1) mmol/L Chloride 109 H (98-107) mmol/L Carbon Dioxide 27 (21-32) mmol/L Anion Gap 5.0 (3-11) BUN 13 (7-18) mg/dl Creatinine 0.62 (0.6-1.2) mg/dl Est Cr Clr Drug Dosing 119.3 ml/min Est GFR ( Amer) 116.0 Est GFR (Non-Af Amer) 100.1 BUN/Creatinine Ratio 21.8 H (10-20) Glucose 88 (70-99) mg/dl Estimat Average Glucose 111 mg/dl Hemoglobin A1c 5.5 (4.5-5.6) % Calcium 8.2 L (8.5-10.1) mg/dl Phosphorus (2.5-4.9) mg/dl Magnesium (1.8-2.4) mg/dl Troponin I (0-0.045) ng/ml Triglycerides 136 (0-150) mg/dl Cholesterol 240 H (0-200) mg/dl LDL Cholesterol, Calc 141 mg/dl VLDL Cholesterol, Calc 27 mg/dl HDL Cholesterol 72 mg/dl Cholesterol/HDL Ratio 3 08/22/18 Range/Units 22:56 WBC (4.8-10.8) K/uL RBC (4.2-5.4) M/uL Hgb (12.0-16.0) g/dL Hct (37-47) % MCV (80-100) fL MCH (25-34) pg MCHC (32-36) g/dL RDW Std Deviation (36.4-46.3) fL RDW Coeff of Roseanna (11.5-14.5) % Plt Count (130-400) K/uL MPV (7.4-10.4) fL Immature Gran % (Auto) % Neut % (Auto) % Lymph % (Auto) % [place] % (Auto) % Eos % (Auto) % Baso % (Auto) % Immature Gran # (Auto) (0.00-0.02) K/uL Neut # (Auto) (1.4-6.5) K/uL Lymph # (Auto) (1.2-3.4) K/uL [place] # (Auto) (0.11-0.59) K/uL Eos # (Auto) (0-0.5) K/uL Baso # (Auto) (0-0.2) K/uL Sodium (136-145) mmol/L Potassium (3.5-5.1) mmol/L Chloride (98-107) mmol/L Carbon Dioxide (21-32) mmol/L Anion Gap (3-11) BUN (7-18) mg/dl Creatinine (0.6-1.2) mg/dl Est Cr Clr Drug Dosing ml/min Est GFR ( Amer) Est GFR (Non-Af Amer) BUN/Creatinine Ratio (10-20) Glucose (70-99) mg/dl Estimat Average Glucose mg/dl Hemoglobin A1c (4.5-5.6) % Calcium (8.5-10.1) mg/dl Phosphorus 3.5 (2.5-4.9) mg/dl Magnesium 2.3 (1.8-2.4) mg/dl Troponin I < 0.015 (0-0.045) ng/ml Triglycerides (0-150) mg/dl Cholesterol (0-200) mg/dl LDL Cholesterol, Calc mg/dl VLDL Cholesterol, Calc mg/dl HDL Cholesterol mg/dl Cholesterol/HDL Ratio PG Care Time/CCT Total # of Minutes Spent Total Time Spent with Patient: Total time spent is greater than 50% in coord ination of care (as documented) at patient's floor/unit and/or counseling patient: (1) Chest pain Chest pain type: unspecified Qualified Code(s): R07.9 - Chest pain, unspecified (2) HTN (hypertension) Hypertension type: essential hypertension Qualified Code(s): I10 - Essential (primary) hypertension (3) Emphysema Emphysema type: unspecified Qualified Code(s): J43.9 - Emphysema, unspecified (4) GERD (gastroesophageal reflux disease) Esophagitis presence: esophagitis presence not specified Qualified Code(s): K21.9 - Gastro-esophageal reflux disease without esophagitis (5) Depression Depression Type: major depressive disorder Major depression recurrence: recurrent Active/Remission status: remission status unspecified Qualified Code(s): F33.9 - Major depressive disorder, recurrent, unspecified
[2018-08-23] MEDS: TRAZODONE HCL 50 MG TAB PO SCH (21:02)
[2018-08-23] MEDS: GABAPENTIN 300 MG CAP PO SCH (21:03)
[2018-08-23] MEDS: QUETIAPINE FUMARATE 300 MG TABLET PO SCH (21:40)
[2018-08-23] MEDS: PANTOprazole 40 MG TAB PO SCH (22:29)
[2018-08-24] MEDS: ALBUT/IPRATROP 3MG/0.5MG NEB 3 ML VIAL NEB SCH ×3 (07:09→15:11)
[2018-08-24] MEDS: VENLAFAXINE HCL XR 75 MG CAPXR PO SCH (08:31)
[2018-08-24] MEDS: ASPIRIN 81 MG ECTAB PO SCH (08:31)
[2018-08-24] MEDS: VENLAFAXINE HCL XR 150 MG CAPXR PO SCH (08:31)
[2018-08-24] MEDS: PANTOprazole 40 MG TAB PO SCH (08:31)
[2018-08-24] MEDS: METOPROLOL TARTRATE 25 MG TAB PO SCH (08:31)
[2018-08-24] MEDS: HYDROmorphone INJ 0.5 MG/0.5 ML SYR IV PRN ×3 (08:40→16:10)
[2018-08-24] MEDS ORDERED: TRAMADOL HCL 50 MG TABLET PO PRN (18:27)
--- NOTE | 2018-08-24 18:28 | Hospitalist Progress Note ---
Date of Service August 24, 2018 Assessment & Plan (1) Chest pain: Patient with left sided chest discomfort since 10:00 AM on the day of admission. EKG with some changes in V1 and V2 with possible septal infarct however this is likely due to lead placement was resolved on repeat ECG. Troponin negative x2. Given that chest pain has been constant for over 24 hours and troponin remained negative, it is clear that this is noncardiac chest pain. Chest x-ray was without acute disease. She has had negative stress testing in the past on multiple occasions and seen by cardiology here. CT of the abdomen/pelvis does not show any significant abnormality in the region of her previous Cindy fundoplication and takedown. I do question if she is having GI related pain given the nausea and the history of Cindy and then subsequent takedown of the Cindy. I discussed the case with the thoracic surgeon who suggested a barium swallow and a consultation with GI for EGD. [facility] GI consult appreciated-they plan on doing outpatient EGD. She did have an EGD performed at [place] in 10/2017 that was reportedly normal -Await thoracic surgery consultation -Await barium swallow which cannot be dental after the holiday on 08/25 -Add on Protonix 40 mg twice daily -Added on Zofran as needed for nausea (2) HTN (hypertension): Blood pressure controlled -Continue metoprolol -Continue to monitor (3) Dyslipidemia: Patient presently not on statin medication. Fasting lipid panel is elevated with total cholesterol 240, LDL 141 -Would recommend statin upon discharge (4) Emphysema: Patient with emphysema, active tobacco use. Complains of increased wheezing and shortness of breath over the last few days. May be contributing to chest pain as well. Wheezing on exam persists. No respiratory distress -Continue DuoNeb 4 hours while awake -Albuterol q 2 hours PRN -Encourage smoking cessation (5) DAYA (obstructive sleep apnea): Patient does not use CPAP at home -Encourage compliance with CPAP (6) GERD (gastroesophageal reflux disease): Patient states that she has no GERD symptoms at present. She has history of Cindy fundoplication with subsequent reversal -Maalox PRN -Added Protonix twice daily as above as per GI recommendations (7) Anxiety: Patient reports well controlled anxiety typically, but is tearful during the examination today -Continue Venlafaxine 375mg po daily -Continue hydroxyzine 25mg po q 8 hours PRN anxiety -Continue Seroquel 25mg po q daily PRN anxiety not controlled with Hydroxyzine -Continue standing dose of Seroquel at bedtime of 150 mg (8) Depression: Patient reports depression is well controlled at present -Continue Venlafaxine Ppx - low risk for DVT, add SCDs Code -full Dispo -change to inpatient admission, continue med telemetry Physical Exam Constitutional: WD/WN, vitals as above Eyes: PERRL, conjunctivae normal, anicteric sclerae ENMT: external ear and nose normal, oropharynx normal Neck: trachea midline, no thyromegaly Respiratory: normal respiratory effort, lungs clear to auscultation normal respiratory effort; no labored breathing Auscultation: + diminished lung sounds (Throughout all lung lacy) and + wheezes (Faint expiratory wheezes bilaterally); no crackles Cardiovascular: RRR, no murmur, no edema Gastrointestinal (Abdomen): normal bowel sounds, soft, nontender, no hepatosplenomegaly Musculoskeletal: Extremities: extremities normal to inspection; no cyanosis and no clubbing Skin: no rashes, warm and dry Neurologic: moves all extremities and awake; no focal motor deficits Psychiatric: Orientation: alert and oriented x 3 Affect: + anxious affect and + tearful affect Mood: + anxious mood Results & Data Vital Signs (Past 12 Hours) Vital Signs Temp Pulse Pulse Resp BP BP Pulse Ox 08/24/18 16:24 37 C 57 L 20 128/78 90 08/24/18 15:14 60 18 95 08/24/18 15:00 67 08/24/18 12:05 36.6 C 60 16 143/73 H 94 08/24/18 11:04 51 L 18 95 08/24/18 07:46 36.3 C L 68 16 145/82 H 94 08/24/18 07:09 71 18 92 PG Care Time/CCT Total # of Minutes Spent Total Time Spent with Patient: Total time spent is greater than 50% in coordination of care (as documented) at patient's floor/unit and/or counseling patient: (1) Chest pain Chest pain type: unspecified Qualified Code(s): R07.9 - Chest pain, unspecified (2) HTN (hypertension) Hypertension type: essential hypertension Qualified Code(s): I10 - Essential (primary) hypertension (3) Emphysema Emphysema type: unspecified Qualified Code(s): J43.9 - Emphysema, unspecified (4) GERD (gastroesophageal reflux disease) Esophagitis presence: esophagitis presence not specified Qualified Code(s): K21.9 - Gastro-esophageal reflux disease without esophagitis (5) Depression Depression Type: major depressive disorder Major depression recurrence: recurrent Active/Remission status: remission status unspecified Qualified Code(s): F33.9 - Major depressive disorder, recurrent, unspecified
--- NOTE | 2018-08-24 18:42 | Discharge Summary ---
Date of Service August 24, 2018 Admission HPI Per Admitting Provider Radha Guido is a 58yo C female with history of HTN, HLP, Emphysema, GERD, Anxiety/Depression presenting with chest pain. Patient reports she developed epigastric discomfort around 10:00 today. Discomfort moved into left chest and under left breast with radiation to the back. Pain is described as pressure, severe discomfort, 8.5/10, constant with intermittent worsening associated with some mild SOB and nausea. Denies diaphoresis, palpitations. Pain was constant throughout the morning. She took a Flexeril, Ibuprofen and Tums with no relief. Pain non-pleuritic, non-exertional, was acutely made worse when she picked up a heavy box. She states that her anxiety is well controlled. She denies symptoms consistent with GERD, no recent musculoskeletal strain or injury. She does report some increased wheezing and mild SOB. Upon arrival to the ER she was afebrile, hemodynamically stable. She was administered Nitroglycerine SL and Maalox with no relief, Dilaudid 0.5 mg IV with improvement. EKG and troponin do not suggest acute ischemic process. Of note, patient has had multiple hospital admissions for chest pain in the past. She has been evaluated by inpatient Cardiology. She has had multiple utamine stress echocardiograms (October 2013. June 2015 and most recently 08/12/16) which have been negative for inducible ischemia. She reports that this pain is no different than prior episodes. She does not have known CAD, no prior CA, no history of CHF and denies symptoms consistent with CHF at this time. ER Course: Maalox, ASA 324mg, Dilaudid 0.5mg IV, Nitro 0.4mg SL, Zofran 4mg IV, NSS x 1L Principal Diagnosis Chest pain Discharge Exam Constitutional WD/WN, vitals as above Eyes PERRL, conjunctivae normal, anicteric sclerae ENMT external ear and nose normal, oropharynx normal Neck trachea midline, no thyromegaly Respiratory normal respiratory effort, lungs clear to auscultation Cardiovascular RRR, no murmur, no edema Chest (Breasts) Chest: normal inspection of chest (no TTP over chest wall) Gastrointestinal (Abdomen) normal bowel sounds, soft, nontender, no hepatosplenomegaly Musculoskeletal Extremities: extremities normal to inspection; no cyanosis and no clubbing Skin no rashes, warm and dry Neurologic moves all extremities and awake; no focal motor deficits Psychiatric Orientation: alert and oriented x 3 Affect: + anxious affect and + tearful affect Mood: + anxious mood Discharge Data Allergies Allergy/AdvReac Type Severity Reaction Status Date / Time Bactrim Allergy Severe SHORTNESS Verified 08/12/16 15:49 OF BREATH nitrofurantoin Allergy Severe UNABLE TO Verified 08/22/18 18:34 BREATHE sulfamethoxazole Allergy Severe SHORTNESS Verified 08/22/18 18:34 OF BREATH trimethoprim Allergy Severe SHORTNESS Verified 08/22/18 18:34 OF BREATH morphine Allergy Intermediate itching Verified 08/22/18 18:34 Consultations 08/22/18 20:17 ED Decision to Admit Stat 08/23/18 15:11 Consult Thoracic Surgery Routine 08/23/18 15:50 Consult Gastroenterology Routine Ordered Studies 08/22/18 16:46 CT abd pelvis IV con only Stat CXR Hospital Course (1) Chest pain: Patient with left sided chest discomfort since 10:00 AM on the day of admission. EKG with some changes in V1 and V2 with possible septal infarct however this is likely due to lead placement was resolved on repeat ECG. Troponin negative x2. Given that chest pain has been constant for over 24 hours and troponin remained negative, it is clear that this is noncardiac chest pain. Chest x-ray was without acute disease. She has had negative stress testing in the past on multiple occasions and seen by cardiology here. CT of the abdomen/pelvis does not show any significant abnormality in the region of her previous Cindy fundoplication and takedown. I do question if she is having GI related pain given the nausea and the history of Cindy and then subsequent takedown of the Cindy. I discussed the case with the thoracic surgeon who suggested a barium swallow and a consultation with GI for EGD. [facility] GI consult appreciated-they plan on doing outpatient EGD. She did have an EGD performed at [place] in 10/2017 that was reportedly normal Appreciate thoracic surgery consultation-he reviewed her old records and she has had a thorough workup previously. There is no urgent need for Thoracic Surgery intervention at this point -Suggested barium swallow which could not be done as an inpatient until after the holiday on 08/25, however pt did not want to stay for this test and wanted to be discharged to home -Added on Protonix 40 mg twice daily She was very stable and despite the fact that she was still having the constant left upper quadrant abdominal pain and left rib pain, she was well enough to go home nad continue workup as an outpatient. Likely GI vs MSK in nature. (2) HTN (hypertension): Blood pressure controlled -Continue metoprolol -Continue to monitor (3) Dyslipidemia: Patient presently not on statin medication. Fasting lipid panel is elevated with total cholesterol 240, LDL 141 -Would recommend statin but will defer to PCP (4) Emphysema: Patient with emphysema, active tobacco use. Complains of increased wheezing and shortness of breath over the last few days prior to admission. May be contributing to chest pain as well. Wheezing was improved before discharge and pain persisted -Albuterol q 2 hours PRN -Encouraged smoking cessation (5) DAYA (obstructive sleep apnea): Patient does not use CPAP at home -Encourage compliance with CPAP (6) GERD (gastroesophageal reflux disease): Patient states that she has no GERD symptoms at present. She has history of Cindy fundoplication with subsequent reversal -Maalox PRN -Added Protonix twice daily as above as per GI recommendations (7) Anxiety: Patient reports well controlled anxiety typically, but is tearful during the examination on both days I saw her -Continue Venlafaxine 375mg po daily -Continue hydroxyzine 25mg po q 8 hours PRN anxiety -Continue Seroquel 25mg po q daily PRN anxiety not controlled with Hydroxyzine -Continue standing dose of Seroquel at bedtime of 150 mg -advise outpt f/u with Psychiatry (8) Depression: Patient reports depression is well controlled at present -Continue Venlafaxine Ppx - SCDs Dispo -stable for dc to home Total Time Total Time Spent Total Time Spent (In Minutes): >30 min Total Time Includes: Examination of the Patient, Discharge Planning, Medication Reconciliation and Communication With Other Providers (Thoracic Surgery) Discharge Plan Discharge Items Patient Disposition: Home - Self-Care Reason For Visit: CHEST PAIN Discharge Diagnosis: Chest pain Condition: Fair Discharge Goals: Decrease discomfort, Diagnostic testing, Improve disease control and Therapeutic intervention Activity: As commented below Lifting: No more than 10 pounds Bathing: No limitations Exercise/Sports: Gradually increase as tolerated Non-emergency contact: Primary Care Provider and Surgeon Call non-emergency contact if: you have any medication questions, your symptoms worsen, your pain is not controlled, your pain is worsening, your pain is unusual for you and your pain is concerning for you Follow-up/Referrals: Eve Carr CRNP [Primary Care Provider] - (Please call for a follow-up appointment within 1 to 2 weeks) Magdalena Christianson MD [Hospitalist] - ([facility] silver lap machine tender. It is recommended that you had an EGD scheduled as an outpatient within the next 2 weeks. ) Diet: Regular Addtl Provider Instructions: You were admitted for left-sided chest and abdominal pain. You had a CT scan of the abdomen as well as a chest x-ray which did not show anything abnormal. You were seen by the thoracic surgeon and he reviewed your case as well as the previous work-up you had done by your surgeon at [facility]. He did not think you had anything that needed urgent surgical attention. You had normal blood work to test for your heart-you were not having a heart attack. You were seen by the silver lap machine tender and they recommended doing an upper endoscopy as an outpatient. They should be contacting you to set up this appointment. If you have not heard from them within the week, please call their office at the number listed above to inquire about your procedure. You were given a prescription for a medication called tramadol which can help with pain. You were also started on Protonix which is an antacid twice daily. Please follow-up with your primary care physician within 1 week after discharge. Prescriptions: New tramadol 50 mg Tablet 50 mg PO Q4H PRN (Reason: pain) Qty: 15 RF: 0 pantoprazole 40 mg Tablet,Delayed Release (Dr/Ec) 40 mg PO BID Qty: 60 RF: 0 Continued cyclobenzaprine 10 mg Tablet 10 mg PO TID PRN (Reason: Muscle Spasm) RF: 0 venlafaxine 75 mg Capsule,Extended Release 24hr 75 mg PO DAILY RF: 0 albuterol sulfate 2.5 mg /3 mL (0.083 %) Solution For Nebulization 1 vial INHALATION Q6H PRN (Reason: Shortness Of Breath Or Wheezing) RF: 0 trazodone 50 mg Tablet 50 mg PO HS RF: 0 valacyclovir [Valtrex] 1 gram Tablet 2 g PO Q12H PRN (Reason: Cold Sores) RF: 0 venlafaxine 150 mg Capsule,Extended Release 24hr 300 mg PO DAILY RF: 0 aspirin [Aspirin Low Dose] 81 mg Tablet,Delayed Release (Dr/Ec) 81 mg PO DAILY RF: 0 hydroxyzine HCl 25 mg Tablet 25 mg PO Q8H PRN (Reason: Anxiety) RF: 0 albuterol sulfate 90 mcg/actuation Hfa Aerosol Inhaler 2 puff INHALATION QID PRN (Reason: Shortness Of Breath Or Wheezing) RF: 0 acetaminophen 500 mg Capsule 1,000 mg PO Q6H PRN (Reason: Pain) RF: 0 metoprolol tartrate 25 mg Tablet 25 mg PO BID RF: 0 gabapentin 100 mg Capsule 300 mg PO HS RF: 0 quetiapine 300 mg tablet 150 mg PO HS RF: 0 quetiapine 50 mg tablet 25 mg PO DAILY PRN (Reason: Anxiety) RF: 0 Stand-Alone Forms: [facility] Discharge Orders: Discharge Order (Routine); Ordered 08/24/18 Ordered By: Vera Powell Admission Data Admit Date/Time: 08/23/18 21:03 Attending Provider: Vera Powell Admit Provider: Monalisa Carr Primary Care Provider: Eve Carr Other Providers: Monalisa Carr ; Neil Ledbetter ; Magdalena Christianson Service: Telemetry Medical Other Interventions: Discharge Summary Assessment (RN) Last Done: 08/24/18 18:52 Pending Studies at Discharge: No DC Date/Time DO NOT enter until pt leaves facility: 08/24/18 19:18
--- NOTE | 2018-08-24 21:06 | Consultation Report ---
DATE OF CONSULTATION: 08/24/2018 DATE OF CONSULTATION: 08/24/2018 REASON FOR CONSULTATION: Evaluate from a surgical standpoint for abdominal pain. HISTORY OF PRESENT ILLNESS: Radha Guido is a 58-year-old obese female who underwent a Toupet fundoplication for gastroesophageal reflux disease and hiatal hernia back in 2016. The patient complained so much of abdominal bloating and pain afterwards, even though her esophageal reflux symptoms had resolved. She still complained bitterly until Dr. Campo from [facility] took down the fundoplication. This was a Toupet fundoplication performed in 2015 and the patient had a takedown of her repair about a year ago in 2018. She underwent a very extensive workup prior to taking this down. Her symptoms of bloating and abdominal pain improved; however, she has presented back to the hospital with abdominal pain which is epigastric in nature which radiates up into her medial left chest. She has been worked up quite well and we do not have a cause from this. She is being worked up from cardiac standpoint after she was admitted 2 days ago. The patient has a history of small-bowel obstruction, but has not had any vomiting. There were some few T-wave changes on her ECG, so cardiology is involved. PAST MEDICAL HISTORY: 1. Gastroesophageal reflux disease. 2. Obesity. 3. Hypertension. 4. Dyslipidemia. 5. Degenerative lumbosacral disease. 6. Anxiety. 7. Depression. 8. History of Lyme disease. 9. Obstructive sleep apnea. 10. Emphysema. 11. History of migraine headaches. 12. Glaucoma. 13. Thyroiditis in the past. PAST SURGICAL HISTORY: 1. Status post Toupet partial fundoplication. 2. Status post laparoscopic takedown of Toupet partial fundoplication. 3. Cystoscopy. 4. Colonoscopy. 5. Tubal ligation. 6. sections. 7. Partial hysterectomy. 8. Tonsillectomy and adenoidectomy. 9. Endoscopic sinus surgery. 10. Multiple upper endoscopies. MEDICATIONS: 1. Quetiapine. 2. Gabapentin. 3. Venlafaxine. 4. Valtrex. 5. Trazodone. 6. Hydroxyzine. 7. Lopressor. 8. Aspirin. 9. Tylenol. 10. Inhalers. ALLERGIES: 1. BACTRIM. 2. MORPHINE. 3. TRIMETHOPRIM. 4. SULFAMETHOXAZOLE. 5. NITROFURANTOIN. SOCIAL HISTORY: The patient lives with her . She is originally from [place]. She continued to smoke half pack of cigarettes a day. She does not use alcohol. She is disabled for multiple medical issues and does not work. FAMILY MEDICAL HISTORY: There is a history of coronary artery disease and cerebrovascular disease in her family, also history of dementia with diabetes and breast cancer, also history of Parkinson's. REVIEW OF SYSTEMS: The patient's weight has been stable. She has had no fevers, chills or night sweats. She has had no visual or auditory symptoms. She denies palpitations or chest pain other than that described in history of present illness. She also has abdominal pain in her epigastric area as described. She has no nausea, no vomiting, no diarrhea. She has had some trace dependent edema. She has no claudication. She has had no wound breakdown. PHYSICAL EXAMINATION: GENERAL: This is an obese female, standing 5 feet 5 inches tall, weighing about 240 pounds. She is awake and alert. HEENT: Her extraocular movements are intact. Pupils are equal, round and reactive. Teeth are in fairly good repair. Tongue is midline. She has no oral mucosal lesions. NECK: Thick, but supple. She has no carotid bruits or neck vein distention. She is moving air well bilaterally with a few upper airway rhonchi, but no wheezing. She has distant heart sounds, but regular rate and rhythm of her heart. ABDOMEN: Has well-healed laparoscopic incisions. Her abdomen is obese, but soft and not really elicit tenderness. She has good peripheral pulses. She has trace edema in the pretibial area. She has no joint effusions. NEUROLOGIC: She is completely intact. ASSESSMENT AND PLAN: Abdominal pain radiating to left chest. I discussed this case with Dr. Powell and was happy to see that the gastroenterology had also seen the patient. I do not see anything on the CT scan that would warrant any type of intervention. I explained this quite carefully to patient and her family. I do not know why she is having pain, but this patient has had similar complaints in the past and has undergone extensive workups. At this point, I would continue to follow her, but I of course would not offer her anything as far as intervention at this point. We will continue to follow.
== END 2018-08-24 19:18 | disposition home or self-care (01) | DRG 313 ==
LOC: ED 16:17 → 2N 16:17 → SUATTDRO 21:03 → 2N 21:32
DX: Z88.1 Allergy status to other antibiotic agents; E11.9 Type 2 diabetes mellitus without complications; I10 Essential (primary) hypertension; Z68.37 Body mass index [BMI] 37.0-37.9, adult; Z88.5 Allergy status to narcotic agent; E66.9 Obesity, unspecified; Z83.3 Family history of diabetes mellitus; Z82.49 Family history of ischemic heart disease and other diseases of the circulatory system; F41.8 Other specified anxiety disorders; Z80.9 Family history of malignant neoplasm, unspecified; R07.89 Other chest pain; E78.5 Hyperlipidemia, unspecified; Z79.82 Long term (current) use of aspirin; G47.33 Obstructive sleep apnea (adult) (pediatric); Z90.49 Acquired absence of other specified parts of digestive tract; K21.9 Gastro-esophageal reflux disease without esophagitis; F17.210 Nicotine dependence, cigarettes, uncomplicated; J43.9 Emphysema, unspecified

== ENCOUNTER 2019-09-06 09:56 | Inpatient (IN) ==
[2019-09-06] MEDS ORDERED: MoRPHine SULFATE 10 MG/ML CARP/VIAL IM STA (10:26)
[2019-09-06] MEDS ORDERED: DiphenhydrAMINE HCL 50 MG/ML VIAL IM STA (10:27)
--- NOTE | 2019-09-06 11:01 | XRay Report ---
XR ankle LT min 3V routine CLINICAL HISTORY: pain fall trauma. Pain. COMPARISON: None. DISCUSSION: Fracture base fifth metatarsal. Heel spur. All remaining bony structures are intact. No e vidence for disruption of the ankle mortise. There is no evidence for soft tissue swelling. IMPRESSION: Fracture base fifth metatarsal. No acute process specifically of the left ankle. ACT 112: Negative or not required by law. The above report was generated using voice recognition software. It may contain grammatical, syntax or spelling errors. Electronically signed by: Tani Rivera M.D. 09/06/2019 10:59 AM
--- NOTE | 2019-09-06 11:02 | XRay Report ---
XR foot LT 2V CLINICAL HISTORY: pain fall trauma. Pain. COMPARISON: None. DISCUSSION: Fracture base fifth metatarsal. Heel spur. All remaining bony structures are unremarkable . There is no additional acute abnormality. Mild soft tissue edema IMPRESSION: 1. Transverse fracture base fifth metatarsal. 2. Heel spur. ACT 112: Negative or not required by law. The above report was generated using voice recognition software. It may contain grammatical, syntax or spelling errors. Electronically signed by: Tani Rivera M.D. 09/06/2019 11:01 AM
--- NOTE | 2019-09-06 11:04 | XRay Report ---
XR tibia fibula LT 2V CLINICAL HISTORY: pain fall trauma. Pain. COMPARISON: None. DISCUSSION: The bones and joint spaces appear intact. There is no evidence of fracture, dislocation o r bony disease. There is no evidence for soft tissue swelling. IMPRESSION: Negative study. ACT 112: Negative or not required by law. The above report was generated using voice recognition software. It may contain grammatical, syntax or spelling errors. Electronically signed by: Tani Rivera M.D. 09/06/2019 11:03 AM
--- NOTE | 2019-09-06 11:06 | XRay Report ---
XR tibia fibula RT 2V CLINICAL HISTORY: pain fall trauma. Pain. COMPARISON: None. DISCUSSION: Oblique fracture distal fibula. All remaining bony structures are intact. There is modera te soft tissue edema anterior to the tibia. IMPRESSION: Oblique fracture distal fibula. ACT 112: Negative or not required by law. The above report was generated using voice recognition software. It may contain grammatical, syntax or spelling errors. Electronically signed by: Tani Rivera M.D. 09/06/2019 11:04 AM
[2019-09-06] MEDS ORDERED: OXYCODONE HCL IR 5 MG TAB (IMMEDIATE RELEASE) PO STA (11:58)
[2019-09-06] MEDS ORDERED: MoRPHine SULFATE 2 MG/ML CARP IV PRN (12:19)
[2019-09-06] MEDS ORDERED: ACETAMINOPHEN 1,000 MG/100 ML VIAL IV STA (12:19)
[2019-09-06 12:58] LABS: Basophils # (auto) 0.04 K/uL (0-0.2); Basophils % (auto) 0.4 %; Eosinophils # (auto) 0.11 K/uL (0-0.5); Eosinophils % (auto) 1.1 %; Hematocrit (blood only) 38.8 % (37-47); Hemoglobin 12.6 g/dL (12.0-16.0); Immature Granulocytes # (auto) 0.06 K/uL (0.00-0.02); Immature Granulocytes % (auto) 0.6 %; Lymphocytes # (auto) 2.14 K/uL (1.2-3.4); Lymphocytes % (auto) 21.4 %; Mean Corpuscular Hemoglobin 31.2 pg (25-34); Mean Corpuscular Hgb Conc 32.5 g/dL (32-36); Mean Platelet Volume 9.2 fL (7.4-10.4); Monocytes # (auto) 0.54 K/uL (0.11-0.59); Monocytes % (auto) 5.4 %; Neutrophils % (auto) 71.1 %; Platelet Count 304 K/uL (130-400); RDW Coefficient of Variation 15.1 % (11.5-14.5); Red Blood Count 4.04 M/uL (4.2-5.4); White Blood Count 9.99 K/uL (4.8-10.8)
[2019-09-06 13:12] LABS: Partial Thromboplastin Ratio 0.9; Partial Thromboplastin Time 25.9 Seconds (21.0-31.0); Prothrombin Time 10.2 Seconds (9.0-12.0)
[2019-09-06 13:13] LABS: BUN Creatinine Ratio 16.4 (10-20); Calcium 8.6 mg/dl (8.5-10.1); Creatinine Clr Calc Pharmacy 102.9 ml/min; Est GFR (African American) 110.7; Est GFR (Non-African American) 95.5
--- NOTE | 2019-09-06 13:16 | XRay Report ---
XR chest 1V portable CLINICAL HISTORY: preop preoperative evaluation COMPARISON STUDY: 08/24/2019 FINDINGS: The bones soft tissues and hemidiaphragms are normal. The cardiomediastinal silhouette is n ormal. The lungs are clear. The pulmonary vasculature is normal. IMPRESSION: Negative chest. ACT 112: Negative or not required by law. The above report was generated using voice recognition software. It may contain grammatical, syntax or spelling errors. Electronically signed by: Tani Rivera M.D. 09/06/2019 1:14 PM
[2019-09-06] MEDS ORDERED: MAGNESIUM HYDROXIDE SUSP 30 ML UDC PO PRN (13:31)
[2019-09-06] MEDS ORDERED: ACETAMINOPHEN 325 MG TAB PO PRN (13:31)
[2019-09-06] MEDS ORDERED: POLYETHYLENE (MIRALAX) 17 GM PACK PO PRN (13:31)
[2019-09-06] MEDS ORDERED: ONDANSETRON INJ 2 MG/ML 2 ML VIAL IV PRN (13:31)
[2019-09-06] MEDS ORDERED: QUETIAPINE FUMARATE 25 MG TABLET PO PRN (13:33)
[2019-09-06] MEDS: SODIUM CHLORIDE 0.9% 500 ML IV SCH ×2 (14:29→17:53)
--- NOTE | 2019-09-06 14:34 | History & Physical Report ---
Date of Service September 06, 2019 Assessment & Plan (1) Fracture of distal fibula: Patient has an acute fracture of her right distal fibula. Unsure of mechanism of how this occured. Fracture appears unsytable and will need surgery. Patient does not appear to be in distress at this time. will continue pain management. DVT proh NPO after midnight (2) Luo fracture: Left metatarsal fracture, this does not need surgery, consulted ortho for both issues (3) Chronic obstructive pulmonary disease: Patient is an active smoker, she does not want nicotine patches however, Not in acute exacerbation. Will continue her home inhalers (4) HTN (hypertension): BP controlled, resume home meds (5) Dyslipidemia: will require flp during stay (6) Anxiety: stable resume home meds (7) Depression: stable resume home meds (8) Tobacco dependence: refuses nicotine patches DVT: heparin History of Present Illness Chief Complaint: fal Primary Care Provider: Jewell Hernandez MD This is a pleasant 57 yo female who arrives after sustaining a fall while going to work. 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 Patient reports that she is not quite sure how it happened. She was walking with her spouse in front of her, when she lost her balnce and rolled her left foot inward and then fell. She states her pain in her right foot was actually worse. She had pain in bilateral legs which was severe, sharp and constant, nonra diating. She arrived in the ER via ambulance. She was found to have a right ankle fracture and was placed in a cast, while she also sustained a left foot fracture. Allergies Allergy/AdvReac Type Severity Reaction Status Date / Time Bactrim Allergy Severe SHORTNESS Verified 08/12/16 15:49 OF BREATH nitrofurantoin Allergy Severe UNABLE TO Verified 09/06/19 13:10 BREATHE sulfamethoxazole Allergy Severe SHORTNESS Verified 09/06/19 13:10 OF BREATH trimethoprim Allergy Severe SHORTNESS Verified 09/06/19 13:10 OF BREATH morphine Allergy Intermediate itching Verified 09/06/19 13:10 Home Medications Home Medications Medication Instructions Recorded Confirmed Type albuterol sulfate 1 vial INHALATION Q6H PRN 12/03/17 09/06/19 History metoprolol tartrate 25 mg PO BID 12/03/17 09/06/19 History trazodone 50 mg PO HS 12/03/17 09/06/19 History venlafaxine 75 mg PO QAM 12/03/17 09/06/19 History venlafaxine 300 mg PO QAM 12/03/17 09/06/19 History gabapentin 100 mg PO TID 03/26/18 09/06/19 History quetiapine 25 mg PO DAILY PRN 08/22/18 09/06/19 History quetiapine 150 mg PO HS 08/22/18 09/06/19 History albuterol sulfate 90 mcg/actuation 2 puff INHALATION QID PRN #8.5 gm 09/05/18 09/06/19 Rx aerosol inhaler bupropion HCl [Wellbutrin SR] 100 mg PO QAM 02/12/19 09/06/19 History fluticasone furoate-vilanterol 1 puffs INH BID 08/24/19 09/06/19 History [Breo Ellipta] Past Med/Surg History Medical History Anxiety Atypical chest pain PT HAS BEEN EVALUATED AT [facility] ON MANY OCCASIONS FOR CHEST PAIN. NO CARDIAC CAUSE IDENTIFIED. PT DESCRIBES CP AT REST OR WITH EXERTION. NEGATIVE DSE 2017. Chronic obstructive pulmonary disease RARELY USES RES. 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) Surgical History H/O section (Chronic) H/O cystoscopy (Chronic) History of colonoscopy (Chronic) "07/11/14- diverticulosis" History of esophagogastroduodenoscopy (Chronic) "07/11/14- small hiatal hernia, normal bx" S/P partial hysterectomy (Chronic) S/P right rotator cuff repair S/P sinus surgery (Chronic) S/P tonsillectomy and adenoidectomy (Chronic) S/P tubal ligation (Chronic) Status post Cindy fundoplication (Resolved) THEN REVERSED Family History Father Myocardial infarction Sister Breast cancer Dementia Diabetes Brother Dementia Prostate cancer Parkinson disease Mother Stroke Other Cancer Denies family history of Ovarian cancer Crohn's disease Colorectal cancer Social History Preferred Language: Arabic Communication Ability: Effective Visual Impairment: No Limitations Hearing Ability: Normal 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 Beliefs That Will Affect Care: None marital status: Current Living Situation: Spouse and Family current occupational status: disabled Feels Safe at Home: Yes Smoking Status: Current every day smoker Tobacco Type: cigarettes ; packs per day: 0.5 ; Cigarettes Per Day: 1/2 PPD ; Second Hand Exposure: Yes ; Hx Alcohol Use: Yes Alcohol type: beer, wine and hard liquor Hx Substance Use: No Dental Care, Regularly: No Physical Activity Frequency: Does not Exercise Seatbelt Use: always Review of Systems Constitutional: no sweats and no malaise Eyes: no diplopia and no decreased night vision Ear, Nose, Mouth, Throat: no nasal discharge Respiratory: + cough Cardiovascular: no chest pain with activity and no dyspnea at rest Gastrointestinal: no bloating and no nausea Genitourinary: no urinary frequency and no urinary incontinence Musculoskeletal: no radicular pain Integumentary: no rash Neurologic: no falls Psychiatric: no hopelessness Endocrine: no cold intolerance and no hyperhidrosis Hematologic / Lymphatic: no coagulopathy Allergy / Immunological: no lip swelling and no tongue swelling Physical Exam Constitutional: WD/WN, vitals as above Eyes: PERRL, conjunctivae normal, anicteric sclerae ENMT: external ear and nose normal, oropharynx normal Neck: trachea midline, no thyromegaly Respiratory: normal respiratory effort, lungs clear to auscultation Cardiovascular: RRR, no murmur, no edema Gastrointestinal (Abdomen): normal bowel sounds, soft, nontender, no hepatosplenomegaly Musculoskeletal: no cyanosis or clubbing, extremities motor strength 5/5 Skin: no rashes, warm and dry Neurologic: patellar DTR's 2+ bilat, sensation intact Psychiatric: A+Ox3, euthymic affect Results & Data Results & Data ([facility]) Vital Signs (Past 12 Hours) Vital Signs Temp Pulse Pulse Resp BP BP Pulse Ox 09/06/19 14:00 74 14 138/91 09/06/19 13:30 67 14 09/06/19 13:00 71 21 09/06/19 12:30 76 12 09/06/19 12:16 75 13 09/06/19 11:33 79 20 145/95 H 96 09/06/19 11:31 82 16 145/95 H 09/06/19 10:04 36.8 C 82 20 164/108 H 96 PG Care Time/CCT Total # of Minutes Spent Total Time Spent with Patient: Total time spent is greater than 50% in coordination of care (as documented) at patient's floor/unit and/or counseling patient: Coding Level of Care Code 12017 Initial Inpt Care Lvl 3 Diagnoses Fracture of distal fibula S82.831A Encounter type: initial encounter Fracture morphology: other fracture Fracture type: closed Laterality: right Luo fracture S99.192A Encounter type: initial encounter Fracture type: closed Laterality: left Chronic obstructive pulmonary disease J44.9 HTN (hypertension) I10 Hypertension type: essential hypertension Dyslipidemia E78.5 Anxiety F41.9 Depression F33.9 Depression Type: major depressive disorder Major depression recurrence: recurrent Active/Remission status: remission status unspecified Tobacco dependence F17.200 Time Spent (min) 50 (1) Fracture of distal fibula Encounter type: initial encounter Fracture morphology: other fracture Fracture type: closed Laterality: right Qualified Code(s): S82.831A - Other fracture of upper and lower end of right fibula, initial encounter for closed fracture (2) Luo fracture Encounter type: initial encounter Fracture type: closed Laterality: left Qualified Code(s): S99.192A - Other physeal fracture of left metatarsal, initial encounter for closed fracture (3) HTN (hypertension) Hypertension type: essential hypertension Qualified Code(s): I10 - Essential (primary) hypertension (4) Depression Depression Type: major depressive disorder Major depression recurrence: recurrent Active/Remission status: remission status unspecified Qualified Code(s): F33.9 - Major depressive disorder, recurrent, unspecified
--- NOTE | 2019-09-06 15:34 | Emergency Department Note ---
Impression & Plan Fracture of distal fibula, Luo fracture, Fall ED Provider Note NAME: LAN BREWER AGE: 59 SEX: F ARRIVES VIA: Ambulance INFORMANT: Patient, ED PROVIDER(S): Sidney Salmeron MD CHIEF COMPLAINT: Fall. Bilateral lower leg pain. PLAN: Disposition: Admit MEDICAL DECISION MAKING: The patient is a pleasant 59-year-old woman with a pmhx of COPD, DAYA, HTN, HLD, GERD, Migraines, RC repair 02/[address] Estrella who presents emergency department with right lower leg and left foot pain after she stepped on an uneven surface and rolled her right ankle falling onto her left side. She denies hitting her head or LOC. Denies any other injuries. Denies any recent illness including denies, fevers, chills, chest pain, sob, cough, congestion, n/v/d, urinary sx. On arrival patient uncomfortable no acute distress, afebrile with stable vital signs. On exam the patient has tenderness to her right pretibial region with there is mild ecchymosis. Distal PMS intact. She does have tenderness to the base of her left fifth metatarsal. Plain films confirm spiral fracture of the right tibia and Luo fracture at the base of the left metatarsal. Case was reviewed with Dr. Carr, orthopedic surgery on-call, who recommends admission to medicine with plan for surgery tomorrow for right fibular fracture. Patient is agreeable with this. Case was discussed [place]. Otto, [facility] [place], who will evaluate the patient for admission. Preoperative orders were placed. WBC, H/H and platelets within normal limits. Chemistry without acidosis. Electrolytes unremarkable. Per OR protocols COVID- 19 PCR was ordered and was negative. Triage Nursing notes reviewed and agree them. Prior medical records reviewed Vital Signs: reviewed and remarkable for no significant abnormalities Differential diagnosis: Fracture, subluxation, dislocation, contusion, ligamentous injury, neurovascular, compartment syndrome, rhabdomyolysis, as well as other pathologies. ER treatment provided: See below. Diagnostics interpreted by me: ECG: Sinus rhythm, 63 bpm, normal axis, no ectopy, no overt ST elevation or depression, QTC 403, QRS 80. Cardiac Monitoring: An order for continuous cardiac monitoring was placed and demonstrated NSR, 77 bpm, no ectopy. Laboratory studies: See below Imaging studies: See below Consultation(s): Dr. Carr, orthopedic surgery on-call. Case was discussed with Dr. Otto, [facility] [place], who will evaluate the patient for admission. HPI: The patient is a pleasant 59-year-old woman with a pmhx of COPD, DAYA, HTN, HLD, GERD, Migraines, RC repair 02/[address] Estrella who presents emergency department with right lower leg and left foot pain after she stepped on an uneven surface and rolled her right ankle falling onto her left side. She denies hitting her head or LOC. Denies any other injuries. Denies any recent illness including denies, fevers, chills, chest pain, sob, cough, congestion, n/v/d, urinary sx. ROS: See above HPI for pertinent positives & negatives. A total of 10 systems reviewed and were otherwise negative. PAST MEDICAL HISTORY:See Below PAST SURGICAL HISTORY:See Below FAMILY HISTORY:See Below SOCIAL HISTORY:See Below HOME MEDICATIONS:See Below ALLERGIES:See Below VITALS:See Below PHYSICAL EXAMINATION: GENERAL: Awake, alert, well-appearing, in no distress, BMI: 35.8 kg/m2 HENT: Normocephalic, atraumatic. Oropharynx with dry mucous membranes and otherwise unremarkable. EYES: Normal conjunctiva. Sclera non-icteric. NECK: Supple. No nuchal rigidity. FROM. No JVD. RESPIRATORY: Clear to auscultation. CARDIAC: Regular rate, normal rhythm. Extremities warm and well perfused. Pulses equal. ABDOMEN: Soft, non-distended. No tenderness to palpation. No rebound or guarding. No masses. RECTAL: Deferred. MUSCULOSKELETAL: Chest examination reveals no tenderness. The back is symmetrical on inspection without obvious abnormality. There is no CVA tenderness to palpation. No joint edema. LOWER EXTREMITIES: Tenderness to her right mid to distal pretibial region with there is mild ecchymosis and swelling. Distal PMS intact. Tenderness to the base of her left fifth metatarsal. Distal PMS intact. NEURO: Normal sensorium. No sensory or motor deficits noted. SKIN: No rash or jaundice noted. Sidney Salmeron MD Past Med/Surg History Medical History Anxiety Atypical chest pain PT HAS BEEN EVALUATED AT [facility] ED ON MANY OCCASIONS FOR CHEST PAIN. NO CARDIAC CAUSE IDENTIFIED. PT DESCRIBES CP AT REST OR WITH EXERTION. NEGATIVE DSE 2017. Chronic obstructive pulmonary disease RARELY USES RES. 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) Surgical History H/O section (Chronic) H/O cystoscopy (Chronic) History of colonoscopy (Chronic) "07/11/14- diverticulosis" History of esophagogastroduodenoscopy (Chronic) "07/11/14- small hiatal hernia, normal bx" S/P partial hysterectomy (Chronic) S/P right rotator cuff repair S/P sinus surgery (Chronic) S/P tonsillectomy and adenoidectomy (Chronic) S/P tubal ligation (Chronic) Status post Cindy fundoplication (Resolved) THEN REVERSED Family History Father Myocardial infarction Sister Breast cancer Dementia Diabetes Brother Dementia Prostate cancer Parkinson disease Mother Stroke Other Cancer Denies family history of Ovarian cancer Crohn's disease Colorectal cancer Social History Preferred Language: Faroese Communication Ability: Effective Visual Impairment: No Limitations Hearing Ability: Normal 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: No Beliefs That Will Affect Care: None marital status: Current Living Situation: Spouse and Family current occupational status: disabled Feels Safe at Home: Yes Smoking Status: Current every day smoker Tobacco Type: cigarettes ; packs per day: 0.5 ; Cigarettes Per Day: 1/2 PPD ; Second Hand Exposure: Yes ; Hx Alcohol Use: Yes Alcohol type: beer, wine and hard liquor Hx Substance Use: No Dental Care, Regularly: No Physical Activity Frequency: Does not Exercise Seatbelt Use: always Allergies Allergies Allergy/AdvReac Type Severity Reaction Status Date / Time Bactrim Allergy Severe SHORTNESS Verified 08/12/16 15:49 OF BREATH nitrofurantoin Allergy Severe UNABLE TO Verified 09/06/19 13:10 BREATHE sulfamethoxazole Allergy Severe SHORTNESS Verified 09/06/19 13:10 OF BREATH trimethoprim Allergy Severe SHORTNESS Verified 09/06/19 13:10 OF BREATH morphine Allergy Intermediate itching Verified 09/06/19 13:10 Home Meds Home Medications Medication Instructions Recorded Confirmed albuterol sulfate 1 vial INHALATION Q6H PRN 12/03/17 09/06/19 metoprolol tartrate 25 mg PO BID 12/03/17 09/06/19 trazodone 50 mg PO HS 12/03/17 09/06/19 venlafaxine 75 mg PO QAM 12/03/17 09/06/19 venlafaxine 300 mg PO QAM 12/03/17 09/06/19 gabapentin 100 mg PO TID 03/26/18 09/06/19 quetiapine 25 mg PO DAILY PRN 08/22/18 09/06/19 quetiapine 150 mg PO HS 08/22/18 09/06/19 bupropion HCl [Wellbutrin SR] 100 mg PO QAM 02/12/19 09/06/19 fluticasone furoate-vilanterol 1 puffs INH BID 08/24/19 09/06/19 [Breo Ellipta] Previous Rx's Medication Instructions Recorded albuterol sulfate 90 mcg/actuation 2 puff INHALATION QID PRN #8.5 gm 09/05/18 aerosol inhaler Results & Data (ED) Vital Signs Vital Signs - 24 hr 09/06/19 10:04 09/06/19 11:31 09/06/19 11:33 Temperature 36.8 C Temperature Source Oral Pulse Rate 82 82 Pulse Rate [Right Finger] 79 Respiratory Rate 20 16 20 Respiratory Effort / Characteristics Non-Labored Spontaneous Non-Labored Spontaneous Respiratory Depth Normal Normal Blood Pressure 164/108 H 145/95 H Blood Pressure [Right Arm] 145/95 H Blood Pressure Mean 126 101 Blood Pressure Mean [Right Arm] 111 Blood Pressure Position [Right Arm] Lying Pulse Oximetry 96 96 Oxygen Delivery Method Room Air Room Air Sepsis Recent Fever Within 48 Hours No Sepsis New/Unexplained Change in Mental Status N/A Sepsis Action Taken by Nursing No Action Required 09/06/19 12:16 09/06/19 12:30 09/06/19 13:00 Temperature Temperature Source Pulse Rate 75 76 71 Pulse Rate [Right Finger] Respiratory Rate 13 12 21 Respiratory Effort / Characteristics Respiratory Depth Blood Pressure Blood Pressure [Right Arm] Blood Pressure Mean Blood Pressure Mean [Right Arm] Blood Pressure Position [Right Arm] Pulse Oximetry Oxygen Delivery Method Sepsis Recent Fever Within 48 Hours Sepsis New/Unexplained Change in Mental Status Sepsis Action Taken by Nursing Laboratory Data Attestation: I reviewed the patient's lab results. Result diagrams: 09/06/19 12:40 09/06/19 12:40 Lab Results 09/06/19 09/06/19 09/06/19 Range/Units 12:40 12:40 12:40 WBC 9.99 (4.8-10.8) K/uL RBC 4.04 L (4.2-5.4) M/uL Hgb 12.6 (12.0-16.0) g/dL Hct 38.8 (37-47) % MCV 96.0 (80-100) fL MCH 31.2 (25-34) pg MCHC 32.5 (32-36) g/dL RDW Std Deviation 53.0 H (36.4-46.3) fL RDW Coeff of Roseanna 15.1 H (11.5-14.5) % Plt Count 304 (130-400) K/uL MPV 9.2 (7.4-10.4) fL Immature Gran % (Auto) 0.6 % Neut % (Auto) 71.1 % Lymph % (Auto) 21.4 % Harlan % (Auto) 5.4 % Eos % (Auto) 1.1 % Baso % (Auto) 0.4 % Neut # (Auto) 7.10 H (1.4-6.5) K/uL Lymph # (Auto) 2.14 (1.2-3.4) K/uL Harlan # (Auto) 0.54 (0.11-0.59) K/uL Eos # (Auto) 0.11 (0-0.5) K/uL Baso # (Auto) 0.04 (0-0.2) K/uL Immature Gran # (Auto) 0.06 H (0.00-0.02) K/uL PT 10.2 (9.0-12.0) Seconds INR 1.0 (0.9-1.1) APTT 25.9 (21.0-31.0) Seconds PTT Ratio 0.9 Sodium (136-145) mmol/L Potassium (3.5-5.1) mmol/L Chloride (98-107) mmol/L Carbon Dioxide (21-32) mmol/L Anion Gap (3-11) BUN (7-18) mg/dl Creatinine (0.6-1.2) mg/dl Est Cr Clr Drug Dosing ml/min Est GFR ( Amer) Est GFR (Non-Af Amer) BUN/Creatinine Ratio (10-20) Glucose (70-99) mg/dl Calcium (8.5-10.1) mg/dl Blood Type O Negative Antibody Screen NEGATIVE 09/06/19 Range/Units 12:40 WBC (4.8-10.8) K/uL RBC (4.2-5.4) M/uL Hgb (12.0-16.0) g/dL Hct (37-47) % MCV (80-100) fL MCH (25-34) pg MCHC (32-36) g/dL RDW Std Deviation (36.4-46.3) fL RDW Coeff of Roseanna (11.5-14.5) % Plt Count (130-400) K/uL MPV (7.4-10.4) fL Immature Gran % (Auto) % Neut % (Auto) % Lymph % (Auto) % Harlan % (Auto) % Eos % (Auto) % Baso % (Auto) % Neut # (Auto) (1.4-6.5) K/uL Lymph # (Auto) (1.2-3.4) K/uL Harlan # (Auto) (0.11-0.59) K/uL Eos # (Auto) (0-0.5) K/uL Baso # (Auto) (0-0.2) K/uL Immature Gran # (Auto) (0.00-0.02) K/uL PT (9.0-12.0) Seconds INR (0.9-1.1) APTT (21.0-31.0) Seconds PTT Ratio Sodium 141 (136-145) mmol/L Potassium 4.0 (3.5-5.1) mmol/L Chloride 107 (98-107) mmol/L Carbon Dioxide 30 (21-32) mmol/L Anion Gap 4.0 (3-11) BUN 11 (7-18) mg/dl Creatinine 0.70 (0.6-1.2) mg/dl Est Cr Clr Drug Dosing 102.9 ml/min Est GFR ( Amer) 110.7 Est GFR (Non-Af Amer) 95.5 BUN/Creatinine Ratio 16.4 (10-20) Glucose 81 (70-99) mg/dl Calcium 8.6 (8.5-10.1) mg/dl Blood Type Antibody Screen Administered Medications Fluticasone/Vilanterol (Breo Ellipta 200/25 Mcg Inh) 1 puffs INH BID CARLY Stop: 10/06/19 20:59 Last Admin: 09/06/19 20:17 Dose: 1 puffs Documented by: [id number] Gabapentin (Neurontin) 100 mg PO TID CARLY Stop: 10/06/19 17:29 Last Admin: 09/06/19 18:48 Dose: 100 mg Documented by: [id number] Sodium Chloride (Nss 1000ml) 1,000 mls @ 125 mls/hr IV .Q8H CARLY Stop: 10/06/19 17:44 Last Admin: 09/06/19 17:40 Dose: 125 mls/hr Documented by: [id number] Metoprolol Tartrate (Lopressor) 25 mg PO BID CARLY Stop: 10/06/19 20:59 Last Admin: 09/06/19 20:17 Dose: 25 mg Documented by: [id number] Morphine Sulfate (Morphine Sulfate) 4 mg IV Q1H PRN PRN Reason: Severe Pain (Rating 7,8,9,10) Stop: 09/20/19 12:18 Last Admin: 09/06/19 19:38 Dose: 4 mg Documented by: [id number] Admin: 09/06/19 17:35 Dose: 4 mg Documented by: [id number] Admin: 09/06/19 15:36 Dose: 4 mg Documented by: [id number] Quetiapine Fumarate (Seroquel) 150 mg PO HS [facility] Stop: 10/06/19 20:59 Last Admin: 09/06/19 20:18 Dose: 150 mg Documented by: [id number] Trazodone HCl (Desyrel) 50 mg PO HS CARLY Stop: 10/06/19 20:59 Last Admin: 09/06/19 20:17 Dose: 50 mg Documented by: [id number] Discontinued Medications Diphenhydramine HCl (Benadryl) 25 mg IM NOW STA Stop: 09/06/19 10:28 Last Admin: 09/06/19 10:37 Dose: 25 mg Documented by: [id number] Acetaminophen (Ofirmev) 1,000 mg in 100 mls @ 400 mls/hr IV NOW STA Stop: 09/06/19 12:33 Last Admin: 09/06/19 14:28 Dose: Not Given Documented by: [id number] Sodium Chloride (Nss) 500 mls @ 125 mls/hr IV .Q4H CARLY Stop: 10/06/19 13:14 Last Admin: 09/06/19 17:53 Dose: Not Given Documented by: [id number] Infusion: 09/06/19 16:45 Dose: 0 mls/hr Documented by: [id number] Admin: 09/06/19 14:29 Dose: 125 mls/hr Documented by: [id number] Morphine Sulfate (Morphine Sulfate) 8 mg IM NOW STA Stop: 09/06/19 10:27 Last Admin: 09/06/19 10:37 Dose: 8 mg Documented by: [id number] Oxycodone HCl (Roxicodone Immediate Rel) 10 mg PO NOW STA Stop: 09/06/19 11:59 Last Admin: 09/06/19 12:09 Dose: 10 mg Documented by: [id number] Imaging Data Radiologist's Impression: XR tibia fibula RT 2V CLINICAL HISTORY: pain fall trauma. Pain. COMPARISON: None. DISCUSSION: Oblique fracture distal fibula. All remaining bony structures are intact. There is moderate soft tissue edema anterior to the tibia. IMPRESSION: Oblique fracture distal fibula. --- XR tibia fibula LT 2V CLINICAL HISTORY: pain fall trauma. Pain. COMPARISON: None. DISCUSSION: The bones and joint spaces appear intact. There is no evidence of fracture, dislocation or bony disease. There is no evidence for soft tissue swelling. IMPRESSION: Negative study. -- XR foot LT 2V CLINICAL HISTORY: pain fall trauma. Pain. COMPARISON: None. DISCUSSION: Fracture base fifth metatarsal. Heel spur. All remaining bony structures are unremarkable. There is no additional acute abnormality. Mild soft tissue edema IMPRESSION: 1. Transverse fracture base fifth metatarsal. 2. Heel spur. -- XR ankle LT min 3V routine CLINICAL HISTORY: pain fall trauma. Pain. COMPARISON: None. DISCUSSION: Fracture base fifth metatarsal. Heel spur. All remaining bony structures are intact. No evidence for disruption of the ankle mortise. There is no evidence for soft tissue swelling. IMPRESSION: Fracture base fifth metatarsal. No acute process specifically of the left ankle. Blood Pressure Blood Pressure Findings: Normal blood pressure Blood Pressure Disposition: further management by hospitalist Discharge Plan Visit Data *Final* Discharge Date/Time: 09/06/19 16:23 Chief Complaint: Ankle Pain Stated Complaint: fall, ankle pain ED Provider: Sidney Salmeron Discharge Problem: Fracture of distal fibula, Luo fracture, Fall Patient Disposition: Admitted As Inpatient Discharge Instructions Interventions: ED Discharge Assessment Last Done: 09/06/19 16:23 Discharge Problem: Fracture of distal fibula Qualifiers: Encounter type: initial encounter Fracture type: closed Fracture morphology: other fracture Laterality: right Qualified Code(s): S82.831A - Other fracture of upper and lower end of right fibula, initial encounter for closed fracture Luo fracture Qualifiers: Encounter type: initial encounter Fracture type: closed Laterality: left Qualified Code(s): S99.192A - Other physeal fracture of left metatarsal, initial encounter for closed fracture
[2019-09-06] MEDS: MoRPHine SULFATE 4 MG/ML 1 ML CARP\\VIAL IV PRN ×4 (15:36→22:10)
[2019-09-06] MEDS: SODIUM CHLORIDE 0.9% 1000ML 1,000 ML IV SCH (17:40)
--- NOTE | 2019-09-06 17:47 | XRay Report ---
XR foot RT 2V, XR ankle RT min 3V routine CLINICAL HISTORY: Right ankle foot pain. Fall. COMPARISON STUDY: None. FINDINGS: No fracture or dislocation within the right foot. Plantar and posterior calcaneal spurs are noted. Mildly displaced oblique fracture within the distal shaft of the fibula. This demonstrated ti p to 2 mm of lateral and 3 mm of posterior displacement. The ankle mortise appears intact. Soft tissu e swelling within the ankle. IMPRESSION: 1. Mildly displaced distal fibular fracture. 2. No fracture or dislocation within the right foot. ACT 112: Negative or not required by law. Electronically signed by: Chico Quinonez M.D. 09/06/2019 11:08 AM
[2019-09-06] MEDS: GABAPENTIN 100 MG CAP PO SCH ×2 (18:48→22:11)
--- NOTE | 2019-09-06 19:05 | Electrocardiogram Report ---
Test Reason : Blood Pressure : / mmHG Vent. Rate : 063 BPM Atrial Rate : 063 BPM P-R Int : 162 ms QRS Dur : 080 ms QT Int : 394 ms P-R-T Axes : 057 048 070 degrees QTc Int : 403 ms Normal sinus rhythm Normal ECG When compared with ECG of 24-AUG-2019 14:23, No significant change was found Confirmed by Randy Houston ([id number]) on 09/06/2019 7:05:32 PM Referred By: REFERRED SELF Confirmed By:Kvng Houston
[2019-09-06 19:42] LABS: Appearance Urine Clear (Clear); Bilirubin Urine Negative (Negative); Blood Urine Negative (Negative); Color Urine Yellow; Glucose Urine UA Negative (Negative); Ketones Urine Negative (Negative); Leukocyte Esterase Urine Negative (Negative); Nitrite Urine Negative (Negative); Protein Urine Negative (Negative); Specific Gravity Urine 1.019 (1.000-1.030); Urobilinogen Urine Negative (Negative)
[2019-09-06] MEDS: METOPROLOL TARTRATE 25 MG TAB PO SCH (20:17)
[2019-09-06] MEDS: FLUTICASONE/VILANTEROL 200/25MCG 14 PUFFS/INHALER INH SCH (20:17)
[2019-09-06] MEDS: TRAZODONE HCL 50 MG TAB PO SCH (20:17)
[2019-09-06] MEDS: QUETIAPINE FUMARATE 25 MG TABLET PO SCH (20:18)
--- NOTE | 2019-09-06 21:49 | Consultation Report ---
DATE OF CONSULTATION: 09/06/2019 ORTHOPEDIC CONSULT CHIEF COMPLAINT: 1. Bilateral lower extremity pain. HISTORY OF PRESENT ILLNESS: The patient is a 59-year-old female well known to our practice as she is a patient of my partner, Dr. Estrella, who sustained a fall earlier today. She is not really exactly sure what happened. She felt like she lost her balance rolled her foot and then fell. She had acute onset of pain in both legs, right side worse than left. She was unable to ambulate afterwards. She was brought to the Emergency Room by ambulance. She is diagnosed with a right ankle fracture and a left foot fracture. We are consulted for evaluation. The patient is unable to ambulate. The right ankle was bothered more than the left. No preexisting foot or ankle problems. PAST MEDICAL HISTORY: Significant for 1. COPD. 2. Gastroesophageal reflux disease. 3. History of tobacco use. 4. Adhesive capsulitis. 5. Atypical angina. 6. Anxiety/depression. 7. Low back pain. REVIEW OF SYSTEMS: The remainder of the review of system is per the admission H and P. OBJECTIVE: VITAL SIGNS: Temperature is 36.7. Vital signs stable. GENERAL: Shows a pleasant, middle-aged female. She is lying in bed, looks reasonably comfortable. MUSCULOSKELETAL: General musculoskeletal exam reveals painless palpation and range of motion of her cervical and thoracic and lumbar spine. She has full and painless range of motion of both upper extremities. Examination of the right lower extremity reveals a sugar tong splint to be in place. Her ankle looks well aligned. She can dorsiflex and plantarflex her toes appropriately. She has both medial and lateral sided tenderness. She is neurologically intact. No areas of obvious skin injury. Examination of the left foot reveals some swelling and bruising over the lateral aspect of the foot and the fifth metatarsal area. She is tender there. She can dorsiflex and plantarflex her foot appropriately. X-RAYS: X-rays of the right ankle and tib-fib reveal a long spiral distal fibula fracture with some slight displacement and slight comminution. There it looks like there is just a slight shifting of the mortise. It is a fairly long fibular fracture. X-rays of the left foot reveal a type 1 Luo fracture. Multiple other x-rays of the tib-fib are without fracture elsewhere. ASSESSMENT: A 59-year-old white female with multiple medical comorbidities with: 1. Right unstable Fallon B/C ankle fracture. It is a very long fracture with significant displacement. She has significant medial tenderness and I think this would likely benefit from surgical treatment. 2. Left stable type 1 Luo fracture/fifth metatarsal fracture. This is a stable fracture and does not need surgery. PLAN: The patient has been admitted by the medicine service. She can be medically optimized. We will plan to take her to the operating room and do an ORIF of her fibula fracture tomorrow. I doubt will need a syndesmosis screw. The left foot can be treated in a boot and weightbearing as tolerated. She will likely need a rehab stay after that. We will begin DVT prophylaxis including thigh-high TEDs, SCDs, and likely aspirin postop. She will be nonweightbearing for now. We will keep her n.p.o. after midnight. We will hopefully plan on doing this tomorrow afternoon. Any orthopedic questions can be directed at [phone]. [facility]
[2019-09-06] MEDS ORDERED: HEPARIN SOD 5,000 UNIT/0.5 ML VIAL SQ SCH (22:00)
[2019-09-07] MEDS ORDERED: MoRPHine SULFATE 2 MG/ML CARP IV PRN (00:06)
[2019-09-07] MEDS ORDERED: MoRPHine SULFATE 4 MG/ML 1 ML CARP\\VIAL IV PRN (00:07)
--- NOTE | 2019-09-07 00:17 | Communication Note ---
Date of Service: September 07, 2019 Notified by nursing of O2 sat in the 50s on 2L NC. Currently on 4L Oxymask 92%. Patient has received Morphine 16mg total, Seroquel 150mg qHS, Trazodone 50mg qHS, Gabapentin 200mg PO since arriving to floor. She also received Morphine 8mg IV and Oxycodone 10mg PO total in ED. Chart review performed as history of DAYA and wanted to see why she isn't on CPAP. Reviewed notes of patient's inappropriate behavior regarding demanding narcotics from Primary Care Providers. Patient is here for ankle fracture. She has a hx of COPD and is a current smoker. Did not feel it is safe to continue with current medication dosage of Morphine q1H PRN. Patient is receiving numerous sedating meds and with DAYA most likely cause of her hypoxia with sleeping at the moment. Will continue to monitor. Changed Moprhine PRN dosage from q1h while awake, to q3h while awake to prevent respiratory arrest from respiratory depression. Resident Activity Tracking Resident Involvement: Resident Care Provided Care Provided: Adult Hospital Medicine
[2019-09-07] MEDS: SODIUM CHLORIDE 0.9% 1000ML 1,000 ML IV SCH ×2 (01:27→10:16)
--- NOTE | 2019-09-07 06:45 | History & Physical Bridge Note ---
Date of Service September 07, 2019 History & Physical Bridge Note I have examined the patient, reviewed the History & Physical and in the interval since the performance of the History & Physical I have noted the following changes of clinical significance: no changes noted
--- NOTE | 2019-09-07 08:25 | Hospitalist Progress Note ---
Date of Service September 07, 2019 Assessment & Plan (1) Fracture of distal fibula: Patient has an acute fracture of her right distal fibula. plan for surgical correction 09/06. (2) Luo fracture: Left metatarsal fracture, this does not need surgery, consulted ortho for both issues (3) Chronic obstructive pulmonary disease: Patient is an active smoker, she does not want nicotine patches however, councelled on cessation Not in acute exacerbation. typically uses fluticasone/vilanterol (4) HTN (hypertension): metoprolol tartrate 25 bid (5) Dyslipidemia: (6) Depression: plus anxiety on venlafaxine buspar trazadone and seroquel, plus gabapentin (7) Tobacco dependence: refuses nicotine patches DVT: heparin (8) DVT prophylaxis: heparin is dvt prevetion Admission and Anticipated Discharge Date Admission Date: September 06, 2019 Subjective She was seen postoperatively she is still slightly under anesthesia as she is having no complaints or problems. There is a dressing up to her knee on the right leg and there is ecchymosis to the lateral fifth metatarsal area on the left leg Review of Systems Review of Systems: Mild distress and fatigue no headache, blurry or double vision no speech or swallowing issues no chest pain, pressure or palpitations no shortness of breath, cough or wheezes no abdominal pain, nausea or vomiting, diarrhea or constipation no dysuria, hematuria or frequency Lateral foot and ankle pain no back pain, CVA tenderness or radicular pain no bruising, bleeding or rashes no focal signs of weakness or numbness or altered sensation no complaints or anxiety or depression. Physical Exam Physical Exam: The patient appeared well nourished and normally developed. Vital signs as documented. Head exam is normocephalic atraumatic no scleral icterus Neck is without JVD, thyromegaly, or carotid bruits. Lungs are clear to auscultation, no focal loss of breath sounds Cardiac exam, Rhythm is regular.. No murmurs, rubs or gallops. Abdominal exam reveals normal bowel sounds, soft non tender, no masses Extremities right lower leg is in a splint in place, left foot with ecchymosis Neurologic exam is alert and oriented, no focal loss of strength or sensation Skin is without bruises or rashes Psychologically is without concerns for anxiety or depression Results & Data Results & Data ([facility]) Vital Signs (Past 12 Hours) Vital Signs Temp Pulse Pulse Resp BP Pulse Ox 09/07/19 07:32 77 16 124/67 94 09/07/19 05:39 78 16 94 09/07/19 01:10 70 19 93 09/06/19 23:35 92 09/06/19 23:27 97.5 F L 71 14 116/73 50 L 09/06/19 22:27 97.7 F 71 16 146/76 H 93 PG Care Time/CCT Total # of Minutes Spent Total Time Spent with Patient: Total time spent is greater than 50% in coordination of care (as documented) at patient's floor/unit and/or counseling patient: Coding Level of Care Code 61667 Subseq Hosp Care Lvl 2 Diagnoses Fracture of distal fibula S82.831A Encounter type: initial encounter Fracture morphology: other fracture Fracture type: closed Laterality: right Luo fracture S99.192A Encounter type: initial encounter Fracture type: closed Laterality: left Chronic obstructive pulmonary disease J44.9 HTN (hypertension) I10 Hypertension type: essential hypertension Dyslipidemia E78.5 Depression F33.9 Active/Remission status: remission status unspecified Depression Type: major depressive disorder Major depression recurrence: recurrent Tobacco dependence F17.200 DVT prophylaxis Z29.9 (1) Fracture of distal fibula Encounter type: initial encounter Fracture morphology: other fracture Fracture type: closed Laterality: right Qualified Code(s): S82.831A - Other fracture of upper and lower end of right fibula, initial encounter for closed fracture (2) Depression Active/Remission status: remission status unspecified Depression Type: major depressive disorder Major depression recurrence: recurrent Qualified Code(s): F33.9 - Major depressive disorder, recurrent, unspecified (3) Luo fracture Encounter type: initial encounter Fracture type: closed Laterality: left Qualified Code(s): S99.192A - Other physeal fracture of left metatarsal, initial encounter for closed fracture (4) HTN (hypertension) Hypertension type: essential hypertension Qualified Code(s): I10 - Essential (primary) hypertension
[2019-09-07] MEDS: GABAPENTIN 100 MG CAP PO SCH ×4 (10:18→23:23)
[2019-09-07] MEDS: BuPROPion SR 100 MG TABCR PO SCH (11:24)
[2019-09-07] MEDS: METOPROLOL TARTRATE 25 MG TAB PO SCH ×2 (11:24→21:21)
[2019-09-07] MEDS: VENLAFAXINE HCL XR 75 MG CAPXR PO SCH (11:25)
[2019-09-07] MEDS: VENLAFAXINE HCL XR 150 MG CAPXR PO SCH (11:25)
[2019-09-07] MEDS: FLUTICASONE/VILANTEROL 200/25MCG 14 PUFFS/INHALER INH SCH ×2 (11:26→21:22)
[2019-09-07] MEDS ORDERED: ROPIVACAINE 0.5% 5 MG/ML 30 ML VIAL ONE (13:13)
[2019-09-07] MEDS ORDERED: MIDAZOLAM HCL 1 MG/ML 2ML VIAL ONE (13:44)
[2019-09-07] MEDS ORDERED: fentaNYL citrate 100 MCG/2 ML VIAL ONE (13:44)
[2019-09-07] MEDS ORDERED: ROCURONIUM BROMIDE 10 MG/ML 5 ML VIAL IV ONE (13:58)
[2019-09-07] MEDS ORDERED: PROPOFOL IV EMULSION 10 MG/ML 20 ML VIAL IV ONE (13:58)
[2019-09-07] MEDS ORDERED: ONDANSETRON INJ 2 MG/ML 2 ML VIAL ONE (13:58)
[2019-09-07] MEDS ORDERED: GLYCOPYRROLATE 0.2 MG/ML VIAL ONE (13:58)
[2019-09-07] MEDS ORDERED: LIDOCAINE HCL 2% 2 ML VIAL/AMP(20MG/ML) INFIL ONE (13:58)
[2019-09-07] MEDS ORDERED: LARYING-O-JET KIT (LTA) ONE (13:58)
[2019-09-07] MEDS ORDERED: DEXAMETHASONE SOD INJ 4 MG/ML VIAL ONE (13:58)
[2019-09-07] MEDS ORDERED: NEOSTIGMINE METHYLSULFATE 5 MG/5 ML SYR ONE (13:58)
[2019-09-07] MEDS ORDERED: ATROPINE SULFATE 0.1 MG/ML 10ML SYR IV PRN ×2 (14:01→17:13)
[2019-09-07] MEDS ORDERED: ONDANSETRON INJ 2 MG/ML 2 ML VIAL IV PRN ×2 (14:01→19:24)
[2019-09-07] MEDS ORDERED: fentaNYL citrate 100 MCG/2 ML VIAL IV PRN (14:01)
[2019-09-07] MEDS ORDERED: ePHEDrine sulfate 50 MG/ML AMP IV PRN ×2 (14:01→17:13)
--- NOTE | 2019-09-07 14:04 | Anesthesiology Consultation ---
Date of Service September 07, 2019 Assessment & Plan (1) Encounter for pre-operative examination: Chart Review Chart Review: Acceptable Risk for Surgery COVID NEGATIVE 09/06/2019 Consults Requested none History Surgery Operation Date: 09/07/19 07:00 Proposed Procedures p Right Ankle Open Reduction Internal Fixation - oRnaldo Carr MD Height/Weight Height: 5 ft 5 in Weight: 97.522 kg Allergies Allergy/AdvReac Type Severity Reaction Status Date / Time Bactrim Allergy Severe SHORTNESS Verified 08/12/16 15:49 OF BREATH nitrofurantoin Allergy Severe UNABLE TO Verified 09/06/19 13:10 BREATHE sulfamethoxazole Allergy Severe SHORTNESS Verified 09/06/19 13:10 OF BREATH trimethoprim Allergy Severe SHORTNESS Verified 09/06/19 13:10 OF BREATH morphine Allergy Intermediate itching Verified 09/06/19 13:10 Medications Home Medications Medication Instructions Recorded Confirmed Last Taken albuterol sulfate 1 vial INHALATION Q6H PRN 12/03/17 09/06/19 08/24/19 metoprolol tartrate 25 mg PO BID 12/03/17 09/06/19 09/06/19 trazodone 50 mg PO HS 12/03/17 09/06/19 09/05/19 venlafaxine 75 mg PO QAM 12/03/17 09/06/19 09/06/19 venlafaxine 300 mg PO QAM 12/03/17 09/06/19 09/06/19 gabapentin 100 mg PO TID 03/26/18 09/06/19 09/06/19 quetiapine 25 mg PO DAILY PRN 08/22/18 09/06/19 08/24/19 quetiapine 150 mg PO HS 08/22/18 09/06/19 09/05/19 albuterol sulfate 90 mcg/actuation 2 puff INHALATION QID PRN #8.5 gm 09/05/18 09/06/19 09/05/19 aerosol inhaler bupropion HCl [Wellbutrin SR] 100 mg PO QAM 02/12/19 09/06/19 09/06/19 fluticasone furoate-vilanterol 1 puffs INH BID 08/24/19 09/06/19 09/06/19 [Breo Ellipta] Active Medications Generic Name Dose Route Start Last Admin Trade Name Freq PRN Reason Stop Dose Admin Bupropion HCl 100 mg 09/07/19 09:00 09/07/19 11:24 Wellbutrin-Sr PO 10/07/19 08:59 100 mg QAM CARLY Administration Fluticasone/Vilanterol 1 puffs 09/06/19 21:00 09/07/19 11:26 Breo Ellipta 200/25 Mcg Inh INH 10/06/19 20:59 1 puffs BID CARLY Administration Gabapentin 100 mg 09/06/19 17:30 09/07/19 13:51 Neurontin PO 10/06/19 17:29 Not Given TID CARLY Sodium Chloride 1,000 mls @ 50 mls/hr 09/06/19 17:45 09/07/19 10:16 Nss 1000ml IV 10/06/19 17:44 125 mls/hr .Q20H CARLY Administration Metoprolol Tartrate 25 mg 09/06/19 21:00 09/07/19 11:24 Lopressor PO 10/06/19 20:59 25 mg BID CARLY Administration Ondansetron HCl 4 mg 09/06/19 13:31 09/06/19 22:20 Zofran IV 10/06/19 13:30 4 mg Q6H PRN Administration Nausea Quetiapine Fumarate 150 mg 09/06/19 21:00 09/06/19 20:18 Seroquel PO 10/06/19 20:59 150 mg HS CARLY Administration Trazodone HCl 50 mg 09/06/19 21:00 09/06/19 20:17 Desyrel PO 10/06/19 20:59 50 mg HS CARLY Administration Venlafaxine HCl 75 mg 09/07/19 09:00 09/07/19 11:25 Effexor Extended Release PO 10/07/19 08:59 75 mg QAM CARLY Administration Venlafaxine HCl 300 mg 09/07/19 09:00 09/07/19 11:25 Effexor Extended Release PO 10/07/19 08:59 300 mg QAM CARLY Administration NPO Date Last Intake of Fluids: 09/06/19 Time Last Intake of Fluids: 17:00 Last Intake of Fluids Comment: sips with pills Date Last Intake of Solids: 09/06/19 Time Last Intake of Solids: 17:00 Past Medical History Medical History Anxiety Atypical chest pain PT HAS BEEN EVALUATED AT [facility] ED ON MANY OCCASIONS FOR CHEST PAIN. NO CARDIAC CAUSE IDENTIFIED. PT DESCRIBES CP AT REST OR WITH EXERTION. NEGATIVE DSE 2017. Chronic obstructive pulmonary disease RARELY USES RES. 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) Past Family History Family History Father Myocardial infarction Sister Breast cancer Dementia Diabetes Brother Dementia Prostate cancer Parkinson disease Mother Stroke Other Cancer Denies family history of Ovarian cancer Crohn's disease Colorectal cancer Past Surgical History Surgical History H/O section (Chronic) H/O cystoscopy (Chronic) History of colonoscopy (Chronic) "07/11/14- diverticulosis" History of esophagogastroduodenoscopy (Chronic) "07/11/14- small hiatal hernia, normal bx" S/P partial hysterectomy (Chronic) S/P right rotator cuff repair S/P sinus surgery (Chronic) S/P tonsillectomy and adenoidectomy (Chronic) S/P tubal ligation (Chronic) Status post Cindy fundoplication (Resolved) THEN REVERSED Past Anesthesia History No Hx of Anesthesia Complications and No Family Hx of Anesthesia Complications History of PONV No Hx of PONV and No Hx of Motion Sickness Social History Smoking Status: Current every day smoker tobacco type: cigarettes Smoking cigarettes per day: 1/2 PPD Hx Alcohol Use: Yes Alcohol type: beer, wine and hard liquor alcohol intake frequency: holidays/special occasions only Hx Substance Use: No substance use type: does not use Physical Exam Vital Signs Last Vital Signs Temp 37.5 C 09/07/19 13:55 Pulse 70 09/07/19 13:55 Resp 18 09/07/19 13:55 BP 147/86 H 09/07/19 13:55 Pulse Ox 95 09/07/19 13:55 Testing Laboratory Results 09/06/19 12:40 09/06/19 12:40 PT 10.2 Seconds (9.0-12.0) 09/06/19 12:40 INR 1.0 (0.9-1.1) 09/06/19 12:40 APTT 25.9 Seconds (21.0-31.0) 09/06/19 12:40 Urine Color Yellow 09/06/19 19:20 Urine Appearance Clear (Clear) 09/06/19 19:20 Urine pH 7.0 (4.5-7.5) 09/06/19 19:20 Ur Specific [place] 1.019 (1.000-1.030) 09/06/19 19:20 Urine Protein Negative (Negative) 09/06/19 19:20 Urine Glucose (UA) Negative (Negative) 09/06/19: Urine Ketones Negative (Negative) 09/06/19: Urine Nitrite Negative (Negative) 09/06/19 19:20 Ur Leukocyte Esterase Negative (Negative) 09/06/19 19:20 Blood Type O Negative 09/06/19 12:40 Antibody Screen NEGATIVE 09/06/19 12:40 Electrocardiogram Date: 09/06/19 Findings: + NSR @ (63) Normal sinus rhythm Normal ECG When compared with ECG of 24-AUG-2019 14:23, No significant change was found Confirmed by Randy [place] ([id number]) on 09/06/2019 7:05:32 PM Chest X-Ray Date: 09/06/19 XR chest 1V portable CLINICAL HISTORY: preop preoperative evaluation COMPARISON STUDY: 08/24/2019 FINDINGS: The bones soft tissues and hemidiaphragms are normal. The cardiomediastinal silhouette is normal. The lungs are clear. The pulmonary vasculature is normal. IMPRESSION: Negative chest.
[2019-09-07] MEDS ORDERED: CEFAZOLIN 2,000 MG/15 ML IV PUSH IV ONE (14:28)
[2019-09-07] MEDS ORDERED: CEFAZOLIN 2000MG 2,000 MG/15 ML SYR IV ONE (14:31)
[2019-09-07] MEDS ORDERED: BUPIVACAINE/EPINEPHRINE 0.5% MPF 1:200,000 10 ML VIAL ONE (16:02)
--- NOTE | 2019-09-07 16:41 | Post Operative Brief Note ---
PG Immediate Post Op with CF Date of Surgery September 07, 2019 Pre & Post Diagnosis Operation Date: 09/07/19 07:00 Pre-Op Diagnosis: Right Fallon B/C ankle fracture Post-Op Diagnosis: Right Fallon B/C ankle fracture I identified the patient and participated in the time-out.: Yes Procedure Operation Date: 09/07/19 07:00 Actual Procedures p Right Ankle Open Reduction Internal Fixation(Right) - Ronaldo Carr MD Surgeon Ronaldo Carr MD Sap Functional Analyst Paola, PAC Estimated Blood Loss 30 Findings Consistent with Post-Op Diagnosis Fluids 800 cc Specimens Specimen Description: none per surgeon Drains Elizalde Catheter (in on arrival to operating room draining dark yellow urine ) Anesthesia Type General Complications none Disposition Accompanied Patient To Recovery: No Disposition: Recovery Room
--- NOTE | 2019-09-07 16:49 | Fluoroscopy Report ---
FL ankle RT min 3V RTN CLINICAL HISTORY: Fracture COMPARISON STUDY: 09/06/2019 FLUOROSCOPY TIME: 12 seconds. NUMBER OF FLUOROSCOPIC IMAGES: 4 FINDINGS: 4 intraoperative fluoroscopic spot images reveal internal fixation of a distal fibular frac ture with a lateral metallic plate fixated with 9 screws. There is also an orthogonal screw traversin g the fracture site. IMPRESSION: Internally fixated distal fibular fracture. ACT 112: Negative or not required by law. Electronically signed by: Junior Gan M.D. 09/07/2019 4:48 PM
[2019-09-07] MEDS ORDERED: ALBUT/IPRATROP 3MG/0.5MG NEB 3 ML VIAL NEB STA (17:13)
--- NOTE | 2019-09-07 18:10 | XRay Report ---
XR chest 1V portable HISTORY: 59 years-old Female Low O2 saturation and rhonchi/wheezing acute hypoxia with wheezing COMPARISON: Chest radiograph 09/06/2019 TECHNIQUE: Portable AP view of the chest FINDINGS: Cardiomegaly. Pulmonary vascular congestion with progressive interstitial coarsening and new graded b ibasilar opacities with trace pleural effusions. No pneumothorax. Degenerative changes of the shoulde rs and spine. IMPRESSION: 1. Cardiomegaly with pulmonary vascular congestion and progressive interstitial coarsening suggestive of pulmonary edema. 2. Trace pleural effusions with bibasilar graded opacities suggestive of probable atelectasis. Superi mposed pneumonitis would be difficult to exclude. ACT 112: Negative or not required by law. The above report was generated using voice recognition software. It may contain grammatical, syntax o r spelling errors. Electronically signed by: Star Lucero M.D. 09/07/2019 6:09 PM
[2019-09-07] MEDS ORDERED: FUROSEMIDE 20 MG in SYRINGE 0 ML IV ONE (18:16)
[2019-09-07] MEDS ORDERED: FUROSEMIDE 40 MG/4 ML VIAL IV ONE (18:25)
--- NOTE | 2019-09-07 18:33 | Operative Report ---
Post Operative Report Pre & Post Diagnosis Operation Date: 09/07/19 07:00 Pre-Op Diagnosis: Right Fallon B/C ankle fracture Post-Op Diagnosis: Right Fallon B/C ankle fracture I identified the patient and participated in the time-out.: Yes Procedure Operation Date: 09/07/19 07:00 Actual Procedures p Right Ankle Open Reduction Internal Fixation(Right) - Ronaldo Carr MD Surgeon Ronaldo Carr MD Church Warden Paola, ANNIE Estimated Blood Loss 30 Findings Consistent with Post-Op Diagnosis Operative findings revealed a slightly comminuted long fibula fracture with deltoid ligament incompetence. Fluids 800 cc. Specimens None. Drains None. Anesthesia Type General Regional Complications none Disposition Accompanied Patient To Recovery: No Disposition: Recovery Room Indications Patient is a 59-year-old female who sustained an injury to her right ankle yesterday. Today she apparently is slipped and fell and was unclear of the exact mechanism. She injured her left foot as well as her right ankle. She had a very long a comminuted fibular fracture extending from the ankle mortise is significantly proximally. There was some slight gapping of her medial clear space suggested deltoid ligament tear injury. Patient indicated for surgical treatment. Description of Procedure Operative implants consist of: 1. Synthes 10 hole one third stainless steel semitubular locking plate. 2. 3.5 fully threaded cortical screws x8. 3. 4.0 fully threaded cancellus screw x1. 4. 3.5 mm cortical locking screw x1. Patient was taken to the operating identified and placed on the operating table supine position. All contractors were properly padded. IV antibiotics arrived by anesthesia team. A general anesthetic was employed by anesthesia team. Right thigh turn was then placed. The right lower extremity splint was then removed. I scrubbed the entire leg with Hibiclens and then prepped with ChloraPrep and draped the right lower extremity in the usual sterile fashion. Nupathe x-rays brought in. I did a stress test in the mortise and there was gapping of the medial clear space. Was only a couple millimeters but there is clear widening. The right leg was elevated and exsanguinated. The turn was placed at 300 mmHg. Direct lateral approach to the fibula was then performed through a longitudinal incision over the posterior border the fibula. Sharp lysis got through subcutaneous tissues. One large branch of the superficial peroneal nerve was identified and protected throughout the case. The fracture was exposed. We try to minimize stripping. I open the fracture up, debrided of all blood clot and then anatomically reduced at and held it with 2 reduction clamps. I placed a single 3.5 cortical lag screw from anterior to posterior across the fracture site. Her bone was quite thin so I could only place 1 s crew. A 10 hole one third semitubular locking plate was then contoured to the posterior lateral aspect of the fibula. Was fixed proximally with five 3.5 fully threaded cortical screws and distally with two 3.5 fully threaded cortical screws, 1 fully threaded cancellus screw, and 1 nonlocking screw distally to decrease the head prominence. I then brought x-rays in. The fracture was anatomically aligned. The ankle was stable to stress testing. There is no further gapping of the medial clear space. All hardware was appropriately positioned. Attention drawn toward closing. The wounds irrigated copious amounts of irrigation fluid. I injected locally with 20 cc of half percent Marcaine with epinephrine. The tech was then let down for turn time 34 minutes. The soft tissue over the plate was closed with 0 Dexon suture in a simple fashion. The subcutaneous tissue was then closed with 2 Dexon suture in a buried interrupted fashion skin was then closed with 3-0 nylon suture in a horizontal mattress fashion. Leg was then cleaned dried a sterile dressing composed Xeroform, 4 x 4's, sterile cast padding, ABD pads, and a well-padded posterior and stirrup splint were applied. Patient then brought out of general incision transferred to the recovery room in stable condition. Patient tolerated the procedure well and there were no complications. I attest to the content of the Intraoperative Record and any orders documented therein. Any exceptions are noted below.
[2019-09-07] MEDS: ALBUT/IPRATROP 3MG/0.5MG NEB 3 ML VIAL NEB SCH ×2 (19:04→23:26)
[2019-09-07] MEDS ORDERED: SODIUM CHLORIDE 0.9% 1000ML 1,000 ML IV SCH (19:24)
[2019-09-07] MEDS ORDERED: METOCLOPRAMIDE HCL INJ 5 MG/ML 2 ML VIAL IV PRN (19:24)
[2019-09-07] MEDS ORDERED: ACETAMINOPHEN 325 MG TAB PO PRN (19:24)
[2019-09-07] MEDS ORDERED: MAGNESIUM HYDROXIDE SUSP 30 ML UDC PO PRN (19:24)
[2019-09-07] MEDS ORDERED: NALOXONE HCL 0.4 MG/1 ML VIAL/CARP IV PRN (19:24)
[2019-09-07] MEDS ORDERED: bisacodyL 10 MG SUPP PR PRN (19:24)
[2019-09-07] MEDS: KETOROLAC 30 MG/ML VIAL IV SCH (20:50)
[2019-09-07] MEDS: TRAZODONE HCL 50 MG TAB PO SCH ×2 (21:14→23:23)
[2019-09-07] MEDS: QUETIAPINE FUMARATE 25 MG TABLET PO SCH ×2 (21:15→23:23)
[2019-09-07] MEDS: SENNA 8.6 MG TAB PO SCH (21:22)
--- NOTE | 2019-09-07 21:22 | Anesthesiology Progress Note ---
Date of Service September 07, 2019 Anesthesia Post Procedure Vital Signs Vital Signs: Temp Pulse Pulse Pulse Resp BP Pulse Ox 09/07/19 20:00 78 18 159/81 H 91 09/07/19 19:53 36.7 C 77 20 141/79 H 91 09/07/19 19:24 37.2 C 74 18 131/80 93 09/07/19 19:09 75 71 20 95 09/07/19 19:00 74 09/07/19 18:25 66 15 140/77 93 09/07/19 18:10 73 16 153/74 H 90 09/07/19 18:00 72 21 147/61 H 90 09/07/19 17:50 36.5 C 68 19 146/80 H 91 09/07/19 17:40 65 16 151/89 H 91 09/07/19 17:30 59 L 60 16 135/80 91 09/07/19 17:26 59 L 22 88 L 09/07/19 17:20 67 16 152/71 H 91 09/07/19 17:10 64 21 130/90 89 L 09/07/19 17:00 70 14 133/92 94 09/07/19 16:50 68 19 149/70 H 94 09/07/19 16:42 36.3 C L 59 L 14 147/81 H 93 09/07/19 13:55 37.5 C 70 18 147/86 H 95 09/07/19 07:32 77 16 124/67 94 09/07/19 05:39 78 16 94 09/07/19 01:10 70 19 93 09/06/19 23:35 92 09/06/19 23:27 36.4 C L 71 14 116/73 50 L 09/06/19 22:27 36.5 C 71 16 146/76 H 93 Pulse Ox 09/07/19 20:00 09/07/19 19:53 09/07/19 19:24 93 09/07/19 19:09 09/07/19 19:00 09/07/19 18:25 09/07/19 18:10 09/07/19 18:00 09/07/19 17:50 09/07/19 17:40 09/07/19 17:30 09/07/19 17:26 09/07/19 17:20 09/07/19 17:10 09/07/19 17:00 09/07/19 16:50 09/07/19 16:42 09/07/19 13:55 09/07/19 07:32 09/07/19 05:39 09/07/19 01:10 09/06/19 23:35 09/06/19 23:27 09/06/19 22:27 Pain Intensity Left Foot: Pain Intensity: 7 Right Leg: Pain Intensity: 8 Transfer of Care Handoff Completed per policy Notes Mental Status: alert / awake / arousable and participated in evaluation Patient Amnestic to Procedure: Yes Nausea / Vomiting: adequately controlled Pain: adequately controlled Airway Patency, RR, SpO2: stable & adequate BP & HR: stable & adequate Hydration State: stable & adequate Anesthetic Complications: no major complications apparent and Pt Satisfied with anesthetic care Notes: The patient is a 59 y/o female with a history of COPD, DAYA (noncompliant with CPAP) and smoking. She is s/p Right Ankle Open Reduction Internal Fixation. I took over the case for Dr. Piedra. Intraoperatively, the patient did well. On arrival to PACU, however, she was noted to have oxygen saturations of 93% on 10L Facemask. She denied any dyspnea. Her lung examine revelaed poor air movement and rhochi at the bases. A Duoneb was ordered and the patient was also started on BIPAP. The patient's oxygen saturation continued to stay between 89-91% on BIPAP with 5L 02. A CXR was ordered which showed some pumonary vascular congestion and edema. The patient was discussed with Dr. Burris who has been following the patient on the floor. He came to the bedside to evaluate the patient. He stated that he will start diuresing the patient and will transfer her PCU for closer monitoring.
[2019-09-07] MEDS: DOCUSATE SODIUM 100 MG CAP PO SCH (21:23)
[2019-09-07] MEDS: CEFAZOLIN 2000MG 2,000 MG/15 ML SYR IV SCH (23:25)
[2019-09-08] MEDS: KETOROLAC 30 MG/ML VIAL IV SCH ×4 (03:05→20:15)
[2019-09-08 05:47] LABS: Hematocrit (blood only) 32.2 % (37-47); Hemoglobin 10.5 g/dL (12.0-16.0); Mean Corpuscular Hemoglobin 31.3 pg (25-34); Mean Corpuscular Hgb Conc 32.6 g/dL (32-36); Mean Corpuscular Volume 95.8 fL (80-100); Mean Platelet Volume 9.3 fL (7.4-10.4); Platelet Count 263 K/uL (130-400); RDW Coefficient of Variation 14.5 % (11.5-14.5); RDW Standard Deviation 51.1 fL (36.4-46.3); Red Blood Count 3.36 M/uL (4.2-5.4); White Blood Count 8.44 K/uL (4.8-10.8)
[2019-09-08 06:07] LABS: BUN Creatinine Ratio 27.9 (10-20); Calcium 7.9 mg/dl (8.5-10.1); Creatinine Clr Calc Pharmacy 173.2 ml/min; Est GFR (Non-African American) 110.4; Potassium 3.8 mmol/L (3.5-5.1)
[2019-09-08] MEDS: ALBUT/IPRATROP 3MG/0.5MG NEB 3 ML VIAL NEB SCH ×4 (07:17→19:10)
--- NOTE | 2019-09-08 07:50 | Hospitalist Progress Note ---
Date of Service September 08, 2019 Assessment & Plan (1) Acute respiratory failure with hypoxia: Patient acute respiratory failure with hypoxia likened from her underlying COPD tobacco use obesity and anesthesia. She is recovered in the morning of 09/07 to be transferred to general medical stephen. Patient be continued on duo nebs and her long-acting nebulizers. No additional steroids are being used but she did receive intraoperative steroids associate with her surgery. She continues to be counseled on smoking cessation and did have reinforcement of incentive spirometry to help improve her aeration as evidenced by her physical exam (2) Fracture of distal fibula: Patient has an acute fracture of her right distal fibula. plan for surgical correction 09/06. (3) Luo fracture: Left metatarsal fracture, this does not need surgery, consulted ortho for both issues (4) Chronic obstructive pulmonary disease: Patient is an active smoker, she does not want nicotine patches however, counselled on cessation Patient be continued on duo nebs and also continued on her typical fluticasone/vilanterol (5) HTN (hypertension): metoprolol tartrate 25 bid (6) Dyslipidemia: will require flp during stay (7) Depression: plus anxiety on venlafaxine buspar trazadone and seroquel, plus gabapentin (8) Tobacco dependence: refuses nicotine patches DVT: heparin (9) Acute blood loss anemia: Patient has decrement of hemoglobin to 10.5 g this is not in the realm of transfusion at this point time we will continue to watch (10) DVT prophylaxis: heparin is dvt prevetion Admission and Anticipated Discharge Date Admission Date: September 06, 2019 Subjective Patient is doing much better this morning other than the hypoxic issues she was having in the postanesthesia care unit. She is tapered down to 2 L nasal cannula be transferred off the telemetry unit to general medical floor for orthopedic continued care and eventual discernment of her disposition to rehab or home. She has slight pain in her affected limbs no shortness of breath nonproductive cough Review of Systems Review of Systems: Mild distress and fatigue no headache, blurry or double vision no speech or swallowing issues no chest pain, pressure or palpitations Slight shortness of breath nonproductive cough no wheezes no abdominal pain, nausea or vomiting, diarrhea or constipation no dysuria, hematuria or frequency Lateral foot and ankle pain no back pain, CVA tenderness or radicular pain no bruising, bleeding or rashes no focal signs of weakness or numbness or altered sensation no complaints or anxiety or depression. Physical Exam Physical Exam: The patient appeared well nourished and normally developed. Vital signs as documented. Head exam is normocephalic atraumatic no scleral icterus Neck is without JVD, thyromegaly, or carotid bruits. Lungs are clear to auscultation, she has diminished at the bases incentive spirometry was reinforced Cardiac exam, Rhythm is regular.. No murmurs, rubs or gallops. Abdominal exam reveals normal bowel sounds, soft non tender, no masses Extremities right lower leg is in a splint in place, left foot with ecchymosis near the fifth metatarsal area Neurologic exam is alert and oriented, no focal loss of strength or sensation Skin is without bruises or rashes Psychologically is without concerns for anxiety or depression Results & Data Results & Data ([facility]) Vital Signs (Past 12 Hours) Vital Signs Temp Pulse Pulse Resp BP Pulse Ox 09/08/19 07:17 68 18 94 09/08/19 06:42 98.1 F 76 21 179/86 H 97 09/08/19 03:09 97.9 F 65 20 159/80 H 94 09/08/19 00:00 74 18 154/70 H 95 09/07/19 23:48 98.2 F 67 21 157/66 H 91 09/07/19 23:26 70 20 90 09/07/19 22:52 75 21 91 09/07/19 21:54 79 18 185/78 H 91 09/07/19 20:54 84 18 170/103 H 91 09/07/19 20:00 78 18 159/81 H 91 09/07/19 19:53 98.1 F 77 20 141/79 H 91 PG Care Time/CCT Total # of Minutes Spent Total Time Spent with Patient: Total time spent is greater than 50% in coordination of care (as documented) at patient's floor/unit and/or counseling patient: Coding Level of Care Code 57650 Subseq Hosp Care Lvl 3 Diagnoses Acute respiratory failure with hypoxia J96.01 Fracture of distal fibula S82.831A Encounter type: initial encounter Fracture morphology: other fracture Fracture type: closed Laterality: right Luo fracture S99.192A Encounter type: initial encounter Fracture type: closed Laterality: left Chronic obstructive pulmonary disease J44.9 HTN (hypertension) I10 Hypertension type: essential hypertension Dyslipidemia E78.5 Depression F33.9 Active/Remission status: remission status unspecified Depression Type: major depressive disorder Major depression recurrence: recurrent Tobacco dependence F17.200 Acute blood loss anemia D62 DVT prophylaxis Z29.9 (1) Fracture of distal fibula Encounter type: initial encounter Fracture morphology: other fracture Fracture type: closed Laterality: right Qualified Code(s): S82.831A - Other fracture of upper and lower end of right fibula, initial encounter for closed fracture (2) Depression Active/Remission status: remission status unspecified Depression Type: major depressive disorder Major depression recurrence: recurrent Qualified Code(s): F33.9 - Major depressive disorder, recurrent, unspecified (3) Luo fracture Encounter type: initial encounter Fracture type: closed Laterality: left Qualified Code(s): S99.192A - Other physeal fracture of left metatarsal, initial encounter for closed fracture (4) HTN (hypertension) Hypertension type: essential hypertension Qualified Code(s): I10 - Essential (primary) hypertension
[2019-09-08] MEDS: FLUTICASONE/VILANTEROL 200/25MCG 14 PUFFS/INHALER INH SCH ×2 (08:36→20:15)
[2019-09-08] MEDS: DOCUSATE SODIUM 100 MG CAP PO SCH ×2 (08:37→20:16)
[2019-09-08] MEDS: METOPROLOL TARTRATE 25 MG TAB PO SCH ×2 (08:37→20:17)
[2019-09-08] MEDS: VENLAFAXINE HCL XR 150 MG CAPXR PO SCH (08:37)
[2019-09-08] MEDS: BuPROPion SR 100 MG TABCR PO SCH (08:38)
[2019-09-08] MEDS: MULTIVITAMIN TAB PO SCH (08:38)
[2019-09-08] MEDS: VENLAFAXINE HCL XR 75 MG CAPXR PO SCH (08:38)
[2019-09-08] MEDS: GABAPENTIN 100 MG CAP PO SCH ×3 (08:38→20:16)
[2019-09-08] MEDS: CEFAZOLIN 2000MG 2,000 MG/15 ML SYR IV SCH (08:42)
--- NOTE | 2019-09-08 10:21 | Progress Notes ---
DATE: 09/08/2019 SUBJECTIVE: A 59-year-old white female postop day 1 from ORIF of right ankle fracture. She also has a fifth metatarsal fracture on the left side, treated conservatively. She is doing pretty well. She was transferred to telemetry due to some hypoxia. She looks comfortable this morning. No chest pain or shortness of breath. No new complaints. OBJECTIVE: VITAL SIGNS: Temperature 36.7. Vital signs stable. EXTREMITIES: Physical examination of right lower extremities reveals the right leg splint to be in place. Ankle is well aligned. She can dorsiflex and plantarflex her toes appropriately. She is neurologically intact. Examination of the left foot reveals no visible deformity. There is a little bit of swelling laterally and a little bit of bruising. She is tender over the fifth metatarsal. She is neurologically intact. LABORATORY DATA: Hemoglobin is 10.5. Hematocrit 32.2. Electrolytes are stable. ASSESSMENT: A 59-year-old white female: 1. Postop day 1 from ORIF of a right ankle fracture, doing well. Her splints is in place. Pain is controlled. 2. Left fifth metatarsal base fracture. This is a stable fracture and can be treated weightbearing as tolerated in the postop shoe/boot. PLAN: At this point, her surgery is complete and we are just going to leave this bandage on her right leg for the next 2 weeks. She will need to keep all pressure off her heel in order to prevent heel sores. She can certainly be mobilized as tolerated. She should not seem to weightbear significantly on the right leg. I will see her back in 2 weeks. With respect to the left foot, she can weightbear as tolerated in the postoperative shoe. It is going to be sore, but it is okay to do and there is no surgical treatment indicated. We will follow her up in 2 weeks. From the Orthopedic standpoint, she is okay for discharge any time. She might need a rehab stay as she may have difficulty mobilizing due to the bilateral lower extremity injuries. Any orthopedic questions can be directed to me at [phone].
[2019-09-08] MEDS ORDERED: NICOTINE POLACRILEX 2 MG GUM MT PRN (18:25)
[2019-09-08] MEDS: SENNA 8.6 MG TAB PO SCH (20:15)
[2019-09-08] MEDS: QUETIAPINE FUMARATE 25 MG TABLET PO SCH (20:17)
[2019-09-08] MEDS: HEPARIN SOD 5,000 UNIT/0.5 ML VIAL SQ SCH (20:20)
[2019-09-08] MEDS: TRAZODONE HCL 50 MG TAB PO SCH (20:20)
[2019-09-09] MEDS: KETOROLAC 30 MG/ML VIAL IV SCH ×3 (02:43→13:25)
[2019-09-09 06:01] LABS: Hemoglobin 10.9 g/dL (12.0-16.0); Mean Corpuscular Hemoglobin 29.9 pg (25-34); Mean Corpuscular Hgb Conc 31.1 g/dL (32-36); Mean Corpuscular Volume 96.2 fL (80-100); Mean Platelet Volume 9.4 fL (7.4-10.4); Platelet Count 259 K/uL (130-400); RDW Coefficient of Variation 14.8 % (11.5-14.5); RDW Standard Deviation 52.2 fL (36.4-46.3); Red Blood Count 3.64 M/uL (4.2-5.4); White Blood Count 8.33 K/uL (4.8-10.8)
[2019-09-09 06:43] LABS: BUN Creatinine Ratio 37.1 (10-20); Calcium 8.1 mg/dl (8.5-10.1); Creatinine Clr Calc Pharmacy 149.9 ml/min; Est GFR (African American) 122.1; Est GFR (Non-African American) 105.3; Potassium 3.6 mmol/L (3.5-5.1)
[2019-09-09] MEDS: ALBUT/IPRATROP 3MG/0.5MG NEB 3 ML VIAL NEB SCH ×3 (07:11→15:46)
--- NOTE | 2019-09-09 07:25 | Hospitalist Progress Note ---
Date of Service September 09, 2019 Assessment & Plan (1) Acute respiratory failure with hypoxia: Patient acute respiratory failure with hypoxia likened from her underlying COPD tobacco use obesity and anesthesia. she will be on combivent and her long acting B agonist and steroid,s No additional iv/po steroids are being used but she did receive intraoperative steroids associate with her surgery. She continues to be counseled on smoking cessation and did have reinforcement of incentive spirometry to help improve her aeration as evidenced by her physical exam Her post op cxr had shown fluid overload, will give additional lasix 09/08 and order echo for EF as pt did not have significant intraoperative fluid? barotrauma? (2) Fracture of distal fibula: Patient has an acute fracture of her right distal fibula. s/p surgical correction 09/06. (3) Luo fracture: Left metatarsal fracture, this does not need surgery,orhto feels may weight bear on this side still may need placement for rehab (4) Chronic obstructive pulmonary disease: Patient is an active smoker, she does not want nicotine patches however, counselled on cessation Patient be continued on combivent plus (breo) fluticasone/vilanterol (5) HTN (hypertension): metoprolol tartrate 25 bid (6) Dyslipidemia: (7) Depression: plus anxiety on venlafaxine buspar trazadone and seroquel, plus gabapentin (8) Tobacco dependence: refuses nicotine patches DVT: heparin (9) Acute blood loss anemia: Patient has decrement of hemoglobin to 10.5 g this is not in the realm of transfusion at this point time we will continue to watch (10) DVT prophylaxis: heparin is dvt prevetion Admission and Anticipated Discharge Date Admission Date: September 06, 2019 Subjective this pt continues to require oxygen, given her disclosure of smoking likely has some chronic respiratory with hypoxia that was worsened by fluid overload, she still is requiring 2 L nc. she states she has a home oxymeter and usually is above 90% on room air Review of Systems Review of Systems: Mild respiratory distress and fatigue no headache, blurry or double vision no speech or swallowing issues no chest pain, pressure or palpitations Slight shortness of breath, nonproductive cough no wheezes no abdominal pain, nausea or vomiting, diarrhea or constipation no dysuria, hematuria or frequency Lateral foot and ankle pain no back pain, CVA tenderness or radicular pain no bruising, bleeding or rashes no focal signs of weakness or numbness or altered sensation no complaints or anxiety or depression. Physical Exam Physical Exam: The patient appeared well nourished and normally developed. Vital signs as documented. Head exam is normocephalic atraumatic no scleral icterus Neck is without JVD, thyromegaly, or carotid bruits. Lungs are clear to auscultation, she has persistent diminished breath sounds at the bases incentive spirometry was reinforced Cardiac exam, Rhythm is regular.. No murmurs, rubs or gallops. Abdominal exam reveals normal bowel sounds, soft non tender, no masses Extremities right lower leg is in a splint in place, left foot with ecchymosis near the fifth metatarsal area Neurologic exam is alert and oriented, no focal loss of strength or sensation Skin is without bruises or rashes Psychologically is without concerns for anxiety or depression Results & Data Results & Data ([facility]) Vital Signs (Past 12 Hours) Vital Signs Temp Pulse Pulse Resp BP Pulse Ox 09/09/19 07:12 64 19 92 09/09/19 07:08 97.7 F 64 16 149/82 H 92 09/09/19 02:43 97.7 F 61 15 117/81 96 09/08/19 23:37 65 12 96 09/08/19 22:53 98.2 F 76 16 134/83 97 09/08/19 20:13 70 134/85 PG Care Time/CCT Total # of Minutes Spent Total Time Spent with Patient: Total time spent is greater than 50% in coordination of care (as documented) at patient's floor/unit and/or counseling patient: Coding Level of Care Code 36289 Subseq Hosp Care Lvl 3 Diagnoses Acute respiratory failure with hypoxia J96.01 Fracture of distal fibula S82.831A Encounter type: initial encounter Fracture morphology: other fracture Fracture type: closed Laterality: right Luo fracture S99.192A Encounter type: initial encounter Fracture type: closed Laterality: left Chronic obstructive pulmonary disease J44.9 HTN (hypertension) I10 Hypertension type: essential hypertension Dyslipidemia E78.5 Depression F33.9 Active/Remission status: remission status unspecified Depression Type: major depressive disorder Major depression recurrence: recurrent Tobacco dependence F17.200 Acute blood loss anemia D62 DVT prophylaxis Z29.9 (1) Fracture of distal fibula Encounter type: initial encounter Fracture morphology: other fracture Fracture type: closed Laterality: right Qualified Code(s): S82.831A - Other fracture of upper and lower end of right fibula, initial encounter for closed fracture (2) Depression Active/Remission status: remission status unspecified Depression Type: major depressive disorder Major depression recurrence: recurrent Qualified Code(s): F33.9 - Major depressive disorder, recurrent, unspecified (3) Luo fracture Encounter type: initial encounter Fracture type: closed Laterality: left Qualified Code(s): S99.192A - Other physeal fracture of left metatarsal, initial encounter for closed fracture (4) HTN (hypertension) Hypertension type: essential hypertension Qualified Code(s): I10 - Essential (primary) hypertension
[2019-09-09] MEDS: VENLAFAXINE HCL XR 75 MG CAPXR PO SCH (08:23)
[2019-09-09] MEDS: FLUTICASONE/VILANTEROL 200/25MCG 14 PUFFS/INHALER INH SCH ×2 (08:23→22:06)
[2019-09-09] MEDS: BuPROPion SR 100 MG TABCR PO SCH (08:23)
[2019-09-09] MEDS: HEPARIN SOD 5,000 UNIT/0.5 ML VIAL SQ SCH ×2 (08:24→22:31)
[2019-09-09] MEDS: METOPROLOL TARTRATE 25 MG TAB PO SCH ×2 (08:24→22:03)
[2019-09-09] MEDS: GABAPENTIN 100 MG CAP PO SCH ×3 (08:24→22:03)
[2019-09-09] MEDS: DOCUSATE SODIUM 100 MG CAP PO SCH ×2 (08:24→21:58)
[2019-09-09] MEDS: MULTIVITAMIN TAB PO SCH (08:24)
[2019-09-09] MEDS: VENLAFAXINE HCL XR 150 MG CAPXR PO SCH (08:24)
[2019-09-09] MEDS: ASPIRIN 81 MG ECTAB PO SCH ×2 (08:30→22:05)
--- NOTE | 2019-09-09 09:47 | Progress Notes ---
DATE: 09/09/2019 SUBJECTIVE: A 59-year-old white female postop day 2 from ORIF of right ankle fracture. She is doing pretty well. Not much pain in bed. Having a little trouble mobilizing. No new complaints. OBJECTIVE: VITAL SIGNS: Temperature 36.5. Vital signs stable. GENERAL: Physical examination shows a pleasant, middle-aged female. She is lying in bed, looks pretty comfortable. EXTREMITIES: Examination of the right leg reveals the splint to be in place. There is no drainage. She can flex and extend her toes appropriately. She is neurologically intact. Examination of the left foot reveals some bruising laterally. No deformity. Some mild tenderness to palpation. She is neurologically intact. LABORATORY DATA: Hemoglobin 10.9. Hematocrit 35.0. Electrolytes are stable. ASSESSMENT: A 59-year-old white female postop day 2 from ORIF of right ankle fracture and conservative care of her fifth metatarsal fracture on the left. She seems to be doing pretty well. Having just difficulty mobilizing which is not unexpected with his bilateral lower extremity injuries. PLAN: 1. DVT prophylaxis include thigh-high TEDs, SCDs, and we would recommend a baby aspirin twice a day for the next 4-6 weeks. 2. PT/OT. Nonweightbearing right side. She can weightbear as tolerated in the left side wearing her boot/shoe. 3. Medical management per the Medicine Service. 4. Disposition: She is orthopedically okay for discharge any time medically stable. I will need to see her back in about 2 weeks out from her surgery date. Any orthopedic questions can be directed to me at [phone]. [facility]
[2019-09-09] MEDS: OXYCODONE HCL IR 5 MG TAB (IMMEDIATE RELEASE) PO PRN ×2 (11:46→19:50)
--- NOTE | 2019-09-09 14:12 | Anesthesiology Progress Note ---
Date of Service September 09, 2019 Anesthesia Post Procedure Vital Signs Vital Signs: Temp Pulse Pulse Pulse Pulse Resp BP 09/09/19 11:33 76 17 09/09/19 07:12 64 19 09/09/19 07:08 36.5 C 64 16 09/09/19 02:43 36.5 C 61 15 09/08/19 23:37 65 12 09/08/19 22:53 36.8 C 76 16 09/08/19 20:13 70 09/08/19 19:11 76 16 09/08/19 16:35 37.0 C 65 18 09/08/19 16:00 75 09/08/19 15:24 37.1 C 71 22 130/79 09/08/19 14:57 72 18 BP Pulse Ox 09/09/19 11:33 96 09/09/19 07:12 92 09/09/19 07:08 149/82 H 92 09/09/19 02:43 117/81 96 09/08/19 23:37 96 09/08/19 22:53 134/83 97 09/08/19 20:13 134/85 09/08/19 19:11 86 L 09/08/19 16:35 130/83 91 09/08/19 16:00 09/08/19 15:24 97 09/08/19 14:57 94 Pain Intensity Left Foot: Pain Intensity: 6 Right Leg: Pain Intensity: 6 Notes Mental Status: alert / awake / arousable and participated in evaluation Nausea / Vomiting: adequately controlled Pain: adequately controlled Airway Patency, RR, SpO2: stable & adequate BP & HR: stable & adequate Hydration State: stable & adequate Anesthetic Complications: no major complications apparent and Pt Satisfied with anesthetic care
[2019-09-09] MEDS ORDERED: FUROSEMIDE 20 MG in SYRINGE 0 ML IV ONE (17:00)
[2019-09-09] MEDS ORDERED: IPRATROPIUM BROMIDE/ALBUTEROL respimat INH INH SCH (17:00)
[2019-09-09] MEDS: IPRATROPIUM BROMIDE HFA INHALER INH SCH (19:11)
[2019-09-09] MEDS: ALBUTEROL HFA 8 GM INHALER INH SCH (19:11)
[2019-09-09] MEDS: SENNA 8.6 MG TAB PO SCH (21:58)
[2019-09-09] MEDS: HYDROmorphone INJ 0.5 MG/0.5 ML SYR IV PRN ×2 (22:01→22:33)
[2019-09-09] MEDS: QUETIAPINE FUMARATE 25 MG TABLET PO SCH (22:04)
[2019-09-09] MEDS: TRAZODONE HCL 50 MG TAB PO SCH (22:09)
[2019-09-10] MEDS: OXYCODONE HCL IR 5 MG TAB (IMMEDIATE RELEASE) PO PRN ×2 (05:09→14:24)
[2019-09-10] MEDS: IPRATROPIUM BROMIDE HFA INHALER INH SCH ×3 (07:17→15:11)
[2019-09-10] MEDS: ALBUTEROL HFA 8 GM INHALER INH SCH ×3 (07:18→15:11)
[2019-09-10] MEDS: DOCUSATE SODIUM 100 MG CAP PO SCH (08:16)
[2019-09-10] MEDS: FLUTICASONE/VILANTEROL 200/25MCG 14 PUFFS/INHALER INH SCH (08:17)
[2019-09-10] MEDS: MULTIVITAMIN TAB PO SCH (08:18)
[2019-09-10] MEDS: METOPROLOL TARTRATE 25 MG TAB PO SCH (08:18)
[2019-09-10] MEDS: HEPARIN SOD 5,000 UNIT/0.5 ML VIAL SQ SCH (08:18)
[2019-09-10] MEDS: GABAPENTIN 100 MG CAP PO SCH ×2 (08:18→14:25)
[2019-09-10] MEDS: BuPROPion SR 100 MG TABCR PO SCH (08:18)
[2019-09-10] MEDS: ASPIRIN 81 MG ECTAB PO SCH (08:18)
[2019-09-10] MEDS: VENLAFAXINE HCL XR 75 MG CAPXR PO SCH (08:18)
[2019-09-10] MEDS: VENLAFAXINE HCL XR 150 MG CAPXR PO SCH (08:18)
[2019-09-10] MEDS: HYDROmorphone INJ 0.5 MG/0.5 ML SYR IV PRN (09:36)
--- NOTE | 2019-09-10 11:16 | XCELERA ---
[id number]___[id number]
--- NOTE | 2019-09-10 13:38 | XRay Report ---
XR chest 2V PA/lateral CLINICAL HISTORY: Hypoxia, ?prior consolidation COMPARISON STUDY: Chest radiograph September 07, 2019. FINDINGS: Cardiomegaly is again noted. No evidence for pulmonary edema. Interstitial thickening is li gilmer chronic. There is underlying emphysema. Bibasilar opacities favor atelectasis. Distal right clav icular resection is noted. IMPRESSION: 1. Bibasilar opacities suggestive of atelectasis. No consolidation to suggest pneumonia. 2. Cardiomegaly without evidence for pulmonary edema. ACT 112: Negative or not required by law. Electronically signed by: Raffi Ham M.D. 09/10/2019 1:36 PM
--- NOTE | 2019-09-10 16:27 | Discharge Summary ---
Date of Service September 10, 2019 Admission HPI Per Admitting Provider This is a pleasant 57 yo female who arrives after sustaining a fall while going to work. 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 Patient reports that she is not quite sure how it happened. She was walking with her spouse in front of her, when she lost her balnce and rolled her left foot inward and then fell. She states her pain in her right foot was actually worse. She had pain in bilateral legs which was severe, sharp and constant, nonradiating. She arrived in the ER via ambulance. She was found to have a right ankle fracture and was placed in a cast, while she also sustained a left foot fracture. Principal Diagnosis Right ankle fracture Discharge Exam Constitutional well developed and well nourished; no acute distress and not ill appearing Respiratory normal respiratory effort; no respiratory distress and no labored breathing Auscultation: + wheezes (Mild end-expiratory wheezes in the right inferior lung field posteriorly) Cardiovascular Rate/Rhythm: regular rate and regular rhythm Heart Sounds: normal S1 and normal S2; no murmur Gastrointestinal (Abdomen) Inspection/Auscultation: abdomen normal to inspection and normal bowel sounds; abdomen not distended Percussion/Palpation: abdomen soft; abdomen nontender Musculoskeletal right ankle in a cast Discharge Data Allergies Allergy/AdvReac Type Severity Reaction Status Date / Time Bactrim Allergy Severe SHORTNESS Verified 08/12/16 15:49 OF BREATH nitrofurantoin Allergy Severe UNABLE TO Verified 09/06/19 13:10 BREATHE sulfamethoxazole Allergy Severe SHORTNESS Verified 09/06/19 13:10 OF BREATH trimethoprim Allergy Severe SHORTNESS Verified 09/06/19 13:10 OF BREATH morphine Allergy Intermediate itching Verified 09/06/19 13:10 Consultations 09/06/19 12:57 ED Decision to Admit Stat 09/06/19 13:32 Consult Case Management - Discharge Planning Routine 09/06/19 17:00 Consult Orthopedic Surgery Routine 09/07/19 19:24 Consult Case Management - Discharge Planning Routine Procedures Performed Operation Date: 09/07/19 07:00 Actual Procedures p Right Ankle Open Reduction Internal Fixation(Right) - Ronaldo Carr MD Ordered Studies 09/07/19 13:00 FL ankle RT min 3V RTN Routine FL fluoroscopy <1hr Routine 09/07/19 14:06 US - OR guided needle placemen Routine Hospital Course (1) Fracture of distal fibula: Distal fibula fracture, Luo fracture Patient was seen after a fall on her way to work during which she fractured her distal fibula as well as a Luo fracture on the right side as well. These were surgically repaired on 09/07/2019. Patient had required supplementary oxygen via nasal cannula before and after her surgery, thought to be secondary to her underlying COPD and some pulmonary edema. She was discharged to rehab on 09/10/2019 with supplementary oxygen. The orthopedic surgeon recommended baby a spirin twice a day for DVT prophylaxis, which the patient was instructed to take until the orthopedic surgeon instructs her to discontinue it. ARF with hypoxia, COPD Patient required supplementary oxygen during her stay as described above. She did not show signs of pneumonia but did have mild pulmonary edema that responded well to lasix administration. She was discharged to a rehab facility with supplementary oxygen. Spiriva was added to her COPD treatment regimen. Before discharge, the patient showed mild/moderate desaturations to the mid-70s when on room air, and so she was sent home on 1L oxygen via NC to use at the rehab facility. We recommended she follow up outpatient to have PFTs performed to further assess the extent of her COPD and to evaluate for any home oxygen requirement. (2) Acute respiratory failure with hypoxia: (3) Luo fracture: (4) Fall: (5) Chronic obstructive pulmonary disease: (6) Cough: (7) Shortness of breath: (8) Leg swelling: Total Time Total Time Spent Total Time Spent (In Minutes): >30 Discharge Plan Discharge Items Patient Disposition: Transfer Half-Way Fac Reason For Visit: RIGHT FIBULAR FRACTURE Discharge Diagnosis: Right Ankle Fracture - S/P ORIF Left Foot Fracture Activity: As commented below Activity Comment: Non-weightbearing right lower extremity. May fully weightbear on left leg Weightbearing: Left weightbearing and Right non-weightbearing Weightbearing Comment: Non-weightbearing on right leg. May fully weightbear on left leg in boot. Non-emergency contact: Primary Care Provider and Surgeon Call non-emergency contact if: you have any medication questions Follow-up/Referrals: Jewell Hernandez MD [Primary Care Provider] - Ronaldo Carr MD [Physician] - (Orthopedic follow-up 2-3 weeks from surgery date.) Diet: Regular Addtl Attending Provider Instructions: You were seen for lower leg pain after a fall, and were found to have a fracture of your right lower leg and left foot. You had surgical repair of the fracture in your right leg on 09/06. Your hospital course was complicated by low oxygen levels requiring oxygen by nasal cannula. This was thought to be versus your underlying COPD versus an accumulation of some fluid within the lungs. You responded well to Lasix and conservative management of your COPD. You have been discharged to rehab. You continued to require oxygen during admission. You did not show signs of pneumonia or severe fluid overload. Your oxygen requirement was thought to be due to your underlying lung condition and COPD. You were discharged with oxygen to be continued at rehab and with PFTs (pulmonary function tests) to be performed as an outpatient. You may require home oxygen in the future, and should have an overnight pulse ox performed at rehab. You have had a COPD inhaler medication started called tiotropium. Please take tiotroprium (Spiriva) two puffs one daily. You have been prescribed a new medication, aspirin, for prevention of blood clots. Please take aspirin 81mg twice a day (one in the morning and once in the evening) for 4 weeks. The orthopedic surgeon will advise you when it is safe to stop this medication. You sustained a Luo fracture, a type of fracture to your left foot. You may bear weight on this foot as tolerated as long as you are wearing a support boot/shoe, and will not require surgery on this foot. You had a low blood count following surgery, but this remained stable afterwards and was not low enough to require treatment or transfusion. You should have an outpatient recheck of your blood count in about 1 week. This will be performed for you at rehab. Per ortho: Keep right leg splint clean and dry. Keep all pressure off left heel. A followup appointment is being scheduled for you with Orthopedics. You should be seen seen in 2 weeks. You should receive a call to confirm this appointment. If you do not receive a call within 48 hours to confirm this appointment, or need to change this appointment, please call the provider's office at . A followup appointment is being scheduled for you with your primary care physician. You should be seen seen within 1 weeks. You should receive a call to confirm this appointment. If you do not receive a call within 48 hours to confirm this appointment, or need to change this appointment, please call the provider's office at [phone]. If you develop any new or worsening symptoms including fever, chills, sweats, chest pain, chest pressure, difficulty breathing, uncontrolled nausea/vomiting, rash, wheezing, passing out or nearly passing out, bleeding, black/bloody bowel movements, or other new or concerning symptoms please call your primary care physician, or call 911 for re-evaluation in the emergency department if you are very concerned. Pending Studies at Discharge: No Stand-Alone Forms: My [facility] Skilled Items Patient informed of condition?: Yes DNR: No Discharge Level of Care: Skilled Communicable Disease: No Discharge Prognosis: Stable Lines: None Urinary Catheter: No Medications and DC Order Prescriptions: New aspirin 81 mg tablet,delayed release (DR/EC) 81 mg PO BID 30 Days Qty: 60 RF: 0 Spiriva with HandiHaler 18 mcg capsule, w/inhalation device 1 cap INH DAILY 30 Days Qty: 30 RF: 0 Continued albuterol sulfate 90 mcg/actuation HFA aerosol inhaler 2 puff INHALATION QID PRN (Reason: Shortness Of Breath Or Wheezing) Qty: 8.5 RF: 6 venlafaxine 75 mg Capsule,Extended Release 24hr 75 mg PO QAM RF: 0 albuterol sulfate 2.5 mg /3 mL (0.083 %) Solution For Nebulization 1 vial INHALATION Q6H PRN (Reason: Shortness Of Breath Or Wheezing) RF: 0 trazodone 50 mg Tablet 50 mg PO HS RF: 0 venlafaxine 150 mg Capsule,Extended Release 24hr 300 mg PO QAM RF: 0 metoprolol tartrate 25 mg Tablet 25 mg PO BID RF: 0 gabapentin 100 mg Capsule 100 mg PO TID RF: 0 quetiapine 300 mg tablet 150 mg PO HS RF: 0 quetiapine 50 mg tablet 25 mg PO DAILY PRN (Reason: Anxiety) RF: 0 bupropion HCl [Wellbutrin SR] 100 mg Tablet Sustained-Release 12 Hr 100 mg PO QAM RF: 0 Breo Ellipta 200-25 mcg/dose blister with device 1 puffs INH BID RF: 0 Discharge Orders: Discharge Order (Routine); Ordered 09/10/19 Ordered By: Scott Reagan/Other Patient Handouts: Falls Risks Prevent Admission Data Admit Date/Time: 09/06/19 13:30 Attending Provider: Jonathan Miller Admit Provider: Ronaldo Carr Primary Care Provider: Jewell Hernandez Other Providers: Denton Burris ; Tristan Otto ; Ronaldo Carr ; [facility], ; Elsa Stein at [place] Other Interventions: Discharge Summary Assessment (RN) Last Done: 09/10/19 14:48 DC Date/Time DO NOT enter until pt leaves facility: 09/10/19 16:59 Supervising Physician Co-Signing Physician Notes I personally examined the patient and verified all fang points of history and exam, discussed case, and agree with decision making with Dr Kim. feeling better - well enough for rehab. wants to go. notes that she really didn't feel sob w low pulse ox's. has smoked for quite a while. vitals noted nad heent nc at mmm breathing unlabored no accessory muscles good effort skin no rashes no pallor or icterus neuro no focal deficits possibly osteoporotic fracture of fibula - stable post op for rehab. outpt bone health eval/management possible chronic respiratory failure - acute respiratory insufficiency post op but also clinically strongly suspicious there is a degree of chronicity to this - as she had hypoxia disproportionate to the severity of respiratory illness identified (HFpEF) and has a significant smoking hx to raise suspicion of occult COPD - further she did NOT appear appropriatley dyspneic when her O2 sats were in the 80s and lower, suggesting a degree of symptomatic acclimation to hypoxia - all d/w pt. manage as COPD w triple inhaler therapy, O2 supplemental care, PFTs in a few weeks (once she's upright and stronger so there is less of an acute weakness clouding the volumes). highly doubt PE as never tachycardic even when hypoxic, and other probable explanations (HFpEF and presumed COPD) - doubt needs ongoing diuresis although follow clinically. otherwise as above Resident Activity Tracking Resident Involvement: Resident Care Provided Care Provided: Adult Hospital Medicine
--- NOTE | 2019-09-10 19:35 | Billing Data ---
Date of Service September 10, 2019 Coding Level of Care Code D/C Day Management >30 mins
== END 2019-09-10 16:59 | DRG 492 ==
LOC: ED 09:56 → SUATTDRO 13:30 → 3N 13:30 → 2E 09-07 16:41 → 3E 09-08 15:14

== ENCOUNTER 2020-03-11 14:41 | Inpatient (IN) ==
[2020-03-11] MEDS ORDERED: ONDANSETRON INJ 2 MG/ML 2 ML VIAL IV STA (15:08)
[2020-03-11] MEDS ORDERED: HYDROmorphone INJ 0.5 MG/0.5 ML SYR IV STA (15:08)
[2020-03-11] MEDS ORDERED: SODIUM CHLORIDE 0.9% 1000ML 1,000 ML IV ONE (15:08)
--- NOTE | 2020-03-11 15:19 | Emergency Department Note ---
History of Present Illness General Chief Complaint: Illness Stated Complaint: CHILLS, FEVER, ABDOMINAL PAIN Time Seen by Provider: 03/11/20 14:54 Source: patient Mode of arrival: ambulatory Limitations: no limitations History of Present Illness Provider Complaint: abdominal pain Onset (ago): 10 hour(s) Pain Consistency: intermittent Location: epigastric Radiation: RUQ and back (right shoulder blade) Migration to: no migration Severity: severe Maximum Pain Intensity: 6 Current Pain Intensity: 6 Quality: + stabbing and + sharp Relieved By: + nothing Exacerbated By: + nothing Associated Symptoms: + nausea and + chills Treatments prior to arrival: none This 60-year-old female patient presents to the emergency department today for evaluation of epigastric pain, nausea, and chills which began at 4 AM. The patient states she awoke this morning with sudden onset of pain. She has not been able to eat or drink anything due to the pain and associated nausea. She denies any fever but states she had chills which lasted approximately 1 hour. Patient states her grandchildren who live with her are currently on quarantine though asymptomatic for possible COVID-19 exposure at school. She denies any direct exposures or exposures to symptomatic people. The patient states earlier in the afternoon, she was experiencing some shortness of breath and wheezing, not unlike her history of COPD. She used a nebulizer treatment and felt much better. The patient has been using her albuterol inhaler with some relief. She denies any coughing. No lower abdominal pain. No dysuria, urinary frequency, urinary hesitancy. No flank pain. The pain in the epigastrium does occasionally radiate into the right shoulder. No chest pain. No new or significant leg swelling. Home Medications Medication Instructions Recorded Confirmed Type albuterol sulfate 1 vial INHALATION Q6H PRN 12/03/17 03/11/20 History trazodone 50 mg PO HS 12/03/17 03/11/20 History venlafaxine 75 mg PO QAM 12/03/17 03/11/20 History venlafaxine 300 mg PO QAM 12/03/17 03/11/20 History gabapentin 200 mg PO HS 03/26/18 03/11/20 History quetiapine 25 mg PO DAILY PRN 08/22/18 03/11/20 History quetiapine 150 mg PO HS 08/22/18 03/11/20 History bupropion HCl [Wellbutrin SR] 100 mg PO QAM 02/12/19 03/11/20 History albuterol sulfate 90 mcg/actuation 2 puff INHALATION QID PRN #8.5 gm 10/08/19 03/11/20 Rx aerosol inhaler fluticasone propionate 230 2 puff INHALATION BID #12 g 10/08/19 03/11/20 Rx mcg-salmeterol 21 mcg/actuation HFA inhaler aspirin [Aspir-Low] 81 mg PO QAM 01/10/20 03/11/20 History metoprolol tartrate 25 mg tablet 25 mg PO BID #180 tab 01/14/20 03/11/20 Rx cefdinir 300 mg PO BID 7 Days #14 cap 03/11/20 Rx Allergies Allergy/AdvReac Type Severity Reaction Status Date / Time Bactrim Allergy Severe SHORTNESS Verified 08/12/16 15:49 OF BREATH nitrofurantoin Allergy Severe UNABLE TO Verified 03/11/20 19:24 BREATHE sulfamethoxazole Allergy Severe SHORTNESS Verified 03/11/20 19:24 OF BREATH trimethoprim Allergy Severe SHORTNESS Verified 03/11/20 19:24 OF BREATH morphine Allergy Intermediate itching Verified 03/11/20 19:24 Past Med/Surg History Medical History Anxiety and depression Chronic obstructive pulmonary disease LAST USED RESCUE INHALER 3 DAYS AGO Dyslipidemia Emphysema GERD (gastroesophageal reflux disease) Glaucoma H/o Lyme disease H/O subacute thyroiditis RESOLVED HTN (hypertension) Hx of migraines DAYA (obstructive sleep apnea) NON-COMPLIANT WITH CPAP Rotator cuff insufficiency of right shoulder Rotator cuff syndrome of left shoulder Surgical History H/O section X 1 H/O cystoscopy History of colonoscopy "07/11/14- diverticulosis" History of esophagogastroduodenoscopy "07/11/14- small hiatal hernia, normal bx" History of foot fracture History of tooth extraction S/P partial hysterectomy S/P right rotator cuff repair S/P sinus surgery S/P tonsillectomy and adenoidectomy S/P tubal ligation Status post Cindy fundoplication THEN REVERSED Family History Father Myocardial infarction Sister Diabetes Dementia Breast cancer Brother Prostate cancer Dementia Parkinson disease Mother Stroke Other Cancer No family history of adverse response to anesthesia Denies family history of Ovarian cancer Crohn's disease Colorectal cancer Social History Smoking Status: Current every day smoker Tobacco Type: Cigarettes packs per day: 0.5; Cigarettes Per Day: 1/2 ppd; Second Hand Exposure: Yes; Hx Alcohol Use: Yes Alcohol type: beer, wine and hard liquor Hx Substance Use: No Preferred Language: [place] Communication Ability: Effective Visual Impairment: No Limitations Hearing Ability: Normal Photographic Process Attendant Required: No Beliefs That Will Affect Care: None marital status: Current Living Situation: Spouse and Family Current Living Situation Comment: spouse, daughter, grandchildren current occupational status: disabled Feels Safe at Home: Yes Dental Care, Regularly: No Physical Activity Frequency: 1-2 Times per Week Physical Activity Frequency Comment: physical therapy Seatbelt Use: always Assistive Devices: Glasses Review of Systems A total of 10 systems reviewed and were otherwise negative Physical Exam Vital Signs: Vital Signs - 24 hr 03/11/20 14:43 03/11/20 16:10 03/11/20 16:30 Temperature 36.5 C Temperature Source Temporal Artery Sc an Pulse Rate 87 80 Pulse Rate [Apical ] 77 Pulse Rate from Sp O2 Sensor 79 Respiratory Rate 18 18 14 Respiratory Effort / Characteristics Non-Labored Respiratory Depth Normal Respiratory Patter n Regular Blood Pressure 140/74 147/75 H Blood Pressure [Le ft Arm] 141/25 H Blood Pressure Tabby n 96 105 Blood Pressure Tabby n [Left Arm] 63 Blood Pressure Pos ition Sitting Pulse Oximetry 94 94 Oxygen Delivery Me thod Room Air Room Air Oxygen Flow Rate Sepsis Recent Feve r Within 48 Hours No Sepsis New/Unexpla ined Change in Men david Status No Sepsis Action Take n by Nursing No Action Required 03/11/20 16:36 03/11/20 16:40 03/11/20 16:50 Temperature Temperature Source Pulse Rate 79 80 77 Pulse Rate [Apical ] Pulse Rate from Sp O2 Sensor 79 79 78 Respiratory Rate 17 16 22 Respiratory Effort / Characteristics Respiratory Depth Respiratory Patter n Blood Pressure Blood Pressure [Le ft Arm] Blood Pressure Tabby n Blood Pressure Tabby n [Left Arm] Blood Pressure Pos ition Pulse Oximetry Oxygen Delivery Me thod Oxygen Flow Rate Sepsis Recent Feve r Within 48 Hours Sepsis New/Unexpla ined Change in Men david Status Sepsis Action Take n by Nursing 03/11/20 16:58 03/11/20 17:00 03/11/20 17:10 Temperature Temperature Source Pulse Rate 75 75 Pulse Rate [Apical ] 84 Pulse Rate from Sp O2 Sensor 75 75 Respiratory Rate 20 12 12 Respiratory Effort / Characteristics Respiratory Depth Respiratory Patter n Blood Pressure 138/72 Blood Pressure [Le ft Arm] 147/75 H Blood Pressure Tabby n 103 Blood Pressure Tabby n [Left Arm] 99 Blood Pressure Pos ition Pulse Oximetry 92 Oxygen Delivery Me thod Oxygen Flow Rate Sepsis Recent Feve r Within 48 Hours Sepsis New/Unexpla ined Change in Men david Status Sepsis Action Take n by Nursing 03/11/20 17:20 03/11/20 17:31 03/11/20 17:39 Temperature Temperature Source Pulse Rate 78 80 Pulse Rate [Apical ] Pulse Rate from Sp O2 Sensor Respiratory Rate Respiratory Effort / Characteristics Respiratory Depth Respiratory Patter n Blood Pressure 145/85 H Blood Pressure [Le ft Arm] Blood Pressure Tabby n 100 Blood Pressure Tabby n [Left Arm] Blood Pressure Pos ition Pulse Oximetry Oxygen Delivery Me thod Oxygen Flow Rate Sepsis Recent Feve r Within 48 Hours Sepsis New/Unexpla ined Change in Men david Status Sepsis Action Take n by Nursing 03/11/20 17:40 03/11/20 17:50 03/11/20 18:00 Temperature Temperature Source Pulse Rate 82 82 79 Pulse Rate [Apical ] Pulse Rate from Sp O2 Sensor Respiratory Rate Respiratory Effort / Characteristics Respiratory Depth Respiratory Patter n Blood Pressure Blood Pressure [Le ft Arm] Blood Pressure Tabby n Blood Pressure Tabby n [Left Arm] Blood Pressure Pos ition Pulse Oximetry Oxygen Delivery Me thod Oxygen Flow Rate Sepsis Recent Feve r Within 48 Hours Sepsis New/Unexpla ined Change in Men david Status Sepsis Action Take n by Nursing 03/11/20 18:01 03/11/20 18:10 03/11/20 18:20 Temperature Temperature Source Pulse Rate 75 78 80 Pulse Rate [Apical ] Pulse Rate from Sp O2 Sensor Respiratory Rate Respiratory Effort / Characteristics Respiratory Depth Respiratory Patter n Blood Pressure Blood Pressure [Le ft Arm] Blood Pressure Tabby n 198 Blood Pressure Tabby n [Left Arm] Blood Pressure Pos ition Pulse Oximetry 90 Oxygen Delivery Me thod Oxygen Flow Rate Sepsis Recent Feve r Within 48 Hours Sepsis New/Unexpla ined Change in Men david Status Sepsis Action Take n by Nursing 03/11/20 18:30 03/11/20 18:39 03/11/20 18:41 Temperature Temperature Source Pulse Rate 84 79 79 Pulse Rate [Apical ] Pulse Rate from Sp O2 Sensor 80 81 Respiratory Rate 14 11 L 13 Respiratory Effort / Characteristics Respiratory Depth Respiratory Patter n Blood Pressure 142/67 H Blood Pressure [Le ft Arm] Blood Pressure Tabby n 85 Blood Pressure Tabby n [Left Arm] Blood Pressure Pos ition Pulse Oximetry 98 97 Oxygen Delivery Me thod Oxygen Flow Rate Sepsis Recent Feve r Within 48 Hours Sepsis New/Unexpla ined Change in Men david Status Sepsis Action Take n by Nursing 03/11/20 18:50 03/11/20 19:00 03/11/20 19:10 Temperature Temperature Source Pulse Rate 82 79 86 Pulse Rate [Apical ] Pulse Rate from Sp O2 Sensor 82 79 79 Respiratory Rate 17 17 24 Respiratory Effort / Characteristics Respiratory Depth Respiratory Patter n Blood Pressure 150/86 H Blood Pressure [Le ft Arm] Blood Pressure Tabby n 125 Blood Pressure Tabby n [Left Arm] Blood Pressure Pos ition Pulse Oximetry 97 96 95 Oxygen Delivery Me thod Oxygen Flow Rate Sepsis Recent Feve r Within 48 Hours Sepsis New/Unexpla ined Change in Men david Status Sepsis Action Take n by Nursing 03/11/20 19:30 Temperature Temperature Source Pulse Rate 79 Pulse Rate [Apical ] Pulse Rate from Sp O2 Sensor 80 Respiratory Rate 15 Respiratory Effort / Characteristics Respiratory Depth Respiratory Patter n Blood Pressure 146/89 H Blood Pressure [Le ft Arm] Blood Pressure Tabby n 113 Blood Pressure Tabby n [Left Arm] Blood Pressure Pos ition Pulse Oximetry 97 Oxygen Delivery Me thod Nasal Cannula Oxygen Flow Rate 2 Sepsis Recent Feve r Within 48 Hours Sepsis New/Unexpla ined Change in Men david Status Sepsis Action Take n by Nursing Physical Exam: VITALS: Vitals are noted on the nurse's note and reviewed by my self. Vital signs stable. GENERAL: This is a 60-year-old white female, in no acute distress, nondia phoretic, well-developed well-nourished. SKIN: The skin was without rashes, erythema, edema, or bruising. There is no tenting of the skin. Capillary refill less than 2 seconds. HEAD: Normocephalic atraumatic. EARS: External auditory canals clear, tympanic membranes pearly franklin without erythema or effusion bilaterally. EYES: Conjunctivae without injection, sclerae without icterus. NOSE: Patent, turbinates without inflammation or discharge. No sinus tenderness. MOUTH: Mucous membranes moist. Tonsils are not enlarged. Pharynx without erythema or exudate. Uvula midline. Airway patent. Tongue does not deviate. NECK: Supple without nuchal rigidity. No lymphadenopathy. No thyromegaly. Cervical spine is nontender. No JVD. HEART: Regular rate and rhythm without murmurs gallops or rubs. LUNGS: Clear to auscultation bilaterally without wheezes, rales or rhonchi. No retractions or accessory muscle use. ABDOMEN: Positive bowel sounds x 4. Epigastric and RUQ tenderness to palpation. Abdomen otherwise soft, nontender, without masses or organomegaly. Awan sign positive. No guarding or rebound tenderness. MUSCULOSKELETAL: No muscle atrophy, erythema, or edema noted. Full range of motion without joint tenderness in all extremities. No tenderness to palpation. Normal gait. Strength 5/5 throughout. NEURO: Patient was alert and oriented to person place and time. No focal n eurological deficits. Course Course The patient was seen and evaluated as above. An order was placed for continuous cardiac monitoring. The monitor shows a normal sinus rhythm at a rate of 86 bpm. IV access obtained, labs drawn. Patient medicated with IV fluids, Zofran, Dilaudid. Imaging performed and reviewed by myself and radiologist as noted. Labs reviewed by myself. Patient medicated with IV Rocephin and p.o. doxycycline. She was given IV acetaminophen for pain. I discussed the findings with the patient at bedside. After discussing recommendations for discharge and outpatient treatment, the patient ambulated to the bathroom and O2 saturation decreased to 81% on room air. I did reevaluate the patient and recommended admission for hypoxia and pneumonia. The patient was agreeable. I spoke with the manager systems. The patient will be admitted to the [facility] hospital[facility] service. Administered Medications Acetaminophen (Acetaminophen 325 Mg Tab) 650 mg PO Q4H PRN PRN Reason: Pain or Fever Stop: 04/10/20 21:31 Last Admin: 03/12/20 09:25 Dose: 650 mg Documented by: [id number] Albuterol (Albut/Ipratrop 3mg/0.5mg Neb 3 Ml Vial) 3 ml NEB QIDR [facility] Stop: 04/11/20 06:59 Last Admin: 03/12/20 11:00 Dose: 3 ml Documented by: [id number] Admin: 03/12/20 07:12 Dose: 3 ml Documented by: [id number] Aspirin (Aspirin 81 Mg Ectab) 81 mg PO QAM [facility] Stop: 04/11/20 08:59 Last Admin: 03/12/20 09:26 Dose: 81 mg Documented by: [id number] Bupropion HCl (Bupropion Sr 100 Mg Tabcr) 100 mg PO QAM [facility] Stop: 04/11/20 08:59 Last Admin: 03/12/20 09:27 Dose: 100 mg Documented by: [id number] Gabapentin (Gabapentin 100 Mg Cap) 200 mg PO HS [facility] Stop: 04/10/20 21:31 Last Admin: 03/11/20 22:34 Dose: 200 mg Documented by: [id number] Guaifenesin (Guaifenesin 600 Mg Tabcr) 600 mg PO Q12 [facility] Stop: 04/10/20 21:31 Last Admin: 03/12/20 09:27 Dose: 600 mg Documented by: [id number] Admin: 03/11/20 22:35 Dose: 600 mg Documented by: [id number] Heparin Sodium (Porcine) (Heparin Sod 5,000 Unit/0.5 Ml Vial) 7,500 units SQ Q8 [facility] Stop: 04/10/20 21:59 Last Admin: 03/12/20 06:18 Dose: 7,500 units Documented by: [id number] Admin: 03/11/20 22:36 Dose: 7,500 units Documented by: [id number] Levofloxacin/Dextrose (Levaquin/D5w) 750 mg in 150 mls @ 100 mls/hr IV Q24H [facility] Stop: 03/18/20 21:59 Last Infusion: 03/12/20 01:33 Dose: 0 mls/hr Documented by: [id number] Admin: 03/11/20 22:36 Dose: 100 mls/hr Documented by: [id number] Ketorolac Tromethamine (Ketorolac Tromethamine 15 Mg/Ml Vial) 15 mg IV Q6H PRN PRN Reason: Severe Pain Stop: 03/16/20 21:31 Last Admin: 03/11/20 21:52 Dose: 15 mg Documented by: [id number] Metoprolol Tartrate (Metoprolol Tartrate 25 Mg Tab) 25 mg PO BID [facility] Stop: 04/10/20 21:31 Last Admin: 03/12/20 09:27 Dose: 25 mg Documented by: [id number] Admin: 03/11/20 22:35 Dose: 25 mg Documented by: [id number] Quetiapine Fumarate (Quetiapine Fumarate 25 Mg Tablet) 25 mg PO DAILY PRN PRN Reason: Anxiety Stop: 04/10/20 21:31 Last Admin: 03/11/20 22:35 Dose: 25 mg Documented by: [id number] Quetiapine Fumarate (Quetiapine Fumarate 100 Mg Tablet) 150 mg PO [facility] Stop: 04/10/20 21:31 Last Admin: 03/11/20 22:35 Dose: 150 mg Documented by: [id number] Tramadol HCl (Tramadol Hcl 50 Mg Tablet) 50 mg PO Q4H PRN PRN Reason: Moderate Pain Stop: 04/10/20 21:31 Last Admin: 03/12/20 10:22 Dose: 50 mg Documented by: [id number] Trazodone HCl (Trazodone Hcl 50 Mg Tab) 50 mg PO [facility] Stop: 04/10/20 21:31 Last Admin: 03/11/20 22:36 Dose: 50 mg Documented by: [id number] Venlafaxine HCl (Venlafaxine Hcl Xr 75 Mg Capxr) 75 mg PO [facility] Stop: 04/11/20 08:59 Last Admin: 03/12/20 09:26 Dose: 75 mg Documented by: [id number] Venlafaxine HCl (Venlafaxine Hcl Xr 150 Mg Capxr) 300 mg PO [facility] Stop: 04/11/20 08:59 Last Admin: 03/12/20 09:26 Dose: 300 mg Documented by: [id number] Discontinued Medications Acetaminophen (Acetaminophen 1000 Mg/100 Ml Iv) 1,000 mg IV NOW STA Stop: 03/11/20 18:08 Last Admin: 03/11/20 18:16 Dose: 1,000 mg Documented by: [id number] Doxycycline Hyclate (Doxycycline Hyclate 100 Mg Cap) 100 mg PO NOW STA Stop: 03/11/20 19:06 Last Admin: 03/11/20 19:34 Dose: 100 mg Documented by: [id number] Hydromorphone HCl (Hydromorphone Inj 0.5 Mg/0.5 Ml Syr) 0.5 mg IV NOW STA Stop: 03/11/20 15:09 Last Admin: 03/11/20 16:03 Dose: 0.5 mg Documented by: [id number] Sodium Chloride (Nss 1000ml) 1,000 mls @ 999 mls/hr IV .Q1H1M ONE Stop: 03/11/20 16:08 Last Infusion: 03/11/20 19:24 Dose: 0 mls/hr Documented by: [id number] Admin: 03/11/20 16:04 Dose: 999 mls/hr Documented by: [id number] Ceftriaxone Sodium (Rocephin) 2,000 mg in 70 mls @ 140 mls/hr IV NOW STA Stop: 03/11/20 18:01 Last Infusion: 03/11/20 19:24 Dose: 0 mls/hr Documented by: [id number] Admin: 03/11/20 18:07 Dose: 140 mls/hr Documented by: [id number] Methylprednisolone 40 mg/ (Syringe) 0.64 mls @ 1.5 mls/min IV Q8H [facility] Stop: 04/10/20 21:59 Last Admin: 03/12/20 06:17 Dose: 1.5 mls/min Documented by: [id number] Admin: 03/11/20 22:36 Dose: 1.5 mls/min Documented by: [id number] Ondansetron HCl (Ondansetron Inj 2 Mg/Ml 2 Ml Vial) 4 mg IV NOW STA Stop: 03/11/20 15:09 Last Admin: 03/11/20 16:04 Dose: 4 mg Documented by: [id number] Medical Decision Making Differential Diagnosis + peptic ulcer disease, + biliary pathology, + UTI, + obstruction, + mesenteric ischemia, + aortic pathology, + infections, + inflammatory bowel disease, + renal colic, + ectopic (female), + ovarian torsion (female), + tubo- ovarian abscesses (female), + pelvic inflammatory disease (female), + abdominal pain, + appendicitis, + calculus of kidney, + constipation, + diverticulitis, + endometriosis, + gastroenteritis, + pancreatitis and + small bowel obstruction Medical Records Attestation: I reviewed the patient's medical records. Home Medications Current Medication List: was personally reviewed by Laboratory Data Attestation: I reviewed the patient's lab results. Leukocytosis of 16,000. No anemia, thrombocytopenia. Renal, hepatic function, and electrolytes without significant abnormality. Coags normal. Troponin negative. Lipase 117. Urinalysis appears contaminated but no clear evidence of infection. Covid-19, RSV, influenza testing negative. Result diagrams: 03/11/20 16:00 03/11/20 16:00 Lab Results 03/11/20 03/11/20 03/11/20 Range/Units 16:00 16:00 16:00 WBC 16.77 H (4.8-10.8) K/uL RBC 3.91 L (4.2-5.4) M/uL Hgb 12.4 (12.0-16.0) g/dL Hct 37.2 (37-47) % MCV 95.1 (80-100) fL MCH 31.7 (25-34) pg MCHC 33.3 (32-36) g/dL RDW Std Deviation 49.4 H (36.4-46.3) fL RDW Coeff of Roseanna 14.4 (11.5-14.5) % Plt Count 301 (130-400) K/uL MPV 9.7 (7.4-10.4) fL Immature Gran % (Auto) 0.3 % Neut % (Auto) 83.3 % Lymph % (Auto) 11.6 % [place] % (Auto) 4.5 % Eos % (Auto) 0.1 % Baso % (Auto) 0.2 % Neut # (Auto) 13.97 H (1.4-6.5) K/uL Lymph # (Auto) 1.94 (1.2-3.4) K/uL [place] # (Auto) 0.76 H (0.11-0.59) K/uL Eos # (Auto) 0.02 (0-0.5) K/uL Baso # (Auto) 0.03 (0-0.2) K/uL Immature Gran # (Auto) 0.05 H (0.00-0.02) K/uL PT 11.0 (9.0-12.0) Seconds INR 1.0 (0.9-1.1) APTT 27.8 (21.0-31.0) Seconds PTT Ratio 1.0 Sodium 139 (136-145) mmol/L Potassium 4.1 (3.5-5.1) mmol/L Chloride 105 (98-107) mmol/L Carbon Dioxide 28 (21-32) mmol/L Anion Gap 6.0 (3-11) BUN 16 (7-18) mg/dl Creatinine 0.62 (0.6-1.2) mg/dl Est Cr Clr Drug Dosing 120.3 ml/min Est GFR ( Amer) 114.4 Est GFR (Non-Af Amer) 98.7 BUN/Creatinine Ratio 24.9 H (10-20) Glucose 76 (70-99) mg/dl Calcium 8.8 (8.5-10.1) mg/dl Total Bilirubin 0.5 (0.2-1) mg/dl AST 12 L (15-37) U/L ALT 23 (12-78) U/L Alkaline Phosphatase 119 H (45-117) U/L Troponin I < 0.015 (0-0.045) ng/ml Total Protein 7.2 (6.4-8.2) gm/dl Albumin 3.1 L (3.4-5.0) gm/dl Globulin 4.1 H (2.5-4.0) gm/dl Albumin/Globulin Ratio 0.8 L (0.9-2) Lipase 117 (73-393) U/L Urine Color Urine Appearance (Clear) Urine pH (4.5-7.5) Ur Specific [place] (1.000-1.030) Urine Protein (Negative) Urine Glucose (UA) (Negative) Urine Ketones (Negative) Urine Blood (Negative) Urine Nitrite (Negative) Urine Bilirubin (Negative) Urine Urobilinogen (Negative) Ur Leukocyte Esterase (Negative) Urine WBC (Auto) (0-5) /hpf Urine RBC (Auto) (0-4) /hpf U Hyaline Cast (Auto) (0-5) /lpf U Epithel Cells (Auto) (0-5) /lpf Urine Bacteria (Auto) (Negative) COVID-19 Eval Order SARS-CoV-2 (PCR) (Negative) Influenza Type A (PCR) (Neg) Influenza Type B (PCR) (Neg) RSV (RT-PCR) (Neg) 03/11/20 03/11/20 03/11/20 Range/Units 16:00 17:20 17:20 WBC (4.8-10.8) K/uL RBC (4.2-5.4) M/uL Hgb (12.0-16.0) g/dL Hct (37-47) % MCV (80-100) fL MCH (25-34) pg MCHC (32-36) g/dL RDW Std Deviation (36.4-46.3) fL RDW Coeff of Roseanna (11.5-14.5) % Plt Count (130-400) K/uL MPV (7.4-10.4) fL Immature Gran % (Auto) % Neut % (Auto) % Lymph % (Auto) % [place] % (Auto) % Eos % (Auto) % Baso % (Auto) % Neut # (Auto) (1.4-6.5) K/uL Lymph # (Auto) (1.2-3.4) K/uL [place] # (Auto) (0.11-0.59) K/uL Eos # (Auto) (0-0.5) K/uL Baso # (Auto) (0-0.2) K/uL Immature Gran # (Auto) (0.00-0.02) K/uL PT (9.0-12.0) Seconds INR (0.9-1.1) APTT (21.0-31.0) Seconds PTT Ratio Sodium (136-145) mmol/L Potassium (3.5-5.1) mmol/L Chloride (98-107) mmol/L Carbon Dioxide (21-32) mmol/L Anion Gap (3-11) BUN (7-18) mg/dl Creatinine (0.6-1.2) mg/dl Est Cr Clr Drug Dosing ml/min Est GFR ( Amer) Est GFR (Non-Af Amer) BUN/Creatinine Ratio (10-20) Glucose (70-99) mg/dl Calcium (8.5-10.1) mg/dl Total Bilirubin (0.2-1) mg/dl AST (15-37) U/L ALT (12-78) U/L Alkaline Phosphatase (45-117) U/L Troponin I (0-0.045) ng/ml Total Protein (6.4-8.2) gm/dl Albumin (3.4-5.0) gm/dl Globulin (2.5-4.0) gm/dl Albumin/Globulin Ratio (0.9-2) Lipase (73-393) U/L Urine Color Dark Yellow Urine Appearance Clear (Clear) Urine pH >= 9.0 H (4.5-7.5) Ur Specific [place] 1.022 (1.000-1.030) Urine Protein Trace H (Negative) Urine Glucose (UA) Negative (Negative) Urine Ketones Negative (Negative) Urine Blood Trace H (Negative) Urine Nitrite Negative (Negative) Urine Bilirubin Negative (Negative) Urine Urobilinogen Negative (Negative) Ur Leukocyte Esterase Trace H (Negative) Urine WBC (Auto) 10-30 H (0-5) /hpf Urine RBC (Auto) 5-10 H (0-4) /hpf U Hyaline Cast (Auto) 1-5 (0-5) /lpf U Epithel Cells (Auto) >30 H (0-5) /lpf Urine Bacteria (Auto) Negative (Negative) COVID-19 Eval Order CovFluRsv at [facility] SARS-CoV-2 (PCR) NEGATIVE (Negative) Influenza Type A (PCR) Negative (Neg) Influenza Type B (PCR) Negative (Neg) RSV (RT-PCR) Negative (Neg) Imaging Data Radiologist's Impression: XR chest 1V portable HISTORY: 60 years-old Female epigastric pain acute epigastric abdominal pain COMPARISON: Chest radiograph and CTA chest 01/10/2020 TECHNIQUE: Portable AP view of the chest FINDINGS: The cardiac mediastinal and hilar silhouettes are unchanged. Calcified plaque of the thoracic aorta. Mildly progressed interstitial coarsening. Patchy right lung base airspace opacities. Degenerative changes of the shoulders and spine. IMPRESSION: Interstitial coarsening with right lung base airspace opacities s uggestive of pneumonia versus aspiration pneumonitis. ACT 112: Negative or not required by law. The above report was generated using voice recognition software. It may contain grammatical, syntax or spelling errors. Electronically signed by: Star Lucero M.D. 03/11/2020 3:43 PM BILIARY ULTRASOUND CLINICAL HISTORY: Right upper quadrant abdominal pain COMPARISON STUDY: CT scan dated 12/14/2018 FINDINGS: The visualized portions the pancreas appeared normal. The distal body and tail were obscured. No focal hepatic masses were visualized. There is no ductal dilatation. The gallbladder appears sonographically normal. There is no ductal dilatation. The common bile duct measures 5 mm. There is no hydronephrosis. IMPRESSION: 1. Ultrasonographically normal gallbladder. No ductal dilatation. ACT 112: Negative or not required by law. Electronically signed by: Junior Gan M.D. 03/11/2020 5:20 PM ECG Data Attestation: I personally reviewed and interpreted this ECG as follows: Indication: abdominal pain Rate (beats per minute): 75 Rhythm: normal sinus Findings: no ST depression, no T-wave inversion, no ST elevation, no acute ischemic change and no ectopy Comparison ECG Date: from (01/10/2020) Change: no significant change Blood Pressure Blood Pressure Findings: Elevated blood pressure Blood Pressure Disposition: elevated BP felt to be situational MDM Narrative This 60-year-old female patient presents to the emergency department today for evaluation of epigastric pain radiating to the right scapula, nausea, shortness of breath earlier this afternoon which responded nicely to inhaler nebulizer treatment, and chills this morning. Patient is afebrile. She is satting greater than 94% on room air throughout the majority of her emergency department stay. Labs with a leukocytosis of 16,000. Chest x-ray consistent with a right lower lobe pneumonia. Ultrasound of the right upper quadrant without any evidence of acute cholecystitis. Symptoms likely associated with the pneumonia noted on chest x-ray. COVID-19, RSV, influenza testing negative. We did discuss discharge, but the patient ambulated to the bathroom and O2 saturation on room air decreased to 81% with increased work of breathing. Patient was kavitha cornelia with antibiotics. I did recommend admission due to the hypoxia from the pneumonia. The patient will be admitted to the [facility] hospitalist service. Please see hospitalist dictation regarding ongoing management and care of this patient. The chart was completed utilizing [employer] Speech voice recognition software. Grammatical errors, random word insertions, pronoun errors, and incomplete sen tences are an occasional consequence of this system due to software limitations, ambient noise, and hardware issues. Any formal questions or concerns about the content, text, or information contained within the body of this dictation should be directly addressed to the provider for clarification. Impression & Plan Right lower lobe pneumonia, Acute epigastric pain, Nausea, Chills, Hypoxia Discharge Plan Visit Data Chief Complaint: Illness Stated Complaint: CHILLS, FEVER, ABDOMINAL PAIN ED Provider: Sidney Salmeron ED Midlevel Provider: Adriana Mcgovern Discharge Problem: Right lower lobe pneumonia, Acute epigastric pain, Nausea, Chills, Hypoxia Patient Disposition: Admitted As Inpatient Condition: Good Discharge Instructions Interventions: ED Discharge Assessment Last Done: 03/11/20 21:07 Discharge Problem: Right lower lobe pneumonia Qualifiers: Pneumonia type: due to unspecified organism Qualified Code(s): J18.9 - Pneumonia, unspecified organism
--- NOTE | 2020-03-11 15:44 | XRay Report ---
XR chest 1V portable HISTORY: 60 years-old Female epigastric pain acute epigastric abdominal pain COMPARISON: Chest radiograph and CTA chest 01/10/2020 TECHNIQUE: Portable AP view of the chest FINDINGS: The cardiac mediastinal and hilar silhouettes are unchanged. Calcified plaque of the thoracic aorta. Mildly progressed interstitial coarsening. Patchy right lung base airspace opacities. Degenerative ch anges of the shoulders and spine. IMPRESSION: Interstitial coarsening with right lung base airspace opacities suggestive of pneumonia v ersus aspiration pneumonitis. ACT 112: Negative or not required by law. The above report was generated using voice recognition software. It may contain grammatical, syntax o r spelling errors. Electronically signed by: Star Lucero M.D. 03/11/2020 3:43 PM
[2020-03-11 16:23] LABS: Basophils # (auto) 0.03 K/uL (0-0.2); Basophils % (auto) 0.2 %; Eosinophils # (auto) 0.02 K/uL (0-0.5); Eosinophils % (auto) 0.1 %; Hematocrit (blood only) 37.2 % (37-47); Hemoglobin 12.4 g/dL (12.0-16.0); Immature Granulocytes # (auto) 0.05 K/uL (0.00-0.02); Immature Granulocytes % (auto) 0.3 %; Lymphocytes # (auto) 1.94 K/uL (1.2-3.4); Lymphocytes % (auto) 11.6 %; Mean Corpuscular Hemoglobin 31.7 pg (25-34); Mean Corpuscular Hgb Conc 33.3 g/dL (32-36); Mean Corpuscular Volume 95.1 fL (80-100); Mean Platelet Volume 9.7 fL (7.4-10.4); Monocytes # (auto) 0.76 K/uL (0.11-0.59); Monocytes % (auto) 4.5 %; Neutrophils # (auto) 13.97 K/uL (1.4-6.5); Neutrophils % (auto) 83.3 %; Platelet Count 301 K/uL (130-400); RDW Coefficient of Variation 14.4 % (11.5-14.5); RDW Standard Deviation 49.4 fL (36.4-46.3); Red Blood Count 3.91 M/uL (4.2-5.4); White Blood Count 16.77 K/uL (4.8-10.8)
[2020-03-11 16:31] LABS: Appearance Urine Clear (Clear); Bacteria Urine Automated Negative (Negative); Bilirubin Urine Negative (Negative); Blood Urine Trace (Negative); Color Urine Dark Yellow; Epithelial Cell Urine Auto >30 /lpf (0-5); Glucose Urine UA Negative (Negative); Ketones Urine Negative (Negative); Leukocyte Esterase Urine Trace (Negative); Nitrite Urine Negative (Negative); Specific Gravity Urine 1.022 (1.000-1.030); Urobilinogen Urine Negative (Negative); pH Urine >= 9.0 (4.5-7.5)
[2020-03-11 16:33] LABS: Protein Urine Trace (Negative)
[2020-03-11 16:35] LABS: Partial Thromboplastin Time 27.8 Seconds (21.0-31.0)
[2020-03-11 17:09] LABS: Alanine Aminotransferase 23 U/L (12-78); Albumin Globulin Ratio 0.8 (0.9-2); Albumin Level 3.1 gm/dl (3.4-5.0); Alkaline Phosphatase 119 U/L (45-117); Aspartate Aminotransferase 12 U/L (15-37); BUN Creatinine Ratio 24.9 (10-20); Bilirubin,Total 0.5 mg/dl (0.2-1); Blood Urea Nitrogen 16 mg/dl (7-18); Calcium 8.8 mg/dl (8.5-10.1); Carbon Dioxide 28 mmol/L (21-32); Chloride 105 mmol/L (98-107); Creatinine Clr Calc Pharmacy 120.3 ml/min; Est GFR (African American) 114.4; Est GFR (Non-African American) 98.7; Globulin 4.1 gm/dl (2.5-4.0); Glucose 76 mg/dl (70-99); Lipase 117 U/L (73-393); Potassium 4.1 mmol/L (3.5-5.1); Sodium 139 mmol/L (136-145); Total Protein 7.2 gm/dl (6.4-8.2); Troponin I < 0.015 ng/ml (0-0.045)
--- NOTE | 2020-03-11 17:22 | Ultrasound Report ---
BILIARY ULTRASOUND CLINICAL HISTORY: Right upper quadrant abdominal pain COMPARISON STUDY: CT scan dated 12/14/2018 FINDINGS: The visualized portions the pancreas appeared normal. The distal body and tail were obscured. No focal hepatic masses were visualized. There is no ductal dilatation. The gallbladder appears sonographically normal. There is no ductal dilatation. The common bile duct measures 5 mm. There is no hydronephrosis. IMPRESSION: 1. Ultrasonographically normal gallbladder. No ductal dilatation. ACT 112: Negative or not required by law. Electronically signed by: Junior Gan M.D. 03/11/2020 5:20 PM
[2020-03-11] MEDS ORDERED: cefTRIAXone SODIUM 2,000 MG/70 ML BAG IV STA (17:32)
[2020-03-11] MEDS ORDERED: ACETAMINOPHEN 1000 MG/100 ML IV IV STA (18:07)
[2020-03-11 18:27] LABS: Influenza A virus by PCR Negative (Neg); Influenza B virus by PCR Negative (Neg); RSV by PCR Negative (Neg); SARS CoV2 RNA(COVID-19) InHosp NEGATIVE (Negative)
[2020-03-11] MEDS ORDERED: DOXYCYCLINE HYCLATE 100 MG CAP PO STA (19:05)
--- NOTE | 2020-03-11 19:55 | History & Physical Report ---
Date of Service March 11, 2020 Assessment & Plan (1) Right lower lobe pneumonia: Right lower lobe pneumonia/hypoxia/COPD exacerbation/DAYA- Place on ceftriaxone 2 g IV daily. Levofloxacin 750 mg IV daily Duonebs every 4 hours while awake and every 2 hours when necessary. Nasal cannula oxygen, titrate to keep pulse ox 94% Guaifenesin extended release 600 mg p.o. twice daily Methylprednisolone 40 mg IV every 8 hours Present on Admission?: Yes (2) Hypoxia: See above Present on Admission?: Yes (3) Current smoker: Tobacco cessation counseling Present on Admission?: Yes (4) COPD exacerbation: See above Present on Admission?: Yes (5) DAYA (obstructive sleep apnea): Patient reportedly has been noncompliant with CPAP at home. If required, will use CPAP at bedtime as needed while in hospital Present on Admission?: Yes (6) HTN (hypertension): Continue metoprolol tartrate 25 mg p.o. twice daily Present on Admission?: Yes (7) Anxiety and depression: Continue bupropion, gabapentin, quetiapine, trazodone and venlafaxine Present on Admission?: Yes History of Present Illness Chief Complaint: The patient presents to the emergency department with the complaint of acute onset of shortness of breath began earlier in the day today, accompanied by generalized muscle aches and fatigue. Primary Care Provider: Jewell Hernandez MD The patient is a 60-year-old female with a past medical history including anxiety with depression, lumbar degenerative disc disease, atypical chest pain, right rotator cuff tear, current tobacco use, acute respiratory failure with hypoxia, acute blood loss anemia, COPD, hypertension, dyslipidemia, DAYA, GERD, and glaucoma. She presents to the emergency department with symptoms as noted above. Work-up in the emergency department included the following imaging studies: Chest x-ray showing right lower lobe consolidation. Ultrasound of the abdomen was negative. COVID-19 testing negative. Albumin mildly low at 3.1. Allergies Allergy/AdvReac Type Severity Reaction Status Date / Time Bactrim Allergy Severe SHORTNESS Verified 08/12/16 15:49 OF BREATH nitrofurantoin Allergy Severe UNABLE TO Verified 03/11/20 19:24 BREATHE sulfamethoxazole Allergy Severe SHORTNESS Verified 03/11/20 19:24 OF BREATH trimethoprim Allergy Severe SHORTNESS Verified 03/11/20 19:24 OF BREATH morphine Allergy Intermediate itching Verified 03/11/20 19:24 Home Medications Medication Instructions Recorded Confirmed Type albuterol sulfate 1 vial INHALATION Q6H PRN 12/03/17 03/11/20 History trazodone 50 mg PO HS 12/03/17 03/11/20 History venlafaxine 75 mg PO QAM 12/03/17 03/11/20 History venlafaxine 300 mg PO QAM 12/03/17 03/11/20 History gabapentin 200 mg PO HS 03/26/18 03/11/20 History quetiapine 25 mg PO DAILY PRN 08/22/18 03/11/20 History quetiapine 150 mg PO HS 08/22/18 03/11/20 History bupropion HCl [Wellbutrin SR] 100 mg PO QAM 02/12/19 03/11/20 History albuterol sulfate 90 mcg/actuation 2 puff INHALATION QID PRN #8.5 gm 10/08/19 03/11/20 Rx aerosol inhaler fluticasone propionate 230 2 puff INHALATION BID #12 g 10/08/19 03/11/20 Rx mcg-salmeterol 21 mcg/actuation HFA inhaler aspirin [Aspir-Low] 81 mg PO QAM 01/10/20 03/11/20 History metoprolol tartrate 25 mg tablet 25 mg PO BID #180 tab 01/14/20 03/11/20 Rx cefdinir 300 mg PO BID 7 Days #14 cap 03/11/20 Rx Past Med/Surg History Medical History Anxiety and depression Chronic obstructive pulmonary disease LAST USED RESCUE INHALER 3 DAYS AGO Dyslipidemia Emphysema GERD (gastroesophageal reflux disease) Glaucoma H/o Lyme disease H/O subacute thyroiditis RESOLVED HTN (hypertension) Hx of migraines DAYA (obstructive sleep apnea) NON-COMPLIANT WITH CPAP Rotator cuff insufficiency of right shoulder Rotator cuff syndrome of left shoulder Surgical History H/O section H/O cystoscopy History of colonoscopy History of esophagogastroduodenoscopy History of foot fracture History of tooth extraction S/P partial hysterectomy S/P right rotator cuff repair S/P sinus surgery S/P tonsillectomy and adenoidectomy S/P tubal ligation Status post Cindy fundoplication Family History Father Myocardial infarction Sister Diabetes Dementia Breast cancer Brother Prostate cancer Dementia Parkinson disease Mother Stroke Other Cancer No family history of adverse response to anesthesia Denies family history of Ovarian cancer Crohn's disease Colorectal cancer Social History Smoking Status: Current every day smoker Tobacco Type: Cigarettes packs per day: 0.5; Cigarettes Per Day: 10 CIG DAILY; Second Hand Exposure: Yes; Hx Alcohol Use: Yes Alcohol type: beer, wine and hard liquor Hx Substance Use: No Preferred Language: Greek Communication Ability: Effective Visual Impairment: No Limitations Hearing Ability: Normal Mortgage Or Loan Underwriter Required: No Beliefs That Will Affect Care: None marital status: Current Living Situation: Spouse and Family Current Living Situation Comment: /DAUGHTER AND GRANDCHILDREN current occupational status: disabled Feels Safe at Home: Yes Dental Care, Regularly: No Physical Activity Frequency: 1-2 Times per Week Physical Activity Frequency Comment: physical therapy Seatbelt Use: always Assistive Devices: Nebulizer Review of Systems 2 Review of Systems: The patient denies chest pain, palpitations, lower extremity swelling, sore throat, fevers, chills, sweats, nausea, vomiting, diarrhea , constipation, abdominal pain, pelvic pain, blood in urine or stool, dysuria, urinary frequency or urgency, lightheadedness, dizziness, headache, memory loss, loss of consciousness, rash, abnormal bruising or bleeding, imbalance, focal or generalized weakness, numbness or tingling in arms or legs, back or neck pain, or night sweats. The review of systems is otherwise negative other than for that already noted above, and at least 10 systems have been reviewed. Physical Exam Physical Exam: The patient is awake, alert and oriented 3, well developed and well nourished, normocephalic and atraumatic, lying in bed and in no acute distress. HEENT--PERRL, EOMI, mucous membranes and oropharynx normal. Neck--supple. No JVD. No bruits. Thyroid normal, trachea midline, no adenopathy. Heart--normal S1 and S2. No murmurs, rubs or gallops. Lungs--decreased breath sounds right base. Scattered coarse breath sounds. No respiratory distress, no accessory muscle use. Abdomen--normal bowel sounds and soft. Nontender. Nondistended. Morbidly obese Extremities--no cyanosis or clubbing. No edema. Dermatologic--normal skin turgor, normal color, no abnormal lymph nodes, no rash. Neurologic--cranial nerves II through XII grossly intact. Rheumatologic--normal range of motion. Psychiatric--normal affect. Results & Data Results & Data ([facility]) Vital Signs (Past 12 Hours) Vital Signs Temp Pulse Pulse Resp BP BP Pulse Ox 03/11/20 19:10 86 24 95 03/11/20 19:00 79 17 150/86 H 96 03/11/20 18:50 82 17 97 03/11/20 18:41 79 13 97 03/11/20 18:39 79 11 L 142/67 H 98 03/11/20 18:30 84 14 03/11/20 18:20 80 03/11/20 18:10 78 03/11/20 18:01 75 90 03/11/20 18:00 79 03/11/20 17:50 82 03/11/20 17:40 82 03/11/20 17:39 80 03/11/20 17:31 145/85 H 03/11/20 17:20 78 03/11/20 17:10 75 12 03/11/20 17:00 75 12 138/72 03/11/20 16:58 84 20 147/75 H 92 03/11/20 16:50 77 22 03/11/20 16:40 80 16 03/11/20 16:36 79 17 03/11/20 16:30 80 14 147/75 H 03/11/20 16:10 77 18 141/25 H 94 03/11/20 14:43 97.7 F 87 18 140/74 94 Laboratory Results Laboratory Results WBC 16.77 K/uL (4.8-10.8) H 03/11/20 16:00 RBC 3.91 M/uL (4.2-5.4) L 03/11/20 16:00 Hgb 12.4 g/dL (12.0-16.0) 03/11/20 16:00 Hct 37.2 % (37-47) 03/11/20 16:00 MCV 95.1 fL (80-100) 03/11/20 16:00 MCH 31.7 pg (25-34) 03/11/20 16:00 MCHC 33.3 g/dL (32-36) 03/11/20 16:00 RDW Std Deviation 49.4 fL (36.4-46.3) H 03/11/20 16:00 RDW Coeff of Roseanna 14.4 % (11.5-14.5) 03/11/20 16:00 Plt Count 301 K/uL (130-400) 03/11/20 16:00 MPV 9.7 fL (7.4-10.4) 03/11/20 16:00 Immature Gran % (Auto) 0.3 % 03/11/20 16:00 Neut % (Auto) 83.3 % 03/11/20 16:00 Lymph % (Auto) 11.6 % 03/11/20 16:00 Cocke % (Auto) 4.5 % 03/11/20 16:00 Eos % (Auto) 0.1 % 03/11/20 16:00 Baso % (Auto) 0.2 % 03/11/20 16:00 Neut # (Auto) 13.97 K/uL (1.4-6.5) H 03/11/20 16:00 Lymph # (Auto) 1.94 K/uL (1.2-3.4) 03/11/20 16:00 Cocke # (Auto) 0.76 K/uL (0.11-0.59) H 03/11/20 16:00 Eos # (Auto) 0.02 K/uL (0-0.5) 03/11/20 16:00 Baso # (Auto) 0.03 K/uL (0-0.2) 03/11/20 16:00 Immature Gran # (Auto) 0.05 K/uL (0.00-0.02) H 03/11/20 16:00 PT 11.0 Seconds (9.0-12.0) 03/11/20 16:00 INR 1.0 (0.9-1.1) 03/11/20 16:00 APTT 27.8 Seconds (21.0-31.0) 03/11/20 16:00 PTT Ratio 1.0 03/11/20 16:00 Sodium 139 mmol/L (136-145) 03/11/20 16:00 Potassium 4.1 mmol/L (3.5-5.1) 03/11/20 16:00 Chloride 105 mmol/L (98-107) 03/11/20 16:00 Carbon Dioxide 28 mmol/L (21-32) 03/11/20 16:00 Anion Gap 6.0 (3-11) 03/11/20 16:00 BUN 16 mg/dl (7-18) 03/11/20 16:00 Creatinine 0.62 mg/dl (0.6-1.2) 03/11/20 16:00 Est Cr Clr Drug Dosing 120.3 ml/min 03/11/20 16:00 Est GFR ( Amer) 114.4 03/11/20 16:00 Est GFR (Non-Af Amer) 98.7 03/11/20 16:00 BUN/Creatinine Ratio 24.9 (10-20) H 03/11/20 16:00 Glucose 76 mg/dl (70-99) 03/11/20 16:00 Calcium 8.8 mg/dl (8.5-10.1) 03/11/20 16:00 Total Bilirubin 0.5 mg/dl (0.2-1) 03/11/20 16:00 AST 12 U/L (15-37) L 03/11/20 16:00 ALT 23 U/L (12-78) 03/11/20 16:00 Alkaline Phosphatase 119 U/L (45-117) H 03/11/20 16:00 Troponin I < 0.015 ng/ml (0-0.045) 03/11/20 16:00 Total Protein 7.2 gm/dl (6.4-8.2) 03/11/20 16:00 Albumin 3.1 gm/dl (3.4-5.0) L 03/11/20 16:00 Globulin 4.1 gm/dl (2.5-4.0) H 03/11/20 16:00 Albumin/Globulin Ratio 0.8 (0.9-2) L 03/11/20 16:00 Lipase 117 U/L (73-393) 03/11/20 16:00 Urine Color Dark Yellow 03/11/20 16:00 Urine Appearance Clear (Clear) 03/11/20 16:00 Urine pH >= 9.0 (4.5-7.5) H 03/11/20 16:00 Ur Specific [place] 1.022 (1.000-1.030) 03/11/20 16:00 Urine Protein Trace (Negative) H 03/11/20 16:00 Urine Glucose (UA) Negative (Negative) 03/11/20 16:00 Urine Ketones Negative (Negative) 03/11/20 16:00 Urine Blood Trace (Negative) H 03/11/20 16:00 Urine Nitrite Negative (Negative) 03/11/20 16:00 Urine Bilirubin Negative (Negative) 03/11/20 16:00 Urine Urobilinogen Negative (Negative) 03/11/20 16:00 Ur Leukocyte Esterase Trace (Negative) H 03/11/20 16:00 Urine WBC (Auto) 10-30 /hpf (0-5) H 03/11/20 16:00 Urine RBC (Auto) 5-10 /hpf (0-4) H 03/11/20 16:00 U Hyaline Cast (Auto) 1-5 /lpf (0-5) 03/11/20 16:00 U Epithel Cells (Auto) >30 /lpf (0-5) H 03/11/20 16:00 Urine Bacteria (Auto) Negative (Negative) 03/11/20 16:00 COVID-19 Eval Order CovFluRsv at [facility] 03/11/20 17:20 SARS-CoV-2 (PCR) NEGATIVE (Negative) 03/11/20 17:20 Influenza Type A (PCR) Negative (Neg) 03/11/20 17:20 Influenza Type B (PCR) Negative (Neg) 03/11/20 17:20 RSV (RT-PCR) Negative (Neg) 03/11/20 17:20 Diagnostic Findings [facility], [phone] Ultrasound Report Patient: LAN BREWER LAdmit Date: 03/11/20MR#: [id number]: [address]ct ID:[id number]: Date: [address] [place] [address] Zip: [place], [place] [address]Wjz: 60Location: EDSex: FRoom/Bed:Att Phy:Diagnosis: CHILLS, FEVER, ABDOMINAL PAINPri Phy: Jewell Hernandez, MDService Date: 03/11/20Fam Phy:Interpreting Phy: Junior Gan MDAdmit Phy: Ordering Phy: Adriana Mcgovern PA-C cc: ~ BILIARY ULTRASOUND CLINICAL HISTORY: Right upper quadrant abdominal pain COMPARISON STUDY: CT scan dated 12/14/2018 FINDINGS: The visualized portions the pancreas appeared normal. The distal body and tail were obscured. No focal hepatic masses were visualized. There is no ductal dilatation. The gallbladder appears sonographically normal. There is no ductal dilatation. The common bile duct measures 5 mm. There is no hydronephrosis. IMPRESSION: 1. Ultrasonographically normal gallbladder. No ductal dilatation. ACT 112: Negative or not required by law. Electronically signed by: Junior Gan M.D. 03/11/2020 5:20 PM Dictated: 03/11/201718Transcribed: 03/11/201718 [facility], [phone] XRay Report Patient: LAN BREWER Date: 03/11/20MR#: [id number]: [address]ct ID:[id number]: Date: [address] [place] [address] Zip: [place], [place] [address]Qnk: 60Location: EDSex: FRoom/Bed:Att Phy:Diagnosis: CHILLS, FEVER, ABDOMINAL PAINPri Phy: Jewell Hernandez, MDService Date: 03/11/20Fa Phy:Interpreting Phy: Jhony LuceroAdmjohn Phy: Ordering Phy: Adriana Mcgovern PA-C cc: ~ XR chest 1V portable HISTORY: 60 years-old Female epigastric pain acute epigastric abdominal pain COMPARISON: Chest radiograph and CTA chest 01/10/2020 TECHNIQUE: Portable AP view of the chest FINDINGS: The cardiac mediastinal and hilar silhouettes are unchanged. Calcified plaque of the thoracic aorta. Mildly progressed interstitial coarsening. Patchy right lung base airspace opacities. Degenerative changes of the shoulders and spine. IMPRESSION: Interstitial coarsening with right lung base airspace opacities suggestive of pneumonia versus aspiration pneumonitis. ACT 112: Negative or not required by law. The above report was generated using voice recognition software. It may contain grammatical, syntax or spelling errors. Electronically signed by: Star Lucero M.D. 03/11/2020 3:43 PM Dictated: 03/11/20 1531Transcribed: 03/11/20 1531 Code Status & VTE Plan Code Status Full code VTE Prophylaxis Plan VTE Prophylaxis will be ordered: Yes PG Care Time/CCT Total # of Minutes Spent Total Time Spent with Patient: Total time spent is greater than 50% in coordination of care (as documented) at patient's floor/unit and/or counseling patient: Coding Level of Care Code 54375 Initial Inpt Care Lvl 3 Diagnoses Right lower lobe pneumonia J18.9 Pneumonia type: due to unspecified organism Hypoxia R09.02 Current smoker F17.200 COPD exacerbation J44.1 DAYA (obstructive sleep apnea) G47.33 HTN (hypertension) I10 Hypertension type: essential hypertension Anxiety and depression F41.9; F32.9 (1) Right lower lobe pneumonia Pneumonia type: due to unspecified organism Qualified Code(s): J18.9 - Pneumonia, unspecified organism (2) HTN (hypertension) Hypertension type: essential hypertension Qualified Code(s): I10 - Essential (primary) hypertension
[2020-03-11] MEDS ORDERED: ONDANSETRON INJ 2 MG/ML 2 ML VIAL IV PRN (21:32)
[2020-03-11] MEDS ORDERED: ACETAMINOPHEN 325 MG TAB PO PRN (21:32)
[2020-03-11] MEDS ORDERED: QUEtiapine FUMARATE 25 MG TABLET PO PRN (21:32)
[2020-03-11] MEDS: KETOROLAC TROMETHAMINE 15 MG/ML VIAL IV PRN (21:52)
[2020-03-11] MEDS: GABAPENTIN 100 MG CAP PO SCH (22:34)
[2020-03-11] MEDS: METOPROLOL TARTRATE 25 MG TAB PO SCH (22:35)
[2020-03-11] MEDS: guaiFENesin 600 MG TABCR PO SCH (22:35)
[2020-03-11] MEDS: QUEtiapine FUMARATE 100 MG TABLET PO SCH (22:35)
[2020-03-11] MEDS: levoFLOXacin/D5W 750 MG/150 ML BAG IV SCH (22:36)
[2020-03-11] MEDS: traZODone HCL 50 MG TAB PO SCH (22:36)
[2020-03-11] MEDS: methylPREDNISolone 40 MG in SYRINGE 0 ML IV SCH (22:36)
[2020-03-11] MEDS: HEPARIN SOD 5,000 UNIT/0.5 ML VIAL SQ SCH (22:36)
[2020-03-12] MEDS: methylPREDNISolone 40 MG in SYRINGE 0 ML IV SCH ×2 (06:17→17:46)
[2020-03-12] MEDS: HEPARIN SOD 5,000 UNIT/0.5 ML VIAL SQ SCH ×3 (06:18→21:26)
[2020-03-12] MEDS: ALBUT/IPRATROP 3MG/0.5MG NEB 3 ML VIAL NEB SCH ×2 (07:12→11:00)
[2020-03-12] MEDS: ASPIRIN 81 MG ECTAB PO SCH (09:26)
[2020-03-12] MEDS: VENLAFAXINE HCL XR 150 MG CAPXR PO SCH (09:26)
[2020-03-12] MEDS: VENLAFAXINE HCL XR 75 MG CAPXR PO SCH (09:26)
[2020-03-12] MEDS: buPROPion SR 100 MG TABCR PO SCH (09:27)
[2020-03-12] MEDS: METOPROLOL TARTRATE 25 MG TAB PO SCH ×2 (09:27→20:43)
[2020-03-12] MEDS: guaiFENesin 600 MG TABCR PO SCH ×2 (09:27→20:43)
[2020-03-12] MEDS: traMADol HCL 50 MG TABLET PO PRN ×2 (10:22→18:51)
--- NOTE | 2020-03-12 13:11 | Hospitalist Progress Note ---
Date of Service March 12, 2020 Assessment & Plan (1) Right lower lobe pneumonia: Right lower lobe pneumonia/hypoxia/COPD exacerbation/DAYA- Place on ceftriaxone 2 g IV daily. Levofloxacin 750 mg IV daily Duonebs every 4 hours while awake and every 2 hours when necessary. Nasal cannula oxygen, titrate to keep pulse ox 94% will continue to try to titrate. Guaifenesin extended release 600 mg p.o. twice daily Methylprednisolone 40 mg IV every 12 h. will hold discharge until patient is off oxygen. (2) Hypoxia: See above (3) Current smoker: Tobacco cessation counseling (4) COPD exacerbation: See above (5) DAYA (obstructive sleep apnea): Patient reportedly has been noncompliant with CPAP at home. If required, will use CPAP at bedtime as needed while in hospital (6) HTN (hypertension): Continue metoprolol tartrate 25 mg p.o. twice daily (7) Anxiety and depression: Continue bupropion, gabapentin, quetiapine, trazodone and venlafaxine Admission and Anticipated Discharge Date Admission Date: March 11, 2020 Subjective Patient reports having pain in her right lower chest It is mild, accompanied by a cough. Review of Systems Review of Systems: All systems reviewed & are unremarkable except as noted in HPI & below Physical Exam Physical Exam: The patient is awake, alert and oriented 3, well developed and well nourished, normocephalic and atraumatic, lying in bed and in no acute distress. HEENT--PERRL, EOMI, mucous membranes and oropharynx normal. Neck--supple. No JVD. No bruits. Thyroid normal, trachea midline, no adenopathy. Heart--normal S1 and S2. Lungs--decreased breath sounds right base. Wheezing bilaterally. No respiratory distress, no accessory muscle use. Abdomen--normal bowel sounds and soft. Nontender. Nondistended. Morbidly obese Extremities--no cyanosis or clubbing. No edema. Dermatologic--normal skin turgor, normal color, no abnormal lymph nodes, no rash. Neurologic--cranial nerves II through XII grossly intact. Rheumatologic--normal range of motion. Psychiatric--normal affect. Results & Data Results & Data ([facility]) Vital Signs (Past 12 Hours) Vital Signs Temp Pulse Pulse Resp BP Pulse Ox 03/12/20 12:03 36.6 C 66 16 132/64 91 03/12/20 11:02 60 18 95 03/12/20 10:19 36.6 C 64 127/73 94 03/12/20 07:24 61 03/12/20 07:22 36.3 C L 71 16 122/69 93 03/12/20 07:13 85 18 95 03/12/20 03:47 36.4 C L 68 16 159/78 H 91 PG Care Time/CCT Total # of Minutes Spent Total Time Spent with Patient: Total time spent is greater than 50% in coordination of care (as documented) at patient's floor/unit and/or counseling patient: Coding Level of Care Code 33590 Subseq Hosp Care Lvl 3 Diagnoses Right lower lobe pneumonia J18.9 Pneumonia type: due to unspecified organism Hypoxia R09.02 Current smoker F17.200 COPD exacerbation J44.1 DAYA (obstructive sleep apnea) G47.33 HTN (hypertension) I10 Hypertension type: essential hypertension Anxiety and depression F41.9; F32.9 Time Spent (min) 35 (1) Right lower lobe pneumonia Pneumonia type: due to unspecified organism Qualified Code(s): J18.9 - Pneumonia, unspecified organism (2) HTN (hypertension) Hypertension type: essential hypertension Qualified Code(s): I10 - Essential (primary) hypertension
[2020-03-12] MEDS: cefTRIAXone SODIUM 2,000 MG in DEXTROSE 5% 50 ML IV SCH (17:45)
[2020-03-12] MEDS: ALBUTEROL 0.5% NEB SOLN 2.5 MG/0.5 ML VIAL NEB SCH (19:32)
[2020-03-12] MEDS: GABAPENTIN 100 MG CAP PO SCH (20:43)
[2020-03-12] MEDS: traZODone HCL 50 MG TAB PO SCH (20:44)
[2020-03-12] MEDS: QUEtiapine FUMARATE 100 MG TABLET PO SCH (20:44)
[2020-03-12] MEDS: levoFLOXacin/D5W 750 MG/150 ML BAG IV SCH (21:26)
--- NOTE | 2020-03-13 00:03 | Electrocardiogram Report ---
Test Reason : Blood Pressure : / mmHG Vent. Rate : 075 BPM Atrial Rate : 075 BPM P-R Int : 170 ms QRS Dur : 086 ms QT Int : 392 ms P-R-T Axes : 078 042 067 degrees QTc Int : 437 ms Normal sinus rhythm Normal ECG When compared with ECG of 10-JAN-2020 17:02, No significant change was found Confirmed by Jitendra Phelps ([id number]) on 03/13/2020 12:03:18 AM Referred By: REFERRED SELF Confirmed By:Jitendra Phelps
[2020-03-13] MEDS: ALBUTEROL 0.5% NEB SOLN 2.5 MG/0.5 ML VIAL NEB SCH ×2 (01:41→07:26)
[2020-03-13] MEDS: HEPARIN SOD 5,000 UNIT/0.5 ML VIAL SQ SCH ×3 (05:48→21:50)
[2020-03-13 06:18] LABS: Hematocrit (blood only) 35.8 % (37-47); Hemoglobin 11.5 g/dL (12.0-16.0); Immature Granulocytes # (auto) 0.05 K/uL (0.00-0.02); Immature Granulocytes % (auto) 0.5 %; Lymphocytes # (auto) 0.95 K/uL (1.2-3.4); Lymphocytes % (auto) 9.5 %; Mean Corpuscular Hemoglobin 30.8 pg (25-34); Mean Corpuscular Hgb Conc 32.1 g/dL (32-36); Mean Platelet Volume 9.8 fL (7.4-10.4); Monocytes # (auto) 0.44 K/uL (0.11-0.59); Monocytes % (auto) 4.4 %; Neutrophils # (auto) 8.57 K/uL (1.4-6.5); Neutrophils % (auto) 85.6 %; Platelet Count 255 K/uL (130-400); RDW Coefficient of Variation 13.8 % (11.5-14.5); RDW Standard Deviation 48.7 fL (36.4-46.3); Red Blood Count 3.73 M/uL (4.2-5.4); White Blood Count 10.01 K/uL (4.8-10.8)
[2020-03-13 06:36] LABS: BUN Creatinine Ratio 28.5 (10-20); Calcium 8.6 mg/dl (8.5-10.1); Est GFR (African American) 124.4; Est GFR (Non-African American) 107.4
[2020-03-13] MEDS: VENLAFAXINE HCL XR 150 MG CAPXR PO SCH (08:54)
[2020-03-13] MEDS: guaiFENesin 600 MG TABCR PO SCH ×2 (08:54→21:49)
[2020-03-13] MEDS: ASPIRIN 81 MG ECTAB PO SCH (08:54)
[2020-03-13] MEDS: METOPROLOL TARTRATE 25 MG TAB PO SCH ×2 (08:54→21:49)
[2020-03-13] MEDS: VENLAFAXINE HCL XR 75 MG CAPXR PO SCH (08:54)
[2020-03-13] MEDS: buPROPion SR 100 MG TABCR PO SCH (08:54)
[2020-03-13] MEDS: methylPREDNISolone 40 MG in SYRINGE 0 ML IV SCH ×2 (09:56→21:49)
[2020-03-13] MEDS: traMADol HCL 50 MG TABLET PO PRN ×2 (15:39→22:01)
[2020-03-13 15:51] LABS: Influenza A virus by PCR Negative (Neg); Influenza B virus by PCR Negative (Neg); RSV by PCR Negative (Neg); SARS CoV2 RNA(COVID-19) InHosp NEGATIVE (Negative)
[2020-03-13] MEDS: cefTRIAXone SODIUM 2,000 MG in DEXTROSE 5% 50 ML IV SCH (18:14)
[2020-03-13] MEDS: KETOROLAC TROMETHAMINE 15 MG/ML VIAL IV PRN (18:24)
[2020-03-13] MEDS: levoFLOXacin/D5W 750 MG/150 ML BAG IV SCH (21:48)
[2020-03-13] MEDS: traZODone HCL 50 MG TAB PO SCH (21:49)
[2020-03-13] MEDS: GABAPENTIN 100 MG CAP PO SCH (21:50)
[2020-03-13] MEDS: QUEtiapine FUMARATE 100 MG TABLET PO SCH (21:50)
--- NOTE | 2020-03-13 22:25 | Hospitalist Progress Note ---
Date of Service March 13, 2020 Assessment & Plan (1) Right lower lobe pneumonia: Right lower lobe pneumonia/hypoxia/COPD exacerbation/DAYA- Pneumonia (possibly) due to Pseudomonas and/or aspiration Place on ceftriaxone 2 g IV daily. Levofloxacin 750 mg IV daily Duonebs every 4 hours while awake and every 2 hours when necessary. Nasal cannula oxygen, titrate to keep pulse ox 94% off of oxygen. Did not do well while ambulating on room air. will keep patient. may consider 2 step tomorrow. Guaifenesin extended release 600 mg p.o. twice daily Methylprednisolone 40 mg IV every 12 h. will switch to daily in AM. Obtained repeat covid test (PCR) due to possible exposure with grandkids (WHO ARE PUIs) which was negative. (2) Hypoxia: See above (3) Current smoker: Tobacco cessation counseling (4) COPD exacerbation: See above (5) DAYA (obstructive sleep apnea): Patient reportedly has been noncompliant with CPAP at home. If required, will use CPAP at bedtime as needed while in hospital (6) HTN (hypertension): Continue metoprolol tartrate 25 mg p.o. twice daily (7) Anxiety and depression: Continue bupropion, gabapentin, quetiapine, trazodone and venlafaxine Admission and Anticipated Discharge Date Admission Date: March 11, 2020 Subjective Patient reports feeling better. She no longer requires oxygen at rest. However, when she amulated with me, she felt fatigued and SOB while only ambulating a quater lap. She asked to go back in bed. Review of Systems Review of Systems: All systems reviewed & are unremarkable except as noted in HPI & below Physical Exam Physical Exam: The patient is awake, alert and oriented 3, well developed and well nourished, normocephalic and atraumatic, lying in bed and in no acute distress. HEENT--PERRL, EOMI, mucous membranes and oropharynx normal. Neck--supple. No JVD. No bruits. Thyroid normal, trachea midline, no adenopathy. Heart--normal S1 and S2. Lungs--decreased breath sounds right base. Decreased wheezing bilaterally. No respiratory distress, no accessory muscle use. Abdomen--normal bowel sounds and soft. Nontender. Nondistended. Morbidly obese Extremities--no cyanosis or clubbing. No edema. Dermatologic--normal skin turgor, normal color, no abnormal lymph nodes, no rash. Neurologic--cranial nerves II through XII grossly intact. Rheumatologic--normal range of motion. Psychiatric--normal affect. Results & Data Results & Data ([facility]) Vital Signs (Past 12 Hours) Vital Signs Temp Pulse Pulse Resp BP BP Pulse Ox 03/13/20 20:00 36.8 C 76 18 168/85 H 93 03/13/20 16:00 36.8 C 65 63 20 150/75 H 91 03/13/20 11:57 36.3 C L 63 18 149/79 H 94 PG Care Time/CCT Total # of Minutes Spent Total Time Spent with Patient: Total time spent is greater than 50% in coordination of care (as documented) at patient's floor/unit and/or counseling patient: Coding Level of Care Code 71966 Subseq Hosp Care Lvl 3 Diagnoses Right lower lobe pneumonia J18.9 Pneumonia type: due to unspecified organism Hypoxia R09.02 Current smoker F17.200 COPD exacerbation J44.1 DAYA (obstructive sleep apnea) G47.33 HTN (hypertension) I10 Hypertension type: essential hypertension Anxiety and depression F41.9; F32.9 Time Spent (min) 35 (1) Right lower lobe pneumonia Pneumonia type: due to unspecified organism Qualified Code(s): J18.9 - Pneumonia, unspecified organism (2) HTN (hypertension) Hypertension type: essential hypertension Qualified Code(s): I10 - Essential (primary) hypertension
[2020-03-14] MEDS: HEPARIN SOD 5,000 UNIT/0.5 ML VIAL SQ SCH (06:08)
[2020-03-14] MEDS ORDERED: ALBUTEROL 0.083% NEBU SOLN 3 ML VIAL NEB PRN (06:20)
[2020-03-14] MEDS: METOPROLOL TARTRATE 25 MG TAB PO SCH (08:20)
[2020-03-14] MEDS: VENLAFAXINE HCL XR 150 MG CAPXR PO SCH (08:21)
[2020-03-14] MEDS: buPROPion SR 100 MG TABCR PO SCH (08:22)
[2020-03-14] MEDS: guaiFENesin 600 MG TABCR PO SCH (08:22)
[2020-03-14] MEDS: VENLAFAXINE HCL XR 75 MG CAPXR PO SCH (08:22)
[2020-03-14] MEDS: ASPIRIN 81 MG ECTAB PO SCH (08:22)
[2020-03-14] MEDS ORDERED: methylPREDNISolone 40 MG in SYRINGE 0 ML IV SCH (09:00)
[2020-03-14] MEDS ORDERED: HEPARIN SOD 5,000 UNIT/0.5 ML VIAL SQ SCH (09:00)
--- NOTE | 2020-03-14 10:48 | Discharge Summary ---
Date of Service March 14, 2020 Admission HPI Per Admitting Provider The patient is a 60-year-old female with a past medical history including anxiety with depression, lumbar degenerative disc disease, atypical chest pain, right rotator cuff tear, current tobacco use, acute respiratory failure with hypoxia, acute blood loss anemia, COPD, hypertension, dyslipidemia, DAYA, GERD, and glaucoma. She presents to the emergency department with symptoms as noted above. Work-up in the emergency department included the following imaging studies: Chest x-ray showing right lower lobe consolidation. Ultrasound of the abdomen was negative. COVID-19 testing negative. Albumin mildly low at 3.1. Admission Exam Per Admitting Provider Physical Exam: The patient is awake, alert and oriented 3, well developed and well nourished, normocephalic and atraumatic, lying in bed and in no acute distress. HEENT--PERRL, EOMI, mucous membranes and oropharynx normal. Neck--supple. No JVD. No bruits. Thyroid normal, trachea midline, no adenopathy. Heart--normal S1 and S2. No murmurs, rubs or gallops. Lungs--decreased breath sounds right base. Scattered coarse breath sounds. No respiratory distress, no accessory muscle use. Abdomen--normal bowel sounds and soft. Nontender. Nondistended. Morbidly obese Extremities--no cyanosis or clubbing. No edema. Dermatologic--normal skin turgor, normal color, no abnormal lymph nodes, no rash. Neurologic--cranial nerves II through XII grossly intact. Rheumatologic--normal range of motion. Psychiatric--normal affect. Principal Diagnosis COPD exacerbation RLL pneumonia Discharge Exam Constitutional WD/WN, vitals as above Eyes EOM intact bilaterally; no conjunctival abnormality ENMT external ear and nose normal, oropharynx normal Neck trachea midline, no thyromegaly normal visual inspection Respiratory no respiratory distress Auscultation: + wheezes (Slight) Cardiovascular RRR, no murmur, no edema Gastrointestinal (Abdomen) Inspection/Auscultation: abdomen normal to inspection; abdomen not distended Musculoskeletal no cyanosis or clubbing, extremities motor strength 5/5 Skin no rashes, warm and dry Neurologic moves all extremities and awake Psychiatric Orientation: alert, oriented to person and cooperative Discharge Data Allergies Allergy/AdvReac Type Severity Reaction Status Date / Time Bactrim Allergy Severe SHORTNESS Verified 08/12/16 15:49 OF BREATH nitrofurantoin Allergy Severe UNABLE TO Verified 03/11/20 19:24 BREATHE sulfamethoxazole Allergy Severe SHORTNESS Verified 03/11/20 19:24 OF BREATH trimethoprim Allergy Severe SHORTNESS Verified 03/11/20 19:24 OF BREATH morphine Allergy Intermediate itching Verified 03/11/20 19:24 Consultations 03/12/20 00:49 ED Decision to Admit Stat Ordered Studies 03/11/20 15:09 US abdomen limited Stat Hospital Course (1) Right lower lobe pneumonia: Right lower lobe pneumonia/hypoxia/COPD exacerbation/DAYA- Pneumonia (possibly) due to Pseudomonas and/or aspiration Place on ceftriaxone 2 g IV daily. Levofloxacin 750 mg IV daily - transition to PO tab x 4 more days on dc Duonebs every 4 hours while awake and every 2 hours when necessary. Nasal cannula oxygen, titrate to keep pulse ox 94% off of oxygen. Weaned off supplemental O2. Guaifenesin extended release 600 mg p.o. twice daily Transition to prednisone taper at time of dc for 5 more days. Obtained repeat covid test (PCR) due to possible exposure with grandkids (WHO ARE PUIs) which was negative. (2) Hypoxia: See above (3) Current smoker: Tobacco cessation counseling provided during admission (4) COPD exacerbation: See above (5) DAYA (obstructive sleep apnea): Patient reportedly has been noncompliant with CPAP at home- encourage use (6) HTN (hypertension): Continue metoprolol tartrate 25 mg p.o. twice daily (7) Anxiety and depression: Continue bupropion, gabapentin, quetiapine, trazodone and venlafaxine Total Time Total Time Spent Total Time Spent (In Minutes): 33 min Discharge Plan Discharge Items Patient Disposition: Home - Self-Care Reason For Visit: PNEUMONIA Discharge Diagnosis: COPD, pneumonia Condition on Discharge: Good Activity: Resume your previous activity Lifting: Gradually increase as tolerated Bathing: No limitations Exercise/Sports: Gradually increase as tolerated Driving/Machine Use: Resume 1 day after discharge Non-emergency contact: Primary Care Provider Call non-emergency contact if: you have any medication questions and your temperature is above 101 Follow-up/Referrals: Jewell Hernandez MD [Primary Care Provider] - 03/18/20 2:15 pm Diet: Heart Healthy Addtl Attending Provider Instructions: You were admitted to [facility] due to shortness of breath and diagnosed with COPD exacerbation and pneumonia. During your stay here you were treated with supportive care, medications including antibiotics, steroids and breathing treatments and your symptoms improved. You were tested for COVID-19 and were NEGATIVE. Medications: Continue taking your previous medications as prescribed. Take prednisone taper as follows: 40 mg x 2 days, 20 mg x 2 days, 10 mg x 1 day and stop Levaquin x 3 more days Appointments: Follow up with PCP within 1 week, an appointment has been requested for you. Pending Studies at Discharge: No Stand-Alone Forms: My [facility], Smoking Cessation Medications and DC Order Prescriptions: New levofloxacin 750 mg tablet 750 mg PO DAILY 4 Days Qty: 4 RF: 0 prednisone 10 mg tablet 10 mg PO UD Qty: 13 RF: 0 Continued metoprolol tartrate 25 mg tablet 25 mg PO BID Qty: 180 RF: 1 fluticasone propion-salmeterol 230-21 mcg/actuation HFA aerosol inhaler 2 puff inhalation BID Qty: 12 RF: 3 albuterol sulfate 90 mcg/actuation HFA aerosol inhaler 2 puff INHALATION QID PRN (Reason: Shortness Of Breath Or Wheezing) Qty: 8.5 RF: 6 venlafaxine 75 mg Capsule,Extended Release 24hr 75 mg PO QAM RF: 0 albuterol sulfate 2.5 mg /3 mL (0.083 %) Solution For Nebulization 1 vial INHALATION Q6H PRN (Reason: Shortness Of Breath Or Wheezing) RF: 0 trazodone 50 mg Tablet 50 mg PO HS RF: 0 venlafaxine 150 mg Capsule,Extended Release 24hr 300 mg PO QAM RF: 0 gabapentin 100 mg Capsule 200 mg PO HS RF: 0 quetiapine 300 mg tablet 150 mg PO HS RF: 0 quetiapine 50 mg tablet 25 mg PO DAILY PRN (Reason: Anxiety) RF: 0 aspirin 81 mg Tablet,Delayed Release (Dr/Ec) 81 mg PO QAM RF: 0 bupropion HCl [Wellbutrin SR] 100 mg Tablet Sustained-Release 12 Hr 100 mg PO QAM RF: 0 Discharge Orders: Discharge Order (Routine); Ordered 03/14/20 Ordered By: Yamileth Zavala Admission Data Admit Date/Time: 03/11/20 19:54 Attending Provider: Sarbjit Woody Admit Provider: Willie Odom Primary Care Provider: Jewell Hernandez Other Providers: Sarbjit Woody Other Interventions: Discharge Summary Assessment (RN) Last Done: 03/14/20 11:59 Supervising Physician Co-Signing Physician Notes I supervised Yomaira Zavala PA-C on this discharge. I interviewed and examined the patient independently of her. The plan is as written in the PA/ELECTRO MECHANICAL TECHNOLOGIST's note except for any following changes/exceptions: None Coding Level of Care Code D/C Day Management >30 mins Diagnoses Right lower lobe pneumonia J18.9 Pneumonia type: due to unspecified organism Hypoxia R09.02 Current smoker F17.200 COPD exacerbation J44.1 DAYA (obstructive sleep apnea) G47.33 HTN (hypertension) I10 Hypertension type: essential hypertension Anxiety and depression F41.9; F32.9
[2020-03-14] MEDS: KETOROLAC TROMETHAMINE 15 MG/ML VIAL IV PRN (11:21)
== END 2020-03-14 13:58 | disposition home or self-care (01) | DRG 178 ==
LOC: ED 14:41 → 2N 19:54 → SUATTDRO 19:54 → 2N 21:07

== ENCOUNTER 2020-11-04 18:43 | Observation (INO) ==
[2020-11-04] MEDS ORDERED: HYDROmorphone INJ 0.5 MG/0.5 ML SYR IV STA (21:34)
[2020-11-04] MEDS ORDERED: SODIUM CHLORIDE 0.9% 1000ML 1,000 ML IV STA (21:34)
[2020-11-04] MEDS ORDERED: ONDANSETRON INJ 2 MG/ML 2 ML VIAL IV STA (21:34)
[2020-11-04] MEDS ORDERED: ALBUT/IPRATROP 3MG/0.5MG NEB 3 ML VIAL NEB STA (21:36)
[2020-11-04 22:11] LABS: Basophils # (auto) 0.04 K/uL (0-0.2); Basophils % (auto) 0.4 %; Eosinophils # (auto) 0.09 K/uL (0-0.5); Eosinophils % (auto) 0.9 %; Hematocrit (blood only) 41.2 % (37-47); Hemoglobin 13.1 g/dL (12.0-16.0); Immature Granulocytes # (auto) 0.03 K/uL (0.00-0.02); Immature Granulocytes % (auto) 0.3 %; Lymphocytes # (auto) 2.89 K/uL (1.2-3.4); Lymphocytes % (auto) 30.4 %; Mean Corpuscular Hemoglobin 30.9 pg (25-34); Mean Corpuscular Hgb Conc 31.8 g/dL (32-36); Mean Corpuscular Volume 97.2 fL (80-100); Mean Platelet Volume 9.9 fL (7.4-10.4); Monocytes % (auto) 6.3 %; Neutrophils # (auto) 5.86 K/uL (1.4-6.5); Neutrophils % (auto) 61.7 %; Platelet Count 381 K/uL (130-400); RDW Coefficient of Variation 14.6 % (11.5-14.5); RDW Standard Deviation 51.8 fL (36.4-46.3); Red Blood Count 4.24 M/uL (4.2-5.4); White Blood Count 9.51 K/uL (4.8-10.8)
[2020-11-04 22:12] LABS: Alanine Aminotransferase 18 U/L (12-78); Albumin Level 3.5 gm/dl (3.4-5.0); Aspartate Aminotransferase 12 U/L (15-37); BUN Creatinine Ratio 20.1 (10-20); Blood Urea Nitrogen 14 mg/dl (7-18); Calcium 8.8 mg/dl (8.5-10.1); Carbon Dioxide 27 mmol/L (21-32); Chloride 101 mmol/L (98-107); Creatinine Clr Calc Pharmacy 110.6 ml/min; Est GFR (Non-African American) 95.7 ml/min; Glucose 82 mg/dl (70-99); Lipase 226 U/L (73-393); Potassium 3.9 mmol/L (3.5-5.1); Sodium 136 mmol/L (136-145)
[2020-11-04 22:17] LABS: Albumin Globulin Ratio 0.8 (0.9-2); Alkaline Phosphatase 142 U/L (45-117); Bilirubin,Total 0.2 mg/dl (0.2-1); Globulin 4.2 gm/dl (2.5-4.0); Total Protein 7.7 gm/dl (6.4-8.2); Troponin I < 0.015 ng/ml (0-0.045)
[2020-11-04] MEDS ORDERED: OPTIRAY 320 100ml IV ONE (22:56)
[2020-11-04] MEDS ORDERED: FAMOTIDINE 20MG/5ML IV PUSH IV STA (23:22)
[2020-11-05] MEDS ORDERED: HYDROmorphone INJ 0.5 MG/0.5 ML SYR IV STA ×2 (00:03→04:29)
--- NOTE | 2020-11-05 00:41 | Surgery Consultation ---
Date of Consultation November 05, 2020 Assessment & Plan (1) Abdominal pain: The cause of pain is not ascertained at this time, however there does not appear to be any issues requiring acute surgical intervention. Discussed with ED physician and they are having pt. admitted to medical service. Recommend the following: -check lactate level--noted to be normal -provide analgesics -provide anti-emetics -check US of GB to further evaluate this as cause of pain -pt. seen with Dr. Villarreal. We will continue to follow with you Supervising Physician Co-Signing Physician Notes as per Darius Thomason History of Present Illness Reason for Consultation: Abdominal Pain History of Present Illness 60 year old female presented to the ED due to abdominal pain x 5 days. She has nausea and 1 episode of emesis 4 days ago. The pain is located primarily in her upper abdomen without radiation. No provocative factors noted. The pain is relieved with meds given in the ED. She notes a poor apatite. No change noted in bowel habits and she had a BM earlier today. She denies fevers, shakes, c hills. She does have a hx. of cindy surgery which was reversed to to issues with flatulence.. In the ED, CBC showed WBC, Hb, HCT, and platelets were normal. Chemistry profile showed normal Na, K, BUN, and Cr.LFT did not sow significant elevation.Lipase was not elevated. A COVID test is pending. CT scan of the abdomen showed normal gallbladder. There was note of some mesenteric swirling similar to what was noted on prior exams. There was some fluid filled small bowel in this region with decompressed small bowel distally raisig the concern for developing SBO.Appendix was normal. At the time of my exam she was resting in bed, was uncomfortable but in no distress. Allergies Allergy/AdvReac Type Severity Reaction Status Date / Time Bactrim Allergy Severe SHORTNESS Verified 08/12/16 15:49 OF BREATH nitrofurantoin Allergy Severe UNABLE TO Verified 11/04/20 17:25 BREATHE sulfamethoxazole Allergy Severe SHORTNESS Verified 11/04/20 17:25 OF BREATH trimethoprim Allergy Severe SHORTNESS Verified 11/04/20 17:25 OF BREATH morphine Allergy Intermediate itching Verified 11/04/20 17:25 Home Medications Medication Instructions Recorded Confirmed Type albuterol sulfate 1 vial INHALATION Q6H PRN 12/03/17 11/04/20 History trazodone 50 mg tablet 50 mg PO HS 12/03/17 11/04/20 History venlafaxine 150 mg 300 mg PO QAM 12/03/17 11/04/20 History capsule,extended release 24 hr venlafaxine 75 mg capsule,extended 75 mg PO QAM 12/03/17 11/04/20 History release 24 hr gabapentin 100 mg capsule 200 mg PO HS 03/26/18 11/04/20 History quetiapine 300 mg tablet 150 mg PO HS 08/22/18 11/04/20 History quetiapine 50 mg tablet 25 mg PO DAILY PRN 08/22/18 11/04/20 History bupropion HCl 100 mg tablet,12 hr 100 mg PO QAM 02/12/19 11/04/20 History sustained-release (Wellbutrin SR) albuterol sulfate 90 mcg/actuation 2 puff INHALATION QID PRN #8.5 gm 10/08/19 11/04/20 Rx aerosol inhaler aspirin 81 mg tablet,delayed 81 mg PO QAM 01/10/20 11/04/20 History release metoprolol tartrate 25 mg tablet 25 mg PO BID #180 tab 01/14/20 11/04/20 Rx fluticasone propionate 230 2 puff INHALATION BID g 03/20/20 11/04/20 History mcg-salmeterol 21 mcg/actuation HFA inhaler acetaminophen 500 mg tablet 2 mg PO Q6 PRN 04/24/20 11/04/20 History (Tylenol Extra Strength) ondansetron HCl 4 mg tablet 4 mg PO DAILY PRN #10 tab 04/26/20 11/04/20 Rx (Zofran) Patient History Medical History Anxiety and depression Chronic obstructive pulmonary disease LAST USED RESCUE INHALER 3 DAYS AGO Dyslipidemia Emphysema GERD (gastroesophageal reflux disease) Glaucoma H/o Lyme disease H/O subacute thyroiditis RESOLVED HTN (hypertension) Hx of migraines DAYA (obstructive sleep apnea) NON-COMPLIANT WITH CPAP Rotator cuff insufficiency of right shoulder Rotator cuff syndrome of left shoulder Surgical History H/O section X 1 H/O cystoscopy History of colonoscopy "07/11/14- diverticulosis" History of esophagogastroduodenoscopy "07/11/14- small hiatal hernia, normal bx" History of foot fracture History of tooth extraction S/P partial hysterectomy S/p reverse total shoulder arthroplasty S/P right rotator cuff repair S/P sinus surgery S/P tonsillectomy and adenoidectomy S/P tubal ligation Status post Cindy fundoplication THEN REVERSED Family History Father Myocardial infarction Sister Diabetes Dementia Breast cancer Brother Prostate cancer Dementia Parkinson disease Mother Stroke Other Cancer No family history of adverse response to anesthesia Denies family history of Ovarian cancer Crohn's disease Colorectal cancer Social History Smoking Status: Current every day smoker Tobacco Type: Cigarettes packs per day: 0.5; Cigarettes Per Day: "10 or less"; Second Hand Exposure: Yes; Do You Dip or Chew Tobacco: No; Tobacco Cessation Education Requested by Patient: No Hx Alcohol Use: No Hx Substance Use: No Preferred Language: [place] Communication Ability: Effective Visual Impairment: No Limitations Hearing Ability: Normal Appellate Court Judge Required: No Beliefs That Will Affect Care: None marital status: Current Living Situation: Spouse Current Living Situation Comment: spouse, daughter, grandchildren current occupational status: disabled Feels Safe at Home: Yes Safety Concerns: Feels Safe At This Time Dental Care, Regularly: No Physical Activity Frequency: 1-2 Times per Week Physical Activity Frequency Comment: physical therapy Seatbelt Use: always Assistive Devices: Glasses Review of Systems Constitutional: no fever and no chills Eyes: no diplopia Ear, Nose, Mouth, Throat: no ear pain and no sore throat Respiratory: no cough and no dyspnea Cardiovascular: no chest pain Gastrointestinal: + abdominal pain, + nausea and + vomiting (emesis x 1 epis ode 4 days ago ); no change in bowel habits and no diarrhea/loose stools Genitourinary: no dysuria Musculoskeletal: no back pain Integumentary: no rash Neurologic: no localized weakness Physical Exam Constitutional: well developed, well nourished and + obese; no acute distress Eyes: no conjunctival abnormality ENMT: Ears: no hearing impairment and no external ear abnormality Mouth: no oropharynx abnormality Neck: trachea midline Respiratory: normal respiratory effort; no respiratory distress and no labored breathing Cardiovascular: Rate/Rhythm: regular rate and regular rhythm Gastrointestinal (Abdomen): abdomen is soft and rotund; palpation cause pain, most prominent in RUQ with some guarding; no rebound tenderness Musculoskeletal: no calf tenderness Skin: no rashes Neurologic: moves all extremities Psychiatric: A+Ox3, euthymic affect Results & Data ([facility]) Vital Signs (Past 12 Hours) Vital Signs Temp Pulse Pulse Resp BP BP Pulse Ox 11/05/20 00:16 93 H 18 134/90 93 11/04/20 23:46 82 18 161/105 H 92 11/04/20 22:04 77 15 97 11/04/20 21:44 74 18 94 11/04/20 21:30 76 18 142/105 H 93 11/04/20 19:07 36.8 C 85 18 205/86 H 94 PG Care Time/CCT Total # of Minutes Spent Total Time Spent with Patient: Total time spent is greater than 50% in coordination of care (as documented) at patient's floor/unit and/or counseling patient: Coding Level of Care Code 88070 Inpt Consult Level 5 Diagnoses Abdominal pain R10.9
[2020-11-05 00:54] LABS: Appearance Urine Clear (Clear); Bacteria Urine Automated Negative (Negative); Bilirubin Urine Negative (Negative); Blood Urine Trace (Negative); Cast Urine Automated 0 /lpf (0-5); Color Urine Yellow; Epithelial Cell Urine Auto 20-30 /lpf (0-5); Glucose Urine UA Negative (Negative); Ketones Urine Negative (Negative); Leukocyte Esterase Urine Negative (Negative); Nitrite Urine Negative (Negative); Protein Urine Negative (Negative); RBC Urine Automated 0-4 /hpf (0-4); Specific Gravity Urine > 1.045 (1.000-1.030); Urobilinogen Urine Negative (Negative); pH Urine 6.5 (4.5-7.5)
--- NOTE | 2020-11-05 01:30 | Emergency Department Note ---
History of Present Illness General Chief complaint: Abdominal Pain Stated complaint: SEVERE PAIN UPPER STOMACH, SOB Source: patient and RN notes reviewed Mode of arrival: ambulatory Limitations: no limitations History of Present Illness Provider complaint: Epigastric abdominal pain Maximum Pain Intensity: 6 This patient is a 60-year-old female who presents to the emergency department with complaints of epigastric abdominal pain for the last 4 days. She is unable to correlate the pain to an inciting event. She does not think it is related to anything that she ate. She is nauseated but has not vomited. Patient was referred to the emergency department by her physician for further management. She denies any fevers, chills, chest pain. Patient states she has been having some wheezing and a productive cough. She denies any vomiting or diarrhea. Home Medications Medication Instructions Recorded Confirmed Type albuterol sulfate 1 vial INHALATION Q6H PRN 12/03/17 11/04/20 History trazodone 50 mg tablet 50 mg PO HS 12/03/17 11/04/20 History venlafaxine 150 mg 300 mg PO QAM 12/03/17 11/04/20 History capsule,extended release 24 hr venlafaxine 75 mg capsule,extended 75 mg PO QAM 12/03/17 11/04/20 History release 24 hr gabapentin 100 mg capsule 200 mg PO HS 03/26/18 11/04/20 History quetiapine 300 mg tablet 150 mg PO HS 08/22/18 11/04/20 History quetiapine 50 mg tablet 25 mg PO DAILY PRN 08/22/18 11/04/20 History bupropion HCl 100 mg tablet,12 hr 100 mg PO QAM 02/12/19 11/04/20 History sustained-release (Wellbutrin SR) albuterol sulfate 90 mcg/actuation 2 puff INHALATION QID PRN #8.5 gm 10/08/19 11/04/20 Rx aerosol inhaler aspirin 81 mg tablet,delayed 81 mg PO QAM 01/10/20 11/04/20 History release metoprolol tartrate 25 mg tablet 25 mg PO BID #180 tab 01/14/20 11/04/20 Rx fluticasone propionate 230 2 puff INHALATION BID g 03/20/20 11/04/20 History mcg-salmeterol 21 mcg/actuation HFA inhaler acetaminophen 500 mg tablet 2 mg PO Q6 PRN 04/24/20 11/04/20 History (Tylenol Extra Strength) ondansetron HCl 4 mg tablet 4 mg PO DAILY PRN #10 tab 04/26/20 11/04/20 Rx (Zofran) oxycodone-acetaminophen 5 mg-325 1 - 2 tab PO Q4H PRN #15 tab 11/07/20 Rx mg tablet (Percocet) Allergies Allergy/AdvReac Type Severity Reaction Status Date / Time Bactrim Allergy Severe SHORTNESS Verified 08/12/16 15:49 OF BREATH nitrofurantoin Allergy Severe UNABLE TO Verified 11/04/20 17:25 BREATHE sulfamethoxazole Allergy Severe SHORTNESS Verified 11/04/20 17:25 OF BREATH trimethoprim Allergy Severe SHORTNESS Verified 11/04/20 17:25 OF BREATH morphine Allergy Intermediate itching Verified 11/04/20 17:25 Past Med/Surg History Medical History Anxiety and depression Chronic obstructive pulmonary disease LAST USED RESCUE INHALER 3 DAYS AGO Dyslipidemia Emphysema GERD (gastroesophageal reflux disease) Glaucoma H/o Lyme disease H/O subacute thyroiditis RESOLVED HTN (hypertension) Hx of migraines Obesity DAYA (obstructive sleep apnea) NON-COMPLIANT WITH CPAP Rotator cuff insufficiency of right shoulder Rotator cuff syndrome of left shoulder Surgical History (Updated 11/06/20 @ 11:37 by Maegan Whyte RN) H/O section X 1 H/O cystoscopy History of colonoscopy "07/11/14- diverticulosis" History of esophagogastroduodenoscopy "07/11/14- small hiatal hernia, normal bx" History of foot fracture History of tooth extraction Hx laparoscopic cholecystectomy (11/06/20) Laparoscopic Cholecystectomy with Intraoperative Cholangiogram Dr. Villarreal 11-06-2020 S/P partial hysterectomy S/p reverse total shoulder arthroplasty S/P right rotator cuff repair S/P sinus surgery S/P tonsillectomy and adenoidectomy S/P tubal ligation Status post Cindy fundoplication THEN REVERSED Family History Father Myocardial infarction Sister Diabetes Dementia Breast cancer Brother Prostate cancer Dementia Parkinson disease Mother Stroke Other Cancer No family history of adverse response to anesthesia Denies family history of Ovarian cancer Crohn's disease Colorectal cancer Social History Smoking Status: Current every day smoker Tobacco Type: Cigarettes packs per day: 0.5; Cigarettes Per Day: "10 or less"; Second Hand Exposure: Yes; Do You Dip or Chew Tobacco: No; Tobacco Cessation Education Requested by Patient: No Hx Alcohol Use: No Hx Substance Use: No Preferred Language: B[place] Communication Ability: Effective Visual Impairment: No Limitations Hearing Ability: Normal Lower In Supervisor Required: No Beliefs That Will Affect Care: None marital status: Current Living Situation: Spouse Current Living Situation Comment: spouse, daughter, grandchildren current occupational status: disabled How many Children do You have: 0 Feels Safe at Home: Yes Safety Concerns: Feels Safe At This Time Dental Care, Regularly: No Physical Activity Frequency: 1-2 Times per Week Physical Activity Frequency Comment: physical therapy Seatbelt Use: always Assistive Devices: Oxygen - Continuous Review of Systems See HPI for pertinent positives & negatives. and A total of 10 systems reviewed and were otherwise negative Physical Exam Vital Signs Vital Signs - 24 hr 11/04/20 19:07 11/04/20 21:30 11/04/20 21:44 Temperature 36.8 C Temperature Source Temporal Artery Scan Pulse Rate 85 74 Pulse Rate [Finger] 76 Respiratory Rate 18 18 18 Respiratory Effort / Characteristics Non-Labored Spontaneous Non-Labored Spontaneous Respiratory Depth Normal Normal Respiratory Pattern Regular Blood Pressure 205/86 H Blood Pressure [Right Arm] 142/105 H Blood Pressure Mean 125 Blood Pressure Mean [Right Arm] 117 Pulse Oximetry 94 93 94 Oxygen Delivery Method Room Air Room Air Room Air Fraction of Inspired Oxygen Sepsis Recent Fever Within 48 Hours No Sepsis New/Unexplained Change in Mental Status No Sepsis Action Taken by Nursing No Action Required 11/04/20 22:04 11/04/20 23:46 11/05/20 00:16 Temperature Temperature Source Pulse Rate Pulse Rate [Finger] 77 82 93 H Respiratory Rate 15 18 18 Respiratory Effort / Characteristics Non-Labored Spontaneous Non-Labored Spontaneous Non-Labored Spontaneous Respiratory Depth Normal Normal Respiratory Pattern Blood Pressure Blood Pressure [Right Arm] 161/105 H 134/90 Blood Pressure Mean Blood Pressure Mean [Right Arm] 123 104 Pulse Oximetry 97 92 93 Oxygen Delivery Method Room Air Room Air Room Air Fraction of Inspired Oxygen 21 Sepsis Recent Fever Within 48 Hours Sepsis New/Unexplained Change in Mental Status Sepsis Action Taken by Nursing Vital signs reviewed. General: Well-appearing 60-year-old female, in no significant distress. HEENT: No scleral icterus, PERRLA, neck supple. Atraumatic. Cardiovascular: Regular rate and rhythm, no extra sounds. Pulmonary: Clear to auscultation bilaterally, normal work of breathing. Abdomen: Soft, obese, tender to palpation of epigastric region, no rebound, no guarding, nondistended, positive bowel sounds. Musculoskeletal: Atraumatic, no peripheral edema. Neurologic: Patient awake alert and oriented x 3 Skin: Warm, dry, no rash Course Administered Medications Acetaminophen (Acetaminophen Susp 325 Mg/10.15 Ml Udc) 650 mg PO Q6H PRN PRN Reason: Pain Stop: 12/06/20 17:53 Last Admin: 11/07/20 08:19 Dose: 650 mg Documented by: [id number] Bupropion HCl (Bupropion Sr 100 Mg Tabcr) 100 mg PO QAM CARLY Stop: 12/05/20 08:59 Last Admin: 11/07/20 08:42 Dose: 100 mg Documented by: [id number] Admin: 11/06/20 07:22 Dose: 100 mg Documented by: [id number] Admin: 11/05/20 09:00 Dose: 100 mg Documented by: [id number] Fluticasone/Vilanterol (Fluticasone/Vilanterol 100/25mcg 14 Puffs/Inhaler) 1 puffs INH DAILY CARLY; Protocol Stop: 12/05/20 08:59 Last Admin: 11/07/20 08:42 Dose: 1 puffs Documented by: [id number] Admin: 11/06/20 07:22 Dose: 1 puffs Documented by: [id number] Admin: 11/05/20 09:00 Dose: 1 puffs Documented by: [id number] Gabapentin (Gabapentin 100 Mg Cap) 200 mg PO HS CARLY Stop: 12/05/20 20:59 Last Admin: 11/06/20 20:22 Dose: 200 mg Documented by: [id number] Admin: 11/05/20 21:02 Dose: 200 mg Documented by: [id number] Guaifenesin (Guaifenesin 600 Mg Tabcr) 1,200 mg PO Q12 CARLY Stop: 12/05/20 20:59 Last Admin: 11/07/20 08:42 Dose: 1,200 mg Documented by: [id number] Admin: 11/06/20 20:22 Dose: 1,200 mg Documented by: [id number] Admin: 11/06/20 07:21 Dose: 1,200 mg Documented by: [id number] Admin: 11/05/20 21:22 Dose: 1,200 mg Documented by: [id number] Heparin Sodium (Porcine) (Heparin Sod 5,000 Unit/0.5 Ml Vial) 5,000 units SQ Q8 CARLY Stop: 12/07/20 13:59 Last Admin: 11/07/20 14:38 Dose: 5,000 units Documented by: [id number] Promethazine HCl 12.5 mg/ (Sodium Chloride) 50.5 mls @ 202 mls/hr IV Q6H PRN PRN Reason: Nausea And Vomiting Stop: 12/05/20 12:12 Last Infusion: 11/05/20 21:15 Dose: 0 mls/hr Documented by: [id number] Admin: 11/05/20 20:57 Dose: 202 mls/hr Documented by: [id number] Infusion: 11/05/20 13:08 Dose: 0 mls/hr Documented by: [id number] Admin: 11/05/20 12:43 Dose: 202 mls/hr Documented by: [id number] Metoprolol Tartrate (Metoprolol Tartrate 25 Mg Tab) 25 mg PO BID CARLY Stop: 12/05/20 08:59 Last Admin: 11/07/20 08:42 Dose: 25 mg Documented by: [id number] Admin: 11/06/20 20:22 Dose: 25 mg Documented by: [id number] Admin: 11/06/20 07:22 Dose: 25 mg Documented by: [id number] Admin: 11/05/20 21:02 Dose: 25 mg Documented by: [id number] Admin: 11/05/20 09:00 Dose: 25 mg Documented by: [id number] Miscellaneous (Check Scopolamine Patch Placement) 1 ea N/A QS CARLY Stop: 11/09/20 05:59 Last Admin: 11/07/20 15:32 Dose: Not Given Documented by: [id number] Admin: 11/07/20 07:41 Dose: Not Given Documented by: [id number] Admin: 11/06/20 22:09 Dose: Not Given Documented by: [id number] Admin: 11/06/20 15:39 Dose: Not Given Documented by: [id number] Quetiapine Fumarate (Quetiapine Fumarate 300 Mg Tablet) 150 mg PO HS CARLY Stop: 12/05/20 20:59 Last Admin: 11/06/20 20:23 Dose: 150 mg Documented by: [id number] Admin: 11/05/20 21:01 Dose: 150 mg Documented by: [id number] Tramadol HCl (Tramadol Hcl 50 Mg Tablet) 50 mg PO Q6H PRN PRN Reason: Pain Stop: 12/07/20 09:44 Last Admin: 11/07/20 15:49 Dose: 50 mg Documented by: [id number] Admin: 11/07/20 09:55 Dose: 50 mg Documented by: [id number] Trazodone HCl (Trazodone Hcl 50 Mg Tab) 50 mg PO HS CARLY Stop: 12/05/20 20:59 Last Admin: 11/06/20 20:23 Dose: 50 mg Documented by: [id number] Admin: 11/05/20 21:01 Dose: 50 mg Documented by: [id number] Umeclidinium Mustang (Umeclidinium Mustang 62.5mcg/Blister 7 Puffs/Inhaler) 1 puffs INH DAILY CARLY Stop: 12/06/20 08:59 Last Admin: 11/07/20 08:42 Dose: 1 puffs Documented by: [id number] Admin: 11/06/20 08:23 Dose: 1 puffs Documented by: [id number] Venlafaxine HCl (Venlafaxine Hcl Xr 75 Mg Capxr) 75 mg PO QAM CARLY Stop: 12/05/20 08:59 Last Admin: 11/07/20 08:43 Dose: 75 mg Documented by: [id number] Admin: 11/06/20 07:21 Dose: 75 mg Documented by: [id number] Admin: 11/05/20 09:00 Dose: 75 mg Documented by: [id number] Venlafaxine HCl (Venlafaxine Hcl Xr 150 Mg Capxr) 300 mg PO QAM CARLY Stop: 12/05/20 08:59 Last Admin: 11/07/20 08:43 Dose: 300 mg Documented by: [id number] Admin: 11/06/20 07:22 Dose: 300 mg Documented by: [id number] Admin: 11/05/20 09:00 Dose: 300 mg Documented by: [id number] Discontinued Medications Acetaminophen (Acetaminophen Susp 160 Mg/5 Ml Btl) 1,000 mg PO NOW STA Stop: 11/06/20 21:31 Last Admin: 11/06/20 21:47 Dose: 1,000 mg Documented by: [id number] Albuterol (Albut/Ipratrop 3mg/0.5mg Neb 3 Ml Vial) 3 ml NEB NOW STA Stop: 11/04/20 21:37 Last Admin: 11/04/20 22:02 Dose: 3 ml Documented by: [id number] Albuterol (Albut/Ipratrop 3mg/0.5mg Neb 3 Ml Vial) 3 ml NEB QIDR CARLY Stop: 12/05/20 10:59 Last Admin: 11/06/20 19:18 Dose: 3 ml Documented by: [id number] Admin: 11/06/20 15:04 Dose: 3 ml Documented by: [id number] Admin: 11/06/20 11:35 Dose: Not Given Documented by: [id number] Admin: 11/06/20 07:52 Dose: 3 ml Documented by: [id number] Admin: 11/05/20 20:17 Dose: 3 ml Documented by: [id number] Admin: 11/05/20 15:14 Dose: 3 ml Documented by: [id number] Admin: 11/05/20 11:09 Dose: 3 ml Documented by: [id number] Albuterol (Albut/Ipratrop 3mg/0.5mg Neb 3 Ml Vial) 3 ml NEB BIDR CARLY Stop: 12/07/20 06:59 Last Admin: 11/07/20 07:19 Dose: 3 ml Documented by: [id number] Famotidine (Famotidine 20mg/5ml Iv Push) 20 mg IV ONE STA Stop: 11/04/20 23:23 Last Admin: 11/04/20 23:45 Dose: 20 mg Documented by: [id number] Famotidine (Famotidine 40 Mg Tablet) 40 mg PO QAM CARLY Stop: 12/05/20 08:59 Last Admin: 11/05/20 08:59 Dose: Not Given Documented by: [id number] Fentanyl Citrate (Fentanyl Citrate 100 Mcg/2 Ml Vial) 25 mcg IV Q5M PRN PRN Reason: PACU Use Only-Pain Stop: 11/06/20 17:28 Last Admin: 11/06/20 12:08 Dose: 25 mcg Documented by: [id number] Admin: 11/06/20 11:58 Dose: 25 mcg Documented by: [id number] Admin: 11/06/20 11:49 Dose: 25 mcg Documented by: [id number] Admin: 11/06/20 11:44 Dose: 25 mcg Documented by: [id number] Hydromorphone HCl (Hydromorphone Inj 0.5 Mg/0.5 Ml Syr) 0.5 mg IV NOW STA Stop: 11/04/20 21:35 Last Admin: 11/04/20 21:47 Dose: 0.5 mg Documented by: [id number] Hydromorphone HCl (Hydromorphone Inj 0.5 Mg/0.5 Ml Syr) 0.5 mg IV NOW STA Stop: 11/05/20 00:04 Last Admin: 11/05/20 00:23 Dose: 0.5 mg Documented by: [id number] Hydromorphone HCl (Hydromorphone Inj 0.5 Mg/0.5 Ml Syr) 0.5 mg IV NOW STA Stop: 11/05/20 04:30 Last Admin: 11/05/20 04:35 Dose: 0.5 mg Documented by: [id number] Hydromorphone HCl (Hydromorphone Inj 0.5 Mg/0.5 Ml Syr) Confirm Administered Dose 0.5 mg .ROUTE .STK-MED ONE Stop: 11/05/20 04:32 Last Admin: 11/05/20 04:35 Dose: Not Given Documented by: [id number] Hydromorphone HCl (Hydromorphone Inj 0.5 Mg/0.5 Ml Syr) 0.5 mg IV Q3H PRN PRN Reason: Pain (6,7,8,9,10) Stop: 11/19/20 04:49 Last Admin: 11/06/20 21:30 Dose: 0.5 mg Documented by: [id number] Admin: 11/06/20 17:59 Dose: 0.5 mg Documented by: [id number] Admin: 11/06/20 14:22 Dose: 0.5 mg Documented by: [id number] Admin: 11/06/20 05:59 Dose: 0.5 mg Documented by: [id number] Admin: 11/05/20 20:57 Dose: 0.5 mg Documented by: [id number] Admin: 11/05/20 17:02 Dose: 0.5 mg Documented by: [id number] Admin: 11/05/20 12:43 Dose: 0.5 mg Documented by: [id number] Admin: 11/05/20 09:04 Dose: 0.5 mg Documented by: [id number] Admin: 11/05/20 06:01 Dose: 0.5 mg Documented by: [id number] Sodium Chloride (Nss 1000ml) 1,000 mls @ 999 mls/hr IV .Q1H1M STA Stop: 11/04/20 22:34 Last Infusion: 11/05/20 00:51 Dose: 0 mls/hr Documented by: [id number] Admin: 11/04/20 21:42 Dose: 999 mls/hr Documented by: [id number] Pantoprazole Sodium 40 mg/ (Syringe) 10 mls @ 5 mls/min IV BID CARLY Stop: 12/05/20 08:59 Last Admin: 11/07/20 08:42 Dose: 5 mls/min Documented by: [id number] Admin: 11/06/20 20:23 Dose: 5 mls/min Documented by: [id number] Admin: 11/06/20 07:21 Dose: 5 mls/min Documented by: [id number] Admin: 11/05/20 21:23 Dose: 5 mls/min Documented by: [id number] Admin: 11/05/20 07:56 Dose: 5 mls/min Documented by: [id number] Famotidine 20 mg/ Syringe 5 mls @ 2.5 mls/min IV TODAY@1030 CARLY Stop: 11/05/20 10:31 Last Admin: 11/05/20 11:39 Dose: 2.5 mls/min Documented by: [id number] Azithromycin 500 mg/ Dextrose 255 mls @ 125 mls/hr IV Q24H CARLY Stop: 11/07/20 12:18 Last Infusion: 11/07/20 11:59 Dose: 0 mls/hr Documented by: [id number] Admin: 11/07/20 09:40 Dose: 125 mls/hr Documented by: [id number] Infusion: 11/06/20 15:40 Dose: 0 mls/hr Documented by: [id number] Admin: 11/06/20 13:06 Dose: 125 mls/hr Documented by: [id number] Infusion: 11/05/20 14:31 Dose: 0 mls/hr Documented by: [id number] Infusion: 11/05/20 13:05 Dose: 125 mls/hr Documented by: [id number] Infusion: 11/05/20 12:43 Dose: 0 mls/hr Documented by: [id number] Infusion: 11/05/20 12:20 Dose: 125 mls/hr Documented by: [id number] Infusion: 11/05/20 11:53 Dose: 0 mls/hr Documented by: [id number] Admin: 11/05/20 11:39 Dose: 125 mls/hr Documented by: [id number] Promethazine HCl 6.25 mg/ (Sodium Chloride) 50.25 mls @ 204 mls/hr IV ONCE PRN PRN Reason: PACU Use Only-Nausea/Vomiting Stop: 11/06/20 17:29 Last Infusion: 11/06/20 13:14 Dose: 0 mls/hr Documented by: [id number] Admin: 11/06/20 12:43 Dose: 204 mls/hr Documented by: [id number] Ioversol (Optiray 320 100ml) 93 ml IV ONCE ONE Stop: 11/04/20 22:57 Last Admin: 11/04/20 22:57 Dose: 93 ml Documented by: [id number] Ioversol (Optiray 300) 50 ml IV ONCE ONE Stop: 11/06/20 10:18 Last Admin: 11/06/20 10:20 Dose: 10 ml Documented by: [id number] Lidocaine/Epinephrine (Lidocaine/Epinephrine 1% 20 Ml Vial) Confirm Administered Dose 20 ml .ROUTE .K-MED ONE Stop: 11/06/20 09:40 Last Admin: 11/06/20 11:00 Dose: 25 ml Documented by: [id number] Ondansetron HCl (Ondansetron Inj 2 Mg/Ml 2 Ml Vial) 4 mg IV NOW STA Stop: 11/04/20 21:35 Last Admin: 11/04/20 21:42 Dose: 4 mg Documented by: [id number] Ondansetron HCl (Ondansetron 4 Mg Od Tab) 4 mg PO DAILY PRN PRN Reason: Nausea And Vomiting Stop: 12/05/20 04:56 Last Admin: 11/05/20 09:04 Dose: 4 mg Documented by: [id number] Ondansetron HCl (Ondansetron Inj 2 Mg/Ml 2 Ml Vial) 4 mg IV ONCE PRN PRN Reason: PACU Use Only-Nausea/Vomiting Stop: 11/06/20 17:29 Last Admin: 11/06/20 11:34 Dose: 4 mg Documented by: [id number] Scopolamine (Scopolamine 1 Mg Tdsy) 1 mg TD ONE ONE Stop: 11/06/20 09:39 Last Admin: 11/06/20 13:13 Dose: Not Given Documented by: [id number] Medical Decision Making Differential Diagnosis Appendicitis, diverticulitis, UTI, obstruction, mesenteric ischemia, aortic pathology, inflammatory bowel disease, renal colic, PUD, pancreatitis, biliary pathology, hernia, volvulus, constipation, as well as other pathologies. Medical Records Attestation: I reviewed the patient's medical records. Home Medications Current Medication List: was personally reviewed by me Laboratory Data Attestation: I reviewed the patient's lab results. Result diagrams: 11/07/20 06:01 11/07/20 06:01 Lab Results 11/04/20 11/04/20 11/05/20 Range/Units 20:41 20:41 00:27 WBC 9.51 (4.8-10.8) K/uL RBC 4.24 (4.2-5.4) M/uL Hgb 13.1 (12.0-16.0) g/dL Hct 41.2 (37-47) % MCV 97.2 (80-100) fL MCH 30.9 (25-34) pg MCHC 31.8 L (32-36) g/dL RDW Std Deviation 51.8 H (36.4-46.3) fL RDW Coeff of Roseanna 14.6 H (11.5-14.5) % Plt Count 381 (130-400) K/uL MPV 9.9 (7.4-10.4) fL Immature Gran % (Auto) 0.3 % Neut % (Auto) 61.7 % Lymph % (Auto) 30.4 % [place] % (Auto) 6.3 % Eos % (Auto) 0.9 % Baso % (Auto) 0.4 % Neut # (Auto) 5.86 (1.4-6.5) K/uL Lymph # (Auto) 2.89 (1.2-3.4) K/uL [place] # (Auto) 0.60 H (0.11-0.59) K/uL Eos # (Auto) 0.09 (0-0.5) K/uL Baso # (Auto) 0.04 (0-0.2) K/uL Immature Gran # (Auto) 0.03 H (0.00-0.02) K/uL Sodium 136 (136-145) mmol/L Potassium 3.9 (3.5-5.1) mmol/L Chloride 101 (98-107) mmol/L Carbon Dioxide 27 (21-32) mmol/L Anion Gap 8.0 (3-11) BUN 14 (7-18) mg/dl Creatinine 0.68 (0.6-1.2) mg/dl Est Cr Clr Drug Dosing 110.6 ml/min Est GFR ( Amer) 111.0 ml/min Est GFR (Non-Af Amer) 95.7 ml/min BUN/Creatinine Ratio 20.1 H (10-20) Glucose 82 (70-99) mg/dl Lactate (0.4-2.0) mmol/L Calcium 8.8 (8.5-10.1) mg/dl Total Bilirubin 0.2 (0.2-1) mg/dl AST 12 L (15-37) U/L ALT 18 (12-78) U/L Alkaline Phosphatase 142 H (45-117) U/L Troponin I < 0.015 (0-0.045) ng/ml Total Protein 7.7 (6.4-8.2) gm/dl Albumin 3.5 (3.4-5.0) gm/dl Globulin 4.2 H (2.5-4.0) gm/dl Albumin/Globulin Ratio 0.8 L (0.9-2) Lipase 226 (73-393) U/L COVID-19 Eval Order Covid19 at [facility] SARS-CoV-2 (PCR) (Negative) 11/05/20 11/05/20 Range/Units 00:27 00:37 WBC (4.8-10.8) K/uL RBC (4.2-5.4) M/uL Hgb (12.0-16.0) g/dL Hct (37-47) % MCV (80-100) fL MCH (25-34) pg MCHC (32-36) g/dL RDW Std Deviation (36.4-46.3) fL RDW Coeff of Roseanna (11.5-14.5) % Plt Count (130-400) K/uL MPV (7.4-10.4) fL Immature Gran % (Auto) % Neut % (Auto) % Lymph % (Auto) % [place] % (Auto) % Eos % (Auto) % Baso % (Auto) % Neut # (Auto) (1.4-6.5) K/uL Lymph # (Auto) (1.2-3.4) K/uL [place] # (Auto) (0.11-0.59) K/uL Eos # (Auto) (0-0.5) K/uL Baso # (Auto) (0-0.2) K/uL Immature Gran # (Auto) (0.00-0.02) K/uL Sodium (136-145) mmol/L Potassium (3.5-5.1) mmol/L Chloride (98-107) mmol/L Carbon Dioxide (21-32) mmol/L Anion Gap (3-11) BUN (7-18) mg/dl Creatinine (0.6-1.2) mg/dl Est Cr Clr Drug Dosing ml/min Est GFR ( Amer) ml/min Est GFR (Non-Af Amer) ml/min BUN/Creatinine Ratio (10-20) Glucose (70-99) mg/dl Lactate 0.9 (0.4-2.0) mmol/L Calcium (8.5-10.1) mg/dl Total Bilirubin (0.2-1) mg/dl AST (15-37) U/L ALT (12-78) U/L Alkaline Phosphatase (45-117) U/L Troponin I (0-0.045) ng/ml Total Protein (6.4-8.2) gm/dl Albumin (3.4-5.0) gm/dl Globulin (2.5-4.0) gm/dl Albumin/Globulin Ratio (0.9-2) Lipase (73-393) U/L COVID-19 Eval Order SARS-CoV-2 (PCR) NEGATIVE (Negative) Imaging Data Radiologist's Impression: CT ABDOMEN & PELVIS With Contrast: Comparison: CT abdomen and pelvis 12/14/18 There is swirling of the small bowel mesentery which is similar to prior exam (series 2, images 36-55). There is a fluid distended loop of small bowel extending into the region of mesenteric swirling, with decompressed small bowel distally (series 2, images 48 and 49). Appearance is slightly more pronounced than on prior exam. No definite small bowel obstruction at this time, but developing small bowel obstruction cannot be excluded. Normal appendix. Status post Cindy fundoplication. Liver, gallbladder, pancreas, adrenal glands are unremarkable. Calcified splenic granulomas. Symmetric renal enhancement. No hydronephrosis. Aortoiliac atherosclerosis. No aneurysm. Hysterectomy. Normal urinary bladder. No acute osseous findings. Radiologist: Prince Richard M.D. Study ready at 23:21 and initial results transmitted at 23:43 ECG Data Attestation: I personally reviewed and interpreted this ECG as follows: Blood Pressure Blood Pressure Findings: Elevated blood pressure Blood Pressure Disposition: further management by hospitalist [facility] Narrative This patient was evaluated and appeared to be in some discomfort. IV access was obtained and laboratory work was drawn. An order for cardiac monitoring was placed and the patient was noted to be in a normal sinus rhythm at 71 bpm. Patient was hydrated with normal saline solution, given IV Dilaudid and Zofran. Patient was also given 20 mg of IV Pepcid. Laboratory work is fairly reassuring. Lipase is negative. Biliary enzymes are within normal limits. Troponin is negative. CT imaging of the abdomen and pelvis was performed and reveals some mesenteric swirling that appears to be chronic however there is a dilated loop of small bowel which may represent a developing small bowel obstruction. The patient was discussed with general surgery, Dr. Villarreal he did evaluate the patient in the department. He does not feel that there is an acute surgical emergency. He requested a lactate be added to the patient's laboratory work. This is 0.9. Case was discussed with the hospitalist service due to the patient's ongoing pain. She was given a second dose of IV Dilaudid for her continued discomfort and will be admitted for further management. Impression & Plan Acute epigastric pain, Hypertension Discharge Plan Visit Data Chief Complaint: Abdominal Pain Stated Complaint: SEVERE PAIN UPPER STOMACH, SOB ED Provider: Liseth Cardenas Discharge Problem: Acute epigastric pain, Hypertension Patient Disposition: Admitted As Inpatient Discharge Instructions Interventions: ED Discharge Assessment Last Done: 11/05/20 04:28 Discharge Problem: Hypertension Qualifiers: Hypertension type: primary hypertension Qualified Code(s): I10 - Essential (primary) hypertension
--- NOTE | 2020-11-05 04:16 | History & Physical Report ---
Date of Service November 05, 2020 Assessment & Plan (1) Acute epigastric pain: Plan: 60 yo F w/ pMHx. of HTN, COPD, DAYA, reflux, glaucoma, and migraines who presents with abdominal pain concerning for ulcer given location, constant nature of the pain and physical exam. Epigastric pain, potentially from an ulcer CT a/p similar to prior exam, possible developing SBO otherwise similar to prior US shows hepatomegaly, steatosis and cholelithiasis w/o acute cholecystitis lipase nl., lactate nl., nl. WBC, HGB 13.1 hemodynamically stable - GI consulted - NPO - IV PPI BID and Famotidine added - pain control with Tylenol and PRN Morphine, avoiding NSAIDs COPD, currently on 2L sat. 96% not on oxygen at home, PE non-focal - duonebs PRN - continue home medication HTN - continue Metoprolol Mood disorder - continue Bupropion, Quetiapine, Venlafaxine Code: full Diet: NPO DVT: SCDs (2) Anxiety and depression: (3) COPD exacerbation: (4) Hypertension: (5) Nausea: (6) Chills: History of Present Illness Chief Complaint: Abdominal pain Primary Care Provider: Jewell Hernandez MD Radha Guido is a 60-year-old female with a past medical history of HTN, COPD, DAYA, reflux, glaucoma, and migraines who presents with abdominal pain. She noted that she developed abdominal pain on Tuesday night. She was seen on Saturday 11/04 and was sent into the ER for further evaluation. She is having 7/10 pain currently that was as bad as 10/10 at its worst epigastric pain. The pain is constant and sharp in quality, it is worse with movement and started after eating with no improving factors. She has tried Tylenol, Maalox and Tums. She has had this pain previously and notes that it has been frequent over the last 3 years but never as severe as it is now. She has noticed associated decreased appetite. She has a history of a Cindy that was quickly reversed after she developed post operative severe bloating ([place]). Her last bowel movement was this morning. Allergies Allergy/AdvReac Type Severity Reaction Status Date / Time Bactrim Allergy Severe SHORTNESS Verified 08/12/16 15:49 OF BREATH nitrofurantoin Allergy Severe UNABLE TO Verified 11/04/20 17:25 BREATHE sulfamethoxazole Allergy Severe SHORTNESS Verified 11/04/20 17:25 OF BREATH trimethoprim Allergy Severe SHORTNESS Verified 11/04/20 17:25 OF BREATH morphine Allergy Intermediate itching Verified 11/04/20 17:25 Home Medications Medication Instructions Recorded Confirmed Type albuterol sulfate 1 vial INHALATION Q6H PRN 12/03/17 11/04/20 History trazodone 50 mg tablet 50 mg PO HS 12/03/17 11/04/20 History venlafaxine 150 mg 300 mg PO QAM 12/03/17 11/04/20 History capsule,extended release 24 hr venlafaxine 75 mg capsule,extended 75 mg PO QAM 12/03/17 11/04/20 History release 24 hr gabapentin 100 mg capsule 200 mg PO HS 03/26/18 11/04/20 History quetiapine 300 mg tablet 150 mg PO HS 08/22/18 11/04/20 History quetiapine 50 mg tablet 25 mg PO DAILY PRN 08/22/18 11/04/20 History bupropion HCl 100 mg tablet,12 hr 100 mg PO QAM 02/12/19 11/04/20 History sustained-release (Wellbutrin SR) albuterol sulfate 90 mcg/actuation 2 puff INHALATION QID PRN #8.5 gm 10/08/19 11/04/20 Rx aerosol inhaler aspirin 81 mg tablet,delayed 81 mg PO QAM 01/10/20 11/04/20 History release metoprolol tartrate 25 mg tablet 25 mg PO BID #180 tab 01/14/20 11/04/20 Rx fluticasone propionate 230 2 puff INHALATION BID g 03/20/20 11/04/20 History mcg-salmeterol 21 mcg/actuation HFA inhaler acetaminophen 500 mg tablet 2 mg PO Q6 PRN 04/24/20 11/04/20 History (Tylenol Extra Strength) ondansetron HCl 4 mg tablet 4 mg PO DAILY PRN #10 tab 04/26/20 11/04/20 Rx (Zofran) Past Med/Surg History Medical History Anxiety and depression Chronic obstructive pulmonary disease LAST USED RESCUE INHALER 3 DAYS AGO Dyslipidemia Emphysema GERD (gastroesophageal reflux disease) Glaucoma H/o Lyme disease H/O subacute thyroiditis RESOLVED HTN (hypertension) Hx of migraines Obesity DAYA (obstructive sleep apnea) NON-COMPLIANT WITH CPAP Rotator cuff insufficiency of right shoulder Rotator cuff syndrome of left shoulder Surgical History H/O section X 1 H/O cystoscopy History of colonoscopy "07/11/14- diverticulosis" History of esophagogastroduodenoscopy "07/11/14- small hiatal hernia, normal bx" History of foot fracture History of tooth extraction S/P partial hysterectomy S/p reverse total shoulder arthroplasty S/P right rotator cuff repair S/P sinus surgery S/P tonsillectomy and adenoidectomy S/P tubal ligation Status post Cindy fundoplication THEN REVERSED Family History Father Myocardial infarction Sister Diabetes Dementia Breast cancer Brother Prostate cancer Dementia Parkinson disease Mother Stroke Other Cancer No family history of adverse response to anesthesia Denies family history of Ovarian cancer Crohn's disease Colorectal cancer Social History Smoking Status: Current every day smoker Tobacco Type: Cigarettes packs per day: 0.5; Cigarettes Per Day: "10 or less"; Second Hand Exposure: Yes; Do You Dip or Chew Tobacco: No; Tobacco Cessation Education Requested by Patient: No Hx Alcohol Use: No Hx Substance Use: No Preferred Language: Malian Communication Ability: Effective Visual Impairment: No Limitations Hearing Ability: Normal Vice [employer] Required: No Beliefs That Will Affect Care: None marital status: Current Living Situation: Spouse Current Living Situation Comment: spouse, daughter, grandchildren current occupational status: disabled How many Children do You have: 0 Feels Safe at Home: Yes Safety Concerns: Feels Safe At This Time Dental Care, Regularly: No Physical Activity Frequency: 1-2 Times per Week Physical Activity Frequency Comment: physical therapy Seatbelt Use: always Assistive Devices: None Review of Systems Review of Systems: Denies fevers, chills, weight loss admits nausea, vomiting, fatigue, diaphoresis Head: denies trauma, LOC, confusion admits headache similar to prior and lightheadedness Neuro.: denies slurring of speech ENT: denies rhinorrhea, stuffiness, sneezing, sore throat Cardiac: denies chest pain, palpitations, leg swelling Pulm.: denies hemoptysis, sputum production admits cough, shortness of breath GI: denies diarrhea, constipation, black or bloody stool : denies urgency, frequency, dysuria Physical Exam Constitutional: + acute distress Eyes: PERRL, conjunctivae normal, anicteric sclerae ENMT: external ear and nose normal, oropharynx normal Neck: normal visual inspection Respiratory: - on 2L - no increased work of breathing, able to speak in full sentences - wheeze appreciated bilaterally in all lung lacy Cardiovascular: RRR, no murmur, no edema Gastrointestinal (Abdomen): Percussion/Palpation: + abdomen tender (epigastric region) and abdomen soft; no guarding Skin: no rashes, warm and dry Neurologic: no focal motor deficits Psychiatric: Orientation: alert and oriented x 3 Results & Data Results & Data ([facility]) Vital Signs (Past 12 Hours) Vital Signs Temp Pulse Pulse Resp BP BP Pulse Ox 11/05/20 02:47 72 18 150/78 H 97 11/05/20 02:36 68 16 154/76 H 88 L 11/05/20 01:40 77 14 91 11/05/20 01:30 76 23 92 11/05/20 01:20 75 12 92 11/05/20 01:10 69 22 92 11/05/20 01:03 71 14 91 11/05/20 00:16 93 H 18 134/90 93 11/05/20 00:00 73 13 134/90 94 11/04/20 23:46 82 18 161/105 H 92 11/04/20 23:40 77 13 91 11/04/20 23:30 74 12 92 11/04/20 23:20 76 14 92 11/04/20 23:10 84 21 92 11/04/20 22:04 77 15 97 11/04/20 22:00 76 16 145/106 H 92 11/04/20 21:44 74 18 94 11/04/20 21:30 74 76 16 142/105 H 142/105 H 92 11/04/20 19:07 36.8 C 85 18 205/86 H 94 CBC Results Results Complete Blood Count Results: RBC 4.24 M/uL (4.2-5.4) 11/04/20 WBC 9.51 K/uL (4.8-10.8) 11/04/20 Hgb 13.1 g/dL (12.0-16.0) 11/04/20 Hct 41.2 % (37-47) 11/04/20 Plt Count 381 K/uL (130-400) 11/04/20 Chemistry (BMP) Results BMP Results: Sodium 136 mmol/L (136-145) 11/04/20 Potassium 3.9 mmol/L (3.5-5.1) 11/04/20 Chloride 101 mmol/L (98-107) 11/04/20 BUN 14 mg/dl (7-18) 11/04/20 Creatinine 0.68 mg/dl (0.6-1.2) 11/04/20 Glucose 82 mg/dl (70-99) 11/04/20 Code Status & VTE Plan VTE Prophylaxis Plan VTE Prophylaxis will be ordered: Yes Supervising Physician Co-Signing Physician Notes Attending addendum: I have physically seen this patient, have supervised the medical residents activities, and agree with the H&P unless as otherwise noted. Assessment and Plan: Acute epigastric pain- CT abdomen and pelvis, cannot rule out developing SBO Ultrasound of abdomen and pelvis shows hepatomegaly, steatosis and cholelithiasis without acute cholecystitis N.p.o. except medications Patient is already been assessed by surgery in the ED Place Protonix and famotidine as noted Tylenol 600 mg p.o. every 6 hours as needed mild pain or fever Morphine sulfate 2 mg IV every 4 hours as needed moderate and severe pain Consult gastroenterology for possible EGD Hypertension- Continue metoprolol with hold parameters COPD- DuoNebs every 2 hours as needed Mood disorder- Continue bupropion, quetiapine and venlafaxine Remaining orders and notations as noted Resident Activity Tracking Resident Involvement: Resident Care Provided Care Provided: Adult Hospital Medicine (1) Hypertension Hypertension type: primary hypertension Qualified Code(s): I10 - Essential (primary) hypertension
[2020-11-05] MEDS ORDERED: HYDROmorphone INJ 0.5 MG/0.5 ML SYR ONE (04:31)
[2020-11-05] MEDS ORDERED: QUEtiapine FUMARATE 25 MG TABLET PO PRN (04:50)
[2020-11-05] MEDS ORDERED: ALBUTEROL HFA 8 GM INHALER INH PRN (04:50)
[2020-11-05] MEDS ORDERED: HYDROmorphone INJ 0.5 MG/0.5 ML SYR IV PRN (04:50)
[2020-11-05] MEDS ORDERED: ONDANSETRON 4 MG OD TAB PO PRN (04:57)
[2020-11-05] MEDS ORDERED: ALBUT/IPRATROP 3MG/0.5MG NEB 3 ML VIAL NEB PRN (05:51)
[2020-11-05] MEDS: HYDROmorphone INJ 0.5 MG/0.5 ML SYR IV PRN ×5 (06:01→20:57)
--- NOTE | 2020-11-05 06:40 | Ultrasound Report ---
US gallbladder CLINICAL HISTORY: Right upper quadrant abdominal pain. COMPARISON STUDY: Right upper quadrant ultrasound March 11, 2020. CT of the abdomen and pelvis Sep 2020. FINDINGS: This exam is compromised by suboptimal penetration. No hepatic lesions are identified. Hepa tic echogenicity is increased. This favors hepatic steatosis. There is no biliary ductal dilatation. The common bile duct measures 4 mm in caliber. There is sludge within the gallbladder. There is a mob ile gallstone within the gallbladder. There is no gallbladder wall thickening. No sonographic Awan sign was elicited. Pancreas is obscured by overlying bowel gas. There is no right hydronephrosis. IMPRESSION: 1. Gallstones and sludge within the gallbladder. No evidence for acute cholecystitis. 2. No biliary ductal dilatation. ACT 112: Negative or not required by law. Electronically signed by: Raffi Ham M.D. 11/05/2020 6:38 AM
--- NOTE | 2020-11-05 07:46 | XRay Report ---
XR chest 1V portable CLINICAL HISTORY: wheezing, epigastric pain COMPARISON STUDY: April 18, 2020 FINDINGS: No pneumothorax. No pleural effusion. Diffuse reticular opacities are seen throughout bilateral lungs, most prominent in bilateral lower ramos ngs and associated with mild nodular component, appear worsening since prior study. Redemonstration o f linear densities at the left infrahilar region, could represent atelectasis or scarring. Cardiac silhouette is within upper limits of normal. Bilateral lu are prominent. Aorta is calcified . Mild pulmonary vascular congestion, appear more prominent when compared to prior study.. Osseous structures: Prosthetic right shoulder joint. Distal aspect of the right clavicle is not visu alized, could be related to prior trauma or represent acrolysis. IMPRESSION: 1. Possible pulmonary edema associated with mild prominence of cardiac silhouette and pulmonary vasc ular congestion. 2. The rest of findings as above. ACT 112: Negative or not required by law. The above report was generated using voice recognition software. It may contain grammatical, syntax o r spelling errors. Electronically signed by: Gaye Reyes DO 11/05/2020 7:45 AM
[2020-11-05] MEDS: PANTOprazole 40 MG in SYRINGE 0 ML IV SCH ×2 (07:56→21:23)
--- NOTE | 2020-11-05 08:11 | CT Scan Report ---
CT abd pelvis IV con only CLINICAL INDICATION: MN ^CTR C7 ^epigastric abd pain. TECHNIQUE: Helical axial images of the abdomen and pelvis were obtained and displayed at 5 and 1 mm i ntervals. Automated dose lowering techniques and/or adjustment according to patient size were utilize d for this exam. This exam was performed with intravenous contrast. COMPARISON: Comparison is made to CT abdomen and pelvis 12/14/2018 FINDINGS: Lower chest: Emphysematous and cystic changes are seen within the lungs. Liver: Unremarkable. No focal lesions are seen. Gallbladder and biliary tree: No calcified gallstones. Normal caliber wall. No intra- or extrahepatic biliary ductal dilation. Pancreas: Unremarkable, no focal lesions. Spleen: Calcifications are noted in the spleen compatible with prior granulomatous disease. Adrenals: Unremarkable. Kidneys and ureters: Unremarkable. Bladder: Limited evaluation due to underdistention. Bowel: No evidence of bowel obstruction. There is a prominent loop of small bowel measuring 28 mm whi ch decompresses adjacent to a region of mesenteric swirling, which is also seen in the prior exam. Lymph nodes Retroperitoneal: Unremarkable. Mesenteric: Unremarkable. Pelvic: Unremarkable. Reproductive organs: Patient is status post hysterectomy. Peritoneum: No free fluid or fat stranding. Vessels: Atherosclerotic calcifications are seen. Again noted is swirling of mid abdominal mesenteric vessels, similar in appearance to prior exam, without surrounding stranding. Abdominal wall: Right fat containing inguinal hernia. Bones: Degenerative changes in the visualized spine. IMPRESSION: No evidence of significant bowel obstruction. Mesenteric swirling in the mid abdomen is unchanged fro m prior exam. A loop of bowel entering the region of swirling is mildly distended and focally distall y decompressed, likely an incidental finding, although early developing small bowel obstruction canno t be entirely excluded. ACT 112: Negative or not required by law. Electronically signed by: Jose Naqvi M.D. 11/05/2020 8:10 AM
--- NOTE | 2020-11-05 08:35 | Gastrointestinal Consultation ---
Date of Consultation November 05, 2020 Assessment & Plan (1) Acute epigastric pain: Likely related to symptomatic gallstones in view of normal labs and imaging. Already seen by general surgery and planning for Lap nicky tomorrow hence will hold off on EGD for now however may use PPI if needed. Recall GI if needed. (2) Cholelithiasis: History of Present Illness Reason for Consultation: Abdominal pain Attending Physician: oJnathan Miller DO History of Present Illness 60 years old female patient admitted with epigastric abdominal pain for 4 days, intermittent, nonradiating, dull, associated with nausea but no vomiting. No diarrhea or constipation, no rectal bleeding. Prior EGD in 2019 was unremarkable. She had Hx of Cindy fundoplication then had take down. CT scan showed unchanged swirling of the mesentery, no clear SBO. Sono showed gallstone. Allergies Allergy/AdvReac Type Severity Reaction Status Date / Time Bactrim Allergy Severe SHORTNESS Verified 08/12/16 15:49 OF BREATH nitrofurantoin Allergy Severe UNABLE TO Verified 11/04/20 17:25 BREATHE sulfamethoxazole Allergy Severe SHORTNESS Verified 11/04/20 17:25 OF BREATH trimethoprim Allergy Severe SHORTNESS Verified 11/04/20 17:25 OF BREATH morphine Allergy Intermediate itching Verified 11/04/20 17:25 Home Medications Medication Instructions Recorded Confirmed Type albuterol sulfate 1 vial INHALATION Q6H PRN 12/03/17 11/04/20 History trazodone 50 mg tablet 50 mg PO HS 12/03/17 11/04/20 History venlafaxine 150 mg 300 mg PO QAM 12/03/17 11/04/20 History capsule,extended release 24 hr venlafaxine 75 mg capsule,extended 75 mg PO QAM 12/03/17 11/04/20 History release 24 hr gabapentin 100 mg capsule 200 mg PO HS 03/26/18 11/04/20 History quetiapine 300 mg tablet 150 mg PO HS 08/22/18 11/04/20 History quetiapine 50 mg tablet 25 mg PO DAILY PRN 08/22/18 11/04/20 History bupropion HCl 100 mg tablet,12 hr 100 mg PO QAM 02/12/19 11/04/20 History sustained-release (Wellbutrin SR) albuterol sulfate 90 mcg/actuation 2 puff INHALATION QID PRN #8.5 gm 10/08/19 11/04/20 Rx aerosol inhaler aspirin 81 mg tablet,delayed 81 mg PO QAM 01/10/20 11/04/20 History release metoprolol tartrate 25 mg tablet 25 mg PO BID #180 tab 01/14/20 11/04/20 Rx fluticasone propionate 230 2 puff INHALATION BID g 03/20/20 11/04/20 History mcg-salmeterol 21 mcg/actuation HFA inhaler acetaminophen 500 mg tablet 2 mg PO Q6 PRN 04/24/20 11/04/20 History (Tylenol Extra Strength) ondansetron HCl 4 mg tablet 4 mg PO DAILY PRN #10 tab 04/26/20 11/04/20 Rx (Zofran) Patient History Medical History (Updated 11/05/20 @ 09:00 by Jareth Early MD) Anxiety and depression Chronic obstructive pulmonary disease LAST USED RESCUE INHALER 3 DAYS AGO Dyslipidemia Emphysema GERD (gastroesophageal reflux disease) Glaucoma H/o Lyme disease H/O subacute thyroiditis RESOLVED HTN (hypertension) Hx of migraines Obesity DAYA (obstructive sleep apnea) NON-COMPLIANT WITH CPAP Rotator cuff insufficiency of right shoulder Rotator cuff syndrome of left shoulder Surgical History H/O section X 1 H/O cystoscopy History of colonoscopy "07/11/14- diverticulosis" History of esophagogastroduodenoscopy "07/11/14- small hiatal hernia, normal bx" History of foot fracture History of tooth extraction S/P partial hysterectomy S/p reverse total shoulder arthroplasty S/P right rotator cuff repair S/P sinus surgery S/P tonsillectomy and adenoidectomy S/P tubal ligation Status post Cindy fundoplication THEN REVERSED Family History Father Myocardial infarction Sister Diabetes Dementia Breast cancer Brother Prostate cancer Dementia Parkinson disease Mother Stroke Other Cancer No family history of adverse response to anesthesia Denies family history of Ovarian cancer Crohn's disease Colorectal cancer Social History Smoking Status: Current every day smoker Tobacco Type: Cigarettes packs per day: 0.5; Cigarettes Per Day: "10 or less"; Second Hand Exposure: Yes; Do You Dip or Chew Tobacco: No; Tobacco Cessation Education Requested by Patient: No Hx Alcohol Use: No Hx Substance Use: No Preferred Language: Chadian Communication Ability: Effective Visual Impairment: No Limitations Hearing Ability: Normal Finger Waver Required: No Beliefs That Will Affect Care: None marital status: Current Living Situation: Spouse Current Living Situation Comment: spouse, daughter, grandchildren current occupational status: disabled Feels Safe at Home: Yes Safety Concerns: Feels Safe At This Time Dental Care, Regularly: No Physical Activity Frequency: 1-2 Times per Week Physical Activity Frequency Comment: physical therapy Seatbelt Use: always Assistive Devices: None Review of Systems Constitutional: no fever, no chills, no fatigue and no weight loss Eyes: no eye pain and no worsening vision Ear, Nose, Mouth, Throat: no tinnitus, no dizziness, no nasal discharge and no epistaxis Respiratory: no cough, no dyspnea, no dyspnea on exertion and no wheezing Cardiovascular: no chest pain, no orthopnea, no palpitations and no edema Gastrointestinal: as per Subjective / HPI Genitourinary: no dysuria, no urinary frequency, no urinary incontinence and no hematuria Musculoskeletal: no stiffness and no myalgia Neurologic: no localized weakness, no paralysis, no tremor(s) and no headache(s) Endocrine: no polydipsia and no polyuria Hematologic / Lymphatic: no easy bleeding and no night sweats Physical Exam Constitutional: + well hydrated, cooperative and comfortable Eyes: PERRL, conjunctivae normal, anicteric sclerae ENMT: external ear and nose normal, oropharynx normal Neck: normal visual inspection and trachea midline Respiratory: normal respiratory effort, lungs clear to auscultation Auscultation: no wheezes Cardiovascular: RRR, no murmur, no edema Gastrointestinal (Abdomen): normal bowel sounds, soft, nontender, no hepatosplenomegaly Musculoskeletal: no cyanosis or clubbing, extremities motor strength 5/5 Skin: no rashes, warm and dry Neurologic: awake; no focal motor deficits Motor/Sensory: no tremor Results & Data ([facility]) Vital Signs (Past 12 Hours) Vital Signs Temp Pulse Pulse Resp BP BP Pulse Ox 11/05/20 07:38 36.5 C 70 16 116/75 94 11/05/20 05:20 98 11/05/20 04:45 36.7 C 70 18 168/74 H 93 11/05/20 04:28 71 18 153/88 H 97 11/05/20 02:47 72 18 150/78 H 97 11/05/20 02:36 68 16 154/76 H 88 L 11/05/20 01:40 77 14 91 11/05/20 01:30 76 23 92 11/05/20 01:20 75 12 92 11/05/20 01:10 69 22 92 11/05/20 01:03 71 14 91 11/05/20 00:16 93 H 18 134/90 93 11/05/20 00:00 73 13 134/90 94 11/04/20 23:46 82 18 161/105 H 92 11/04/20 23:40 77 13 91 11/04/20 23:30 74 12 92 11/04/20 23:20 76 14 92 11/04/20 23:10 84 21 92 11/04/20 22:04 77 15 97 11/04/20 22:00 76 16 145/106 H 92 11/04/20 21:44 74 18 94 11/04/20 21:30 74 76 16 142/105 H 142/105 H 92 Laboratory Results Laboratory Results - last 24 hr 11/04/20 11/04/20 11/05/20 20:41 20:41 00:27 WBC 9.51 RBC 4.24 Hgb 13.1 Hct 41.2 MCV 97.2 MCH 30.9 MCHC 31.8 L RDW Std Deviation 51.8 H RDW Coeff of Roseanna 14.6 H Plt Count 381 MPV 9.9 Immature Gran % (Auto) 0.3 Neut % (Auto) 61.7 Lymph % (Auto) 30.4 Iron % (Auto) 6.3 Eos % (Auto) 0.9 Baso % (Auto) 0.4 Neut # (Auto) 5.86 Lymph # (Auto) 2.89 Iron # (Auto) 0.60 H Eos # (Auto) 0.09 Baso # (Auto) 0.04 Immature Gran # (Auto) 0.03 H Sodium 136 Potassium 3.9 Chloride 101 Carbon Dioxide 27 Anion Gap 8.0 BUN 14 Creatinine 0.68 Est Cr Clr Drug Dosing 110.6 Est GFR ( Amer) 111.0 Est GFR (Non-Af Amer) 95.7 BUN/Creatinine Ratio 20.1 H Glucose 82 Lactate Calcium 8.8 Total Bilirubin 0.2 AST 12 L ALT 18 Alkaline Phosphatase 142 H Troponin I < 0.015 Total Protein 7.7 Albumin 3.5 Globulin 4.2 H Albumin/Globulin Ratio 0.8 L Lipase 226 Urine Color Urine Appearance Urine pH Ur Specific [place] Urine Protein Urine Glucose (UA) Urine Ketones Urine Blood Urine Nitrite Urine Bilirubin Urine Urobilinogen Ur Leukocyte Esterase Urine WBC (Auto) Urine RBC (Auto) U Hyaline Cast (Auto) U Epithel Cells (Auto) Urine Bacteria (Auto) COVID-19 Eval Order Covid19 at [facility] SARS-CoV-2 (PCR) 11/05/20 11/05/20 11/05/20 00:27 00:37 Unknown WBC RBC Hgb Hct MCV MCH MCHC RDW Std Deviation RDW Coeff of Roseanna Plt Count MPV Immature Gran % (Auto) Neut % (Auto) Lymph % (Auto) Iron % (Auto) Eos % (Auto) Baso % (Auto) Neut # (Auto) Lymph # (Auto) Iron # (Auto) Eos # (Auto) Baso # (Auto) Immature Gran # (Auto) Sodium Potassium Chloride Carbon Dioxide Anion Gap BUN Creatinine Est Cr Clr Drug Dosing Est GFR ( Amer) Est GFR (Non-Af Amer) BUN/Creatinine Ratio Glucose Lactate 0.9 Calcium Total Bilirubin AST ALT Alkaline Phosphatase Troponin I Total Protein Albumin Globulin Albumin/Globulin Ratio Lipase Urine Color Yellow Urine Appearance Clear Urine pH 6.5 Ur Specific [place] > 1.045 H Urine Protein Negative Urine Glucose (UA) Negative Urine Ketones Negative Urine Blood Trace H Urine Nitrite Negative Urine Bilirubin Negative Urine Urobilinogen Negative Ur Leukocyte Esterase Negative Urine WBC (Auto) 1-5 Urine RBC (Auto) 0-4 U Hyaline Cast (Auto) 0 U Epithel Cells (Auto) 20-30 H Urine Bacteria (Auto) Negative COVID-19 Eval Order SARS-CoV-2 (PCR) NEGATIVE
--- NOTE | 2020-11-05 08:54 | Surgery Progress Note ---
Date of Service November 05, 2020 Assessment & Plan (1) Cholelithiasis: Plan: I suspect in retrospect the patient has had a longstanding history of gallbladder dysfunction that could be accounting for a number of her symptoms the ultrasound that was nonlabored last evening confirmed cholelithiasis with sludge in the gallbladder this was explained to the patient and I recommended proceed with laparoscopic cholecystectomy cholangiogram possible open she is agreeable to this she is on the schedule for tomorrow She states that she is never remember having an ultrasound of her gallbladder in the past All questions were answered Plan: Patient is scheduled for laparoscopic cholecystectomy cholangiogram possible open for tomorrow Admission and Anticipated Discharge Date Admission Date: November 05, 2020 Subjective Still has some abdominal discomfort bilaterally subcostally not hungry although not really nauseated this morning Physical Exam Physical Exam: The abdomen appears less tender than last evening though she has more right upper quadrant guarding Results & Data ([facility]) Vital Signs (Past 12 Hours) Vital Signs Temp Pulse Pulse Resp BP BP Pulse Ox 11/05/20 07:38 36.5 C 70 16 116/75 94 11/05/20 05:20 98 11/05/20 04:45 36.7 C 70 18 168/74 H 93 11/05/20 04:28 71 18 153/88 H 97 11/05/20 02:47 72 18 150/78 H 97 11/05/20 02:36 68 16 154/76 H 88 L 11/05/20 01:40 77 14 91 11/05/20 01:30 76 23 92 11/05/20 01:20 75 12 92 11/05/20 01:10 69 22 92 11/05/20 01:03 71 14 91 11/05/20 00:16 93 H 18 134/90 93 11/05/20 00:00 73 13 134/90 94 11/04/20 23:46 82 18 161/105 H 92 11/04/20 23:40 77 13 91 11/04/20 23:30 74 12 92 11/04/20 23:20 76 14 92 11/04/20 23:10 84 21 92 11/04/20 22:04 77 15 97 11/04/20 22:00 76 16 145/106 H 92 11/04/20 21:44 74 18 94 11/04/20 21:30 74 76 16 142/105 H 142/105 H 92 PG Care Time/CCT Total # of Minutes Spent Total Time Spent with Patient: Total time spent is greater than 50% in coordination of care (as documented) at patient's floor/unit and/or counseling patient: Coding Level of Care Code 23525 Subseq Hosp Care Lvl 2 Diagnoses Cholelithiasis K80.20
[2020-11-05] MEDS: VENLAFAXINE HCL XR 75 MG CAPXR PO SCH (09:00)
[2020-11-05] MEDS: buPROPion SR 100 MG TABCR PO SCH (09:00)
[2020-11-05] MEDS ORDERED: FAMOTIDINE 40 MG TABLET PO SCH (09:00)
[2020-11-05] MEDS: METOPROLOL TARTRATE 25 MG TAB PO SCH ×2 (09:00→21:02)
[2020-11-05] MEDS: FLUTICASONE/VILANTEROL 100/25MCG 14 PUFFS/INHALER INH SCH (09:00)
[2020-11-05] MEDS: VENLAFAXINE HCL XR 150 MG CAPXR PO SCH (09:00)
--- NOTE | 2020-11-05 09:01 | Anesthesiology Consultation ---
Date of Service November 05, 2020 Assessment & Plan (1) Encounter for pre-operative examination: Chart Review Chart Review: Acceptable Risk for Surgery History Surgery Operation Date: 11/05/20 16:30 Proposed Procedures p Esophagogastroduodenoscopy Dr Christianson - Magdalena Christianson MD Operation Date: 11/06/20 10:00 Proposed Procedures p Laparoscopic Cholecystectomy with Cholangiogram, Possible Open - Rosalio Villarreal MD, FACS Height/Weight Height: 5 ft 5 in Weight: 111.5 kg Allergies Allergy/AdvReac Type Severity Reaction Status Date / Time Bactrim Allergy Severe SHORTNESS Verified 08/12/16 15:49 OF BREATH nitrofurantoin Allergy Severe UNABLE TO Verified 11/04/20 17:25 BREATHE sulfamethoxazole Allergy Severe SHORTNESS Verified 11/04/20 17:25 OF BREATH trimethoprim Allergy Severe SHORTNESS Verified 11/04/20 17:25 OF BREATH morphine Allergy Intermediate itching Verified 11/04/20 17:25 Medications Home Medications Medication Instructions Recorded Confirmed Last Taken albuterol sulfate 1 vial INHALATION Q6H PRN 12/03/17 11/04/20 08/24/19 trazodone 50 mg tablet 50 mg PO 12/03/17 11/04/20 04/23/20 19:00 venlafaxine 150 mg 300 mg PO QAM 12/03/17 11/04/20 04/24/20 05:45 capsule,extended release 24 hr venlafaxine 75 mg capsule,extended 75 mg PO QA 12/03/17 11/04/20 04/24/20 05:45 release 24 hr gabapentin 100 mg capsule 200 mg PO HS 03/26/18 11/04/20 04/23/20 19:00 quetiapine 300 mg tablet 150 mg PO HS 08/22/18 11/04/20 04/23/20 19:00 quetiapine 50 mg tablet 25 mg PO DAILY PRN 08/22/18 11/04/20 08/24/19 bupropion HCl 100 mg tablet,12 hr 100 mg PO QAM 02/12/19 11/04/20 04/24/20 05:45 sustained-release (Wellbutrin SR) albuterol sulfate 90 mcg/actuation 2 puff INHALATION QID PRN #8.5 gm 10/08/19 11/04/20 04/24/20 05:45 aerosol inhaler aspirin 81 mg tablet,delayed 81 mg PO QAM 01/10/20 11/04/20 04/24/20 05:45 release metoprolol tartrate 25 mg tablet 25 mg PO BID #180 tab 01/14/20 11/04/20 04/24/20 05:45 fluticasone propionate 230 2 puff INHALATION BID g 03/20/20 11/04/20 04/23/20 19:00 mcg-salmeterol 21 mcg/actuation HFA inhaler acetaminophen 500 mg tablet 2 mg PO Q6 PRN 04/24/20 11/04/20 04/23/20 14:00 (Tylenol Extra Strength) ondansetron HCl 4 mg tablet 4 mg PO DAILY PRN #10 tab 04/26/20 11/04/20 Unknown (Zofran) Active Medications Generic Name Dose Route Start Last Admin Trade Name Freq PRN Reason Stop Dose Admin Bupropion HCl 100 mg 11/05/20 09:00 11/05/20 09:00 Bupropion Sr 100 Mg Tabcr PO 12/05/20 08:59 100 mg QAM CARLY Administration Famotidine 40 mg 11/05/20 09:00 11/05/20 08:59 Famotidine 40 Mg Tablet PO 12/05/20 08:59 Not Given QAM CARLY Fluticasone/Vilanterol 1 puffs 11/05/20 09:00 11/05/20 09:00 Fluticasone/Vilanterol 100/25mcg 14 Puffs/Inhaler INH 12/05/20 08:59 1 puffs DAILY CARLY Administration Protocol Hydromorphone HCl 0.5 mg 11/05/20 04:50 11/05/20 06:01 Hydromorphone Inj 0.5 Mg/0.5 Ml Syr IV 11/19/20 04:49 0.5 mg Q3H PRN Administration Pain (6,7,8,9,10) Pantoprazole Sodium 40 mg/ 10 mls @ 5 mls/min 11/05/20 09:00 11/05/20 07:56 Syringe IV 12/05/20 08:59 5 mls/min BID CARLY Administration Metoprolol Tartrate 25 mg 11/05/20 09:00 11/05/20 09:00 Metoprolol Tartrate 25 Mg Tab PO 12/05/20 08:59 25 mg BID CARLY Administration Venlafaxine HCl 75 mg 11/05/20 09:00 11/05/20 09:00 Venlafaxine Hcl Xr 75 Mg Capxr PO 12/05/20 08:59 75 mg QAM CARLY Administration Venlafaxine HCl 300 mg 11/05/20 09:00 11/05/20 09:00 Venlafaxine Hcl Xr 150 Mg Capxr PO 12/05/20 08:59 300 mg QAM CARLY Administration Past Medical History Medical History (Updated 11/05/20 @ 09:00 by Jareth Early MD) Anxiety and depression Chronic obstructive pulmonary disease LAST USED RESCUE INHALER 3 DAYS AGO Dyslipidemia Emphysema GERD (gastroesophageal reflux disease) Glaucoma H/o Lyme disease H/O subacute thyroiditis RESOLVED HTN (hypertension) Hx of migraines Obesity DAYA (obstructive sleep apnea) NON-COMPLIANT WITH CPAP Rotator cuff insufficiency of right shoulder Rotator cuff syndrome of left shoulder Past Family History Family History Father Myocardial infarction Sister Diabetes Dementia Breast cancer Brother Prostate cancer Dementia Parkinson disease Mother Stroke Other Cancer No family history of adverse response to anesthesia Denies family history of Ovarian cancer Crohn's disease Colorectal cancer Past Surgical History Surgical History H/O section X 1 H/O cystoscopy History of colonoscopy "07/11/14- diverticulosis" History of esophagogastroduodenoscopy "07/11/14- small hiatal hernia, normal bx" History of foot fracture History of tooth extraction S/P partial hysterectomy S/p reverse total shoulder arthroplasty S/P right rotator cuff repair S/P sinus surgery S/P tonsillectomy and adenoidectomy S/P tubal ligation Status post Cindy fundoplication THEN REVERSED Social History Smoking Status: Current every day smoker tobacco type: cigarettes Smoking cigarettes per day: "10 or less" Do You Dip or Chew Tobacco: No Hx Alcohol Use: No Alcohol type: beer, wine and hard liquor alcohol intake frequency: holidays/special occasions only Hx Substance Use: No substance use type: does not use Physical Exam Vital Signs Last Vital Signs Temp 36.5 C 11/05/20 07:38 Pulse 70 11/05/20 07:38 Resp 16 11/05/20 07:38 BP 116/75 11/05/20 07:38 Pulse Ox 94 11/05/20 07:38 Testing Laboratory Results 11/04/20 20:41 11/04/20 20:41 Urine Color Yellow 11/05/20 Unknown Urine Appearance Clear (Clear) 11/05/20 Unknown Urine pH 6.5 (4.5-7.5) 11/05/20 Unknown Ur Specific [place] > 1.045 (1.000-1.030) H 11/05/20 Unknown Urine Protein Negative (Negative) 11/05/20 Unknown Urine Glucose (UA) Negative (Negative) 11/05/20 Unknown Urine Ketones Negative (Negative) 11/05/20 Unknown Urine Nitrite Negative (Negative) 11/05/20 Unknown Ur Leukocyte Esterase Negative (Negative) 11/05/20 Unknown Urine WBC (Auto) 1-5 /hpf (0-5) 11/05/20 Unknown Urine RBC (Auto) 0-4 /hpf (0-4) 11/05/20 Unknown U Hyaline Cast (Auto) 0 /lpf (0-5) 11/05/20 Unknown U Epithel Cells (Auto) 20-30 /lpf (0-5) H 11/05/20 Unknown Urine Bacteria (Auto) Negative (Negative) 11/05/20 Unknown Electrocardiogram Date: 11/04/20 Findings: + NSR @ (81) Echocardiogram Date: 09/10/19 EF: 60% LV Function: normal Valvular Disease: + MR (mild)
--- NOTE | 2020-11-05 09:52 | Hospitalist Progress Note ---
Date of Service November 05, 2020 Assessment & Plan (1) Acute epigastric pain: Plan: Radha is a 60 yo F w/ pMHx. of HTN, COPD, DAYA, reflux, glaucoma, and migraines who presents with an exacerbation of RUQ/epigastric abdominal pain, that has been waxing/waning for several years. Epigastric / RUQ Pain * Long-term history of RUQ/epigastric pain currently in exacerbation since Tuesday -- constant in quality, does radiate towards RUQ/back. Decreased appetite, occasional nausea. * Work-up as follows: -- No WBCs, no fever, VSS -- H&H stable -- Lipase (-) -- CT-A/P: Mesenteric swirling unchanged, mildly distended and focally decompressed loop of bowel - likely incidental, cannot exclude developing SBO -- RUQ US: Gallstones, sludge without cholecystitis * Surgery consulted initially out of concern for possible SBO -- Impression is likely biliary colic / gallbladder dysfunction -- Proceed with lap nicky - NPO at midnight * At this time, suspect that this issue may have multiple etiologies -- physical exam supportive of gallbladder dysfunction with grossly (+) Awan's and history of waxing/waning course over several years. However, with (+) epigastric pain and distribution of pain, PUD cannot be excluded, either. * Continue IV PPI * Phenergan p.r.n. for nausea * Tylenol, p.r.n. morphine for pain - avoid NSAIDs Mild COPD Exacerbation -- does not have O2 requirement at baseline * With long-standing smoking history; on Advair at home (but ?utilizing PRN) -- will require extensive counselling prior to d/c * Requiring 2L at present, saturating >96% -- CXR demonstrating emphysematous changes, no PNA * Probably a mild exacerbation right now -- begin: -- DuoNebs qid CARLY -- Azithromycin 500mg x 3 days (IV for now given n.p.o.). QTC 436. -- Hold from steroids given ongoing c/f PUD -- if (-), begin taper * Breo qAM * Albuterol p.r.n. HTN * No acute needs * Metoprolol, continue Mood disorder * No acute needs * Continue Bupropion, Quetiapine, Venlafaxine Code: full Diet: Regular, NPO at midnight DVT: SCDs Dispo: MS (2) Anxiety and depression: (3) COPD exacerbation: (4) Hypertension: (5) Nausea: (6) Chills: Admission and Anticipated Discharge Date Admission Date: November 05, 2020 Supervising Physician Co-Signing Physician Notes I personally examined the patient and verified all afng points of history and exam, discussed case, and agree with decision making with Dr Burrell as above. stable. Discussed COPD and need for chronic management. For cholecystectomy tomorrow. Subjective NAEO. Pain ongoing. About a 7/10 right now. Will occasionally spike to 10/10. This has been ongoing for several years - but does tend to wax/wane. Describes it as a "constant pain/pressure" around epigastrum, but worse toward RUQ. Cannot make definitive associations with eating. Does get worse with body movements - such as bending forward. Breathing has been more difficult over last several weeks. Maybe more coughing than usual. No fevers, chills, NS. No chest pain. No congestion/sinus pressure. Only has a prn inhaler. Review of Systems Review of Systems: as per HPI Physical Exam Physical Exam: General: Tired and frail appearing 60-year-old female who is lying back in her hospital bed, relaxed, upon my arrival. Awakens easily without distress. HEENT: NCAT. Eyes - Sclera are white, anicteric, and without injection. = Cardiac: Normal rate and regular rhythm; S1 and S2 present with no murmurs, rubs, or gallops. Pulmonary: Mild respiratory effort with symmetric expansion of the chest. Inspiratory and expiratory wheezes heard throughout all lung lacy. No crackles. Abdominal: Normoactive bowel sounds. +TTP in the epigastrum that extends across the RUQ/LUQ. Inspiratory arrest with deep palpation below right rib cage ([place]+). No CVA tenderness. Extremities: Upper and lower extremities are warm and well perfused. There is 1+ pitting edema in the RLE - chronic per patient. Results & Data Results & Data ([facility]) Vital Signs (Past 12 Hours) Vital Signs Temp Pulse Pulse Resp BP BP Pulse Ox 11/05/20 07:38 36.5 C 70 16 116/75 94 11/05/20 05:20 98 11/05/20 04:45 36.7 C 70 18 168/74 H 93 11/05/20 04:28 71 18 153/88 H 97 11/05/20 02:47 72 18 150/78 H 97 11/05/20 02:36 68 16 154/76 H 88 L 11/05/20 01:40 77 14 91 11/05/20 01:30 76 23 92 11/05/20 01:20 75 12 92 11/05/20 01:10 69 22 92 11/05/20 01:03 71 14 91 11/05/20 00:16 93 H 18 134/90 93 11/05/20 00:00 73 13 134/90 94 11/04/20 23:46 82 18 161/105 H 92 11/04/20 23:40 77 13 91 11/04/20 23:30 74 12 92 11/04/20 23:20 76 14 92 11/04/20 23:10 84 21 92 11/04/20 22:04 77 15 97 11/04/20 22:00 76 16 145/106 H 92 Resident Activity Tracking Resident Involvement: Resident Care Provided Care Provided: Adult Hospital Medicine (1) Hypertension Hypertension type: primary hypertension Qualified Code(s): I10 - Essential (primary) hypertension
[2020-11-05] MEDS ORDERED: FAMOTIDINE 20 MG in SYRINGE 3 ML IV SCH (10:30)
[2020-11-05] MEDS: ALBUT/IPRATROP 3MG/0.5MG NEB 3 ML VIAL NEB SCH ×3 (11:09→20:17)
[2020-11-05] MEDS: AZITHROMYCIN 500 MG in DEXTROSE 5% 250 ML IV SCH (11:39)
[2020-11-05] MEDS ORDERED: PROMETHAZINE HCL 12.5 MG/10 ML UDP PO PRN (12:09)
[2020-11-05] MEDS: PROMETHAZINE HCL 12.5 MG in SODIUM CHLORIDE 0.9% 50 ML IV PRN ×2 (12:43→20:57)
[2020-11-05] MEDS ORDERED: ALBUT/IPRATROP 3MG/0.5MG NEB 3 ML VIAL NEB SCH (13:00)
--- NOTE | 2020-11-05 13:53 | Electrocardiogram Report ---
Test Reason : Blood Pressure : / mmHG Vent. Rate : 081 BPM Atrial Rate : 081 BPM P-R Int : 162 ms QRS Dur : 088 ms QT Int : 366 ms P-R-T Axes : 074 035 064 degrees QTc Int : 425 ms Poor data quality, interpretation may be adversely affected Normal sinus rhythm Normal ECG When compared with ECG of 11-MAR-2020 15:45, No significant change was found Confirmed by Smith Casillas ([id number]) on 11/05/2020 1:53:09 PM Referred By: REFERRED SELF Confirmed By:Smith Casillas
--- NOTE | 2020-11-05 15:40 | Anesthesiology Consultation ---
Date of Service November 05, 2020 Assessment & Plan Chart Review Chart Review: Acceptable Risk for Surgery and Patient NOT seen in Pre Admission Testing Consults Requested none ASA ASA4 Proposed Anesthesia Anesthesia Type: General History Surgery Operation Date: 11/05/20 16:30 Proposed Procedures p Esophagogastroduodenoscopy Dr Christianson - Magdalena Christianson MD Operation Date: 11/06/20 10:00 Proposed Procedures p Laparoscopic Cholecystectomy with Cholangiogram, Possible Open - Rosalio Villarreal MD, FACS Height/Weight Height: 5 ft 5 in Weight: 111.5 kg Allergies Allergy/AdvReac Type Severity Reaction Status Date / Time Bactrim Allergy Severe SHORTNESS Verified 08/12/16 15:49 OF BREATH nitrofurantoin Allergy Severe UNABLE TO Verified 11/04/20 17:25 BREATHE sulfamethoxazole Allergy Severe SHORTNESS Verified 11/04/20 17:25 OF BREATH trimethoprim Allergy Severe SHORTNESS Verified 11/04/20 17:25 OF BREATH morphine Allergy Intermediate itching Verified 11/04/20 17:25 Medications Home Medications Medication Instructions Recorded Confirmed Last Taken albuterol sulfate 1 vial INHALATION Q6H PRN 12/03/17 11/04/20 08/24/19 trazodone 50 mg tablet 50 mg PO 12/03/17 11/04/20 04/23/20 19:00 venlafaxine 150 mg 300 mg PO QAM 12/03/17 11/04/20 04/24/20 05:45 capsule,extended release 24 hr venlafaxine 75 mg capsule,extended 75 mg PO QA 12/03/17 11/04/20 04/24/20 05:45 release 24 hr gabapentin 100 mg capsule 200 mg PO HS 03/26/18 11/04/20 04/23/20 19:00 quetiapine 300 mg tablet 150 mg PO HS 08/22/18 11/04/20 04/23/20 19:00 quetiapine 50 mg tablet 25 mg PO DAILY PRN 08/22/18 11/04/20 08/24/19 bupropion HCl 100 mg tablet,12 hr 100 mg PO QAM 02/12/19 11/04/20 04/24/20 05:45 sustained-release (Wellbutrin SR) albuterol sulfate 90 mcg/actuation 2 puff INHALATION QID PRN #8.5 gm 10/08/19 11/04/20 04/24/20 05:45 aerosol inhaler aspirin 81 mg tablet,delayed 81 mg PO QAM 01/10/20 11/04/20 04/24/20 05:45 release metoprolol tartrate 25 mg tablet 25 mg PO BID #180 tab 01/14/20 11/04/20 04/24/20 05:45 fluticasone propionate 230 2 puff INHALATION BID g 03/20/20 11/04/20 04/23/20 19:00 mcg-salmeterol 21 mcg/actuation HFA inhaler acetaminophen 500 mg tablet 2 mg PO Q6 PRN 04/24/20 11/04/20 04/23/20 14:00 (Tylenol Extra Strength) ondansetron HCl 4 mg tablet 4 mg PO DAILY PRN #10 tab 04/26/20 11/04/20 Unknown ([place]) Active Medications Generic Name Dose Route Start Last Admin Trade Name Freq PRN Reason Stop Dose Admin Albuterol 3 ml 11/05/20 11:00 11/05/20 15:14 Albut/Ipratrop 3mg/0.5mg Neb 3 Ml Vial NEB 12/05/20 10:59 3 ml QIDR CARLY Administration Bupropion HCl 100 mg 11/05/20 09:00 11/05/20 09:00 Bupropion Sr 100 Mg Tabcr PO 12/05/20 08:59 100 mg QAM CARLY Administration Fluticasone/Vilanterol 1 puffs 11/05/20 09:00 11/05/20 09:00 Fluticasone/Vilanterol 100/25mcg 14 Puffs/Inhaler INH 12/05/20 08:59 1 puffs DAILY CARLY Administration Protocol Hydromorphone HCl 0.5 mg 11/05/20 04:50 11/05/20 12:43 Hydromorphone Inj 0.5 Mg/0.5 Ml Syr IV 11/19/20 04:49 0.5 mg Q3H PRN Administration Pain (6,7,8,9,10) Pantoprazole Sodium 40 mg/ 10 mls @ 5 mls/min 11/05/20 09:00 11/05/20 07:56 Syringe IV 12/05/20 08:59 5 mls/min BID CARLY Administration Azithromycin 500 mg/ Dextrose 255 mls @ 125 mls/hr 11/05/20 10:15 11/05/20 14:31 IV 11/07/20 12:18 Infused Q24H CARLY Infusion Promethazine HCl 12.5 mg/ 50.5 mls @ 202 mls/hr 11/05/20 12:13 11/05/20 13:08 Sodium Chloride IV 12/05/20 12:12 Infused Q6H PRN Infusion Nausea And Vomiting Metoprolol Tartrate 25 mg 11/05/20 09:00 11/05/20 09:00 Metoprolol Tartrate 25 Mg Tab PO 12/05/20 08:59 25 mg BID CARLY Administration Venlafaxine HCl 75 mg 11/05/20 09:00 11/05/20 09:00 Venlafaxine Hcl Xr 75 Mg Capxr PO 12/05/20 08:59 75 mg QAM CARLY Administration Venlafaxine HCl 300 mg 11/05/20 09:00 11/05/20 09:00 Venlafaxine Hcl Xr 150 Mg Capxr PO 12/05/20 08:59 300 mg QAM CARLY Administration Past Medical History Medical History Anxiety and depression Chronic obstructive pulmonary disease LAST USED RESCUE INHALER 3 DAYS AGO Dyslipidemia Emphysema GERD (gastroesophageal reflux disease) Glaucoma H/o Lyme disease H/O subacute thyroiditis RESOLVED HTN (hypertension) Hx of migraines Obesity DAYA (obstructive sleep apnea) NON-COMPLIANT WITH CPAP Rotator cuff insufficiency of right shoulder Rotator cuff syndrome of left shoulder Exercise / Class Metabolic Activity III < 4 Walking/Shop/Light housework Past Family History Family History Father Myocardial infarction Sister Diabetes Dementia Breast cancer Brother Prostate cancer Dementia Parkinson disease Mother Stroke Other Cancer No family history of adverse response to anesthesia Denies family history of Ovarian cancer Crohn's disease Colorectal cancer Past Surgical History Surgical History H/O section X 1 H/O cystoscopy History of colonoscopy "07/11/14- diverticulosis" History of esophagogastroduodenoscopy "07/11/14- small hiatal hernia, normal bx" History of foot fracture History of tooth extraction S/P partial hysterectomy S/p reverse total shoulder arthroplasty S/P right rotator cuff repair S/P sinus surgery S/P tonsillectomy and adenoidectomy S/P tubal ligation Status post Cindy fundoplication THEN REVERSED Past Anesthesia History No Hx of Anesthesia Complications and No Family Hx of Anesthesia Complications History of PONV No Hx of PONV and No Hx of Motion Sickness Social History Smoking Status: Current every day smoker tobacco type: cigarettes Smoking cigarettes per day: "10 or less" Do You Dip or Chew Tobacco: No Hx Alcohol Use: No Alcohol type: beer, wine and hard liquor alcohol intake frequency: holidays/special occasions only Hx Substance Use: No substance use type: does not use Physical Exam Vital Signs Last Vital Signs Temp 36.5 C 11/05/20 07:38 Pulse 89 11/05/20 15:14 Resp 16 11/05/20 15:14 BP 116/75 11/05/20 07:38 Pulse Ox 91 11/05/20 15:14 Testing Laboratory Results 11/04/20 20:41 11/04/20 20:41 Urine Color Yellow 11/05/20 Unknown Urine Appearance Clear (Clear) 11/05/20 Unknown Urine pH 6.5 (4.5-7.5) 11/05/20 Unknown Ur Specific [place] > 1.045 (1.000-1.030) H 11/05/20 Unknown Urine Protein Negative (Negative) 11/05/20 Unknown Urine Glucose (UA) Negative (Negative) 11/05/20 Unknown Urine Ketones Negative (Negative) 11/05/20 Unknown Urine Nitrite Negative (Negative) 11/05/20 Unknown Ur Leukocyte Esterase Negative (Negative) 11/05/20 Unknown Urine WBC (Auto) 1-5 /hpf (0-5) 11/05/20 Unknown Urine RBC (Auto) 0-4 /hpf (0-4) 11/05/20 Unknown U Hyaline Cast (Auto) 0 /lpf (0-5) 11/05/20 Unknown U Epithel Cells (Auto) 20-30 /lpf (0-5) H 11/05/20 Unknown Urine Bacteria (Auto) Negative (Negative) 11/05/20 Unknown Electrocardiogram Date: 11/04/20 Findings: + NSR @ (at 81) Chest X-Ray Date: 11/04/20 Findings: + pulmonary vascular congestion (w/poss. pulm. edema) Echocardiogram Date: 09/10/19 EF: 60% LV Function: normal RWMA: + none Other Findings: + LVH Valvular Disease: + MR (mild MR)
--- NOTE | 2020-11-05 19:08 | Billing Data ---
Date of Service November 05, 2020 Coding Level of Care Code 54398 Subseq Obs Care Lvl 3
[2020-11-05] MEDS ORDERED: QUEtiapine FUMARATE 25 MG TABLET PO SCH (21:00)
[2020-11-05] MEDS: traZODone HCL 50 MG TAB PO SCH (21:01)
[2020-11-05] MEDS: QUEtiapine FUMARATE 300 MG TABLET PO SCH (21:01)
[2020-11-05] MEDS: GABAPENTIN 100 MG CAP PO SCH (21:02)
[2020-11-05] MEDS: guaiFENesin 600 MG TABCR PO SCH (21:22)
--- NOTE | 2020-11-06 05:28 | Billing Data ---
Date of Service November 06, 2020 Coding Level of Care Code INT OBSERVATION CARE 70M LVL 3
[2020-11-06] MEDS: HYDROmorphone INJ 0.5 MG/0.5 ML SYR IV PRN ×4 (05:59→21:30)
[2020-11-06] MEDS ORDERED: SUGAMMADEX SODIUM 200 MG/2 ML VIAL IV ONE (06:25)
--- NOTE | 2020-11-06 06:44 | Hospitalist Progress Note ---
Date of Service November 06, 2020 Assessment & Plan (1) Acute epigastric pain: Plan: Radha is a 60 yo F w/ pMHx. of HTN, COPD, DAYA, reflux, glaucoma, and migraines who presents with an exacerbation of RUQ/epigastric abdominal pain, that has been waxing/waning for several years. Epigastric / RUQ Pain -- likely biliary dysfunction/colic * Long-term history of RUQ/epigastric pain currently in exacerbation since Tue -- constant in quality, does radiate towards RUQ/back. Decreased appetite, occasional nausea. * Work-up as follows: -- No WBCs, no fever, VSS -- H&H stable -- Lipase (-) -- CT-A/P: Mesenteric swirling unchanged, mildly distended and focally decompressed loop of bowel - likely incidental, cannot exclude developing SBO -- RUQ US: Gallstones, sludge without cholecystitis * Surgery consulted initially out of concern for possible SBO -- Proceeding with lap nicky today * At this time, suspect that this issue may have multiple etiologies -- physical exam supportive of gallbladder dysfunction with grossly (+) Awan's and history of waxing/waning course over several years. However, with (+) epigastric pain and distribution of pain, PUD cannot be excluded, either. * Continue IV PPI * Phenergan p.r.n. for nausea * Tylenol, p.r.n. morphine for pain - avoid NSAIDs Mild COPD Exacerbation -- does not have O2 requirement at baseline * With long-standing smoking history; on Advair at home (but ?utilizing PRN) -- will require extensive counselling prior to d/c * Requiring 2-3 L at present, saturating >96% -- CXR demonstrating emphysematous changes, no PNA * Probably a mild exacerbation right now -- begin: -- DuoNebs qid CARLY -- Azithromycin 500mg x 3 days (IV for now given n.p.o.). QTC 436. -- Hold from steroids given ongoing c/f PUD -- if (-), begin taper * Breo qAM * Add Incruse for anticholinergic activities * Spirometry during the day tomorrow pending pain control * Albuterol p.r.n. HTN * No acute needs * Metoprolol, continue Mood disorder * No acute needs * Continue Bupropion, Quetiapine, Venlafaxine Code: full Diet: Regular, NPO at midnight DVT: SCDs Dispo: MS (2) Anxiety and depression: (3) COPD exacerbation: (4) Hypertension: (5) Nausea: (6) Chills: Admission and Anticipated Discharge Date Admission Date: November 05, 2020 Supervising Physician Co-Signing Physician Notes I personally examined the patient and verified all fang points of history and exam, discussed case, and agree with decision making with Dr Burrell. Feeling okay postop. Was able to eat some clears, a little bit of nausea but not too bad. Breathing okay. Vitals noted, in general she is awake and alert pleasant no distress. HEENT normocephalic atraumatic mucous membranes moist. Breathing unlabored no accessory muscle use good effort. Nasal cannula in place. Skin shows no rashes no pallor or icterus. Cholelithiasis/symptomaticand also Intra-Op it appears she had chronic cholecystitisnow status post cholecystectomy. Pain control, advance diet. Otherwise as per surgery Presumed COPDconcerning that she was not really feeling dyspnea with pulse ox is in the 80ssuggesting a degree of chronic hypoxia that she has been unaware of. Likely will try to obtain spirometry here, even though she is in the hospital, to try to aid moving forward with actually confirming her diagnosis and hopefully helping with treatment adherence. Continue inhalers, oxygen, supportive care. Azithromycin for pulmonary anti-inflammatory effect. Subjective NAEO. Belly pain persists. Some nausea, but not too bad. Eager for surgery today. Breathing feels improved. No cough. No chest pain or palpitations. No other concerns. Review of Systems Review of Systems: as per HPI Physical Exam Physical Exam: General: Tired appearing 60-year-old female who is lying back in her hospital bed, relaxed, upon my arrival. Awakens easily without distress. HEENT: NCAT. Eyes - Sclera are white, anicteric, and without injection. = Cardiac: Normal rate and regular rhythm; S1 and S2 present with no murmurs, rubs, or gallops. Pulmonary: Mild respiratory effort with symmetric expansion of the chest. Inspiratory and expiratory wheezes heard throughout all lung lacy. No crackles. Abdominal: Normoactive bowel sounds. +TTP in the epigastrum that extends across the RUQ/LUQ. Inspiratory arrest with deep palpation below right rib cage ([place]+). No CVA tenderness. Unchanged. Extremities: Upper and lower extremities are warm and well perfused. There is 1+ pitting edema in the RLE - chronic per patient. Results & Data Results & Data ([facility]) Vital Signs (Past 12 Hours) Vital Signs Temp Pulse Pulse Resp BP Pulse Ox 11/05/20 22:54 37 C 62 16 107/69 96 11/05/20 20:20 63 14 97 Resident Activity Tracking Resident Involvement: Resident Care Provided Care Provided: Adult Hospital Medicine (1) Hypertension Hypertension type: primary hypertension Qualified Code(s): I10 - Essential (primary) hypertension
[2020-11-06] MEDS: guaiFENesin 600 MG TABCR PO SCH ×2 (07:21→20:22)
[2020-11-06] MEDS: VENLAFAXINE HCL XR 75 MG CAPXR PO SCH (07:21)
[2020-11-06] MEDS: PANTOprazole 40 MG in SYRINGE 0 ML IV SCH ×2 (07:21→20:23)
[2020-11-06] MEDS: METOPROLOL TARTRATE 25 MG TAB PO SCH ×2 (07:22→20:22)
[2020-11-06] MEDS: VENLAFAXINE HCL XR 150 MG CAPXR PO SCH (07:22)
[2020-11-06] MEDS: buPROPion SR 100 MG TABCR PO SCH (07:22)
[2020-11-06] MEDS: FLUTICASONE/VILANTEROL 100/25MCG 14 PUFFS/INHALER INH SCH (07:22)
[2020-11-06] MEDS: ALBUT/IPRATROP 3MG/0.5MG NEB 3 ML VIAL NEB SCH ×4 (07:52→19:18)
[2020-11-06] MEDS: UMECLIDINIUM BROMIDE 62.5MCG/BLISTER 7 PUFFS/INHALER INH SCH (08:23)
[2020-11-06] MEDS ORDERED: ONDANSETRON INJ 2 MG/ML 2 ML VIAL ONE (08:46)
[2020-11-06] MEDS ORDERED: PROPOFOL IV EMULSION 10 MG/ML 20 ML VIAL IV ONE (08:46)
[2020-11-06] MEDS ORDERED: ROCURONIUM BROMIDE 10 MG/ML 5 ML VIAL IV ONE (08:46)
[2020-11-06] MEDS ORDERED: DEXAMETHASONE SOD INJ 4 MG/ML VIAL ONE (08:46)
[2020-11-06] MEDS ORDERED: fentaNYL citrate 100 MCG/2 ML VIAL ONE (08:47)
[2020-11-06] MEDS ORDERED: FAMOTIDINE 20 MG in SYRINGE 3 ML IV PRN (09:00)
[2020-11-06] MEDS ORDERED: UMECLIDINIUM/VILANTEROL 62.5/25MCG 7 PUFFS/INHALER INH SCH (09:00)
[2020-11-06] MEDS ORDERED: KETOROLAC 30 MG/ML VIAL IV PRN (09:27)
[2020-11-06] MEDS ORDERED: ONDANSETRON INJ 2 MG/ML 2 ML VIAL IV PRN (09:27)
[2020-11-06] MEDS ORDERED: ATROPINE SULFATE 0.1 MG/ML 10ML SYR IV PRN (09:27)
[2020-11-06] MEDS ORDERED: ALBUTEROL 0.083% NEBU SOLN 3 ML VIAL INH PRN (09:27)
[2020-11-06] MEDS ORDERED: PROMETHAZINE HCL 6.25 MG in SODIUM CHLORIDE 0.9% 50 ML IV PRN (09:27)
[2020-11-06 09:35] LABS: Basophils # (auto) 0.03 K/uL (0-0.2); Basophils % (auto) 0.4 %; Eosinophils # (auto) 0.05 K/uL (0-0.5); Eosinophils % (auto) 0.7 %; Hematocrit (blood only) 37.6 % (37-47); Hemoglobin 11.8 g/dL (12.0-16.0); Immature Granulocytes # (auto) 0.02 K/uL (0.00-0.02); Immature Granulocytes % (auto) 0.3 %; Lymphocytes # (auto) 1.96 K/uL (1.2-3.4); Lymphocytes % (auto) 29.2 %; Mean Corpuscular Hemoglobin 31.1 pg (25-34); Mean Corpuscular Hgb Conc 31.4 g/dL (32-36); Mean Corpuscular Volume 99.2 fL (80-100); Mean Platelet Volume 9.3 fL (7.4-10.4); Monocytes # (auto) 0.39 K/uL (0.11-0.59); Monocytes % (auto) 5.8 %; Neutrophils # (auto) 4.26 K/uL (1.4-6.5); Neutrophils % (auto) 63.6 %; Platelet Count 278 K/uL (130-400); RDW Coefficient of Variation 14.2 % (11.5-14.5); RDW Standard Deviation 51.5 fL (36.4-46.3); Red Blood Count 3.79 M/uL (4.2-5.4); White Blood Count 6.71 K/uL (4.8-10.8)
[2020-11-06] MEDS ORDERED: SCOPOLAMINE 1 MG TDSY TD ONE (09:38)
[2020-11-06] MEDS ORDERED: LIDOCAINE/EPINEPHRINE 1% 20 ML VIAL ONE (09:39)
--- NOTE | 2020-11-06 09:39 | History & Physical Bridge Note ---
Date of Service November 06, 2020 History & Physical Bridge Note I have examined the patient, reviewed the History & Physical and in the interval since the performance of the History & Physical I have noted the following changes of clinical significance: no changes noted Still having some abdominal discomfort right upper quadrant since last seen yesterday we will proceed with laparoscopic cholecystectomy cholangiogram possible open risk and complication of been explained to the patient yesterday and we reiterated this morning all questions answered operative permit signed
[2020-11-06 10:05] LABS: BUN Creatinine Ratio 22.5 (10-20); Calcium 8.7 mg/dl (8.5-10.1); Creatinine Clr Calc Pharmacy 114.2 ml/min; Est GFR (African American) 112.1 ml/min; Est GFR (Non-African American) 96.7 ml/min
[2020-11-06] MEDS ORDERED: LARYING-O-JET KIT (LTA) ONE (10:07)
[2020-11-06] MEDS ORDERED: PHENYLEPHRINE 100MCG/ML 5ML SYR ONE (10:07)
[2020-11-06] MEDS ORDERED: ePHEDrine sulfate 50 MG/ML SYR ONE (10:07)
[2020-11-06] MEDS ORDERED: OPTIRAY 300 IV ONE (10:17)
--- NOTE | 2020-11-06 10:43 | Fluoroscopy Report ---
[place] cholangiogram OR HISTORY: 60 years-old Female LAP WHITLEY status post cholecystectomy COMPARISON: CT abdomen and pelvis 11/04/2020 TECHNIQUE: One spot fluoroscopic image of the abdominal right upper quadrant was obtained utilizing 3 .2 seconds fluoroscopy time FINDINGS: The gallbladder appears to be surgically absent. Cannulation of the cystic duct with injection of con trast. No intrahepatic or extrahepatic biliary ductal dilation, stricture or filling defect identifie d. Contrast spills into the duodenum. IMPRESSION: Fluoroscopic assistance as above. ACT 112: Negative or not required by law. The above report was generated using voice recognition software. It may contain grammatical, syntax o r spelling errors. Electronically signed by: Jhony Lucero M.D. 11/06/2020 10:42 AM
--- NOTE | 2020-11-06 11:00 | Post Operative Brief Note ---
PG Immediate Post Op with CF Date of Surgery November 06, 2020 Pre & Post Diagnosis Operation Date: 11/05/20 16:30 <No data on this case meets the specified criteria> Operation Date: 11/06/20 10:00 Pre-Op Diagnosis: Cholelithiasis Post-Op Diagnosis: Cholelithiasis I identified the patient and participated in the time-out.: Yes Procedure Operation Date: 11/05/20 16:30 <No data on this case meets the specified criteria> Operation Date: 11/06/20 10:00 Actual Procedures p Laparoscopic Cholecystectomy with Intraoperative Cholangiogram(Not Applicable) - Rosalio Villarreal MD, FACS Surgeon Rosalio Villarreal MD, FACS [employer] Wildlife Biologist b steve solis Estimated Blood Loss 10 Findings Consistent with Post-Op Diagnosis Specimens Specimen Description: A. Gallbladder
--- NOTE | 2020-11-06 11:19 | Operative Report ---
Post Operative Report Pre & Post Diagnosis Operation Date: 11/05/20 16:30 <No data on this case meets the specified criteria> Operation Date: 11/06/20 10:00 Pre-Op Diagnosis: Cholelithiasis Post-Op Diagnosis: Cholelithiasis I identified the patient and participated in the time-out.: Yes Procedure Operation Date: 11/05/20 16:30 <No data on this case meets the specified criteria> Operation Date: 11/06/20 10:00 Actual Procedures p Laparoscopic Cholecystectomy with Intraoperative Cholangiogram(Not Applicable) - Rosalio Villarreal MD, FACS Patient was brought into the operating room theater supine position general endotracheal anesthesia abdomen was prepped Betadine solution properly draped timeout was had patient identified small incision approximately centimeter so in size was made above the umbilicus dissected down onto the abdominal wall which was elevated by Harlan clamps the fascia was divided 0 Vicryl suture stay sutures we entered the peritoneal cavity and direct visualization 5 mm trocar CO2 insufflated stay sutures control the pneumoperitoneum under lita visualization we were able to see the right upper quadrant no adhesions here were identified 5 mm epigastric and 2 5 mm subcostal ports were placed with preemptive analgesic left lower liver could easily be appreciated fully down towards the neck of the gallbladder the right upper quadrant trocar was used to elevate the right lobe of the liver then we dissected out towards the neck of the gallbladder patient has significant adhesions to the gallbladder which mostly were taken down by blunt dissection some of them are sharp fine adhesions the neck of the gallbladder was dissected out which could see the takeoff of the cystic duct which created a small window around it at its takeoff the artery was easily appreciated superiorly therefore we encircled with a right angle clamp and clipped approximately twice once distally and divided small opening cystic duct was made on #4 urethral catheter was inserted after we had clipped the takeoff of the cystic duct free flow into the duodenum was obtained no obstruction was seen initial film showed what appeared to be no flow into the duodenum but the other ones was no obstruction Cholangiocath was then removed the cystic duct was corkscrew in appearance as we have seen on cholangiogram therefore we choked up on it doubly clipped and divided the gallbladder was removed in antegrade fashion leaving much posterior peritoneum was possible once this was freed we were able to place the gallbladder in Endopouch and taken out intact to the epigastric port we opened that the patient had some stones bilirubinate in nature subhepatic suprahepatic area was then checked for stasis appears satisfactory we placed the camera in the right upper quadrant port site and visualize the umbilical entry site with no adhesions were appreciated the patient did have some adhesions in towards the right lower quadrant from previous surgery but we will well aware and away from those disease and throughout the procedure once individual trochars removed under direct visualization no bleeding was identified at the entry site the initial entry site in the supraumbilical area with the stay sutures we closed the fascia with #0 PDS [id number] times two 2-0 Vicryl subcutaneous 4-0 Monocryl subcuticularly Steri-Strips applied procedure was tolerated well by the patient estimate blood loss 5 cc AddendumB Jake solis was present throughout the procedure and helped the retraction exposure and wound closure Talk to her Lai at [phone] Incident report was asked to be filed since gloves were wearing migrate onto the and beyond the sleeve of the gown Surgeon Rosalio Villarreal MD, FACS Net Programmer Analyst [place] solis Estimated Blood Loss 10 Findings Consistent with Post-Op Diagnosis Chronic cholecystitis cholelithiasis Specimens Gallbladder and contents Description of Procedure merda I attest to the content of the Intraoperative Record and any orders documented therein. Any exceptions are noted below.
[2020-11-06] MEDS: fentaNYL citrate 100 MCG/2 ML VIAL IV PRN ×4 (11:44→12:08)
[2020-11-06] MEDS: AZITHROMYCIN 500 MG in DEXTROSE 5% 250 ML IV SCH (13:06)
[2020-11-06] MEDS: CHECK SCOPOLAMINE PATCH PLACEMENT SCH ×2 (15:39→22:09)
[2020-11-06] MEDS ORDERED: ACETAMINOPHEN SUSP 1000 MG/31.2 ML UDP PO STA (18:02)
--- NOTE | 2020-11-06 19:53 | Billing Data ---
Date of Service November 06, 2020 Coding Level of Care Code 21734 Subseq Obs Care Lvl 2
[2020-11-06] MEDS: GABAPENTIN 100 MG CAP PO SCH (20:22)
[2020-11-06] MEDS: QUEtiapine FUMARATE 300 MG TABLET PO SCH (20:23)
[2020-11-06] MEDS: traZODone HCL 50 MG TAB PO SCH (20:23)
[2020-11-06] MEDS ORDERED: ACETAMINOPHEN SUSP 160 MG/5 ML BTL PO STA (21:30)
--- NOTE | 2020-11-07 06:09 | Hospitalist Progress Note ---
Date of Service November 07, 2020 Assessment & Plan (1) Acute epigastric pain: Plan: aRdha is a 60 yo F w/ pMHx. of HTN, COPD, DAYA, reflux, glaucoma, and migraines who presents with an exacerbation of RUQ/epigastric abdominal pain, that has been waxing/waning for several years. Epigastric / RUQ Pain -- likely biliary dysfunction/colic * Long-term history of RUQ/epigastric pain currently in exacerbation since Tue -- constant in quality, does radiate towards RUQ/back. Decreased appetite, occasional nausea. * Work-up as follows: -- No WBCs, no fever, VSS -- H&H stable -- Lipase (-) -- CT-A/P: Mesenteric swirling unchanged, mildly distended and focally decompressed loop of bowel - likely incidental, cannot exclude developing SBO -- RUQ US: Gallstones, sludge without cholecystitis * Surgery consulted: s/p tej nicky on 11/07 * At this time, suspect that this issue is primarily due to biliary dysfunction. PUD less likely, but also considered * H. pylori stool test ordered for comprehensive eval * Phenergan p.r.n. for nausea * Tylenol, p.r.n. for pain --> Tramadol for breakthrough (avoid potent narcotics with fragile respiratory status) Mild COPD Exacerbation -- does not have O2 requirement at baseline * With long-standing smoking history; on Advair at home (but ?utilizing PRN) -- will require extensive counselling prior to d/c * Requiring 3-5 L at present, saturating >96% -- increase O2 requirement in post-op -- Suspect atelectasis, but given diminished breath sounds over L side -- CXR ordered: No PNX. Mild PVC. Emphysematous changes. -- Promote ISBs -- Add prednisone 20mg x 7 days (start 11/07) * Probably a mild exacerbation right now -- begin: -- DuoNebs tid CARLY -- Azithromycin 500mg x 3 days. QTC 436. -- Hold from steroids given ongoing c/f PUD -- if (-), begin taper * Breo qAM * Add Incruse for anticholinergic activities * Would recommend PFTs as outpatient given pain-contribution to O2 requirement * Albuterol p.r.n. HTN * No acute needs * Metoprolol, continue Mood disorder * No acute needs * Continue Bupropion, Quetiapine, Venlafaxine Code: full Diet: Regular, NPO at midnight DVT: SCDs Dispo: MS (2) Anxiety and depression: (3) COPD exacerbation: (4) Hypertension: (5) Nausea: (6) Chills: Admission and Anticipated Discharge Date Admission Date: November 05, 2020 Supervising Physician Co-Signing Physician Notes I personally examined the patient and verified all fang points of history and exam, discussed case, and agree with decision making with Dr Burrell. Ongoing pain to a degree, although reasonable controllater informed by nursing that her pain was a bit worse. No significant shortness of breath, but still needing oxygen. Vitals noted, in general she is awake and alert pleasant no distress. HEENT normocephalic atraumatic mucous membranes moist. Breathing unlabored no accessory muscle use good effortlungs with very diminished breath sounds but no adventitious sounds. Nasal cannula in place. Skin shows no rashes no pallor or icterus. Cholelithiasis/symptomaticand also Intra-Op it appears she had chronic cholecystitisnow status post cholecystectomy. Overall stable for home, but apparently does need a bit better pain control. Revamp regimen, continue current care otherwise. Presumed COPDhard to tell if she has moderate COPD this in a state of exacerbation or severe COPD that she has not been treatingeither way oxygen, azithromycin, inhalers, and allergies postop, will add prednisone. Try to wean oxygen if possibleif not send her home on it if it is clear that she is not weaning. Subjective NAEO. Feeling ok this AM - sore around incision sites but otherwise deep abdominal pain seems to have disappeared. Appetite coming back - no n/v. Breathing feels fine, albeit has an increased O2 requirement. Says she doesn't really feel that SOB when lying back in bed but definitely while walking around. No lightheadedness/dizziness. No cp. Review of Systems Review of Systems: as per HPI Physical Exam Physical Exam: General: More well-appearing 60-year-old female who is sitting at the edge of her hospital bed, finishing breakfast, upon my arrival. She converses freely and without acute distress. HEENT: NCAT. Eyes - Sclera are white, anicteric, and without injection. Cardiac: Normal rate and regular rhythm; S1 and S2 present with no murmurs, rubs, or gallops. Pulmonary: Easy respiratory effort with symmetric expansion of the chest. Auscultation does reveal diminished breath sounds on the left side, appreciated more posteriorly than anteriorly. Right-sided breath sounds are vesicular. Much improved compared to prior. Abdominal: Normoactive bowel sounds. Incisional sites are clean dry and intact. There is mild tenderness to palpation around them, as well as in the right upper quadrant epigastrium. Extremities: Upper and lower extremities are warm and well perfused. There is 1+ pitting edema in the RLE - chronic per patient. Results & Data Results & Data ([facility]) Vital Signs (Past 12 Hours) Vital Signs Temp Pulse Pulse Resp BP Pulse Ox 11/07/20 03:49 36.9 C 65 18 119/63 93 11/06/20 22:14 37.2 C 72 18 107/59 L 93 11/06/20 20:20 67 130/70 11/06/20 19:23 36.5 C 82 24 122/63 97 11/06/20 19:18 20 97 Resident Activity Tracking Resident Involvement: Resident Care Provided Care Provided: Adult Hospital Medicine (1) Hypertension Hypertension type: primary hypertension Qualified Code(s): I10 - Essential (primary) hypertension
[2020-11-07 06:34] LABS: Basophils # (auto) 0.01 K/uL (0-0.2); Basophils % (auto) 0.1 %; Eosinophils # (auto) 0.17 K/uL (0-0.5); Eosinophils % (auto) 1.9 %; Hematocrit (blood only) 37.2 % (37-47); Hemoglobin 11.7 g/dL (12.0-16.0); Immature Granulocytes # (auto) 0.03 K/uL (0.00-0.02); Immature Granulocytes % (auto) 0.3 %; Lymphocytes # (auto) 1.87 K/uL (1.2-3.4); Lymphocytes % (auto) 20.8 %; Mean Corpuscular Hemoglobin 31.2 pg (25-34); Mean Corpuscular Hgb Conc 31.5 g/dL (32-36); Mean Corpuscular Volume 99.2 fL (80-100); Mean Platelet Volume 9.6 fL (7.4-10.4); Monocytes # (auto) 0.73 K/uL (0.11-0.59); Monocytes % (auto) 8.1 %; Neutrophils # (auto) 6.16 K/uL (1.4-6.5); Neutrophils % (auto) 68.8 %; Platelet Count 279 K/uL (130-400); RDW Coefficient of Variation 13.9 % (11.5-14.5); RDW Standard Deviation 50.6 fL (36.4-46.3); Red Blood Count 3.75 M/uL (4.2-5.4); White Blood Count 8.97 K/uL (4.8-10.8)
[2020-11-07] MEDS ORDERED: ALBUT/IPRATROP 3MG/0.5MG NEB 3 ML VIAL NEB SCH (07:00)
[2020-11-07 07:08] LABS: BUN Creatinine Ratio 21.6 (10-20); Calcium 8.5 mg/dl (8.5-10.1); Creatinine Clr Calc Pharmacy 150.7 ml/min; Est GFR (African American) 122.8 ml/min; Est GFR (Non-African American) 105.9 ml/min; Potassium 3.6 mmol/L (3.5-5.1)
--- NOTE | 2020-11-07 07:36 | Surgery Progress Note ---
Date of Service November 07, 2020 Assessment & Plan (1) Cholelithiasis: Plan: POD #1 Status post laparoscopic cholecystectomy intraoperative cholangiogram Intraoperative findings were discussed with the patient We will advance her diet as tolerated from the surgical point of view she can be discharged today to follow-up in our office in approximately 1 week no driving for 1 week no lifting anything heavier than 10 pounds she may shower may take some Tylenol for pain all questions were answered Dr. Sumner will be covering the weekend in case the patient stays in the hospital I suspect in retrospect the patient has had a longstanding history of gallb ladder dysfunction that could be accounting for a number of her symptoms the ultrasound that was nonlabored last evening confirmed cholelithiasis with sludge in the gallbladder this was explained to the patient and I recommended proceed with laparoscopic cholecystectomy cholangiogram possible open she is agreeable to this she is on the schedule for tomorrow She states that she is never remember having an ultrasound of her gallbladder in the past All questions were answered Plan: Patient is scheduled for laparoscopic cholecystectomy cholangiogram possible open for tomorrow Admission and Anticipated Discharge Date Admission Date: November 05, 2020 Subjective Had a good night no further abdominal discomfort as she had preoperatively had some liquids last night without any issues Physical Exam Physical Exam: She is resting comfortably in bed my first weekend she was sleeping but woke up very easily no abdominal complaints The abdomen is benign trocar sites Steri-Strips intact Results & Data ([facility]) Vital Signs (Past 12 Hours) Vital Signs Temp Pulse Pulse Resp BP Pulse Ox 11/07/20 07:21 72 20 95 11/07/20 03:49 36.9 C 65 18 119/63 93 11/06/20 22:14 37.2 C 72 18 107/59 L 93 11/06/20 20:20 67 130/70 PG Care Time/CCT Total # of Minutes Spent Total Time Spent with Patient: Total time spent is greater than 50% in coordination of care (as documented) at patient's floor/unit and/or counseling patient: Coding Level of Care Code 18580 Subseq Hosp Care Lvl 3 Diagnoses Cholelithiasis K80.20
[2020-11-07] MEDS: CHECK SCOPOLAMINE PATCH PLACEMENT SCH ×3 (07:41→20:07)
[2020-11-07] MEDS: ACETAMINOPHEN SUSP 325 MG/10.15 ML UDC PO PRN ×2 (08:19→20:00)
[2020-11-07] MEDS: guaiFENesin 600 MG TABCR PO SCH ×2 (08:42→20:04)
[2020-11-07] MEDS: buPROPion SR 100 MG TABCR PO SCH (08:42)
[2020-11-07] MEDS: FLUTICASONE/VILANTEROL 100/25MCG 14 PUFFS/INHALER INH SCH (08:42)
[2020-11-07] MEDS: METOPROLOL TARTRATE 25 MG TAB PO SCH ×2 (08:42→20:05)
[2020-11-07] MEDS: UMECLIDINIUM BROMIDE 62.5MCG/BLISTER 7 PUFFS/INHALER INH SCH (08:42)
[2020-11-07] MEDS: PANTOprazole 40 MG in SYRINGE 0 ML IV SCH (08:42)
[2020-11-07] MEDS: VENLAFAXINE HCL XR 150 MG CAPXR PO SCH (08:43)
[2020-11-07] MEDS: VENLAFAXINE HCL XR 75 MG CAPXR PO SCH (08:43)
[2020-11-07] MEDS: AZITHROMYCIN 500 MG in DEXTROSE 5% 250 ML IV SCH (09:40)
[2020-11-07] MEDS ORDERED: traMADol HCL 50 MG TABLET PO SCH (09:45)
[2020-11-07] MEDS: traMADol HCL 50 MG TABLET PO PRN ×2 (09:55→15:49)
--- NOTE | 2020-11-07 10:54 | XRay Report ---
XR chest 1V portable CLINICAL HISTORY: diminished bs, l side; increased o2 req COMPARISON STUDY: Chest CT January 10, 2020. Chest radiograph November 04, 2020. FINDINGS: Incidental note is made of a right shoulder arthroplasty. There is no pneumothorax or pleur al effusion. Cardiomediastinal silhouette is stable. Emphysema is better depicted on prior chest CT. Interstitial thickening is likely chronic. Pulmonary vascular congestion could appear similar. Minima l bibasilar opacities favor atelectasis. IMPRESSION: 1. Mild interstitial thickening which is likely chronic. Mild superimposed pulmonary vascular congest ion would be difficult to exclude. 2. Emphysema. ACT 112: Negative or not required by law. Electronically signed by: Raffi Ham M.D. 11/07/2020 10:53 AM
[2020-11-07] MEDS ORDERED: FAMOTIDINE 20 MG TAB PO PRN (13:52)
[2020-11-07] MEDS: HEPARIN SOD 5,000 UNIT/0.5 ML VIAL SQ SCH ×2 (14:38→20:05)
[2020-11-07] MEDS: predniSONE 20 MG TAB PO SCH (17:52)
[2020-11-07] MEDS: ALBUT/IPRATROP 3MG/0.5MG NEB 3 ML VIAL NEB SCH (19:27)
[2020-11-07] MEDS: GABAPENTIN 100 MG CAP PO SCH (20:04)
[2020-11-07] MEDS: traZODone HCL 50 MG TAB PO SCH (20:05)
[2020-11-07] MEDS: QUEtiapine FUMARATE 300 MG TABLET PO SCH (20:05)
--- NOTE | 2020-11-07 20:43 | Billing Data ---
Date of Service November 07, 2020 Coding Level of Care Code 52547 Subseq Hosp Care Lvl 3
[2020-11-07] MEDS: KETOROLAC TROMETHAMINE 15 MG/ML VIAL IV PRN (21:04)
[2020-11-08] MEDS: ACETAMINOPHEN SUSP 325 MG/10.15 ML UDC PO SCH ×3 (02:19→13:58)
[2020-11-08] MEDS: HEPARIN SOD 5,000 UNIT/0.5 ML VIAL SQ SCH ×2 (05:49→13:58)
--- NOTE | 2020-11-08 06:33 | Surgery Progress Note ---
Date of Service November 08, 2020 Assessment & Plan (1) Hx laparoscopic cholecystectomy: Plan: Patient appears to be doing well and wants to go home She does have some O2 in place while in bed I believe she can be discharged from a surgical standpoint Instructions are in the discharge-and to call the office to see Dr. Villarreal Admission and Anticipated Discharge Date Admission Date: November 05, 2020 Results & Data ([facility]) Vital Signs (Past 12 Hours) Vital Signs Temp Pulse Pulse Resp BP Pulse Ox 11/07/20 22:22 36.8 C 74 20 139/78 91 11/07/20 20:03 72 133/82 11/07/20 19:29 68 16 96 PG Care Time/CCT Total # of Minutes Spent Total Time Spent with Patient: Total time spent is greater than 50% in coordination of care (as documented) at patient's floor/unit and/or counseling patient: Coding Level of Care Code None Diagnoses Hx laparoscopic cholecystectomy Z90.49
[2020-11-08] MEDS: ALBUT/IPRATROP 3MG/0.5MG NEB 3 ML VIAL NEB SCH ×3 (07:38→19:19)
[2020-11-08] MEDS: CHECK SCOPOLAMINE PATCH PLACEMENT SCH ×2 (08:14→14:04)
[2020-11-08] MEDS: FLUTICASONE/VILANTEROL 100/25MCG 14 PUFFS/INHALER INH SCH (08:18)
[2020-11-08] MEDS: buPROPion SR 100 MG TABCR PO SCH (08:18)
[2020-11-08] MEDS: UMECLIDINIUM BROMIDE 62.5MCG/BLISTER 7 PUFFS/INHALER INH SCH (08:18)
[2020-11-08] MEDS: METOPROLOL TARTRATE 25 MG TAB PO SCH (08:18)
[2020-11-08] MEDS: VENLAFAXINE HCL XR 75 MG CAPXR PO SCH (08:19)
[2020-11-08] MEDS: predniSONE 20 MG TAB PO SCH (08:19)
[2020-11-08] MEDS: guaiFENesin 600 MG TABCR PO SCH (08:19)
[2020-11-08] MEDS: VENLAFAXINE HCL XR 150 MG CAPXR PO SCH (08:19)
[2020-11-08] MEDS: KETOROLAC TROMETHAMINE 15 MG/ML VIAL IV PRN ×2 (09:25→17:19)
--- NOTE | 2020-11-08 17:09 | Discharge Summary ---
Date of Service November 08, 2020 Admission HPI Per Admitting Provider Radha Guido is a 60-year-old female with a past medical history of HTN, COPD, DAYA, reflux, glaucoma, and migraines who presents with abdominal pain. She noted that she developed abdominal pain on Tuesday night. She was seen on Saturday 11/04 and was sent into the ER for further evaluation. She is having 7/10 pain currently that was as bad as 10/10 at its worst epigastric pain. The pain is constant and sharp in quality, it is worse with movement and started after eating with no improving factors. She has tried Tylenol, Maalox and Tums. She has had this pain previously and notes that it has been frequent over the last 3 years but never as severe as it is now. She has noticed associated decreased appetite. She has a history of a Cindy that was quickly reversed after she developed post operative severe bloating (Wetzel). Her last bowel movement was this morning. Principal Diagnosis cholecystitis Discharge Exam gen aaox3 [facility] at [facility] breathing unlabored no accessory muscless good effort skin no rashes no pallor or icterus neuro no focal deficits Discharge Data Allergies Allergy/AdvReac Type Severity Reaction Status Date / Time Bactrim Allergy Severe SHORTNESS Verified 08/12/16 15:49 OF BREATH nitrofurantoin Allergy Severe UNABLE TO Verified 11/04/20 17:25 BREATHE sulfamethoxazole Allergy Severe SHORTNESS Verified 11/04/20 17:25 OF BREATH trimethoprim Allergy Severe SHORTNESS Verified 11/04/20 17:25 OF BREATH morphine Allergy Intermediate itching Verified 11/04/20 17:25 Consultations 11/05/20 00:21 Consult General Surgery Stat ED Decision to Admit Stat 11/05/20 04:50 Consult Gastroenterology Routine Procedures Performed Operation Date: 11/05/20 16:30 <No data on this case meets the specified criteria> Operation Date: 11/06/20 10:00 Actual Procedures p Laparoscopic Cholecystectomy with Intraoperative Cholangiogram(Not Applicable) - Rosalio Villarreal MD, FACS Ordered Studies 11/04/20 21:34 CT abd pelvis IV con only Urgent 11/05/20 00:58 US gallbladder Urgent 11/06/20 10:00 [place] cholangiogram OR Routine Hospital Course (1) Acute epigastric pain: Radha is a 60 yo F w/ pMHx. of HTN, COPD, DAYA, reflux, glaucoma, and migraines who presents with an exacerbation of RUQ/epigastric abdominal pain, that has been waxing/waning for several years. Chronic cholecystitispresented with abdominal pain, differential being peptic ulcer disease versus biliary. Ultrasound suspected biliarycholecystectomy doneconsistent with chronic cholecystitis. Improved nicely postop. Stable for home. Outpatient follow-up with surgery. COPDuncertain severityshe vaguely relates may be having had PFTs done years and years ago. She does not take her inhalers, and continues to smoke. We reeducated extensively over several days on COPD, management, treatment, prognosis of untreated, etc. She is much more motivated to treat. I encouraged her with smoke cessation given that she has been not smoking since she is been here. For now she does have a degree of hypoxiabetter than before (at some points during her hospitalization she was on 5 Lnow room air at rest 2 L with exertion) but because this may be chronic, she was set up for oxygen for homefollow-up with PCP in this regard. Outpatient PFTs and sleep study. Continue to encourage smoke cessation. HTN * No acute needs * Metoprolol, continue Mood disorder * No acute needs * Continue Bupropion, Quetiapine, Venlafaxine Stable for home Total Time Total Time Spent Total Time Spent (In Minutes): <30 Discharge Plan Discharge Items Patient Disposition: Home - Home Health Services Reason For Visit: ABDOMINAL PAIN Discharge Diagnosis: Cholecystitis Activity: Resume your previous activity Lifting: No more than 10 pounds Bathing Comment: can shower over steri-strips Driving/Machine Use: Resume 3 days after discharge Non-emergency contact: Surgeon Call non-emergency contact if: you have any medication questions, your pain is not controlled, your pain is worsening and your temperature is above 101.5 Follow-up/Referrals: Rosalio Villarreal MD, FACS [Surgeon] - (Please call to make an appt in 1 week) Jewell Hernandez MD [Primary Care Provider] - Diet: Regular Addtl Attending Provider Instructions: Gallbladder disease -you should do better each day now - take tylenol for pain and use the percocet if they tylenol isn't enough (it can cause you to be groggy, and with regular use it can cause constipation)(remember that the percocet has 325mg of tylenol in it - so just keep track of what you're taking so that you don't exceed 2000- 3000mg of tylenol in a day) -sometimes when people's bodies are adapting to being without a gallbladder, you can get some diarrhea right after eating fatty foods. Typically this gets better with time. For most people it does not happen at all, but I would like to let people know it could happenthat way if you were to have loose stools after eating he would be able to recognize that it was from a little bit of fat malabsorption. Typically if it does happen it gets better over a few weeks time, and simply avoiding fat in your diet can help blunt the symptoms. COPD -As we have been discussing, it appears likely that you at least have moderate COPD, probably was a little bit of a flareup from not being treated. -COPD (think "smokers lung") is a chronic problem that does not get betterif we do not manage it, it will likely only continue to get worse, and like we were discussingyou do not seem like you are at "the point of no return" so the whole point of treatment is really to keep you from getting to where you are short of breath doing anything, bouncing in and out of the hospital all the time, etc. Absolutely mission critical to this is quitting smoking. You have been several days without a cigarette and doing great, I would suggest throwing away all the cigarettes as soon as you get home so it makes it harder to start smoking again. Also talk with Dr. Hernandez about other ways we can medically help with smoking cessation if you are struggling, but given how you have done here in the hospital, I suspect the biggest step is really already takenthat you have already quit for several days. -Inhalers: There are 3 main classes of inhalers are used to manage COPD ------ anticholinergicsthese are the most important class of inhalers and actually managing the disease. If you look at your respiratory lining under a microscope, about 1 out of every 5 cells is a "mucous factory" and the anticholinergic type inhalers help turn this down, reducing how much sludge is in your airway, reducing inflammation. The anticholinergic inhalers we use are Spiriva, Incruse, Atrovent, Tudorza, glycopyrrolateI mention these to because like we were discussing, typically cost/coverage is different from [id number], and we will send a prescription for the Spiriva (because it is the most common to be covered) but if it is needlessly expensive let us know, and by trialanderror, we can find one that is covered ------ inhaled steroidsthese put a layer of steroid down on the lining of your lung, reducing inflammation by the steroidmediated anti-inflammatory effect. These tend to do a pretty good job of controlling symptoms over time. There are several of these as well, most, and a combination inhaler (for you it will be in the Breo that we are trying as the initial prescription) ------ long-acting beta agoniststhis class of inhalers ask like a long-acting version of albuterol, keeping airways more open. Again there are several of those and most are in combination inhalersfor you our first try for coverage will be with Breo -As we discussed, maintenance inhalers are not ones that you really feel when you take themtypically have to use them day in and day out for months for them to really suppress lung inflammation and change the disease process. To that end, realize that they are a maintenance medicine that you would view sort of like a blood pressure medicineyou are not really taking them based on how you feel, you are taking them to control the disease that we are using them to treat. -In addition to those, your "rescue inhaler" will be albuterol that you can use up to every 4 hours as needed for shortness of breath, chest tightness, wheezing. Oxygen: Right now you are needing supplemental oxygenfortunately you do okay at rest, you need the oxygen set at 2 L when you are walking. Hopefully over time this is going to get better. As a follow-up with Dr. Hernandez, she can see how you are doing and help guide you as to when it would be time to turn off the oxygen Prednisonebecause your lungs did seem to be irritated/coarse/inflamed, we started you on a short course of prednisone to reduce that inflammationwe will just have you take 40 mg daily for the next 3 days, to finish a short burst of treatment. Take it off fairly early in the morning, given that steroids can be a bit stimulating, and if you take it too late in the day it could keep you up at night. Dr Hernandez will get you set up for further diagnostics like pulmonary function tests (lung volume measurements) and a sleep study -- so that we can help quantify the breathing mechanics Addtl Lead Generator Provider Instructions: Call Dr. Villarreal's [phone] to come into the office in approximately 7 to 10 days For checkup Pending Studies at Discharge: No Stand-Alone Forms: [facility], Smoking Cessation Medications and DC Order Prescriptions: New oxycodone-acetaminophen [Percocet] 5-325 mg tablet 1 - 2 tab PO Q4H PRN (Reason: pain, initial therapy, max 6 daily) Qty: 15 RF: 0 Spiriva with HandiHaler 18 mcg capsule, w/inhalation device 1 cap inhalation DAILY Qty: 30 RF: 2 prednisone 20 mg tablet 40 mg PO DAILY Qty: 8 RF: 0 Continued metoprolol tartrate 25 mg tablet 25 mg PO BID Qty: 180 RF: 1 albuterol sulfate 90 mcg/actuation HFA aerosol inhaler 2 puff INHALATION QID PRN (Reason: Shortness Of Breath Or Wheezing) Qty: 8.5 RF: 6 venlafaxine 75 mg Capsule,Extended Release 24hr 75 mg PO QAM RF: 0 albuterol sulfate 2.5 mg /3 mL (0.083 %) Solution For Nebulization 1 vial INHALATION Q6H PRN (Reason: Shortness Of Breath Or Wheezing) RF: 0 trazodone 50 mg Tablet 50 mg PO HS RF: 0 venlafaxine 150 mg Capsule,Extended Release 24hr 300 mg PO QAM RF: 0 gabapentin 100 mg Capsule 200 mg PO HS RF: 0 quetiapine 300 mg tablet 150 mg PO HS RF: 0 quetiapine 50 mg tablet 25 mg PO DAILY PRN (Reason: Anxiety) RF: 0 aspirin 81 mg Tablet,Delayed Release (Dr/Ec) 81 mg PO QAM RF: 0 ondansetron HCl [Zofran] 4 mg tablet 4 mg PO DAILY PRN (Reason: nausea and vomiting) Qty: 10 RF: 0 bupropion HCl [Wellbutrin SR] 100 mg Tablet Sustained-Release 12 Hr 100 mg PO QAM RF: 0 fluticasone propion-salmeterol 230-21 mcg/actuation HFA aerosol inhaler 2 puff inhalation BID Qty: 1 RF: 0 Discontinued fluticasone propion-salmeterol 230-21 mcg/actuation HFA aerosol inhaler 2 puff inhalation BID RF: 0 acetaminophen [Tylenol Extra Strength] 500 mg Tablet 2 mg PO Q6 PRN (Reason: Pain) RF: 0 Discharge Orders: Discharge Order (Routine); Ordered 11/08/20 Ordered By: Jonathan Miller Admission Data Admit Date/Time: 11/05/20 03:38 Attending Provider: Jonathan Miller Admit Provider: Carlo Moon Primary Care Provider: Jewell Hernandez Other Providers: Rosalio Villarreal ; Willie Odom ; Josh Trejo Coding Level of Care Code [address] [facility] Care - Discharge Diagnoses Acute epigastric pain R10.13
== END 2020-11-08 19:45 | disposition home health service (06) ==
LOC: 3W 18:43 → ED 18:43 → SUATTDRO 11-05 03:38 → 3W 11-05 04:28

== ENCOUNTER 2023-12-06 16:30 | Observation (INO) ==
[2023-12-06 16:38] VITALS: RESP 18
--- NOTE | 2023-12-06 16:49 | CT Scan Report ---
CT SCAN OF THE BRAIN WITHOUT IV CONTRAST CLINICAL HISTORY: Neurological deficit. Stroke like symptoms. COMPARISON STUDY: CT of the brain dated 01/19/2023. TECHNIQUE: Unenhanced axial CT scan of the brain is performed from the vertex to the skull base. A d ose lowering technique was utilized adhering to the principles of ALARA. CT DOSE: 547.75 mGy.cm FINDINGS: Brain parenchyma: The brain parenchyma is normal in appearance. There is no hemorrhage, mass effect, or evidence of acute territorial ischemia by CT criteria. Haq-white matter differentiation is preser pop. No extra-axial fluid collection is seen. Ventricles, sulci, cisterns: Normal in configuration. Intracranial vasculature: There is atherosclerotic calcification of the cavernous carotid arteries. Calvarium: Unremarkable. Sinuses and mastoids: There is evidence of previous paranasal sinus surgery. There is trace mucosal t hickening in the right frontal sinus and the ethmoid cavity. The mastoid air cells are well pneumatiz ed. Orbits: The bony orbits are grossly intact. IMPRESSION: There is no hemorrhage, mass effect, or evidence of acute territorial ischemia by CT daniel girard. ACT 112: Negative or not required by law. Electronically signed by: Otf Acevedo M.D. 12/06/2023 4:48 PM
--- NOTE | 2023-12-06 16:56 | XRay Report ---
XR chest 1V portable CLINICAL HISTORY: stroke alert TECHNIQUE: Single frontal radiograph of the chest was obtained. Comparison: Comparison is made to chest radiograph 01/19/2023 FINDINGS: Right shoulder arthroplasty is seen. Calcified aortic knob is seen. The lungs are clear. No evidence of pleural effusion or pneumothorax. IMPRESSION: No acute chest disease. ACT 112: Negative or not required by law. Electronically signed by: Jose Naqvi M.D. 12/06/2023 4:55 PM
--- NOTE | 2023-12-06 17:02 | Emergency Department Note ---
Impression & Plan Expressive aphasia, Paresthesias ED Provider Note NAME: LAN BREWER AGE: 63 SEX: F : 1960 ARRIVES VIA: Walk-In INFORMANT: Patient ED PROVIDER(S): Jonathan Gross DO CHIEF COMPLAINT: Expressive aphasia, neck pain HPI: Patient is a 63-year-old female with a history of COPD, hypertension, hyperlipidemia who presents to the ER for left-sided neck pain which has been off and on since 12:00 today. Patient admits to paresthesias in bilateral hands and bilateral feet. In combination with this around 4:00 she had some expressive aphasia which has abated. Patient denies any headache or change or loss of vision. No chest pain or shortness of breath. No nausea, vomiting, or diarrhea. No focal weakness. No other exacerbating or remitting factors. Additional history obtained from who is present at bedside and confirms that the expressive aphasia occurred some around 3-4 o'clock and is resolved. ADDITIONAL HISTORY OBTAINED: Per HPI Chronic Medical/Social Conditions Affecting Care: Per HPI PAST MEDICAL HISTORY:See Below PAST SURGICAL HISTORY:See Below FAMILY HISTORY:See Below SOCIAL HISTORY:See Below HOME MEDICATIONS:See Below ALLERGIES:See Below VITALS:See Below PHYSICAL EXAMINATION: GENERAL: Sitting up in bed, alert, well appearing, well nourished, no distress, non-toxic EYE EXAM: normal conjunctiva. PERRL and EOM's intact. OROPHARYNX: no exudate, no erythema, lips, buccal mucosa, and tongue normal and mucous membranes are moist NECK: supple, no nuchal rigidity, no adenopathy, non-tender LUNGS: Clear to auscultation. Normal chest wall mechanics HEART: no murmurs, S1 normal and S2 normal ABDOMEN: abdomen soft, non-tender, normo-active bowel sounds, no masses, no rebound or guarding. BACK: Back is symmetrical on inspection and there is no deformity, no midline tenderness, no CVA tenderness. SKIN: no rashes and no bruising UPPER EXTREMITIES: upper extremities are grossly normal. LOWER EXTREMITIES: No pitting edema. NEURO EXAM: Normal sensorium, cranial nerves II-XII intact, normal speech, no weakness of arms, no weakness of legs. No drift. Finger to nose intact. Gross sensation intact. MEDICAL DECISION MAKING: Patient is a 63-year-old female who presents ER for above-stated complaint. IV was established medicos obtained. Labs show leukocytosis of 12,000. No significant anemia. INR unremarkable. BMP along with LFTs bilirubin was unremarkable. Mag was normal. Upon arrival patient had no focal deficit. reported per additional history that she had slurred speech and expressive aphasia prior to arrival. She is complete neurologically intact on my exam. CT angios of the head and neck were negative. She was updated bedside. Discussed the case with the hospitalist for further evaluation management and treatment. Consults/Care Managements Discussions: Per [facility] Triage Nursing notes reviewed. Limited review of prior medical records performed Vital Signs: reviewed and remarkable for HTN Differential diagnosis: Differential Diagnosis includes but is not limited to ischemic Stroke, hemorrhagic stroke, bells palsy, mass, neoplasm, migraine headache, seizure, subarachnoid hemorrhage, TIA, and transient global amnesia. ER treatment provided: See below Diagnostics interpreted by me include EKG and cardiac monitoring as listed below: -Cardiac Monitoring: An order was placed for continuous cardiac monitoring. The monitor shows a rate of 70 with sinus rhythm. -ECG: Sinus rhythm rate 78 Normal axis No PVCs 412 -Laboratory studies:Interpreted by me as stated above in MDM and shown below. Imaging studies: Xrays: As interpreted by me: Portable AP upright 1 view of the chest shows no focal infiltrate CTs show: CT angios of the head and neck were negative Procedures:none Critical Care: None Past Med/Surg History Problem List (Updated 12/06/23 @ 22:01 by Jonathan Gross DO) Paresthesias (Acute) Expressive aphasia (Acute) Osteoarthritis of left knee History of COVID-19 Class 3 severe obesity due to excess calories with body mass index (BMI) of 40.0 to [address] scan of lung History of colonoscopy "07/11/14- diverticulosis" COPD with hypoxia Abnormal chest CT HTN (hypertension) (Chronic) Dyslipidemia (Chronic) Emphysema DAYA (obstructive sleep apnea) (Chronic) GERD (gastroesophageal reflux disease) (Chronic) Glaucoma Lumbar degenerative disc disease Atypical chest pain PT HAS BEEN EVALUATED AT [facility] ED ON MANY OCCASIONS FOR CHEST PAIN. NO CARDIAC CAUSE IDENTIFIED. PT DESCRIBES CP AT REST OR WITH EXERTION. NEGATIVE DSE 2017. Cyst of skin and subcutaneous tissue Synovial cyst of shoulder Chronic obstructive pulmonary disease (Chronic) S/P arthroscopy of shoulder Current smoker (Acute) Anxiety and depression (Chronic) Medical History Class 3 severe obesity due to excess calories with body mass index (BMI) of 40.0 to 44.9 in adult Anxiety and depression Rotator cuff syndrome of left shoulder Rotator cuff insufficiency of right shoulder Chronic obstructive pulmonary disease H/O subacute thyroiditis RESOLVED Glaucoma Hx of migraines GERD (gastroesophageal reflux disease) H/o Lyme disease DAYA (obstructive sleep apnea) Emphysema Dyslipidemia HTN (hypertension) Surgical History Hx laparoscopic cholecystectomy (11/06/20) S/p reverse total shoulder arthroplasty History of tooth extraction History of foot fracture S/P right rotator cuff repair Status post Cindy fundoplication H/O cystoscopy History of esophagogastroduodenoscopy S/P sinus surgery S/P tubal ligation H/O section S/P partial hysterectomy S/P tonsillectomy and adenoidectomy Family History Father Myocardial infarction Sister Diabetes Dementia Breast cancer Brother Prostate cancer Dementia Parkinson disease Mother Stroke Other Cancer No family history of adverse response to anesthesia Denies family history of Ovarian cancer Crohn's disease Colorectal cancer Social History Smoking Status: Current every day smoker Tobacco Type: Cigarettes Age Started Using Tobacco: 18; packs per day: 0.5; Cigarettes Per Day: "10 or less"; Second Hand Exposure: Yes; Do You Dip or Chew Tobacco: No; Hx Alcohol Use: No Hx Substance Use: No Preferred Language: Singaporean Communication Ability: Effective Visual Impairment: No Limitations Hearing Ability: Normal Freelance Operator Required: No Beliefs That Will Affect Care: None marital status: Current Living Situation: Spouse Current Living Situation Comment: spouse, daughter, grandchildren current occupational status: disabled How many Children do You have: 1 Feels Safe at Home: Yes Childhood Exposure to Second-Hand Smoke: Yes during the past year weight has: remained stable Dental Care, Regularly: No Physical Activity Frequency: 1-2 Times per Week Physical Activity Frequency Comment: physical therapy Seatbelt Use: always Sunscreen Use: Yes Assistive Devices: None Allergies Allergies Allergy/AdvReac Type Severity Reaction Status Date / Time nitrofurantoin Allergy Severe UNABLE TO Verified 08/09/23 14:07 BREATHE sulfamethoxazole Allergy Severe SHORTNESS Verified 08/09/23 14:07 OF BREATH trimethoprim Allergy Severe SHORTNESS Verified 08/09/23 14:07 OF BREATH morphine Allergy Intermediate itching Verified 08/09/23 14:07 Home Meds Home Medications Medication Instructions Recorded Confirmed trazodone 50 mg tablet 50 mg PO HS 12/03/17 12/06/23 venlafaxine 150 mg 300 mg PO QAM 12/03/17 12/06/23 capsule,extended release 24 hr venlafaxine 75 mg capsule,extended 75 mg PO QAM 12/03/17 12/06/23 release 24 hr quetiapine 50 mg tablet 25 mg PO DAILY PRN Anxiety 08/22/18 12/06/23 aspirin 81 mg tablet,delayed 81 mg PO QAM 01/10/20 12/06/23 release gabapentin 300 mg capsule 300 mg PO HS 09/06/21 12/06/23 bupropion HCl 100 mg tablet,12 hr 200 mg PO QAM 01/19/23 12/06/23 sustained-release quetiapine 200 mg tablet 200 mg PO HS 01/19/23 12/06/23 semaglutide (weight loss) 0.25 0.25 mg subcut Q7D 08/09/23 12/06/23 mg/0.5 mL subcutaneous pen injector (Monique) Previous Rx's Medication Instructions Recorded ipratropium 0.5 mg-albuterol 3 mg 3 ml inhalation Q4H PRN wheezing 07/15/22 (2.5 mg base)/3 mL nebulization or shortness of breath #180 mL soln pen needle, diabetic 32 gauge x #100 ea 07/29/22 1/" (BD Ultra-Fine Micro Pen Needle) albuterol sulfate 90 mcg/actuation 2 puff inhalation QID PRN 11/29/22 aerosol inhaler Shortness Of Breath Or Wheezing #3 Inhalers fluticasone fur. 200 mcg-umeclid 1 inh inhalation DAILY #180 ea 11/30/22 62.5 mcg-vilant 25 mcg inhalat.powder (Trelegy Ellipta) amlodipine 5 mg tablet 5 mg PO DAILY #90 tabs 02/03/23 metformin 500 mg tablet,extended 500 mg PO DAILY #90 tabs 02/07/23 release 24 hr olmesartan 40 mg tablet 40 mg PO DAILY #90 tabs 02/07/23 rosuvastatin 20 mg tablet 20 mg PO DAILY #90 tabs 02/07/23 celecoxib 200 mg capsule (Celebrex) 200 mg PO DAILY PRN left knee pain 03/28/23 #90 caps semaglutide (weight loss) 0.5 0.5 mg (0.5 mL) subcut Q7D #6 mL 08/09/23 mg/0.5 mL subcutaneous pen injector (Weamarilis) Results & Data (ED) Vital Signs Vital Signs - 24 hr 12/06/23 16:32 12/06/23 17:43 12/06/23 17:43 Temperature 36.9 C Temperature Source Temporal Artery Scan Pulse Rate 93 H 77 Pulse Rate [Apical] 77 Pulse Rhythm Regular Pulse Rhythm [Apical] Regular Pulse Strength [Apical] Normal Respiratory Rate 18 18 18 Respiratory Effort / Characteristics Non-Labored Spontaneous Non-Labored Spontaneous Respiratory Depth Normal Normal Respiratory Pattern Regular Regular Blood Pressure 166/107 H Blood Pressure [Left Arm] 179/99 H Blood Pressure Mean 126 Blood Pressure Mean [Left Arm] 125 Blood Pressure Position Sitting Blood Pressure Position [Left Arm] Lying Pulse Oximetry 94 96 96 Oxygen Delivery Method Room Air Room Air Room Air Sepsis Recent Fever Within 48 Hours No Sepsis New/Unexplained Change in Mental Status No Sepsis Action Taken by Nursing No Action Required 12/06/23 17:43 12/06/23 17:57 12/06/23 19:00 Temperature Temperature Source Pulse Rate 69 Pulse Rate [Apical] 74 Pulse Rhythm Pulse Rhythm [Apical] Regular Pulse Strength [Apical] Normal Respiratory Rate 18 Respiratory Effort / Characteristics Non-Labored Spontaneous Respiratory Depth Normal Respiratory Pattern Regular Blood Pressure Blood Pressure [Left Arm] 146/82 H Blood Pressure Mean Blood Pressure Mean [Left Arm] 103 Blood Pressure Position Blood Pressure Position [Left Arm] Lying Pulse Oximetry 96 93 Oxygen Delivery Method Room Air Room Air Sepsis Recent Fever Within 48 Hours Sepsis New/Unexplained Change in Mental Status Sepsis Action Taken by Nursing Laboratory Data 12/06/23 16:47 12/06/23 16:47 Lab Results 12/06/23 12/06/23 12/06/23 Range/Units 16:47 17:00 17:13 WBC 12.34 H (4.8-10.8) K/ul RBC 4.45 (4.20-5.40) M/uL Hgb 14.3 (12.0-16.0) g/dl POC Hgb 14.3 (12.0-16.0) g/dl Hct 41.1 (37.0-47.0) % POC Hct 42 (37-47) % MCV 92.4 (80.0-100.0) fL MCH 32.1 (25.0-34.0) pg MCHC 34.8 (32.0-36.0) g/dL RDW Std Deviation 46.6 H (36.4-46.3) fL RDW Coeff of Roseanna 13.7 (11.5-14.5) % Plt Count 404 H (130-400) K/uL MPV 9.5 (9.4-12.4) fL PT 10.3 (9.0-12.0) Seconds INR 0.9 (0.9-1.1) APTT 24 (21-31) Seconds PTT Ratio 0.9 POC Sodium 139 (135-144) mmol/L Sodium 136 (136-145) mmol/L POC Potassium 4.0 (3.3-5.0) mmol/L Potassium 4.1 (3.5-5.1) mmol/L POC Chloride 103 (101-112) mmol/L Chloride 103 (98-107) mmol/L Carbon Dioxide 24 (21-32) mmol/L POC Total CO2 23 L (24-31) mmol/L Anion Gap 9 (3-11) POC Anion Gap 18.0 (16-25) mmol/L POC BUN 19 H (7-18) mg/dl BUN 20 (6-23) mg/dl Creatinine 0.86 (0.6-1.2) mg/dl POC Creatinine 0.9 (0.6-1.3) mg/dl Est Cr Clr Drug Dosing Not Reportable eGFR 76.33 BUN/Creatinine Ratio 23.3 H (10-20) Glucose 117 H (70-99(Fasting)) mg/dl POC Glucose 117 H (70-99) mg/dl POC Glucose (other) 117 H (70-99) mg/dl Calcium 9.5 (8.6-10.3) mg/dl POC Ioniz Calcium Anne 1.18 (1.12-1.32) mmol/l Magnesium 1.8 (1.7-2.4) mg/dl Total Bilirubin 0.3 (0.2-1.0) mg/dl AST 12 L (13-39) U/L ALT 12 (7-52) U/L Alkaline Phosphatase 98 (34-104) U/L Total Protein 7.7 (6.0-8.3) gm/dl Albumin 4.4 (3.4-5.0) gm/dl Globulin 3.3 (2.5-4.0) gm/dl Albumin/Globulin Ratio 1.3 (0.9-2) Administered Medications Discontinued Medications Ioversol (Optiray 320 125ml) 116 ml IV ONCE ONE Stop: 12/06/23 17:33 Last Admin: 12/06/23 17:32 Dose: 116 ml Documented By: ANDREA Imaging Data Radiologist's Impression: Chest X-Ray 12/06/23 16:37 XR chest 1V portable CLINICAL HISTORY: stroke alert TECHNIQUE: Single frontal radiograph of the chest was obtained. Comparison: Comparison is made to chest radiograph 01/19/2023 FINDINGS: Right shoulder arthroplasty is seen. Calcified aortic knob is seen. The lungs are clear. No evidence of pleural effusion or pneumothorax. IMPRESSION: No acute chest disease. ACT 112: Negative or not required by law. Electronically signed by: Jose Naqvi M.D. 12/06/2023 4:[address] 12/06/23 16:37 CT SCAN OF THE BRAIN WITHOUT IV CONTRAST CLINICAL HISTORY: Neurological deficit. Stroke like symptoms. COMPARISON STUDY: CT of the brain dated 01/19/2023. TECHNIQUE: Unenhanced axial CT scan of the brain is performed from the vertex to the skull base. A dose lowering technique was utilized adhering to the principles of ALARA. CT DOSE: 547.75 mGy.cm FINDINGS: Brain parenchyma: The brain parenchyma is normal in appearance. There is no hemorrhage, mass effect, or evidence of acute territorial ischemia by CT criteria. Haq-white matter differentiation is preserved. No extra-axial fluid collection is seen. Ventricles, sulci, cisterns: Normal in configuration. Intracranial vasculature: There is atherosclerotic calcification of the cavernous carotid arteries. Calvarium: Unremarkable. Sinuses and mastoids: There is evidence of previous paranasal sinus surgery. There is trace mucosal thickening in the right frontal sinus and the ethmoid cavity. The mastoid air cells are well pneumatized. Orbits: The bony orbits are grossly intact. IMPRESSION: There is no hemorrhage, mass effect, or evidence of acute territorial ischemia by CT criteria. ACT 112: Negative or not required by law. Electronically signed by: Otf Acevedo M.D. 12/06/2023 4:48 PM Head CTA 12/06/23 16:58 CT ANGIOGRAM OF THE BRAIN; CT ANGIOGRAM OF THE NECK CLINICAL HISTORY: Expressive aphasia. COMPARISON STUDY: Unenhanced CT of the brain performed earlier the same date 12/06/2023. MR angiogram of the brain dated 08/29/2014. Chest CT dated 08/15/2022. TECHNIQUE: Following the IV administration of 116 of Optiray 320, CT angiogram of the head and neck was performed from the aortic arch to the vertex. Images are reviewed in the axial, sagittal, and coronal planes. 3-D MIPS images are created and assessed. IV contrast was administered without complication. All measurements were calculated based on NASCET criteria. A dose lowering technique was utilized adhering to the principles of ALARA. CT DOSE: 444.8 mGy.cm FINDINGS: Brain parenchyma: The brain parenchyma is normal in appearance. There is no evidence of hemorrhage, mass effect, or acute territorial ischemia noting angiographic phase technique. There is no evidence of enhancing mass lesion on the angiogram phase images. The ventricles, sulci, and cisterns are normal in configuration. Haq-white matter differentiation is preserved. No extra-axial fluid collection is seen. Thoracic aorta: There is atherosclerotic calcification of the thoracic aorta. Visualized portions of the thoracic aorta are normal in caliber. The aortic arch demonstrates standard 3-vessel anatomy. Right carotid arterial system: The right common carotid artery is widely patent, as are the right internal and external carotid arteries. Calcified plaque is noted in the carotid bulb. Left carotid arterial system: The left common carotid artery is widely patent, as are the left internal and external carotid arteries. Calcified plaque is noted in the carotid bulb. Vertebral arteries: Widely patent bilaterally and codominant. Subclavian arteries: Widely patent bilaterally. Intracranial vasculature: There is atherosclerotic calcification of the cavernous carotid arteries. The internal carotid arteries are patent at the skull base, as are the anterior and middle cerebral arteries bilaterally. The vertebrobasilar system and posterior cerebral arteries are widely patent. The vertebral arteries are codominant. There is no aneurysm, high-grade stenosis, or focal vessel cut off seen throughout the intracranial circulation. Jugular veins: Patent bilaterally. Dural sinuses: Patent. Lung apices: Emphysematous change is noted in the upper lobes. Apical scarring is observed. A 3 mm left apical pulmonary nodule is seen on image #81. Soft tissues: The visualized pharyngeal soft tissues are normal in appearance noting angiographic phase technique. The oropharyngeal airway appears widely patent. The salivary and thyroid glands are normal in appearance. No cervical lymphadenopathy is seen. Skeletal structures: The skeletal structures are osteopenic. The calvarium appears intact. The cervical spine is maintained noting mild multilevel spondylosis. Orbits: The bony orbits are intact. Orbital contents are normal as visualized. Sinuses and mastoids: The paranasal sinuses are clear. There is mild mastoid effusions. IMPRESSION: 1. There is no evidence of hemorrhage, mass effect, or acute territorial ischemia noting angiographic phase technique. 2. Unremarkable CT angiogram of the brain. 3. Unremarkable CT angiogram of the neck. 4. Emphysema. 5. An indeterminant 3 mm left apical pulmonary nodule was not clearly seen on the 08/15/[address] A 3-4 month follow-up chest CT is recommended for reassessment. ACT 112: Negative or not required by law. Electronically signed by: Otf Acevedo M.D. 12/06/2023 5:57 PM Neck CTA 12/06/23 16:58 CT ANGIOGRAM OF THE BRAIN; CT ANGIOGRAM OF THE NECK CLINICAL HISTORY: Expressive aphasia. COMPARISON STUDY: Unenhanced CT of the brain performed earlier the same date 12/06/2023. MR angiogram of the brain dated 08/29/2014. Chest CT dated 08/15/2022. TECHNIQUE: Following the IV administration of 116 of Optiray 320, CT angiogram of the head and neck was performed from the aortic arch to the vertex. Images are reviewed in the axial, sagittal, and coronal planes. 3-D MIPS images are created and assessed. IV contrast was administered without complication. All measurements were calculated based on NASCET criteria. A dose lowering technique was utilized adhering to the principles of ALARA. CT DOSE: 444.8 mGy.cm FINDINGS: Brain parenchyma: The brain parenchyma is normal in appearance. There is no evidence of hemorrhage, mass effect, or acute territorial ischemia noting angiographic phase technique. There is no evidence of enhancing mass lesion on the angiogram phase images. The ventricles, sulci, and cisterns are normal in configuration. Haq-white matter differentiation is preserved. No extra-axial fluid collection is seen. Thoracic aorta: There is atherosclerotic calcification of the thoracic aorta. Visualized portions of the thoracic aorta are normal in caliber. The aortic arch demonstrates standard 3-vessel anatomy. Right carotid arterial system: The right common carotid artery is widely patent, as are the right internal and external carotid arteries. Calcified plaque is noted in the carotid bulb. Left carotid arterial system: The left common carotid artery is widely patent, as are the left internal and external carotid arteries. Calcified plaque is noted in the carotid bulb. Vertebral arteries: Widely patent bilaterally and codominant. Subclavian arteries: Widely patent bilaterally. Intracranial vasculature: There is atherosclerotic calcification of the cavernous carotid arteries. The internal carotid arteries are patent at the skull base, as are the anterior and middle cerebral arteries bilaterally. The vertebrobasilar system and posterior cerebral arteries are widely patent. The vertebral arteries are codominant. There is no aneurysm, high-grade stenosis, or focal vessel cut off seen throughout the intracranial circulation. Jugular veins: Patent bilaterally. Dural sinuses: Patent. Lung apices: Emphysematous change is noted in the upper lobes. Apical scarring is observed. A 3 mm left apical pulmonary nodule is seen on image #81. Soft tissues: The visualized pharyngeal soft tissues are normal in appearance noting angiographic phase technique. The oropharyngeal airway appears widely patent. The salivary and thyroid glands are normal in appearance. No cervical lymphadenopathy is seen. Skeletal structures: The skeletal structures are osteopenic. The calvarium appears intact. The cervical spine is maintained noting mild multilevel spondylosis. Orbits: The bony orbits are intact. Orbital contents are normal as visualized. Sinuses and mastoids: The paranasal sinuses are clear. There is mild mastoid effusions. IMPRESSION: 1. There is no evidence of hemorrhage, mass effect, or acute territorial ischemia noting angiographic phase technique. 2. Unremarkable CT angiogram of the brain. 3. Unremarkable CT angiogram of the neck. 4. Emphysema. 5. An indeterminant 3 mm left apical pulmonary nodule was not clearly seen on the 08/15/[address] A 3-4 month follow-up chest CT is recommended for reassessment. ACT 112: Negative or not required by law. Electronically signed by: Otf Acevedo M.D. 12/06/2023 5:57 PM Discharge Plan Visit Data Chief Complaint: Stroke Alert Stated Complaint: SHARP PAIN UP NECK,WEAKNESS,TINGLY ED Provider: Jonathan Gross Discharge Problem: Expressive aphasia, Paresthesias Patient Disposition: Admitted As Inpatient Discharge Instructions Interventions: ED Discharge Assessment Last Done: 12/06/23 20:15
[2023-12-06 17:16] LABS: Hematocrit (blood only) 41.1 % (37.0-47.0); Hemoglobin 14.3 g/dl (12.0-16.0); Mean Corpuscular Hemoglobin 32.1 pg (25.0-34.0); Mean Corpuscular Hgb Conc 34.8 g/dL (32.0-36.0); Mean Corpuscular Volume 92.4 fL (80.0-100.0); Mean Platelet Volume 9.5 fL (9.4-12.4); Platelet Count 404 K/uL (130-400); RDW Coefficient of Variation 13.7 % (11.5-14.5); RDW Standard Deviation 46.6 fL (36.4-46.3); Red Blood Count 4.45 M/uL (4.20-5.40); White Blood Count 12.34 K/ul (4.8-10.8)
[2023-12-06 17:25] LABS: iSTAT Creatinine 0.9 mg/dl (0.6-1.3); iSTAT Hemoglobin 14.3 g/dl (12.0-16.0); iSTAT Ionized Calcium 1.18 mmol/l (1.12-1.32)
[2023-12-06 17:25] LABS: Alanine Aminotransferase 12 U/L (7-52); Albumin Globulin Ratio 1.3 (0.9-2); Albumin Level 4.4 gm/dl (3.4-5.0); Alkaline Phosphatase 98 U/L (34-104); Anion Gap 9 (3-11); Aspartate Aminotransferase 12 U/L (13-39); BUN Creatinine Ratio 23.3 (10-20); Bilirubin,Total 0.3 mg/dl (0.2-1.0); Blood Urea Nitrogen 20 mg/dl (6-23); Calcium 9.5 mg/dl (8.6-10.3); Carbon Dioxide 24 mmol/L (21-32); Chloride 103 mmol/L (98-107); Globulin 3.3 gm/dl (2.5-4.0); Glucose 117 mg/dl (70-99(Fasting)); Magnesium 1.8 mg/dl (1.7-2.4); Potassium 4.1 mmol/L (3.5-5.1); Sodium 136 mmol/L (136-145); Total Protein 7.7 gm/dl (6.0-8.3)
[2023-12-06] MEDS: OPTIRAY 320 125ml IV ONE (17:32)
[2023-12-06 17:34] LABS: INR 0.9 (0.9-1.1); Partial Thromboplastin Ratio 0.9; Partial Thromboplastin Time 24 Seconds (21-31); Prothrombin Time 10.3 Seconds (9.0-12.0)
--- NOTE | 2023-12-06 17:59 | CT Scan Report ---
CT ANGIOGRAM OF THE BRAIN; CT ANGIOGRAM OF THE NECK CLINICAL HISTORY: Expressive aphasia. COMPARISON STUDY: Unenhanced CT of the brain performed earlier the same date 12/06/2023. MR angiogra m of the brain dated 08/29/2014. Chest CT dated 08/15/2022. TECHNIQUE: Following the IV administration of 116 of Optiray 320, CT angiogram of the head and neck w as performed from the aortic arch to the vertex. Images are reviewed in the axial, sagittal, and kathryn nal planes. 3-D MIPS images are created and assessed. IV contrast was administered without complicati on. All measurements were calculated based on NASCET criteria. A dose lowering technique was utilize d adhering to the principles of ALARA. CT DOSE: 444.8 mGy.cm FINDINGS: Brain parenchyma: The brain parenchyma is normal in appearance. There is no evidence of hemorrhage, m ass effect, or acute territorial ischemia noting angiographic phase technique. There is no evidence o f enhancing mass lesion on the angiogram phase images. The ventricles, sulci, and cisterns are normal in configuration. Haq-white matter differentiation is preserved. No extra-axial fluid collection is seen. Thoracic aorta: There is atherosclerotic calcification of the thoracic aorta. Visualized portions of the thoracic aorta are normal in caliber. The aortic arch demonstrates standard 3-vessel anatomy. Right carotid arterial system: The right common carotid artery is widely patent, as are the right int ernal and external carotid arteries. Calcified plaque is noted in the carotid bulb. Left carotid arterial system: The left common carotid artery is widely patent, as are the left software engineer intern al and external carotid arteries. Calcified plaque is noted in the carotid bulb. Vertebral arteries: Widely patent bilaterally and codominant. Subclavian arteries: Widely patent bilaterally. Intracranial vasculature: There is atherosclerotic calcification of the cavernous carotid arteries. T he internal carotid arteries are patent at the skull base, as are the anterior and middle cerebral ar teries bilaterally. The vertebrobasilar system and posterior cerebral arteries are widely patent. The vertebral arteries are codominant. There is no aneurysm, high-grade stenosis, or focal vessel cut of f seen throughout the intracranial circulation. Jugular veins: Patent bilaterally. Dural sinuses: Patent. Lung apices: Emphysematous change is noted in the upper lobes. Apical scarring is observed. A 3 mm le ft apical pulmonary nodule is seen on image #81. Soft tissues: The visualized pharyngeal soft tissues are normal in appearance noting angiographic pha se technique. The oropharyngeal airway appears widely patent. The salivary and thyroid glands are nor mal in appearance. No cervical lymphadenopathy is seen. Skeletal structures: The skeletal structures are osteopenic. The calvarium appears intact. The cervic al spine is maintained noting mild multilevel spondylosis. Orbits: The bony orbits are intact. Orbital contents are normal as visualized. Sinuses and mastoids: The paranasal sinuses are clear. There is mild mastoid effusions. IMPRESSION: 1. There is no evidence of hemorrhage, mass effect, or acute territorial ischemia noting angiographic phase technique. 2. Unremarkable CT angiogram of the brain. 3. Unremarkable CT angiogram of the neck. 4. Emphysema. 5. An indeterminant 3 mm left apical pulmonary nodule was not clearly seen on the 08/15/[address] A 3-4 month follow-up chest CT is recommended for reassessment. ACT 112: Negative or not required by law. Electronically signed by: Otf Acevedo M.D. 12/06/2023 5:57 PM
--- NOTE | 2023-12-06 19:31 | History & Physical Report ---
Date of Service December 06, 2023 Assessment & Plan (1) Expressive aphasia: Plan: Patient with transient episode of expressive aphasia earlier today around 15:00. She reports that her symptoms have largely improved although she now has a mild headache as well as feeling "foggy". Possible TIA vs CVA? Risk factors include history of HLP, HTN and ongoing tobacco use. Patient also reports an episode of palpitations several days ago that was self- limiting. No history of atrial fibrillation or arrhythmia to her knowledge. -Observation to medical with telemetry -Neuro checks and NIHSS per protocol -Dysphagia screening x 1 and PRN -Check MRI brain -Check 2D echo with bubble study -Check HgbA1C and Lipid panel -Continue ASA 81mg po daily -Continue Crestor 20mg po daily -Smoking cessation counseling -Patient is on several potentially sedating agents at night to include Gabapentin, Trazodone and Seroquel -Consider outpatient cardiac monitoring given report of recent palpitations (2) Abnormal chest CT: Plan: Patient noted to have an indeterminant 3mm left apical pulmonary nodule which was not clearly seen on the CT from 08/15/22 - that CT did reveal suspected right apical scarring as well as a calcified granuloma in the SAMIRA. -Recommended followup CT scan in 3-4 months -Patient would qualify for annual LDCT scanning for lung cancer screening - Age 63, 30 pack year history, actively smoking (3) HTN (hypertension): Plan: Chronic. Mildly elevated at present 147/91 -Holding Amlodipine and Benazepril for now pending MRI results to allow for permissive hypertension -If no CVA demonstrated will resume antihypertensives Plan CHRONIC MEDICAL CONDITIONS: Anxiety - chronic -Continue Venlafaxine 375mg po daily -Continue Trazodone 50mg po qHS -Continue Seroquel 200mg po qHS and PRN Seroquel for anxiety -Continue Bupropion COPD - patient with mixed obstructed and restrictive findings on spirometry. She has been seen by Pulmonary in the past and participated in some Pulmonary Rehab sessions. -Continue Trelegy or hospital formulary equivalent -Continue Albuterol PRN -DuoNebs PRN History of Present Illness Chief Complaint: aphasia, neck pain Primary Care Provider: Jareth Kimbrough DO Radha Guido is a 63yo female with history of COPD, DAYA, HTN, HLP and tobacco use presenting with left sided neck pain and an episode of aphasia. Patient reports 10/13/24 evening she felt very weak and unable to walk as well as some palpitations. Her checked her vital signs and she was found to have elevated heart rate in the 120's and low blood pressure. Her symptoms resolved on their own after a few moments and she has not experienced palpitations or rapid heart rate since. Today around 15:00 she developed a severe, sharp and sudden pain on the left side of her neck and shoulder. Her states that she was having some mild confusion, difficulty with ambulation and a difficult time speaking at that time (per ER attending - was gone at the time of my assessment). Patient reports that she has a mild headache at this time and still feels "a little fuzzy" as well as mild dizziness and blurry vision in her eyes. Otherwise no complaints. Patient denies focal numbness, tingling or weakness. She denies chest pain, palpitations, cough, SOB, abdominal pain, nausea, vomiting, diarrhea or constipation. No additional complaints at this time. Patient takes ASA 81mg at home In the ER patient initially presented as a stroke alert. MHX=885. GSC=15 and NIHSS=0 ER Course: No medications given Allergies Allergy/AdvReac Type Severity Reaction Status Date / Time nitrofurantoin Allergy Severe UNABLE TO Verified 08/09/23 14:07 BREATHE sulfamethoxazole Allergy Severe SHORTNESS Verified 08/09/23 14:07 OF BREATH trimethoprim Allergy Severe SHORTNESS Verified 08/09/23 14:07 OF BREATH morphine Allergy Intermediate itching Verified 08/09/23 14:07 Home Medications Medication Instructions Recorded Confirmed Type trazodone 50 mg tablet 50 mg PO HS 12/03/17 12/06/23 History venlafaxine 150 mg 300 mg PO QAM 12/03/17 12/06/23 History capsule,extended release 24 hr venlafaxine 75 mg capsule,extended 75 mg PO QAM 12/03/17 12/06/23 History release 24 hr quetiapine 50 mg tablet 25 mg PO DAILY PRN Anxiety 08/22/18 12/06/23 History aspirin 81 mg tablet,delayed 81 mg PO QAM 01/10/20 12/06/23 History release gabapentin 300 mg capsule 300 mg PO HS 09/06/21 12/06/23 History ipratropium 0.5 mg-albuterol 3 mg 3 ml inhalation Q4H PRN wheezing 07/15/22 12/06/23 Rx (2.5 mg base)/3 mL nebulization or shortness of breath #180 mL soln pen needle, diabetic 32 gauge x #100 ea 07/29/22 08/09/23 Rx 1/4" (BD Ultra-Fine Micro Pen Needle) albuterol sulfate 90 mcg/actuation 2 puff inhalation QID PRN 11/29/22 12/06/23 Rx aerosol inhaler Shortness Of Breath Or Wheezing #3 Inhalers fluticasone fur. 200 mcg-umeclid 1 inh inhalation DAILY #180 ea 11/30/22 12/06/23 Rx 62.5 mcg-vilant 25 mcg inhalat.powder (Trelegy Ellipta) bupropion HCl 100 mg tablet,12 hr 200 mg PO QAM 01/19/23 12/06/23 History sustained-release quetiapine 200 mg tablet 200 mg PO HS 01/19/23 12/06/23 History amlodipine 5 mg tablet 5 mg PO DAILY #90 tabs 02/03/23 12/06/23 Rx metformin 500 mg tablet,extended 500 mg PO DAILY #90 tabs 02/07/23 12/06/23 Rx release 24 hr olmesartan 40 mg tablet 40 mg PO DAILY #90 tabs 02/07/23 12/06/23 Rx rosuvastatin 20 mg tablet 20 mg PO DAILY #90 tabs 02/07/23 12/06/23 Rx celecoxib 200 mg capsule (Celebrex) 200 mg PO DAILY PRN left knee pain 03/28/23 12/06/23 Rx #90 caps semaglutide (weight loss) 0.25 0.25 mg subcut Q7D 08/09/23 12/06/23 History mg/0.5 mL subcutaneous pen injector (Wegovy) semaglutide (weight loss) 0.5 0.5 mg (0.5 mL) subcut Q7D #6 mL 08/09/23 12/06/23 Rx mg/0.5 mL subcutaneous pen injector (Wegovy) Past Med/Surg History Problem List Paresthesias (Acute) Expressive aphasia (Acute) Osteoarthritis of left knee History of COVID-19 Class 3 severe obesity due to excess calories with body mass index (BMI) of 40.0 to [address] scan of lung History of colonoscopy "07/11/14- diverticulosis" COPD with hypoxia Abnormal chest CT HTN (hypertension) (Chronic) Dyslipidemia (Chronic) Emphysema DAYA (obstructive sleep apnea) (Chronic) GERD (gastroesophageal reflux disease) (Chronic) Glaucoma Lumbar degenerative disc disease Atypical chest pain PT HAS BEEN EVALUATED AT [facility] ON MANY OCCASIONS FOR CHEST PAIN. NO CARDIAC CAUSE IDENTIFIED. PT DESCRIBES CP AT REST OR WITH EXERTION. NEGATIVE DSE 2017. Cyst of skin and subcutaneous tissue Synovial cyst of shoulder Chronic obstructive pulmonary disease (Chronic) S/P arthroscopy of shoulder Current smoker (Acute) Anxiety and depression (Chronic) Medical History Rotator cuff syndrome of left shoulder Rotator cuff insufficiency of right shoulder H/O subacute thyroiditis RESOLVED Hx of migraines H/o Lyme disease Surgical History Hx laparoscopic cholecystectomy (11/06/20) Laparoscopic Cholecystectomy with Intraoperative Cholangiogram Dr. Villarreal 11-06-2020 S/p reverse total shoulder arthroplasty History of tooth extraction History of foot fracture S/P right rotator cuff repair Status post Cindy fundoplication THEN REVERSED H/O cystoscopy History of esophagogastroduodenoscopy "07/11/14- small hiatal hernia, normal bx" S/P sinus surgery S/P tubal ligation H/O section X 1 S/P partial hysterectomy S/P tonsillectomy and adenoidectomy Family History Father Myocardial infarction Sister Diabetes Dementia Breast cancer Brother Prostate cancer Dementia Parkinson disease Mother Stroke Other Cancer No family history of adverse response to anesthesia Denies family history of Ovarian cancer Crohn's disease Colorectal cancer Social History Smoking Status: Current every day smoker Tobacco Type: Cigarettes Age Started Using Tobacco: 18; packs per day: 0.5; Cigarettes Per Day: "10 or less"; Second Hand Exposure: Yes; Do You Dip or Chew Tobacco: No; Hx Alcohol Use: No Hx Substance Use: No Preferred Language: Kuwaiti Communication Ability: Effective Visual Impairment: No Limitations Hearing Ability: Normal 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 Beliefs That Will Affect Care: None marital status: Current Living Situation: Spouse and Family Current Living Situation Comment: lives with (Lai), daughter, 3 grandchildren current occupational status: disabled How many Children do You have: 1 Other Information That Helps Us Care for You: No Feels Safe at Home: Yes Safety Concerns: Feels Safe At This Time Childhood Exposure to Second-Hand Smoke: Yes during the past year weight has: remained stable Dental Care, Regularly: No Physical Activity Frequency: 1-2 Times per Week Physical Activity Frequency Comment: physical therapy Seatbelt Use: always Sunscreen Use: Yes Assistive Devices: Glasses Review of Systems Review of Systems: All systems reviewed & are unremarkable except as noted in HPI & below Physical Exam Physical Exam: General: patient resting comfortably, NAD, non-toxic in appearance, AA&O x 4, brief delay in answering questions Skin: warm, dry, intact, no rashes or lesions HEENT: NC/AT, PERRL, EOMI, anicteric sclera, conjunctiva without injection, external ear normal to inspection and nontender, nares patent, moist mucus membranes, dentition intact, no oropharyngeal lesions, neck supple, trachea midline, no LAD, no thyromegaly, no JVD Heart: +S1/S2, regular, no m/r/g Lungs: equal air entry bilaterally, no rales/rhonchi/wheezes Abd: +BS, soft, NT/ND, no masses/organomegaly/ascites Ext: warm, 2+ pulses in UE/LE bilaterally, no clubbing/cyanosis, trace RLE edema Neuro: AA&O, speech slightly delayed but appropriate and clear, CN II-XII grossly intact, sensation to light touch intact, MS 5/5 in UE/LE bilaterally, ga it not assessed Results & Data Results & Data Vital Signs (Past 12 Hours) Vital Signs Temp Pulse Pulse Resp BP BP Pulse Ox 12/06/23 19:00 74 18 146/82 H 93 12/06/23 17:57 69 12/06/23 17:43 96 12/06/23 17:43 77 18 96 12/06/23 17:43 77 18 179/99 H 96 12/06/23 16:32 36.9 C 93 H 18 166/107 H 94 O2 Del Method 12/06/23 19:00 Room Air 12/06/23 17:57 12/06/23 17:43 Room Air 12/06/23 17:43 Room Air 12/06/23 17:43 Room Air 12/06/23 16:32 Room Air Laboratory Results Laboratory Results WBC 12.34 K/ul (4.8-10.8) H 12/06/23 16:47 RBC 4.45 M/uL (4.20-5.40) 12/06/23 16:47 Hgb 14.3 g/dl (12.0-16.0) 12/06/23 16:47 POC Hgb 14.3 g/dl (12.0-16.0) 12/06/23 17:13 Hct 41.1 % (37.0-47.0) 12/06/23 16:47 POC Hct 42 % (37-47) 12/06/23 17:13 MCV 92.4 fL (80.0-100.0) 12/06/23 16:47 MCH 32.1 pg (25.0-34.0) 12/06/23 16:47 MCHC 34.8 g/dL (32.0-36.0) 12/06/23 16:47 RDW Std Deviation 46.6 fL (36.4-46.3) H 12/06/23 16:47 RDW Coeff of Roseanna 13.7 % (11.5-14.5) 12/06/23 16:47 Plt Count 404 K/uL (130-400) H 12/06/23 16:47 MPV 9.5 fL (9.4-12.4) 12/06/23 16:47 PT 10.3 Seconds (9.0-12.0) 12/06/23 16:47 INR 0.9 (0.9-1.1) 12/06/23 16:47 APTT 24 Seconds (21-31) 12/06/23 16:47 PTT Ratio 0.9 12/06/23 16:47 POC Sodium 139 mmol/L (135-144) 12/06/23 17:13 Sodium 136 mmol/L (136-145) 12/06/23 16:47 POC Potassium 4.0 mmol/L (3.3-5.0) 12/06/23 17:13 Potassium 4.1 mmol/L (3.5-5.1) 12/06/23 16:47 POC Chloride 103 mmol/L (101-112) 12/06/23 17:13 Chloride 103 mmol/L (98-107) 12/06/23 16:47 Carbon Dioxide 24 mmol/L (21-32) 12/06/23 16:47 POC Total CO2 23 mmol/L (24-31) L 12/06/23 17:13 Anion Gap 9 (3-11) 12/06/23 16:47 POC Anion Gap 18.0 mmol/L (16-25) 12/06/23 17:13 POC BUN 19 mg/dl (7-18) H 12/06/23 17:13 BUN 20 mg/dl (6-23) 12/06/23 16:47 Creatinine 0.86 mg/dl (0.6-1.2) 12/06/23 16:47 POC Creatinine 0.9 mg/dl (0.6-1.3) 12/06/23 17:13 Est Cr Clr Drug Dosing Not Reportable 12/06/23 16:47 eGFR 76.33 12/06/23 16:47 BUN/Creatinine Ratio 23.3 (10-20) H 12/06/23 16:47 Glucose 117 mg/dl (70-99(Fasting)) H 12/06/23 16:47 POC Glucose 123 mg/dl (70-99) H 12/06/23 21:48 POC Glucose (other) 117 mg/dl (70-99) H 12/06/23 17:13 Calcium 9.5 mg/dl (8.6-10.3) 12/06/23 16:47 POC Ioniz Calcium Anne 1.18 mmol/l (1.12-1.32) 12/06/23 17:13 Magnesium 1.8 mg/dl (1.7-2.4) 12/06/23 16:47 Total Bilirubin 0.3 mg/dl (0.2-1.0) 12/06/23 16:47 AST 12 U/L (13-39) L 12/06/23 16:47 ALT 12 U/L (7-52) 12/06/23 16:47 Alkaline Phosphatase 98 U/L (34-104) 12/06/23 16:47 Total Protein 7.7 gm/dl (6.0-8.3) 12/06/23 16:47 Albumin 4.4 gm/dl (3.4-5.0) 12/06/23 16:47 Globulin 3.3 gm/dl (2.5-4.0) 12/06/23 16:47 Albumin/Globulin Ratio 1.3 (0.9-2) 12/06/23 16:47 Urine Color Yellow 12/06/23 20:03 Urine Appearance Clear (Clear) 12/06/23 20:03 Urine pH 7.0 (4.5-7.5) 12/06/23 20:03 Ur Specific [place] > 1.045 (1.000-1.030) H 12/06/23 20:03 Urine Protein Trace (Negative) H 12/06/23 20:03 Urine Glucose (UA) Negative (Negative) 12/06/23 20: Urine Ketones Negative (Negative) 12/06/23 20:03 Urine Blood Trace (Negative) H 12/06/23 20:03 Urine Nitrite Negative (Negative) 12/06/23 20: Urine Bilirubin Negative (Negative) 12/06/23 20:03 Urine Urobilinogen Negative (Negative) 12/06/23 20:03 Ur Leukocyte Esterase Negative (Negative) 12/06/23 20:03 Urine WBC (Auto) 0-5 /hpf (0-5) 12/06/23 20:03 Urine RBC (Auto) 6-10 /hpf (0-2) H 12/06/23 20:03 U Hyaline Cast (Auto) 0-2 /lpf (0-2) 12/06/23 20:03 U Epithel Cells (Auto) 0-2 /hpf (0-2) 12/06/23 20:03 Urine Bacteria (Auto) None Seen (None Seen) 12/06/23 20:03 Impressions Chest X-Ray 12/06/23 16:37 XR chest 1V portable CLINICAL HISTORY: stroke alert TECHNIQUE: Single frontal radiograph of the chest was obtained. Comparison: Comparison is made to chest radiograph 01/19/2023 FINDINGS: Right shoulder arthroplasty is seen. Calcified aortic knob is seen. The lungs are clear. No evidence of pleural effusion or pneumothorax. IMPRESSION: No acute chest disease. ACT 112: Negative or not required by law. Electronically signed by: Jose Naqvi M.D. 12/06/2023 4:[address] 12/06/23 16:37 CT SCAN OF THE BRAIN WITHOUT IV CONTRAST CLINICAL HISTORY: Neurological deficit. Stroke like symptoms. COMPARISON STUDY: CT of the brain dated 01/19/2023. TECHNIQUE: Unenhanced axial CT scan of the brain is performed from the vertex to the skull base. A dose lowering technique was utilized adhering to the principles of ALARA. CT DOSE: 547.75 mGy.cm FINDINGS: Brain parenchyma: The brain parenchyma is normal in appearance. There is no hemorrhage, mass effect, or evidence of acute territorial ischemia by CT criteria. Haq-white matter differentiation is preserved. No extra-axial fluid collection is seen. Ventricles, sulci, cisterns: Normal in configuration. Intracranial vasculature: There is atherosclerotic calcification of the cavernous carotid arteries. Calvarium: Unremarkable. Sinuses and mastoids: There is evidence of previous paranasal sinus surgery. There is trace mucosal thickening in the right frontal sinus and the ethmoid cavity. The mastoid air cells are well pneumatized. Orbits: The bony orbits are grossly intact. IMPRESSION: There is no hemorrhage, mass effect, or evidence of acute territorial ischemia by CT criteria. ACT 112: Negative or not required by law. Electronically signed by: Otf Acevedo M.D. 12/06/2023 4:48 PM Head CTA 12/06/23 16:58 CT ANGIOGRAM OF THE BRAIN; CT ANGIOGRAM OF THE NECK CLINICAL HISTORY: Expressive aphasia. COMPARISON STUDY: Unenhanced CT of the brain performed earlier the same date 12/06/2023. MR angiogram of the brain dated 08/29/2014. Chest CT dated 08/15/2022. TECHNIQUE: Following the IV administration of 116 of Optiray 320, CT angiogram of the head and neck was performed from the aortic arch to the vertex. Images are reviewed in the axial, sagittal, and coronal planes. 3-D MIPS images are created and assessed. IV contrast was administered without complication. All measurements were calculated based on NASCET criteria. A dose lowering technique was utilized adhering to the principles of ALARA. CT DOSE: 444.8 mGy.cm FINDINGS: Brain parenchyma: The brain parenchyma is normal in appearance. There is no evidence of hemorrhage, mass effect, or acute territorial ischemia noting angiographic phase technique. There is no evidence of enhancing mass lesion on the angiogram phase images. The ventricles, sulci, and cisterns are normal in configuration. Haq-white matter differentiation is preserved. No extra-axial fluid collection is seen. Thoracic aorta: There is atherosclerotic calcification of the thoracic aorta. Visualized portions of the thoracic aorta are normal in caliber. The aortic arch demonstrates standard 3-vessel anatomy. Right carotid arterial system: The right common carotid artery is widely patent, as are the right internal and external carotid arteries. Calcified plaque is noted in the carotid bulb. Left carotid arterial system: The left common carotid artery is widely patent, as are the left internal and external carotid arteries. Calcified plaque is noted in the carotid bulb. Vertebral arteries: Widely patent bilaterally and codominant. Subclavian arteries: Widely patent bilaterally. Intracranial vasculature: There is atherosclerotic calcification of the cavernous carotid arteries. The internal carotid arteries are patent at the skull base, as are the anterior and middle cerebral arteries bilaterally. The vertebrobasilar system and posterior cerebral arteries are widely patent. The vertebral arteries are codominant. There is no aneurysm, high-grade stenosis, or focal vessel cut off seen throughout the intracranial circulation. Jugular veins: Patent bilaterally. Dural sinuses: Patent. Lung apices: Emphysematous change is noted in the upper lobes. Apical scarring is observed. A 3 mm left apical pulmonary nodule is seen on image #81. Soft tissues: The visualized pharyngeal soft tissues are normal in appearance noting angiographic phase technique. The oropharyngeal airway appears widely patent. The salivary and thyroid glands are normal in appearance. No cervical lymphadenopathy is seen. Skeletal structures: The skeletal structures are osteopenic. The calvarium appears intact. The cervical spine is maintained noting mild multilevel spondylosis. Orbits: The bony orbits are intact. Orbital contents are normal as visualized. Sinuses and mastoids: The paranasal sinuses are clear. There is mild mastoid effusions. IMPRESSION: 1. There is no evidence of hemorrhage, mass effect, or acute territorial ische [place] noting angiographic phase technique. 2. Unremarkable CT angiogram of the brain. 3. Unremarkable CT angiogram of the neck. 4. Emphysema. 5. An indeterminant 3 mm left apical pulmonary nodule was not clearly seen on the 08/15/[address] A 3-4 month follow-up chest CT is recommended for reassessment. ACT 112: Negative or not required by law. Electronically signed by: Otf Acevedo M.D. 12/06/2023 5:57 PM Neck CTA 12/06/23 16:58 CT ANGIOGRAM OF THE BRAIN; CT ANGIOGRAM OF THE NECK CLINICAL HISTORY: Expressive aphasia. COMPARISON STUDY: Unenhanced CT of the brain performed earlier the same date 12/06/2023. MR angiogram of the brain dated 08/29/2014. Chest CT dated 08/15/2022. TECHNIQUE: Following the IV administration of 116 of Optiray 320, CT angiogram of the head and neck was performed from the aortic arch to the vertex. Images are reviewed in the axial, sagittal, and coronal planes. 3-D MIPS images are created and assessed. IV contrast was administered without complication. All measurements were calculated based on NASCET criteria. A dose lowering technique was utilized adhering to the principles of ALARA. CT DOSE: 444.8 mGy.cm FINDINGS: Brain parenchyma: The brain parenchyma is normal in appearance. There is no evidence of hemorrhage, mass effect, or acute territorial ischemia noting angiographic phase technique. There is no evidence of enhancing mass lesion on the angiogram phase images. The ventricles, sulci, and cisterns are normal in configuration. Haq-white matter differentiation is preserved. No extra-axial fluid collection is seen. Thoracic aorta: There is atherosclerotic calcification of the thoracic aorta. Visualized portions of the thoracic aorta are normal in caliber. The aortic arch demonstrates standard 3-vessel anatomy. Right carotid arterial system: The right common carotid artery is widely patent, as are the right internal and external carotid arteries. Calcified plaque is noted in the carotid bulb. Left carotid arterial system: The left common carotid artery is widely patent, as are the left internal and external carotid arteries. Calcified plaque is noted in the carotid bulb. Vertebral arteries: Widely patent bilaterally and codominant. Subclavian arteries: Widely patent bilaterally. Intracranial vasculature: There is atherosclerotic calcification of the cavernous carotid arteries. The internal carotid arteries are patent at the skull base, as are the anterior and middle cerebral arteries bilaterally. The vertebrobasilar system and posterior cerebral arteries are widely patent. The vertebral arteries are codominant. There is no aneurysm, high-grade stenosis, or focal vessel cut off seen throughout the intracranial circulation. Jugular veins: Patent bilaterally. Dural sinuses: Patent. Lung apices: Emphysematous change is noted in the upper lobes. Apical scarring is observed. A 3 mm left apical pulmonary nodule is seen on image #81. Soft tissues: The visualized pharyngeal soft tissues are normal in appearance noting angiographic phase technique. The oropharyngeal airway appears widely patent. The salivary and thyroid glands are normal in appearance. No cervical lymphadenopathy is seen. Skeletal structures: The skeletal structures are osteopenic. The calvarium appears intact. The cervical spine is maintained noting mild multilevel spondylosis. Orbits: The bony orbits are intact. Orbital contents are normal as visualized. Sinuses and mastoids: The paranasal sinuses are clear. There is mild mastoid effusions. IMPRESSION: 1. There is no evidence of hemorrhage, mass effect, or acute territorial ischemia noting angiographic phase technique. 2. Unremarkable CT angiogram of the brain. 3. Unremarkable CT angiogram of the neck. 4. Emphysema. 5. An indeterminant 3 mm left apical pulmonary nodule was not clearly seen on the 08/15/[address] A 3-4 month follow-up chest CT is recommended for reassessment. ACT 112: Negative or not required by law. Electronically signed by: Otf Acevedo M.D. 12/06/2023 5:57 PM ECG Additional Comments: EKG per my interpretation with NSR at 78bpm with sinus arrhythmia, normal axis, YF=542, QRS=84, UPv=149, no acute ischemic changes Code Status & VTE Plan VTE Prophylaxis Plan VTE Prophylaxis will be ordered: Yes PG Care Time/CCT Total # of Minutes Spent Total Time Spent with Patient: Total time spent is greater than 50% in coordination of care (as documented) at patient's floor/unit and/or counseling patient: Coding Level of Care Code 89233 INT INP/OBS CARE 2/55MIN Diagnoses Expressive aphasia R47.[address] R93.89 Essential hypertension I10 Hypertension type: essential hypertension (3) HTN (hypertension) Hypertension type: essential hypertension Qualified Code(s): I10 - Essential (primary) hypertension
[2023-12-06] MEDS ORDERED: PHARMACIST DISCHARGE MED REC CONSULT PRN (20:34)
[2023-12-06] MEDS ORDERED: GLUCOSE 10 TAB/TUBE PO PRN (20:34)
[2023-12-06] MEDS ORDERED: DEXTROSE 50% 50 ML SYRINGE IV PRN (20:34)
[2023-12-06] MEDS ORDERED: GLUCOSE 40% GEL 15 GM TUBE PO PRN (20:34)
[2023-12-06] MEDS ORDERED: ONDANSETRON INJ 2 MG/ML 2 ML VIAL IV PRN (20:34)
[2023-12-06] MEDS ORDERED: GLUCAGON FOR INJ 1 MG VIAL SQ PRN (20:34)
[2023-12-06] MEDS ORDERED: CARBOHYDRATES FOR HYPOGLYCEMIA PO PRN (20:34)
[2023-12-06 21:02] LABS: Appearance Urine Clear (Clear); Bacteria Urine Automated None Seen (None Seen); Bilirubin Urine Negative (Negative); Blood Urine Trace (Negative); Cast Urine Automated 0-2 /lpf (0-2); Color Urine Yellow; Epithelial Cell Urine Auto 0-2 /hpf (0-2); Glucose Urine UA Negative (Negative); Ketones Urine Negative (Negative); Leukocyte Esterase Urine Negative (Negative); Nitrite Urine Negative (Negative); Protein Urine Trace (Negative); Specific Gravity Urine > 1.045 (1.000-1.030); Urobilinogen Urine Negative (Negative); WBC Urine Automated 0-5 /hpf (0-5)
[2023-12-06] MEDS: INSULIN ASPART PER UNIT CHARGE SC SCH (21:54)
[2023-12-06] MEDS: LORazepam 2 MG/1 ML VIAL IV ONE (22:13)
[2023-12-06] MEDS: GADOBUTROL 30ML VIAL IV ONE (23:01)
[2023-12-06] MEDS ORDERED: ALBUTEROL HFA 8 GM INHALER INH PRN (23:02)
[2023-12-06] MEDS ORDERED: ALBUT/IPRATROP 3MG/0.5MG NEB 3 ML VIAL INH PRN (23:02)
--- NOTE | 2023-12-07 00:20 | Magnetic Resonance Report ---
Exam(s): MRI HEAD W/WO Contrast IV Amt: 9cc gadavist EXAM: MR Head Without and With Intravenous Contrast CLINICAL HISTORY: Reason for exam: aphasia, confusion ?CVA. TECHNIQUE: Magnetic resonance images of the head/brain without and with intravenous contrast in multiple planes. CONTRAST: Patient received 9cc gadavist of IV contrast COMPARISON: Prior head CT from December 06, 2023.. FINDINGS: Brain: Minimal nonspecific white matter changes. No mass. No hemorrhage. No acute infarct. The flow voids of the base of the brain are intact. No evidence of abnormal enhancement. Ventricles: Unremarkable. No ventriculomegaly. Bones/joints: Unremarkable. No acute fracture. Sinuses: Chronic right ethmoid and frontal sinusitis. No acute sinusitis. Mastoid air cells: A tiny amount of fluid in the mastoid air cells. No mastoid effusion. Orbits: Unremarkable as visualized. IMPRESSION: No evidence of acute intracranial pathology. Electronically signed by: Stephany Franks MD 12/07/23 00:19 AM
[2023-12-07] MEDS: GABAPENTIN 300 MG CAP PO STA (00:35)
[2023-12-07] MEDS: QUEtiapine FUMARATE 25 MG TABLET PO STA (00:36)
[2023-12-07] MEDS: traZODone HCL 50 MG TAB PO STA (00:36)
[2023-12-07 03:12] VITALS: TEMP 98.1
[2023-12-07 07:06] LABS: BUN Creatinine Ratio 22.2 (10-20); Basophils # (auto) 0.05 K/uL (0.00-0.20); Basophils % (auto) 0.6 %; Calcium 8.9 mg/dl (8.6-10.3); Chol HDL Ratio 3.2 (0-5); Creatinine Clr Calc Pharmacy 122.7 ml/min; Eosinophils # (auto) 0.11 K/uL (0.00-0.50); Eosinophils % (auto) 1.3 %; Hematocrit (blood only) 39.4 % (37.0-47.0); Hemoglobin 13.2 g/dl (12.0-16.0); Immature Granulocytes # (auto) 0.04 K/uL (0.01-0.20); Immature Granulocytes % (auto) 0.5 %; Lymphocytes # (auto) 2.33 K/uL (1.20-3.40); Lymphocytes % (auto) 28.4 %; Mean Corpuscular Hemoglobin 31.6 pg (25.0-34.0); Mean Corpuscular Hgb Conc 33.5 g/dL (32.0-36.0); Mean Corpuscular Volume 94.3 fL (80.0-100.0); Mean Platelet Volume 9.1 fL (9.4-12.4); Monocytes # (auto) 0.58 K/uL (0.11-0.59); Monocytes % (auto) 7.1 %; Neutrophils % (auto) 62.1 %; Platelet Count 329 K/uL (130-400); Potassium 4.2 mmol/L (3.5-5.1); RDW Coefficient of Variation 13.9 % (11.5-14.5); RDW Standard Deviation 47.5 fL (36.4-46.3); Red Blood Count 4.18 M/uL (4.20-5.40); White Blood Count 8.21 K/ul (4.8-10.8)
--- OUTSIDE RECORDS SUMMARY | 2023-12-07 07:12 | External Medical Summary | Summary of Care ---
Author Name Unknown Organization [facility] Address [address] [place] [address] Phone [phone] Care Team Providers Care Artist'S Representative Name Role Phone Jareth Kimbrough DO Primary Care Provider + Encounter Details Date Type Department Care Team (Late st Contact Info) Description 11/10/2023 Population Health External Data Unspecified Department Allergies Active Allergy Reactions Criticality Noted Date Comments Nitrofurantoin Monohydrate Macrocrystals High 09/07/2010 respiratory distress documented as of this encounter (statuses as of 11/14/2023) Medications Medication Sig Dispensed Refills Start Date End Date Status hydrOXYzine HCl 25 MG tablet Take 1 Tablet by mouth every 8 hours as needed. 2 08/11/2015 Active aspirin enteric coated 81 MG TBEC Take 1 Tablet by mouth in the morning. 100 Tab 3 08/15/2016 Active albuterol sulfate (PROVENTIL) (2.5 MG/3ML) 0.083% nebulizer solution USE 1 VIAL VIA NEBULIZER EVERY 6 HOURS NEEDED 3 08/16/2016 Active acetaminophen (TYLENOL EXTRA STRENGTH) 500 MG Tablet Take 1 Tablet by mouth every 6 hours as needed for Pain. Active Albuterol Sulfate HFA 108 (90 Base) MCG/ACT Inhalation Aerosol Solution Inahle 2 puffs by mouth four times daily As Needed for Shortness Of Breath Or Wheezing 54 g 3 11/29/2022 Active Trelegy Ellipta 200-62.5-25 MCG/ACT Aerosol Powder Breath Activated (Fluticasone-Umeclid inium-Vilanterol) Inhale one puff by mouth once a day 180 Each 3 11/30/2022 Active amLODIPine Besylate 5 MG Oral Tablet (Norvasc) take one tablet daily 90 Tablet 3 02/03/2023 Active metFORMIN HCl ER 500 MG Oral Tablet Extended Release 24 Hour (Glucophage XR) take 1 tablet by mouth daily 90 Tablet 2 02/07/2023 Active Olmesartan Medoxomil 40 MG Oral Tablet (Benicar) take 1 tablet by mouth daily 90 Tablet 3 02/07/2023 Active Celecoxib 200 MG Oral Capsule (CeleBREX) take 1 capsule by mouth daily As Needed for acute left knee pain once a day until flair resolves 90 Capsule 1 03/28/2023 Active One-A-Day Womens 50 Plus Oral Tablet Take 1 Tablet by mouth daily. Active hydrOXYzine HCl 25 MG Oral Tablet Take one tablet by mouth every eight hours as needed for severe anxiety 90 Tablet 03/30/2023 Active QUEtiapine Fumarate 25 MG Oral Tablet (SEROquel) Take one tablet by mouth daily as needed for acute anxiety 90 Tablet 03/30/2023 Active Wegovy 0.5 MG/0.5ML Subcutaneous Solution Auto-injector (Semaglutide-Weight Management) inject 0.5 mg (0.5ml) under the skin every 7 days 6 mL 08/09/2023 Active QUEtiapine Fumarate 200 MG Oral Tablet (SEROquel) take one tablet by mouth at bedtime 90 Tablet 09/28/2023 Active buPROPion HCl ER (SR) 100 MG Oral Tablet Extended Release 12 Hour (Wellbutrin SR) take 1 tablet by mouth twice daily 180 Tablet 09/28/2023 Active Mirtazapine 30 MG Oral Tablet (Remeron) take 1 tablet by mouth at bedtime 90 Tablet 09/28/2023 Active Gabapentin 100 MG Oral Capsule (Neurontin) take 1 capsule by mouth in the morning and 4 caps at bedtime 450 Capsule 09/28/2023 Active Venlafaxine HCl ER 75 MG Oral Capsule Extended Release 24 Hour (Effexor XR) take 1 capsule by mouth in the afternoon (in addition to 300mg dose in am) 90 Capsule 09/28/2023 Active Venlafaxine HCl ER 150 MG Oral Capsule Extended Release 24 Hour (Effexor XR) take 2 capsules by mouth every morning for total of 300mg 180 Capsule 09/28/2023 Active documented as of this encounter (statuses as of 11/14/2023) Active Problems Problem Noted Date Diagnosed Date Gas bloat syndrome 11/09/2017 Depression with anxiety 08/19/2016 Gastroesophageal reflux disease with esophagitis 08/19/2016 History of small bowel obstruction 08/19/2016 History of electroconvulsive therapy 08/19/2016 Controlled substance agreement signed 03/09/2016 Fatty liver 09/05/2015 HTN, goal below 140/90 09/02/2015 COPD, moderate 10/11/2014 Overview: GOLD class B (moderate obstruction, CAT >10) Possible asthmatic component DAYA (obstructive sleep apnea) 03/07/2014 Overview: CPAP 8 cwp 02/26/14 -- AHI 5.1, REM AHI 32, 49 mins of sats <89% [facility] Glaucoma 01/04/2014 Tobacco use disorder 06/15/2013 Subacute thyroiditis 10/03/2012 Severe obesity (BMI 35.0-39.9) with comorbidity 03/10/1999 documented as of this encounter (statuses as of 11/14/2023) Resolved Problems Problem Noted Date Diagnosed Date Resolved Date Ileus, postoperative 12/30/2015 017 Partial small bowel obstruction 12/30/2015 08/19/2016 Hiatal hernia with gastroesophageal reflux 12/24/2015 08/19/2016 Pain of upper abdomen 09/02/20152016 Chest pain 08/04/2015 09/02/2015 Hiatal hernia 08/04/2015 09/02/2015 Neck pain 11/11/2014 09/02/2015 Pain of right upper arm 11/08/201408/21 Bacterial pneumonia 11/04/2014 01/03/20 15 Balance disorder 09/03/2014 09/02/2015 Nausea with vomiting 07/05/2014 016 Colon polyp 07/05/2014 09/02/2015 Lumbago with sciatica 05/13/20142015 GERD (gastroesophageal reflux disease) 05/01/2014 08/19/2016 Headache 11/13/2013 01/02/2015 Overview: ICD-10 update of inactive term Hypoxemia 11/13/2013 01/02/2015 Overview: 09/20/14 - desats with 6 MWT 04/2014 - Nocturnal resolved with CPAP therapy. Screening for cardiovascular condition 11/13/2013 08/19/2016 Preop examination 09/03/2013 01/02/2015 Fracture, finger 08/03/2013 08/14/2013 Recurrent cold sores 07/18/2013 014 Insomnia 07/13/2013 08/14/2013 Pulmonary emphysema 06/06/2013 08/20/19 17 Hematuria 06/05/2013 08/19/2016 Overview: ICD-10 update of inactive term Positive D dimer 06/05/2013 08/14/2013 Leg pain 06/05/2013 08/19/2016 Cough 06/04/2013 08/14/2013 SOB (shortness of breath) 06/04/2013 Edema 06/04/2013 08/19/2016 Bronchitis, complicated 05/09/2013 04/06/2013 Preop examination 04/14/2013 06/05/2013 Cellulitis of face 03/12/2013 4 Depression 02/16/2013 08/19/2016 Preop examination 12/25/2012 02/16/2013 Scabies 12/06/2012 12/25/2012 Acute sinusitis 10/10/2012 12/25/2012 Lyme disease 08/29/2012 01/02/2015 Facial edema 08/28/2012 12/25/2012 Headache 08/28/2012 02/16/2013 Overview: ICD-10 update of inactive term Memory difficulty 07/11/2012 02/16/2013 Dermatitis 07/11/2012 02/16/2013 Other specified pre-operative examination 10/13/2010 10/02/2012 Acute cystitis 09/07/2010 03/07/2012 Acute sinusitis 03/23/2010 03/07/2012 Anxiety state 09/25/2009 08/19/2016 Malaise and fatigue 04/21/2009 03/07/19 13 Dyslipidemia, goal to be determined 01/30/2009 03/07/2012 Overview: Per Lipid Taxonomy. Benign neoplasm of colon 11/17/200601/2013 Overview: adenomatous repeat colonoscopy in 5 years Hematuria 1999 10/13/2010 Overview: ICD-10 update of inactive term Major depressive disorder 03/10/1999 Overview: ICD-10 update of inactive term Nocturia 03/10/1999 03/07/2012 Sexual function problem 03/10/199902/21 PURE HYPERCHOLESTEROLEM 03/10/199901/21 Overview: Per Lipid Taxonomy. Tobacco use disorder 03/10/1999 013 Family disruption 03/10/1999 10/13/2010 Overview: ICD-10 update of inactive term FAMILY HX-BREAST MALIG 03/10/199910/13 Dyslipidemia, goal LDL below 160 10/02/2012 Dyslipidemia, goal LDL below 160 03/07/2012 documented as of this encounter (statuses as of 11/14/2023) Immunizations Name Administration Dates Next Due COVID-19 mRNA, LNP-s, No Pre serve, 2-Dose Series (Pfizer) 05/22/2020,04/24/2020 H1N1 2009 Influenza, IM 04/21/2009 Pneumococcal Polysaccharide PPV23 (Pneumovax) 05/01/2014 Seasonal Influenza, Quadriva lent, No Preserve, IM 11/20/2015 Seasonal Influenza, Trivalen t, (IIV3), with Preserv, (Fluzone) 01/08/2015,12/04/2012,04/21/2009 TDAP (age 10 and older)(Boostrix) 05/01/2014 documented as of this encounter Social History Tobacco Use Types Packs/Day Years Used Date Smoking Tobacco: Some Days Cigarettes 0.5 34 Smokeless Tobacco: Never Comments:Started to cut back on smoking about a year ago. Recently cut back to between 1/4 and 1/2 pack/day Alcohol Use Standard Drinks/Week Comments Yes 0 (1 standard drink = 0.6 oz pur e alcohol) rare Utilities Answer Date Recorded Do you have trouble paying y our heating, water, or electric bill? (Adult - for ages 18 years and over) Not on file 08/09/2023 Is your family able to pay t he heat, water, or electric bill? (Household - for ages 0-17 years) Not on file 08/09/2023 Does your family have access to good internet? (Household - for ages 0-17 years) Not on file 08/09/2023 Social Connections Answer Date Recorded How often do you feel lonely or isolated from those around you? (Adult - for ages 18 years and over) Not on file 08/09/2023 Sex and Gender Information Value Date Recorded Sex Assigned at Not on file Gender Identity Not on file Sexual Orientation Not on file documented as of this encounter Functional Status Functional Status Response Date of Assess ment Are you deaf or do you have serious difficulty h earing? No 11/07/2017 Are you blind or do you have serious difficulty seeing, even when wearing glasses? No 11/07/2017 Do you have serious difficul ty walking or climbing stairs? (5 years old or older) No 11/07/2017 Do you have difficulty dress ing or bathing? (5 years old or older) No 11/07/2017 Because of a physical, menta l, or emotional condition, do you have difficulty doing errands alone such as visiting a doctor s office or shopping? (15 years old or older) No 11/08/19 18 Cognitive Status Response Date of Assessm ent Because of a physical, menta l, or emotional condition, do you have serious difficulty concentrating, remembering, or making decisions? (5 years old or older) Yes 11/07/2017 documented as of this encounter Plan of Treatment Health Maintenance Due Date Last Done Comments HIV Screening 1976 Albumin/Creatinine Ratio 1979 Alpha-1 Antitrypsin 1979 Hepatitis C Screening 1979 O2 ASSESSMENT COMPLETED IN PAST YEAR FOR COPD 1979 Cologuard 2006 Fecal Occult Blood Test 2006 Sigmoidoscopy 2006 Zoster Vaccines (1 of 2) 2011 Mammogram 12/03/2016 12/04/2015, 12/22, 01/04/2013, Additional history exists Depression Monitoring 08/19/2017 08/19/2016 GFR 11/08/2018 11/08/2017, 10/2017, 12/29/2015, Additional history exists Colonoscopy 08/30/2020 08/30/2017, 07, 07/11/2014, Additional history exists Colorectal Cancer Screening 08/30/2020 Lipid Panel 09/01/2020 09/02/2015 Diabetes Screening 11/08/2020 11/08/2017, 0 11/07/2017, 07/30/2017, Additional history exists Influenza Vaccine (FLU shot) (#1) 2023 11/20/2015, 01/08/2015, 12/04/2012, Additional history exists DTap/Tdap Vaccines (2 - Td or Tdap) 05/01/2024 05/01/2014 Pneumococcal Vaccine: Pediatrics (0 to 5 Years) and At-Risk Patients (6 to 64 Years) (3 of 3 - PPSV23 or PCV20) 2026 06/24/2021, 05/01/2014 Pap Smear Discontinued 12/31/2010, 08/2008, 07/31/2003, Additional history exists COVID-19 Vaccine Discontinued 05/22/2020, 04/24/2020 HPV (Gardasil) Vaccine Aged Out No lo nger eligible based on patient's age to complete this topic Hepatitis B Vaccine Aged Out No longe r eligible based on patient's age to complete this topic MENINGOCOCCAL (MENACTRA/MENVEO) Aged Out No longer eligible based on patient's age to complete this topic documented as of this encounter Medical Devices Not on filedocumented as of this encounter Advance Directives * Full Code (Latest Code Status on File) Date Activated Date Inactivated Comments 11/07/2017 10:16 AM 11/09/2017 4:21 PM This order reflects the patients wishes and were consensually agreed upon. * Full Code Date Activated Date Inactivated Comments 11/07/2017 6:09 AM 11/07/2017 10:16 AM This order reflects the patients wishes and were consensually agreed upon. * Full Code Date Activated Date Inactivated Comments 12/27/2015 11:40 AM 12/30/2015 2:48 PM Question Answer Comments Discussion of Advance Directives occurred with: Not Discussed * Full Code Date Activated Date Inactivated Comments 12/24/2015 11:10 AM 12/26/2015 2:37 PM This order reflects the patients wishes and were consensually agreed upon. Question Answer Comments Discussion of Advance Directives occurred with: Not Discussed Does the patient have a Living Will? No Does the patient have Health Care Power of Attor didier? No * Full Code Date Activated Date Inactivated Comments 12/24/2015 6:05 AM 12/24/2015 11:10 AM This order reflects the patients wishes and were consensually agreed upon. Care Teams Artist'S Representative Relationship Specialty Start Date End Date Jareht Kimbrough DO [address] [place] [address] ANT Rodriguez [phone] PCP - General Family Medicine 03/30/23 documented as of this encounter
--- OUTSIDE RECORDS SUMMARY | 2023-12-07 07:13 | External Medical Summary | Summary of Care ---
Author Name Unknown Organization [facility] Address [address] [place] [address] Phone [phone] Care Team Providers Care Carpenter Labor Supervisor Name Role Phone Jareth Kimbrough DO Primary Care Provider + Encounter Details Date Type Department Care Team (Late st Contact Info) Description 09/13/2023 Population Health External Data Unspecified Department Allergies Active Allergy Reactions Criticality Noted Date Comments Nitrofurantoin Monohydrate Macrocrystals High 09/07/2010 respiratory distress documented as of this encounter (statuses as of 09/16/2023) Medications Medication Sig Dispensed Refills Start Date [...] 6 hours as needed for Pain. Active Mirtazapine 30 MG Oral Tablet (Remeron) take 1 tablet by mouth at bedtime 90 Tablet 11/08/2022 Active buPROPion HCl ER (SR) 100 MG Oral Tablet Extended Release 12 Hour (Wellbutrin SR) take 1 tablet by mouth twice a day 180 Tablet 11/08/2022 Active QUEtiapine Fumarate 200 MG Oral Tablet (SEROquel) take one tablet by mouth at bedtime 90 Tablet 11/08/2022 Active Gabapentin 100 MG Oral Capsule (Neurontin) take one capsule by mouth by mouth every morning and 3 capsules at bedtime 360 Capsule 11/08/2022 Active Venlafaxine HCl ER 75 MG Oral Capsule Extended Release 24 Hour (Effexor XR) Take 1 capsule by mouth in the afternoon 90 Capsule 11/08/2022 Active Venlafaxine HCl ER 150 MG Oral Capsule Extended Release 24 Hour (Effexor XR) Take 2 capsules by mouth every morning for total of 300mg 180 Capsule 11/08/2022 Active Albuterol Sulfate HFA 108 (90 Base) [...] for acute anxiety 90 Tablet 03/30/2023 Active Venlafaxine HCl ER 150 MG Oral Capsule Extended Release 24 Hour (Effexor XR) take 2 capsules by mouth every morning for total of 300mg 180 Capsule 06/28/2023 Active Mirtazapine 30 MG Oral Tablet (Remeron) take 1 tablet by mouth at bedtime 90 Tablet 06/28/2023 Active Gabapentin 100 MG Oral Capsule (Neurontin) take one capsule by mouth in the morning and 3 capsules at bedtime 360 Capsule 06/28/2023 Active QUEtiapine Fumarate 200 MG Oral Tablet (SEROquel) take one tablet by mouth at bedtime 90 Tablet 06/28/2023 Active buPROPion HCl ER (SR) 100 MG Oral Tablet Extended Release 12 Hour (Wellbutrin SR) take one tablet by mouth twice a day 180 Tablet 06/28/2023 Active Venlafaxine HCl ER 75 MG Oral Capsule Extended Release 24 Hour (Effexor XR) take 1 capsule by mouth in the afternoon (in addition to 300mg dose in am) 90 Capsule 06/28/2023 Active Wegovy 0.5 MG/0.5ML Subcutaneous Solution Auto-injector (Semaglutide-Weight Management) inject 0.5 mg (0.5ml) under the skin every 7 days 6 mL 08/09/2023 Active documented as of this encounter (statuses as of 09/16/2023) Active Problems Problem Noted Date Diagnosed Date [...] as of this encounter (statuses as of 09/16/2023) Resolved Problems Problem Noted Date Diagnosed Date [...] breath) 06/04/2013 Edema 06/04/2013 08/19/2016 Bronchitis, complicated 05/09/201305/22 Preop examination 04/14/2013 06/05/2013 Cellulitis of face [...] as of this encounter (statuses as of 09/16/2023) Immunizations Name Administration Dates Next Due COVID-19 mRNA, LNP-s, No Pre serve, 2-Dose Series ([employer]) 05/22/2020,04/24/2020 H1N1 2009 Influenza, IM 04/21/2009 Pneumococcal Polysaccharide PPV23 (Pneumovax) 05/01/2014 Seasonal Influenza, Quadriva lent, No Preserve, IM 11/20/2015 Seasonal Influenza, Split, I IV3, With Preserve, Inj 01/08/2015,12/04/2012,04/21/2009 TDAP (age 10 and older)(Boostrix) 05/01/2014 [...] (15 years old or older) No 11/08/19 Cognitive Status Response Date of Assessm ent [...] 12/29/2015, Additional history exists Colonoscopy 08/30/2020 08/30/2017, 08/21, 07/11/2014, Additional history exists Colorectal Cancer Screening 08/30/2020 Lipid Panel 09/01/2020 09/02/2015 Diabetes Screening 11/08/2020 11/08/2017, 0 11/07/2017, 07/30/2017, Additional history exists Influenza Vaccine (FLU shot) (#1) 2023 11/20/2015, 01/08/2015, 12/04/2012, Additional history exists DTaP,Tdap,and Td Vaccines (2 - Td or Tdap) 05/01/2024 [...] and were consensually agreed upon. Care Teams Carpenter Labor Supervisor Relationship Specialty Start Date End Date Jareth Kimbrough DO [address] [place] [address] ANT Rodriguez [phone] PCP - General Family Medicine 03/30/23 documented as of this encounter
--- OUTSIDE RECORDS SUMMARY | 2023-12-07 07:13 | External Medical Summary | Summary of Care ---
Author Name Unknown Organization [facility] Address [address] [place] [address] Phone [phone] Care Team Providers Care Storage Brine Worker Name Role Phone Jareth Kimbrough DO Primary Care Provider + Encounter Details Date Type Department Care Team (Late st Contact Info) Description 08/15/2023 Population Health External Data Unspecified Department Allergies Active Allergy Reactions Criticality Noted Date Comments Nitrofurantoin Monohydrate Macrocrystals High 09/07/2010 respiratory distress documented as of this encounter (statuses as of 08/16/2023) Medications Medication Sig Dispensed Refills Start Date [...] as of this encounter (statuses as of 08/16/2023) Active Problems Problem Noted Date Diagnosed Date [...] as of this encounter (statuses as of 08/16/2023) Resolved Problems Problem Noted Date Diagnosed Date [...] as of this encounter (statuses as of 08/16/2023) Immunizations Name Administration Dates Next Due COVID-19 mRNA, LNP-s, No Pre serve, 2-Dose Series ([employer]) 05/22/2020,04/24/2020 H1N1 2009 Influenza, IM 04/21/2009 Pneumococcal [...] Additional history exists Influenza Vaccine (FLU shot) (Season Ended) 2023 11/20/2015, 01/08/2015, 12/04/2012, Additional history exists DTaP,Tdap,and Td Vaccines (2 - Td or Tdap) 05/01/2024 05/01/2014 Pneumococcal Vaccine: Pediatrics (0 to 5 Years) and At-Risk Patients (6 to 64 Years) (3 of 3 - PPSV23 or PCV20) 2026 06/24/2021, 05/01/2014 Pap Smear Discontinued 12/31/2010, 08/2008, 07/31/2003, Additional history exists COVID-19 Vaccine Discontinued 05/22/2020, 04/24/2020 GARDASIL-HPV IMMUNIZATION SERIES Aged Out No longer eligible based on patient's age to complete this topic Hepatitis B Aged Out No longer eligi ble based on patient's age to complete this [...] and were consensually agreed upon. Care Teams Storage Brine Worker Relationship Specialty Start Date End Date Jareth Kimbrough DO [address] [place] [address] ANT Rodriguez [phone] PCP - General Family Medicine 03/30/23 documented as of this encounter
[2023-12-07 07:17] VITALS: BP 145/76; O2SAT 94
[2023-12-07 07:36] LABS: Estimated Average Glucose 103 mg/dl; Hemoglobin A1C 5.2 % (4.5-5.6)
--- NOTE | 2023-12-07 08:00 | Electrocardiogram Report ---
Test Reason : Blood Pressure : */* mmHG Vent. Rate : 78 BPM Atrial Rate : 78 BPM P-R Int : 182 ms QRS Dur : 84 ms QT Int : 362 ms P-R-T Axes : 66 18 70 degrees QTcB Int : 412 ms Normal sinus rhythm with sinus arrhythmia Normal ECG When compared with ECG of 19-Jan-2023 16:47, No significant change Confirmed by Cirilo Qiu ([id number]) on 12/07/2023 7:59:56 AM Referred By: Confirmed By: Cirilo Qiu
[2023-12-07] MEDS ORDERED: NON-FORMULARY MEDICATION (Fluticasone-Umeclidin-Vilanter [Trelegy Ellipta] 200-62.5-25 mcg INH SCH (09:00)
[2023-12-07] MEDS: buPROPion SR 100 MG TABCR PO SCH (09:42)
[2023-12-07] MEDS: QUEtiapine FUMARATE 25 MG TABLET PO PRN (09:42)
[2023-12-07] MEDS: ASPIRIN 81 MG ECTAB PO SCH (09:42)
[2023-12-07] MEDS: VENLAFAXINE HCL XR 150 MG CAPXR PO SCH (09:43)
[2023-12-07] MEDS: ROSUVASTATIN CALCIUM 20 MG TAB PO SCH (09:43)
[2023-12-07] MEDS: VENLAFAXINE HCL XR 75 MG CAPXR PO SCH (09:44)
[2023-12-07] MEDS: FLUTICASONE FUROATE 200MCG 14 PUFFS/INHALER INH SCH (09:45)
[2023-12-07] MEDS: UMECLIDINIUM/VILANTEROL 62.5/25MCG 7 PUFFS/INHALER INH SCH (09:45)
[2023-12-07] MEDS: INFLUENZA VACC TS2024-25(6m+)/PF (IIV3) 0.5mL Syr IM ONE (10:25)
--- NOTE | 2023-12-07 10:33 | Pharmacy Report ---
- Date of Service December 07, 2023 - Pharmacy CVA/TIA Medication Review Medications to Prevent Stroke handout has been added to the patients discharge packet. Antiplatelet(s) * aspirin 81 mg PO daily Cholesterol * High intensity statin: rosuvastatin 20 mg daily DVT Prophylaxis * SCD knee Therapeutic Anticoagulation * No history of Afib/Aflutter noted Type 2 Diabetes * Patient does not have T2DM (HbA1c: 5.2%)
[2023-12-07] MEDS: ACETAMINOPHEN 325 MG TAB PO PRN (10:38)
[2023-12-07] MEDS: FAMOTIDINE 20 MG TAB PO SCH (11:35)
[2023-12-07] MEDS: ALUMINUM/MAGNESIUM SUSP 30 ML UDC PO SCH (11:35)
[2023-12-07] MEDS: PROCHLORPERAZINE MALEATE 5 MG TAB PO ONE (12:44)
[2023-12-07] MEDS: KETOROLAC 30 MG/ML VIAL IV ONE (12:44)
--- NOTE | 2023-12-07 12:58 | Discharge Summary ---
Discharge Summary Date of Service December 07, 2023 Principal Dx & Hospital Course #1 = Principal Diagnosis (1) Expressive aphasia: Patient with transient episode of expressive aphasia 12/05 at 15:00. Symptoms had largely improved by the time of ED visit, but she continued to have a mild headache can feel "foggy". Possible TIA vs CVA? Risk factors include history of HLP, HTN and ongoing tobacco use. Patient also reports an episode of palpitations several days ago that was self-limiting. No history of atrial fibrillation or arrhythmia to her knowledge. - NIHSS and neurochecks completed per protocol; remained stable, no recurrence of symptoms - Dysphagia screening; stable - Brain MRI with no acute findings negative for CVA - 2D echo: Mild concentric LVH, no significant valvular disease, negative bubble study, no significant change from study in 09/09/2021 - Lipid panel within normal limits, A1c 5.2% - At home medications include rosuvastatin 20 mg and ? Wegovy respectively - Discontinue aspirin 81 mg - Start Plavix 75 mg daily for possible TIA -Smoking cessation counseling provided by Dr. Finch 12/06 - remains precontempative -no afib/flutter on EKGs or monitoring. reported recent tachycardia in 120s with palpitations. referred for ambulatory cardiac monitoring Her reports that several nights ago she got up around 10 pm to go to the bathroom (after having taken nighttime meds earlier in evening) and was very groggy, BP was low in 80s. Episode eventually resolved. She does have DAYA and is intolerant of CPAP -Patient is on multiple sedating agents at night to include Gabapentin, Trazodone and Seroquel; recommend thorough evaluation of these medications and current dosages with PCP at discharge. -she may be less tolerant to these doses because of weight loss and/or aging. recommend decrease in dose of gabapentin and/or seroquel. avoid benzodiazepines -they will discuss with her PCP 12/06: Ongoing right sided headache, mild in nature, location is in the area of the ear. No visual changes, aphasia, or associated numbness/weakness/tingling. Patient provided with Toradol and Compazine for management; achieved improvement of symptoms. Also was experiencing abdominal pain at the epigastric region with mild tenderness to palpation. Provided with Maalox and Pepcid for symptomatic management; achieved improvement of symptoms. Lipase 12. (2) Abnormal chest CT: Patient noted to have an indeterminant 3mm left apical pulmonary nodule which was not clearly seen on the CT from 08/15/22 - that CT did reveal suspected right apical scarring as well as a calcified granuloma in the SAMIRA. - Recommend followup chest CT scan in 3-4 months - Patient would qualify for annual LDCT scanning for lung cancer screening - Age 63, 30 pack year history, actively smoking (3) HTN (hypertension): Chronic. Mildly elevated at admission: 147/91 - Continued Amlodipine and Benazepril following negative MRI results Plan CHRONIC MEDICAL CONDITIONS: Anxiety - chronic - Managed on equivalent doses of at home medications to include venlafaxine, trazodone, Seroquel, and bupropion - Again, recommend evaluating current dosages of these medications with PCP as these can be contributing to nighttime symptoms. COPD - patient with mixed obstructed and restrictive findings on spirometry. She has been seen by Pulmonary in the past and participated in some Pulmonary Rehab sessions. - Managed on equivalent doses of at home medications to include Trelegy, albuterol, and DuoNeb - Repeat chest CT scan in 3 to 4 months for left apical nodule (3 mm) Dispo: Medically stable for discharge, discharge today Code: Full All questions answered and patient fully understood. Attending addendum: I have reviewed vital signs, chart notes, labs and imaging. I have personally seen, evaluated and examined the patient. I have also discussed the management of the patient with the MARSHA and I agree with the exam findings documented in the history and physical examination and the documented assessment and plan unless otherwise stated below. Possible TIA versus migraine or toxic encephalopathy related to medications and concurrent DAYA. Multiple CV risk factors so treating as TIA. Replaced aspirin with plavix. Referred for ambulatory engine monitor. Would benefit from reduction in dosing of sedating bedtime medications. I personally provided stroke education and counseled smoking cessation. Sonia Finch MD Notes For Next Care Provider repeat chest CT for pulmoanry nodule 3-4 mo Medication Changes From Visit Discontinue aspirin 81 mg. Start Plavix 75 mg daily. Consider dose adjustments to gabapentin as well as Seroquel. Admission HPI Per Admitting Provider Radha Guido is a 63yo female with history of COPD, DAYA, HTN, HLP and tobacco use presenting with left sided neck pain and an episode of aphasia. Patient reports 12/04/23 evening she felt very weak and unable to walk as well as some palpitations. Her checked her vital signs and she was found to have elevated heart rate in the 120's and low blood pressure. Her symptoms resolved on their own after a few moments and she has not experienced palpitations or rapid heart rate since. Today around 15:00 she developed a severe, sharp and sudden pain on the left side of her neck and shoulder. Her states that she was having some mild confusion, difficulty with ambulation and a difficult time speaking at that time (per ER attending - was gone at the time of my assessment). Patient reports that she has a mild headache at this time and still feels "a li ttle fuzzy" as well as mild dizziness and blurry vision in her eyes. Otherwise no complaints. Patient denies focal numbness, tingling or weakness. She denies chest pain, palpitations, cough, SOB, abdominal pain, nausea, vomiting, diarrhea or constipation. No additional complaints at this time. Patient takes ASA 81mg at home In the ER patient initially presented as a stroke alert. ZZH=425. GSC=15 and NIHSS=0 ER Course: No medications given Admission Exam Per Admitting Provider General: patient resting comfortably, NAD, non-toxic in appearance, AA&O x 4, brief delay in answering questions Skin: warm, dry, intact, no rashes or lesions HEENT: NC/AT, PERRL, EOMI, anicteric sclera, conjunctiva without injection, external ear normal to inspection and nontender, nares patent, moist mucus membranes, dentition intact, no oropharyngeal lesions, neck supple, trachea midline, no LAD, no thyromegaly, no JVD Heart: +S1/S2, regular, no m/r/g Lungs: equal air entry bilaterally, no rales/rhonchi/wheezes Abd: +BS, soft, NT/ND, no masses/organomegaly/ascites Ext: warm, 2+ pulses in UE/LE bilaterally, no clubbing/cyanosis, trace RLE edema Neuro: AA&O, speech slightly delayed but appropriate and clear, CN II-XII grossly intact, sensation to light touch intact, MS 5/5 in UE/LE bilaterally, gait not assessed Discharge Exam General: No acute distress, well developed. Eyes: PERRL, conjunctivae clear, sclera non-icteric; EOM intact Neck: Supple, no LAD; no JVD Cardio: RRR, no M/G/R, S1 and S2 normal Resp: Chest wall symmetric, normal respiratory effort; No respiratory distress, Lungs CTA in all lobes bilaterally, no wheezes, rales, or rhonchi Abdomen: Minimal tenderness to palpation epigastric region: Soft, symmetric; no distention; No masses or hepatosplenomegaly MSK: No deformities, strength equal and symmetric, full ROM throughout; sensati on normal to UE/LE. Pulses palpable and equal Neuro: Awake, alert; Muscle strength 5/5 bilaterally in UE/LE; Sensation intact bilaterally; CN intact Psych: Appropriate mood and affect; good judgement and insight. Discharge Plan Discharge Items Patient Disposition: Home - Self-Care Reason For Visit: APHASIA, HEADACHE Discharge Diagnosis: Aphasia and headache CVA r/o Activity: Resume your previous activity Non-emergency contact: Primary Care Provider Call non-emergency contact if: you have any medication questions, your symptoms worsen, your pain is not controlled, your pain is worsening, your pain is unusual for you and your pain is concerning for you Follow-up/Referrals: Jareth Kimbrough DO [Primary Care Provider] - 12/14/23 1:00 pm Diet: Heart Healthy Addtl Attending Provider Instructions: You were diagnosed and treated for new onset symptoms of difficulty speaking (expressive aphasia) with associated headache. Symptoms were more consistent with a complex migraine compared to a stroke (CVA) or "mini stroke" (TIA). After appropriate workup was completed, headache was managed with pharmacological interventions. Imaging of the head/brain/neck and chest were completed. Results yielded no acute findings suggestive of a stroke or active TIA. However, imaging of the top of your lung lacy was visualized. A 3 mm pulmonary nodule was located at the top left lobe. Recommend repeat chest CT in 3 to 4 months to follow-up. Recommend smoking cessation. Your at home medication regimen included aspirin 81 mg every day. For further vascular protection, discontinue aspirin and start Plavix 75 mg every day. Patient education regarding this new medication was given, including but not limited to safety instructions while on antiplatelet therapy. Continue statin therapy (rosuvastatin) to also contribute to vascular protection. Lipid panel during admission within normal limits. Thorough review of home medications was completed at discharge. Following recommendations are in place and to be discussed with your PCP provider prior to making any dose adjustments: Decrease gabapentin (around 200 mg), decrease total Seroquel dosing. These recommendations were based off patient's symptoms that occurred during nighttime awakenings as well as low blood pressure readings during the night. Please follow-up with PCP in 1 week. Continue to follow closely with PCP. If you notice increased head pain, worsening of symptoms, or any component of the BE FAST acronym, please call your PCP for advice or return to the ED immediately. Balance (trouble standing or walking), Eyes (trouble with vision), Face (facial droop), Arm (weakness/numbness/drifting of arm), Speech (trouble speaking), Time (act fast- go to ED). Addtl Board Attendant Provider Instructions: Risk Factors for Stroke: You can reduce your chances of stroke by working with your medical provider to adopt a healthy lifestyle. Some specific ways to lower your chance of stroke are: * If you are a smoker, now is the time to stop smoking cigarettes * If you are diabetic, improve the control of your blood sugars * Avoid excessive amounts of alcohol * Control high blood pressure * Lose weight if you are overweight * Be sure to lead an active lifestyle * Eat a healthy diet low in salt, cholesterol and fat You should know about other risk factors for stroke that you are unable to control. These include: * Age 55 years or older * Male gender * Certain racial groups: , or / * Family History of Stroke, Mini stroke or Heart Attack * Sickle Cell Disease Follow Up: It is important for you to keep your follow up appointments with your medical provider. Who to Call and When: Medical Emergencies: Call 911 immediately if you experience any of the following warning signs and symptoms of Stroke: * Sudden numbness or weakness of the face, arm or leg, especially on one side of the body * Sudden confusion, trouble speaking or understanding * Sudden trouble seeing in one or both eyes * Sudden trouble walking, dizziness, loss of balance or coordination * Sudden severe headache with no cause Do not delay calling 911 if you experience any warning signs or symptoms of a stroke. Delay in seeking medical attention may affect what treatments can be given to you. Pending Studies at Discharge: No Stand-Alone Forms: My [facility], Smoking Cessation, Medications to Prevent Stroke Medications and DC Order Prescriptions: New clopidogrel 75 mg tablet 75 mg PO DAILY 30 Days Qty: 30 0RF Continued Trelegy Ellipta 200-62.5-25 mcg blister with device 1 inh inhalation DAILY Qty: 180 3RF amlodipine 5 mg tablet 5 mg PO DAILY Qty: 90 3RF ipratropium-albuterol 0.5 mg-3 mg(2.5 mg base)/3 mL solution for nebulization 3 ml inhalation Q4H PRN (Reason: wheezing or shortness of breath) Qty: 180 1RF (DME) pen needle, diabetic [BD Ultra-Fine Micro Pen Needle] 32 gauge x 1/4" needle See Rx Instructions .MEDSUPPLY Qty: 100 3RF Rx Instructions: once daily with Saxenda albuterol sulfate 90 mcg/actuation HFA aerosol inhaler 2 puff INHALATION QID PRN (Reason: Shortness Of Breath Or Wheezing) Qty: 3 3RF rosuvastatin 20 mg tablet 20 mg PO DAILY Qty: 90 3RF metformin 500 mg tablet extended release 24 hr 500 mg PO DAILY Qty: 90 2RF olmesartan 40 mg tablet 40 mg PO DAILY Qty: 90 3RF celecoxib [Celebrex] 200 mg capsule 200 mg PO DAILY PRN (Reason: left knee pain) Qty: 90 1RF Rx Instructions: take once a day until acute flair resolves. venlafaxine 75 mg Capsule,Extended Release 24hr 75 mg PO QAM Rx Instructions: TAKE ONE 75 MG CAPSULE ALONG WITH TWO 150 MG CAPSULES TO EQUAL 375 MG DAILY DOSE trazodone 50 mg Tablet 50 mg PO HS venlafaxine 150 mg Capsule,Extended Release 24hr 300 mg PO QAM Rx Instructions: TAKE TWO 150 MG CAPSULES ALONG WITH ONE 75 MG CAPSULE TO EQUAL 375 MG DAILY DOSE quetiapine 50 mg tablet 25 mg PO DAILY PRN (Reason: Anxiety) gabapentin 300 mg capsule 300 mg PO HS Rx Instructions: per pt she takes one in the morning and 3 in the evening quetiapine 200 mg tablet 200 mg PO HS bupropion HCl 100 mg tablet sustained-release 12 hr 200 mg PO QAM Discontinued Wegovy 0.25 mg/0.5 mL pen injector 0.25 mg subcut Q7D Rx Instructions: Exp 12/22/2023 [id number] Wegovy 0.5 mg/0.5 mL pen injector 0.5 mg subcut Q7D Qty: 6 0RF aspirin 81 mg Tablet,Delayed Release (Dr/Ec) 81 mg PO QAM Discharge Orders: Discharge Order (Routine); Ordered 12/07/23 Ordered By: Gilberto Reagan/Other Patient Handouts: What Is a TIA? Admission Data Admit Date/Time: 12/06/23 19:30 Attending Provider: Sonia Finch Admit Provider: Monalisa Carr Primary Care Provider: Jareth Kimbrough Other Providers: Chuck Juarez Other Interventions: Discharge Summary Assessment (RN) Last Done: 12/07/23 13:33 Hospital Stay Data Consultations 12/06/23 19:05 ED Decision to Admit Stat Diagnostic Imagining Performed 12/06/23 16:37 CT head/brain wo con Stat 12/06/23 16:58 CT angio head w con Stat CT angio neck with con Stat 12/06/23 20:34 MR brain wo/w con Routine Pending Results Patient Have Any Pending Studies at Discharge: Yes Discharge Instructions Given to Patient (Per Discharging Provider) You were diagnosed and treated for new onset symptoms of difficulty speaking (expressive aphasia) with associated headache. Symptoms were more consistent with a complex migraine compared to a stroke (CVA) or "mini stroke" (TIA). After appropriate workup was completed, headache was managed with pharmacological interventions. Imaging of the head/brain/neck and chest were completed. Results yielded no acu te findings suggestive of a stroke or active TIA. However, imaging of the top of your lung lacy was visualized. A 3 mm pulmonary nodule was located at the top left lobe. Recommend repeat chest CT in 3 to 4 months to follow-up. Recommend smoking cessation. Your at home medication regimen included aspirin 81 mg every day. For further vascular protection, discontinue aspirin and start Plavix 75 mg every day. Patient education regarding this new medication was given, including but not limited to safety instructions while on antiplatelet therapy. Continue statin therapy (rosuvastatin) to also contribute to vascular protection. Lipid panel during admission within normal limits. Thorough review of home medications was completed at discharge. Following recommendations are in place and to be discussed with your PCP provider prior to making any dose adjustments: Decrease gabapentin (around 200 mg), decrease total Seroquel dosing. These recommendations were based off patient's symptoms that occurred during nighttime awakenings as well as low blood pressure readings during the night. Please follow-up with PCP in 1 week. Continue to follow closely with PCP. If you notice increased head pain, worsening of symptoms, or any component of the BE FAST acronym, please call your PCP for advice or return to the ED immediately. Balance (trouble standing or walking), Eyes (trouble with vision), Face (facial droop), Arm (weakness/numbness/drifting of arm), Speech (trouble speaking), Time (act fast- go to ED). Total Time Total Time Spent Total Time Spent (In Minutes): 35 minutes Coding [place] [address] INP/OBS DISCH >30 MIN Patient Type Established Medical Decision Making Moderate Complexity Diagnoses Expressive aphasia R47.[address] R93.89 Essential hypertension I10 Hypertension type: essential hypertension Time Spent (min) 35
[2023-12-07] MEDS: STROKE PATIENT DISCHARGE STA (13:56)
[2023-12-07 15:34] VITALS: PULSE 68
--- NOTE | 2023-12-07 15:43 | XCELERA ---
[id number]
[2023-12-07] MEDS ORDERED: QUEtiapine FUMARATE 200 MG TAB PO SCH (21:00)
[2023-12-07] MEDS ORDERED: GABAPENTIN 300 MG CAP PO SCH (21:00)
[2023-12-07] MEDS ORDERED: traZODone HCL 50 MG TAB PO SCH (21:00)
== END 2023-12-07 16:00 | disposition home or self-care (01) ==
LOC: ED 16:30 → 2N 16:30 → SUATTDRO 19:30 → 2N 20:15